=== PATIENT | male | born 1955 | race Hispanic/Latino ===

== ENCOUNTER 2017-01-14 15:13 | Inpatient (IN) | payer MEDICARE, MEDICAID ==
[2017-01-14] MEDS ORDERED: Furosemide 40 MG/4 ML VIAL IVPUSH ONE (15:43)
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
--- NOTE | 2017-01-14 16:17 | CR ---
EXAMINATION: Portable chest radiograph. HISTORY: Shortness of breath. FINDINGS: The trachea is midline. The cardiomediastinal silhouette is within normal limits. No pulmonary infil trates, effusions or pneumothorax. There is a left-sided ICD noted. Osseous structures appear unremarkable. IMPRESSION: No acute cardiopulmonary process.
[2017-01-14] MEDS ORDERED: Sodium Chloride 0.9% 250 ML IV ONE (17:02)
[2017-01-14] MEDS ORDERED: Ondansetron 4 MG Tab.DIS PO PRN (17:32)
[2017-01-14] MEDS ORDERED: Albuterol 0.083% 2.5 MG/3 ML Neb Soln NEB PRN (17:32)
[2017-01-14] MEDS ORDERED: Acetaminophen 325 MG Tab PO PRN (17:32)
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
[2017-01-14] MEDS ORDERED: Potassium Chloride 20 MEQ Tab.ER PO ONE (17:50)
[2017-01-14] MEDS: Furosemide 40 MG/4 ML VIAL IVPUSH SCH ×2 (18:06→20:36)
[2017-01-14] MEDS: Tamsulosin 0.4 MG Cap.ER PO SCH (20:35)
[2017-01-14] MEDS: Gabapentin 300 MG Cap PO SCH (20:35)
[2017-01-14] MEDS: atorvaSTATin 40 MG Tab PO SCH (20:35)
[2017-01-14] MEDS: Ticagrelor [Brilinta] 90 MG PO SCH (20:53)
[2017-01-14] MEDS: SYMBICORT INH SCH (20:54)
[2017-01-14] MEDS: Insulin Glargine,Human Rec. Analog 100 Units/ML 3 ML Pen SUBCUT SCH (20:54)
[2017-01-14] MEDS ORDERED: Carvedilol 3.125 MG Tab PO SCH (21:00)
[2017-01-15] MEDS: Insulin Aspart 100 Units/ML 3 ML Pen SUBCUT SCH ×3 (07:09→16:57)
[2017-01-15] MEDS: Potassium Chloride 20 MEQ Tab.ER PO SCH (09:00)
[2017-01-15] MEDS: Gabapentin 300 MG Cap PO SCH ×2 (09:00→20:07)
[2017-01-15] MEDS ORDERED: Isosorbide Mononitrate 30 MG Tab.ER PO SCH (09:00)
[2017-01-15] MEDS: Aspirin 81 MG Tab.EC PO SCH (09:00)
[2017-01-15] MEDS: Furosemide 40 MG/4 ML VIAL IVPUSH SCH ×2 (09:00→20:07)
[2017-01-15] MEDS ORDERED: Potassium Chloride 20 MEQ Tab.ER PO SCH (09:00)
[2017-01-15] MEDS ORDERED: Lisinopril 10 MG Tab PO SCH (09:00)
[2017-01-15] MEDS: Spironolactone 25 MG Tab PO SCH (09:00)
[2017-01-15] MEDS: Insulin Glargine,Human Rec. Analog 100 Units/ML 3 ML Pen SUBCUT SCH ×2 (09:01→20:16)
[2017-01-15] MEDS: Ticagrelor [Brilinta] 90 MG PO SCH ×2 (09:02→20:18)
--- NOTE | 2017-01-15 09:55 | PCM.PN ---
- General Info Date of Service: 01/15/17 Admission Dx/Problem (Free Text): Admission Diagnosis/Problem Admission Diagnosis/Problem CHF, Congestive heart failure Subjective Update: Patient reports no new acute concerns this morning and states that his breathing is better. He notes that the edema in his legs bilaterally is improved as well. He has no pain in his legs. Patient did have an episode of left-sided chest pain that lasted 2-3 seconds last night. He was given Tylenol for pain relief. Initial troponins done in the ER were negative. No EKG was ordered as his pain resolved on its on and has not returned. Patient denies any headaches, dizziness, chest pain, palpitations, shortness of breath, wheezing, cough, abdominal pain, nausea, vomiting, constipation, diarrhea, fever, dysuria , hematuria, calf tenderness with palpation. Functional Status: Reports: pain controlled, tolerating diet, ambulating - Review of Systems General: Reports: No Symptoms HEENT: Reports: no symptoms Pulmonary: Reports: shortness of breath (Improving) Cardiovascular: Reports: Edema (Bilateral lower extremity edema is improving.) Gastrointestinal: Reports: No symptoms Genitourinary: Reports: no symptoms Musculoskeletal: Reports: no symptoms Skin: Reports: no symptoms Neurological: Reports: No Symptoms Psychiatric: Reports: no symptoms - Patient Data Vitals - most recent: Last Vital Signs Temp 98.2 F 01/15/17 07:57 Pulse 60 01/15/17 07:57 Resp 20 01/15/17 07:57 BP 113/69 01/15/17 07:57 Pulse Ox 98 01/15/17 07:52 Weight - most recent: 289 lb 14.526 oz I&O - last 24 hours: Intake & Output 01/14/17 01/15/17 01/15/17 22:59 06:59 14:59 Intake Total 960 Output Total 1950 Balance -990 Lab Results last 24 hrs: Laboratory Results - last 24 hr 01/14/17 01/15/17 01/15/17 Range/Units 20:45 04:29 04:29 WBC 7.01 (4.0-11.0) K/uL RBC 4.13 L (4.50-5.90) M/uL Hgb 9.0 L (13.0-17.0) g/dL Hct 29.1 L (38.0-50.0) % MCV 70.5 L (80.0-98.0) fL MCH 21.8 L (27.0-32.0) pg MCHC 30.9 L (31.0-37.0) g/dL RDW Std Deviation 52.6 (28.0-62.0) fl RDW Coeff of [place] 21 H (11.0-15.0) % Plt Count 207 (150-400) K/uL MPV 9.00 (7.40-12.00) fL Neut % (Auto) 77.3 (48.0-80.0) % Lymph % (Auto) 11.6 L (16.0-40.0) % [place] % (Auto) 9.0 (0.0-15.0) % Eos % (Auto) 2.0 (0.0-7.0) % Baso % (Auto) 0.1 (0.0-1.5) % Neut # (Auto) 5.4 (1.4-5.7) K/uL Lymph # (Auto) 0.8 (0.6-2.4) K/uL [place] # (Auto) 0.6 (0.0-0.8) K/uL Eos # (Auto) 0.1 (0.0-0.7) K/uL Baso # (Auto) 0.0 (0.0-0.1) K/uL Nucleated RBC % 0.0 /100WBC Nucleated RBCs # 0 K/uL Sodium 139 (136-146) mmol/L Potassium 3.7 (3.5-5.1) mmol/L Chloride 106 (98-110) mmol/L Carbon Dioxide 23 (21-31) mmol/L BUN 22 (6.0-23.0) mg/dL Creatinine 1.4 (0.6-1.5) mg/dL Est Cr Clr Drug Dosing 61.53 mL/min Estimated GFR (MDRD) 51.4 ml/min Glucose 168 H (60-110) mg/dL POC Glucose 160 H (60-110) mg/dL Calcium 8.3 L (8.8-10.8) mg/dL Magnesium 2.0 (1.5-2.3) mEq/L 01/15/17 Range/Units 06:17 WBC (4.0-11.0) K/uL RBC (4.50-5.90) M/uL Hgb (13.0-17.0) g/dL Hct (38.0-50.0) % MCV (80.0-98.0) fL MCH (27.0-32.0) pg MCHC (31.0-37.0) g/dL RDW Std Deviation (28.0-62.0) fl RDW Coeff of [place] (11.0-15.0) % Plt Count (150-400) K/uL MPV (7.40-12.00) fL Neut % (Auto) (48.0-80.0) % Lymph % (Auto) (16.0-40.0) % [place] % (Auto) (0.0-15.0) % Eos % (Auto) (0.0-7.0) % Baso % (Auto) (0.0-1.5) % Neut # (Auto) (1.4-5.7) K/uL Lymph # (Auto) (0.6-2.4) K/uL [place] # (Auto) (0.0-0.8) K/uL Eos # (Auto) (0.0-0.7) K/uL Baso # (Auto) (0.0-0.1) K/uL Nucleated RBC % /100WBC Nucleated RBCs # K/uL Sodium (136-146) mmol/L Potassium (3.5-5.1) mmol/L Chloride (98-110) mmol/L Carbon Dioxide (21-31) mmol/L BUN (6.0-23.0) mg/dL Creatinine (0.6-1.5) mg/dL Est Cr Clr Drug Dosing mL/min Estimated GFR (MDRD) ml/min Glucose (60-110) mg/dL POC Glucose 153 H (60-110) mg/dL Calcium (8.8-10.8) mg/dL Magnesium (1.5-2.3) mEq/L Med Orders - Current: Current Medications Acetaminophen (Tylenol) 650 mg PO Q4H PRN PRN Reason: Pain (Mild 1-3)/fever Last Admin: 01/15/17 02:22 Dose: 650 mg Albuterol (Proventil Neb Soln) 2.5 mg NEB Q2H PRN PRN Reason: Shortness Of Breath/wheezing Aspirin (Halfprin) 81 mg PO DAILY [facility] Last Admin: 01/15/17 09:00 Dose: 81 mg Atorvastatin Calcium (Lipitor) 80 mg PO BEDTIME [facility] Last Admin: 01/14/17 20:35 Dose: 80 mg Furosemide (Lasix) 40 mg IVPUSH BID [facility] Last Admin: 01/15/17 09:00 Dose: 40 mg Gabapentin (Neurontin) 600 mg PO BID [facility] Last Admin: 01/15/17 09:00 Dose: 600 mg Insulin Aspart (Novolog) 0 unit SUBCUT TIDAC [facility] PRN Reason: Protocol Last Admin: 01/15/17 07:09 Dose: 2 units Insulin Glargine (Lantus Solostar) 40 units SUBCUT BID [facility] Last Admin: 01/15/17 09:01 Dose: 40 units Ondansetron HCl (Zofran Odt) 4 mg PO Q4H PRN PRN Reason: nausea, able to take PO Symbicort 160-4.5mcg (Budesonide/Formoterol) 1 each INH BID [facility] Last Admin: 01/14/17 20:54 Dose: 1 each Ticagrelor [Brilinta (] 90 Mg) 1 each PO BID [facility] Last Admin: 01/15/17 09:02 Dose: 1 each Potassium Chloride (Klor-Con M20) 20 meq PO DAILY [facility] Last Admin: 01/15/17 09:00 Dose: 20 meq Spironolactone (Aldactone) 25 mg PO DAILY [facility] Last Admin: 01/15/17 09:00 Dose: 25 mg Tamsulosin HCl (Flomax) 0.4 mg PO BEDTIME [facility] Last Admin: 01/14/17 20:35 Dose: 0.4 mg Discontinued Medications Carvedilol (Coreg) 6.25 mg PO BID [facility] Furosemide (Lasix) 40 mg IVPUSH NOW ONE Stop: 01/14/17 15:44 Last Admin: 01/14/17 16:12 Dose: 40 mg Isosorbide Mononitrate (Imdur) 30 mg PO DAILY [facility] Lisinopril (Prinivil) mg PO DAILY [facility] Potassium Chloride (Klor-Con M20) 40 meq PO ONETIME ONE Stop: 01/14/17 17:51 Last Admin: 01/14/17 18:05 Dose: 40 meq Potassium Chloride (Klor-Con M20) 20 meq PO DAILY [facility] - Exam Quality Assessment: supplemental oxygen (2 L nasal cannula at night while sleeping. Does not require oxygen during the day.), DVT prophylaxis (Sequential compression devices.) General: alert, oriented, cooperative, no acute distress Neck: supple Lungs: Clear to auscultation, Normal respiratory effort Cardiovascular: Regular Rate, Regular Rhythm Abdomen: bowel sounds present, soft, no tenderness, no distension Extremities: no calf tenderness, edema (+2 pitting edema in the lower extremities bilaterally.) Peripheral Pulses: 2+: radial (L), radial (R) Skin: warm, dry, intact Neurological: no new focal deficit Psy/Mental Status: alert, normal affect, normal mood - Problem List & Annotations (1) CHF exacerbation SNOMED Code(s): 24080769 Code(s): I50.9 - HEART FAILURE, UNSPECIFIED Status: Acute Current Visit: Yes (2) Elevated alkaline phosphatase level Status: Acute Current Visit: Yes - Problem List Review Problem List Initiated/Reviewed/Updated: Yes - My Orders Last 24 Hours: My Active Orders 01/14/17 17:32 Patient Status [ADT] Routine Blood Glucose Check, Bedside [RC] TIDMEALS Height and Weight [RC] DAILY Oxygen Therapy [RC] PRN Up With Assistance [RC] ASDIRECTED VTE/DVT Education [RC] PER UNIT ROUTINE Vital Signs [RC] Q4H PT Evaluation and Treatment [CONS] Routine Acetaminophen [Tylenol] 650 mg PO Q4H PRN Albuterol [Proventil Neb Soln] 2.5 mg NEB Q2H PRN Ondansetron [Zofran ODT] 4 mg PO Q4H PRN Resuscitation Status Routine 01/14/17 17:34 Intake and Output [RC] QSHIFT Notify Provider Vital Signs [RC] ASDIRECTED Pulse Oximetry [RC] PRN 01/14/17 17:35 Sequential Compression Device [OM.PC] Per Unit Routine 01/14/17 17:37 Antiembolic Devices [RC] PER UNIT ROUTINE RT Aerosol Therapy [RC] ASDIRECTED 01/14/17 17:45 Furosemide [Lasix] 40 mg IVPUSH BID 01/14/17 21:00 Gabapentin [Neurontin] 600 mg PO BID Insulin Glarg,Human.Rec.Analog [LantUS Solostar] 40 units SUBCUT BID Patient's Own Medication [Ptom] 1 each INH BID Patient's Own Medication [Ptom] 1 each PO BID Tamsulosin [Flomax] 0.4 mg PO BEDTIME atorvaSTATin [Lipitor] 80 mg PO BEDTIME 01/15/17 07:03 Echo Comp wo Cont [US] Routine 01/15/17 07:30 Insulin Aspart [NovoLOG] See Protocol SUBCUT TIDAC 01/15/17 08:10 Abdomen Ltd [US] Routine 01/15/17 09:00 Aspirin [Halfprin] 81 mg PO DAILY Potassium Chloride [Klor-Con M20] 20 meq PO DAILY Spironolactone [Aldactone] 25 mg PO DAILY 01/16/17 05:11 BASIC METABOLIC PANEL,BMP [CHEM] AM CBC WITH AUTO DIFF [HEME] AM MAGNESIUM [CHEM] AM 01/17/17 05:11 BASIC METABOLIC PANEL,BMP [CHEM] AM CBC WITH AUTO DIFF [HEME] AM MAGNESIUM [CHEM] AM - Plan Plan:: 61-year-old male admitted with a CHF exacerbation. #1. CHF exacerbation: -Continue with Lasix 40 mg IV twice a day. -Patient received echo this morning. Results pending. -Electrolytes and kidney function are within normal limits. Daily BMP to follow electrolytes and kidney function. -BNP on admission was 1214. #2. Elevated ALP: -ALP is 267. Total bilirubin is also elevated. AST and ALT are within normal limits. I reviewed blood work from previous admissions and ALP has always been within normal limits. Patient is not having any right upper quadrant pain. -Right upper quadrant ultrasound ordered. Results pending. Disposition: 1-2 days pending improvement.
[2017-01-15] MEDS: SYMBICORT INH SCH ×2 (10:37→21:08)
--- NOTE | 2017-01-15 16:34 | US ---
EXAMINATION: Right upper quadrant ultrasound HISTORY: Elevated ALP COMPARISON: None TECHNIQUE: Grayscale and color Doppler images obtained of the right upper quadrant FINDINGS: The liver has normal to slightly increased in generalized echotexture. No focal hepatic ma ss. The gallbladder wall appears mildly thickened at 3 to 4 mm. There is possibly a trace pericholec ystic fluid. No shadowing gallstones noted. The common bile duct measures 3 mm. The right kidney fior sures 10.7 cm [id number] without evidence of hydronephrosis. IMPRESSION: 1. Mild gallbladder wall thickening without cholelithiasis. Negative Garibay's sign. 2. Trace fatty infiltration of the liver.
[2017-01-15] MEDS: Tamsulosin 0.4 MG Cap.ER PO SCH (20:07)
[2017-01-15] MEDS: atorvaSTATin 40 MG Tab PO SCH (20:07)
[2017-01-16] MEDS: Insulin Aspart 100 Units/ML 3 ML Pen SUBCUT SCH ×2 (07:15→12:56)
[2017-01-16] MEDS: Aspirin 81 MG Tab.EC PO SCH (08:30)
[2017-01-16] MEDS: Potassium Chloride 20 MEQ Tab.ER PO SCH (08:30)
[2017-01-16] MEDS: Ticagrelor [Brilinta] 90 MG PO SCH (08:30)
[2017-01-16] MEDS: Gabapentin 300 MG Cap PO SCH (08:30)
[2017-01-16] MEDS: Furosemide 40 MG/4 ML VIAL IVPUSH SCH (08:30)
[2017-01-16] MEDS: Spironolactone 25 MG Tab PO SCH (08:30)
[2017-01-16] MEDS: Insulin Glargine,Human Rec. Analog 100 Units/ML 3 ML Pen SUBCUT SCH (08:31)
[2017-01-16] MEDS: SYMBICORT INH SCH (09:04)
[2017-01-16 11:50] VITALS: BP 121/76
--- NOTE | 2017-01-16 14:38 | PCM.DCSUM1 ---
Discharge Summary - Hospital Course Brief History: Was admitted from the emergency department for a clinical worsening of congestive heart failure. - Discharge Data Discharge Date: 01/16/17 Discharge Disposition: Home, Self-Care 01 Condition: Good - Patient Summary/Data Consults: Consultations 01/14/17 17:32 PT Evaluation and Treatment [CONS] Routine Hospital Course: He was treated with extra doses of loop diuretics (Lasix ). He improved clinically. Because he had an elevated alkaline phosphatase a right upper quadrant ultrasound was performed this showed a trace of gallbladder wall thickening without cholelithiasis. He had trace fatty liver noted on ultrasound also. Echocardiogram showed LVEF of 20-25%. Also noted was akinesis of the septal apical and apical septal left ventricular zavala. The remaining wall segments are severely hypokinetic. Severely dilated left atrium. Right ventricular systolic pressure moderately elevated at 44.2 mm mercury. His blood sugars were monitored. Sliding scale insulin was given. diagnosis: Exacerbation of congestive heart failure followup with Dr. Silva on January 21. Followup with his correctional nurse within the next week or 2. Copies of chart to go to his correctional nurse . He is being sent home on his prior medications. No new prescriptions written for him. Leon Gonzalez - Discharge Plan Home Medications: Home Meds Aspirin [Halfprin] 81 mg PO DAILY 09/29/15 [History] Insulin Aspart [NovoLOG] 0 units SUBCUT ASDIRECTED 09/29/15 [History] Insulin Glarg,Human.Rec.Analog [Lantus] 40 unit SUBCUT BID 09/29/15 [History] Tamsulosin [Flomax] 0.4 mg PO BEDTIME 09/29/15 [History] Ticagrelor [Brilinta] 90 mg PO BID 09/29/15 [History] Gabapentin [Neurontin] 600 mg PO BID 01/02/16 [History] atorvaSTATin Calcium [Atorvastatin Calcium] 80 mg PO BEDTIME 01/02/16 [History] Furosemide 40 mg PO QPM 01/14/17 [History] Furosemide 80 mg PO QAM 01/14/17 [History] Spironolactone [Aldactone] 25 mg PO DAILY 01/14/17 [History] cloNIDine [Catapres] 0.1 mg PO TID PRN 01/14/17 [History] Patient Handouts: Heart Failure, [id number] Forms: ED Department Discharge Referrals: PCP,None [Primary Care Provider] - - General Info Date of Service: 01/16/17 - Patient Data Vitals - Most Recent: Last Vital Signs Temp 97.9 F 01/16/17 11:49 Pulse 66 01/16/17 11:49 Resp 20 01/16/17 11:49 BP 121/76 01/16/17 11:49 Pulse Ox 98 01/16/17 11:49 Weight - Most Recent: 131.5 kg I&O - Last 24 hours: Intake & Output 01/15/17 01/16/17 01/16/17 22:59 06:59 14:59 Intake Total 1100 1420 Output Total 1350 1950 Balance -250 -530 Lab Results - Last 24 hrs: Laboratory Results - last 24 hr 01/15/17 01/15/17 01/16/17 Range/Units 16:39 20:13 05:35 WBC 6.76 (4.0-11.0) K/uL RBC 4.33 L (4.50-5.90) M/uL Hgb 9.0 L (13.0-17.0) g/dL Hct 30.7 L (38.0-50.0) % MCV 70.9 L (80.0-98.0) fL MCH 20.8 L (27.0-32.0) pg MCHC 29.3 L (31.0-37.0) g/dL RDW Std Deviation 52.9 (28.0-62.0) fl RDW Coeff of [place] 20 H (11.0-15.0) % Plt Count 188 (150-400) K/uL MPV 8.90 (7.40-12.00) fL Neut % (Auto) 78.5 (48.0-80.0) % Lymph % (Auto) 9.6 L (16.0-40.0) % [place] % (Auto) 9.2 (0.0-15.0) % Eos % (Auto) 2.4 (0.0-7.0) % Baso % (Auto) 0.3 (0.0-1.5) % Neut # (Auto) 5.3 (1.4-5.7) K/uL Lymph # (Auto) 0.7 (0.6-2.4) K/uL [place] # (Auto) 0.6 (0.0-0.8) K/uL Eos # (Auto) 0.2 (0.0-0.7) K/uL Baso # (Auto) 0.0 (0.0-0.1) K/uL Nucleated RBC % 0.0 /100WBC Nucleated RBCs # 0 K/uL Sodium (136-146) mmol/L Potassium (3.5-5.1) mmol/L Chloride (98-110) mmol/L Carbon Dioxide (21-31) mmol/L BUN (6.0-23.0) mg/dL Creatinine (0.6-1.5) mg/dL Est Cr Clr Drug Dosing mL/min Estimated GFR (MDRD) ml/min Glucose (60-110) mg/dL POC Glucose 153 H 229 H (60-110) mg/dL Calcium (8.8-10.8) mg/dL Magnesium (1.5-2.3) mEq/L 01/16/17 01/16/17 Range/Units 05:35 06:40 WBC (4.0-11.0) K/uL RBC (4.50-5.90) M/uL Hgb (13.0-17.0) g/dL Hct (38.0-50.0) % MCV (80.0-98.0) fL MCH (27.0-32.0) pg MCHC (31.0-37.0) g/dL RDW Std Deviation (28.0-62.0) fl RDW Coeff of [place] (11.0-15.0) % Plt Count (150-400) K/uL MPV (7.40-12.00) fL Neut % (Auto) (48.0-80.0) % Lymph % (Auto) (16.0-40.0) % [place] % (Auto) (0.0-15.0) % Eos % (Auto) (0.0-7.0) % Baso % (Auto) (0.0-1.5) % Neut # (Auto) (1.4-5.7) K/uL Lymph # (Auto) (0.6-2.4) K/uL [place] # (Auto) (0.0-0.8) K/uL Eos # (Auto) (0.0-0.7) K/uL Baso # (Auto) (0.0-0.1) K/uL Nucleated RBC % /100WBC Nucleated RBCs # K/uL Sodium 138 (136-146) mmol/L Potassium 3.9 (3.5-5.1) mmol/L Chloride 106 (98-110) mmol/L Carbon Dioxide 23 (21-31) mmol/L BUN 21 (6.0-23.0) mg/dL Creatinine 1.3 (0.6-1.5) mg/dL Est Cr Clr Drug Dosing 66.27 mL/min Estimated GFR (MDRD) 55.9 ml/min Glucose 239 H (60-110) mg/dL POC Glucose 216 H (60-110) mg/dL Calcium 8.4 L (8.8-10.8) mg/dL Magnesium 1.8 (1.5-2.3) mEq/L Med Orders - Current: Current Medications Acetaminophen (Tylenol) 650 mg PO Q4H PRN PRN Reason: Pain (Mild 1-3)/fever Last Admin: 01/15/17 02:22 Dose: 650 mg Albuterol (Proventil Neb Soln) 2.5 mg NEB Q2H PRN PRN Reason: Shortness Of Breath/wheezing Aspirin (Halfprin) 81 mg PO DAILY [facility] Last Admin: 01/16/17 08:30 Dose: 81 mg Atorvastatin Calcium (Lipitor) 80 mg PO BEDTIME [facility] Last Admin: 01/15/17 20:07 Dose: 80 mg Furosemide (Lasix) 40 mg IVPUSH BID [facility] Last Admin: 01/16/17 08:30 Dose: 40 mg Gabapentin (Neurontin) 600 mg PO BID [facility] Last Admin: 01/16/17 08:30 Dose: 600 mg Insulin Aspart (Novolog) 0 unit SUBCUT TIDAC [facility] PRN Reason: Protocol Last Admin: 01/16/17 12:56 Dose: 2 units Insulin Glargine (Lantus Solostar) 40 units SUBCUT BID [facility] Last Admin: 01/16/17 08:31 Dose: 40 units Ondansetron HCl (Zofran Odt) 4 mg PO Q4H PRN PRN Reason: nausea, able to take PO Symbicort 160-4.5mcg (Budesonide/Formoterol) 1 each INH BID [facility] Last Admin: 01/16/17 09:04 Dose: 1 each Ticagrelor [Brilinta (] 90 Mg) 1 each PO BID [facility] Last Admin: 01/16/17 08:30 Dose: 1 each Potassium Chloride (Klor-Con M20) 20 meq PO DAILY [facility] Last Admin: 01/16/17 08:30 Dose: 20 meq Spironolactone (Aldactone) 25 mg PO DAILY [facility] Last Admin: 01/16/17 08:30 Dose: 25 mg Tamsulosin HCl (Flomax) 0.4 mg PO BEDTIME [facility] Last Admin: 01/15/17 20:07 Dose: 0.4 mg Discontinued Medications Carvedilol (Coreg) 6.25 mg PO BID [facility] Furosemide (Lasix) 40 mg IVPUSH NOW ONE Stop: 01/14/17 15:44 Last Admin: 01/14/17 16:12 Dose: 40 mg Isosorbide Mononitrate (Imdur) 30 mg PO DAILY [facility] Lisinopril (Prinivil) mg PO DAILY [facility] Potassium Chloride (Klor-Con M20) 40 meq PO ONETIME ONE Stop: 01/14/17 17:51 Last Admin: 01/14/17 18:05 Dose: 40 meq Potassium Chloride (Klor-Con M20) 20 meq PO DAILY [facility] *Q Meaningful Use (DIS) - VTE *Q VTE Criteria *Q: - Stroke *Q Stroke Criteria *Q: - AMI *Q AMI Criteria *Q:
--- NOTE | 2017-01-18 11:46 | ECHO ---
EXAM DATE: 01/14/17 The echocardiogram report can be seen in this patient's EMR (Electronic Medical Record) in the Reports section. [email or web address]
== END 2017-01-16 15:30 | disposition home or self-care (01) | DRG 293 ==
LOC: MW.ED 15:13 → MW.MS 16:57
PROVIDERS: ADMIT Family Medicine; ATTEND Family Medicine
DX: I50.9 Heart failure, unspecified (principal); R74.8 Abnormal levels of other serum enzymes; I25.2 Old myocardial infarction; I25.10 Atherosclerotic heart disease of native coronary artery without angina pectoris; E78.5 Hyperlipidemia, unspecified; I10 Essential (primary) hypertension; E11.9 Type 2 diabetes mellitus without complications; J44.9 Chronic obstructive pulmonary disease, unspecified; Z79.82 Long term (current) use of aspirin; Z79.4 Long term (current) use of insulin; Z79.899 Other long term (current) drug therapy; Z95.5 Presence of coronary angioplasty implant and graft; Z95.0 Presence of cardiac pacemaker; Z87.891 Personal history of nicotine dependence
CPT/HCPCS: 36415; 71010; 80053; 83880; 84484; 85025; 85610; 93005; 96374; 99285; J1940; 76705; 76705-26; 80048; 82962; 83735; 93306; 94640; A9270-GY; J1815-GY

== ENCOUNTER → 2017-01-19 | Outpatient (CLI) | payer OTHER, MEDICAID, MEDICARE | END | disposition home or self-care (01) | LOC: MW.CHRC 16:24 | PROVIDERS: ATTEND Family Medicine | DX: E11.29 Type 2 diabetes mellitus with other diabetic kidney complication (principal); R80.9 Proteinuria, unspecified; R74.8 Abnormal levels of other serum enzymes | CPT/HCPCS: 36415; 80053; 80061; 82044; 83036; 85025 ==

== ENCOUNTER → 2017-01-20 | Outpatient (CLI) | payer MEDICAID, OTHER | LOC: MW.CHRC 15:39 | PROVIDERS: ATTEND Family Medicine | DX: D50.9 Iron deficiency anemia, unspecified (principal) | CPT/HCPCS: 36415; 82728; 83550 ==

== ENCOUNTER → 2017-02-12 | Outpatient (CLI) | payer MEDICAID, OTHER ==
--- NOTE | 2017-02-12 13:42 | NM ---
EXAMINATION: Nuclear medicine hepatobiliary study (HIDA) with cholecystokinin (calculation of gallbl adder ejection fraction for function). HISTORY: Elevated liver enzymes. PROCEDURE: Following intravenous administration of 3.6 mCi of technetium 99m Choletec, dynamic images were ob tained up to one-hour post injection. This is followed by slow intravenous administration of 2.5 mcg of CCK and additional dynamic images were obtained. Gallbladder ejection fraction is calculated. FINDINGS: The initial dynamic images demonstrates clearance of the tracer from the blood pool with the prompt tracer uptake by the liver. By 20 minutes tracer activity is noted in the gallbladder. The post CCK images demonstrates optimal contraction of the gallbladder with ejection fraction of 86 percent (nor mal is equal or more than 35%). Tracer activity is noted in the small intestine following CCK admini stration. IMPRESSION: 1. Patent cystic and common bile ducts. Normal liver function. 2. Normal gallbladder ejection fraction following CCK administration ( 86 %; normal equal or more t rayo 35%).
== END ==
LOC: MW.NM 09:31
PROVIDERS: ATTEND Family Medicine
DX: R74.8 Abnormal levels of other serum enzymes (principal)
CPT/HCPCS: 78227; A9537; J2805

== ENCOUNTER 2017-07-11 14:09 | Inpatient (IN) | payer MEDICARE, OTHER, MEDICAID ==
[2017-07-11] MEDS ORDERED: LORazepam 2 MG/ML MDV IVPUSH ONE (14:12)
[2017-07-11] MEDS ORDERED: Sodium Chloride 0.9% 1,000 ML IV ONE (14:13)
--- NOTE | 2017-07-11 14:14 | EDM.PDOC ---
ED HPI GENERAL MEDICAL PROBLEM - General Stated Complaint: SHAKING;SLURRED SPEECH;DISORENTATIED Time Seen by Provider: 07/11/17 14:14 Source of Information: Reports: Patient - History of Present Illness INITIAL COMMENTS - FREE TEXT/NARRATIVE: HISTORY AND PHYSICAL: History of present illness: []Patient presents by private vehicle Has a history of [place] and stroke multiple stents placed, who presents with somewhat altered mental status/confusion and upper extremity tremor/shaking.. His daughter states that he was normal at breakfast which was 6:30 AM this morning between 8 and 10 he developed some nausea and headache and went to his bedroom, around noon his granddaughter went to check on him and found him in this somewhat altered state, slow to repond, slurred speach. he is AOx3 and is able to assist in transferring himself from a wheelchair to the bed. His daughter relates he has had symptoms like this in the past prior to his stroke, and he does have some anxiety in which he can get these symptoms as well , lorazepam generally helps with these symptoms. No fever vomiting chills sweats chest pain short of breath dizziness or palpitations no bowel or urine symptoms Review of systems: As per history of present illness and below otherwise all systems reviewed and negative. Past medical history: As per history of present illness and as reviewed below otherwise noncontributory. Surgical history: As per history of present illness and as reviewed below otherwise noncontributory. Social history: No reported history of drug or alcohol abuse. Family history: As per history of present illness and as reviewed below otherwise noncontributory. Physical exam: HEENT: Atraumatic, normocephalic, pupils reactive, negative for conjunctival pallor or scleral icterus, mucous membranes moist, throat clear, neck supple, nontender, trachea midline. Lungs: Clear to auscultation, breath sounds equal bilaterally, chest nontender. Heart: S1S2, regular, negative for clicks, rubs, or JVD. Abdomen: Soft, nondistended, nontender. Negative for masses or hepatosplenomegaly. Negative for costovertebral tenderness. Pelvis: Stable nontender. Genitourinary: Deferred. Rectal: Deferred. Extremities: Atraumatic, negative for cords or calf pain. Neurovascular unremarkable. Neuro: Awake, alert, oriented. Cranial nerves II through XII unremarkable. Cerebellum unremarkable. Motor and sensory unremarkable throughout. Exam nonfocal. Diagnostics: Accu-Chek 371 []Lab as below EKG Chest [address] no contrast-verbal report via radiology no acute disease ABG Therapeutics: []1 L normal saline bolus Ativan 1 mg IV Regular insulin 10 units IV Impression: []Confusion/altered mental status Upper extremity tremor/shaking improved with Ativan He does have a history of transient adjustment disorder with anxiety. Chronic history of baseline Definitive disposition and diagnosis as appropriate pending reevaluation and review of above. - Related Data Allergies Allergy/AdvReac Type Severity Reaction Status Date / Time No Known Allergies Allergy Verified 04/23/16 14:37 Home Meds: Home Meds Aspirin [Halfprin] 81 mg PO DAILY 09/29/15 [History] Insulin Aspart [NovoLOG] 0 units SUBCUT ASDIRECTED 09/29/15 [History] Insulin Glarg,Human.Rec.Analog [Lantus] 40 unit SUBCUT BID 09/29/15 [History] Tamsulosin [Flomax] 0.4 mg PO BEDTIME 09/29/15 [History] Ticagrelor [Brilinta] 90 mg PO BID 09/29/15 [History] Gabapentin [Neurontin] 600 mg PO BID 01/02/16 [History] atorvaSTATin Calcium [Atorvastatin Calcium] 80 mg PO BEDTIME 01/02/16 [History] Furosemide 40 mg PO QPM 01/14/17 [History] Furosemide 80 mg PO QAM 01/14/17 [History] Spironolactone [Aldactone] 25 mg PO DAILY 01/14/17 [History] cloNIDine [Catapres] 0.1 mg PO TID PRN 01/14/17 [History] Past Medical History HEENT History: Reports: None Cardiovascular History: Reports: None, Heart Failure, Hypertension, Pacemaker Respiratory History: Reports: None, COPD Other Respiratory History: CPAP Gastrointestinal History: Reports: None Genitourinary History: Reports: None, BPH Musculoskeletal History: Reports: None Neurological History: Reports: None, Other (See Below) Other Neuro History: stroke Psychiatric History: Reports: None Endocrine/Metabolic History: Reports: None, Diabetes, Type II Hematologic History: Reports: None Immunologic History: Reports: None Oncologic (Cancer) History: Reports: None Dermatologic History: Reports: None - Infectious Disease History Infectious Disease History: Reports: None - Past Surgical History GI Surgical History: Reports: Other (See Below) Social & Family History - Family History Family Medical History: Noncontributory HEENT: Reports: None Cardiac: Reports: None Respiratory: Reports: None GI: Reports: None : Reports: None OBGYN: Reports: None Musculoskeletal: Reports: None Neurological: Reports: None Endocrine/Metabolic: Reports: Diabetes, type II Oncologic: Reports: Colon - Tobacco Use Smoking Status *Q: Former Smoker Years of Tobacco use: 18 Packs/Tins Daily: 1 Used Tobacco, but Quit: Yes Month Tobacco Last Used: 20 yrs ago Second Hand Smoke Exposure: Yes - Caffeine Use Caffeine Use: Reports: Coffee - Recreational Drug Use Recreational Drug Use: No ED ROS GENERAL - Review of Systems Review Of Systems: ROS reveals no pertinent complaints other than HPI. ED EXAM, GENERAL - Physical Exam Exam: See Below Course - Vital Signs Last Recorded V/S: Last Vital Signs Temp 36.1 C 07/11/17 14:17 Pulse 64 07/11/17 15:12 Resp 22 H 07/11/17 14:42 BP 119/82 07/11/17 15:12 Pulse Ox 99 07/11/17 14:57 - Orders/Labs/Meds Orders: Active Orders 24 hr Category Date Time Status EKG Documentation Completion [RC] STAT Care 07/11/17 14:13 Active Abdomen Pelvis w Cont [CT] Stat Exams 07/11/17 14:31 Stop Req Chest 1V Frontal [CR] Stat Exams 07/11/17 14:13 Taken Head wo Cont [CT] Stat Exams 07/11/17 14:13 Taken AMMONIA VENOUS [CHEM] Stat Lab 07/11/17 15:04 Received CKMB [CHEM] Stat Lab 07/11/17 15:01 Ordered CREATINE KINASE,CK [CHEM] Stat Lab 07/11/17 15:01 Ordered CULTURE BLOOD [BC] Stat Lab 07/11/17 15:04 Received CULTURE BLOOD [BC] Stat Lab 07/11/17 15:12 Received UA W/MICROSCOPIC [URIN] Stat Lab 07/11/17 14:13 Ordered Blood Culture x2 Reflex Set [OM.PC] Stat Oth 07/11/17 14:51 Ordered Labs: Laboratory Tests 07/11/17 07/11/17 07/11/17 Range/Units 14:13 14:30 14:30 WBC 6.66 (4.0-11.0) K/uL RBC 5.46 (4.50-5.90) M/uL Hgb 14.8 (13.0-17.0) g/dL Hct 43.9 (38.0-50.0) % MCV 80.4 (80.0-98.0) fL MCH 27.1 (27.0-32.0) pg MCHC 33.7 (31.0-37.0) g/dL RDW Std Deviation 48.4 (28.0-62.0) fl RDW Coeff of [place] 17 H (11.0-15.0) % Plt Count 141 L (150-400) K/uL MPV 9.50 (7.40-12.00) fL Neut % (Auto) 75.6 (48.0-80.0) % Lymph % (Auto) 14.1 L (16.0-40.0) % [place] % (Auto) 7.8 (0.0-15.0) % Eos % (Auto) 2.3 (0.0-7.0) % Baso % (Auto) 0.2 (0.0-1.5) % Neut # (Auto) 5.0 (1.4-5.7) K/uL Lymph # (Auto) 0.9 (0.6-2.4) K/uL [place] # (Auto) 0.5 (0.0-0.8) K/uL Eos # (Auto) 0.2 (0.0-0.7) K/uL Baso # (Auto) 0.0 (0.0-0.1) K/uL Nucleated RBC % 0.0 /100WBC Nucleated RBCs # 0 K/uL INR (0.86-1.11) ABG pH (7.35-7.45) ABG pCO2 (35-45) mmHG ABG pO2 (75-100) mmHG ABG HCO3 (22-26) mEq/L ABG Total CO2 ABG Base Excess (-2.0-2.0) Lactate (0.20-2.00) mmol/L Sodium 134 L (136-146) mmol/L Potassium 4.0 (3.5-5.1) mmol/L Chloride 100 (98-110) mmol/L Carbon Dioxide 22 (21-31) mmol/L BUN 35 H (6.0-23.0) mg/dL Creatinine 1.6 H (0.6-1.5) mg/dL Est Cr Clr Drug Dosing 54.10 mL/min Estimated GFR (MDRD) 44.0 ml/min Glucose 354 H (60-110) mg/dL Calcium 9.1 (8.8-10.8) mg/dL Total Bilirubin 1.4 (0.1-1.5) mg/dL AST 23 (5-40) IU/L ALT 37 (8-54) IU/L Alkaline Phosphatase 289 H (40-150) Troponin I (0.0-0.29) NG/ML B-Natriuretic Peptide (<100) PG/ML Total Protein 8.1 H (6.0-8.0) g/dL Albumin 3.7 (3.4-4.8) g/dL Globulin 4.4 H (2.0-3.5) g/dL Albumin/Globulin Ratio 0.8 L (1.3-2.8) Urine Opiates Screen NEGATIVE (NEGATIVE) Ur Oxycodone Screen NEGATIVE (NEGATIVE) Urine Methadone Screen NEGATIVE (NEGATIVE) Ur Barbiturates Screen NEGATIVE (NEGATIVE) Ur Phencyclidine Scrn NEGATIVE (NEGATIVE) Ur Amphetamine Screen NEGATIVE (NEGATIVE) U Methamphetamines Scrn NEGATIVE (NEGATIVE) U Benzodiazepines Scrn NEGATIVE (NEGATIVE) U Cocaine Metab Screen NEGATIVE (NEGATIVE) U Marijuana (THC) Screen NEGATIVE (NEGATIVE) Ethyl Alcohol < 10.0 mg/dL 07/11/17 07/11/17 07/11/17 Range/Units 14:30 14:30 14:30 WBC (4.0-11.0) K/uL RBC (4.50-5.90) M/uL Hgb (13.0-17.0) g/dL Hct (38.0-50.0) % MCV (80.0-98.0) fL MCH (27.0-32.0) pg MCHC (31.0-37.0) g/dL RDW Std Deviation (28.0-62.0) fl RDW Coeff of [place] (11.0-15.0) % Plt Count (150-400) K/uL MPV (7.40-12.00) fL Neut % (Auto) (48.0-80.0) % Lymph % (Auto) (16.0-40.0) % [place] % (Auto) (0.0-15.0) % Eos % (Auto) (0.0-7.0) % Baso % (Auto) (0.0-1.5) % Neut # (Auto) (1.4-5.7) K/uL Lymph # (Auto) (0.6-2.4) K/uL [place] # (Auto) (0.0-0.8) K/uL Eos # (Auto) (0.0-0.7) K/uL Baso # (Auto) (0.0-0.1) K/uL Nucleated RBC % /100WBC Nucleated RBCs # K/uL INR 1.04 (0.86-1.11) ABG pH (7.35-7.45) ABG pCO2 (35-45) mmHG ABG pO2 (75-100) mmHG ABG HCO3 (22-26) mEq/L ABG Total CO2 ABG Base Excess (-2.0-2.0) Lactate (0.20-2.00) mmol/L Sodium (136-146) mmol/L Potassium (3.5-5.1) mmol/L Chloride (98-110) mmol/L Carbon Dioxide (21-31) mmol/L BUN (6.0-23.0) mg/dL Creatinine (0.6-1.5) mg/dL Est Cr Clr Drug Dosing mL/min Estimated GFR (MDRD) ml/min Glucose (60-110) mg/dL Calcium (8.8-10.8) mg/dL Total Bilirubin (0.1-1.5) mg/dL AST (5-40) IU/L ALT (8-54) IU/L Alkaline Phosphatase (40-150) Troponin I < 0.10 (0.0-0.29) NG/ML B-Natriuretic Peptide 564 H (<100) PG/ML Total Protein (6.0-8.0) g/dL Albumin (3.4-4.8) g/dL Globulin (2.0-3.5) g/dL Albumin/Globulin Ratio (1.3-2.8) Urine Opiates Screen (NEGATIVE) Ur Oxycodone Screen (NEGATIVE) Urine Methadone Screen (NEGATIVE) Ur Barbiturates Screen (NEGATIVE) Ur Phencyclidine Scrn (NEGATIVE) Ur Amphetamine Screen (NEGATIVE) U Methamphetamines Scrn (NEGATIVE) U Benzodiazepines Scrn (NEGATIVE) U Cocaine Metab Screen (NEGATIVE) U Marijuana (THC) Screen (NEGATIVE) Ethyl Alcohol mg/dL 07/11/17 07/11/17 Range/Units 15:00 15:04 WBC (4.0-11.0) K/uL RBC (4.50-5.90) M/uL Hgb (13.0-17.0) g/dL Hct (38.0-50.0) % MCV (80.0-98.0) fL MCH (27.0-32.0) pg MCHC (31.0-37.0) g/dL RDW Std Deviation (28.0-62.0) fl RDW Coeff of [place] (11.0-15.0) % Plt Count (150-400) K/uL MPV (7.40-12.00) fL Neut % (Auto) (48.0-80.0) % Lymph % (Auto) (16.0-40.0) % [place] % (Auto) (0.0-15.0) % Eos % (Auto) (0.0-7.0) % Baso % (Auto) (0.0-1.5) % Neut # (Auto) (1.4-5.7) K/uL Lymph # (Auto) (0.6-2.4) K/uL [place] # (Auto) (0.0-0.8) K/uL Eos # (Auto) (0.0-0.7) K/uL Baso # (Auto) (0.0-0.1) K/uL Nucleated RBC % /100WBC Nucleated RBCs # K/uL INR (0.86-1.11) ABG pH 7.450 (7.35-7.45) ABG pCO2 37 (35-45) mmHG ABG pO2 114 H (75-100) mmHG ABG HCO3 26 (22-26) mEq/L ABG Total CO2 22.5 ABG Base Excess 2.0 (-2.0-2.0) Lactate 0.9 (0.20-2.00) mmol/L Sodium (136-146) mmol/L Potassium (3.5-5.1) mmol/L Chloride (98-110) mmol/L Carbon Dioxide (21-31) mmol/L BUN (6.0-23.0) mg/dL Creatinine (0.6-1.5) mg/dL Est Cr Clr Drug Dosing mL/min Estimated GFR (MDRD) ml/min Glucose (60-110) mg/dL Calcium (8.8-10.8) mg/dL Total Bilirubin (0.1-1.5) mg/dL AST (5-40) IU/L ALT (8-54) IU/L Alkaline Phosphatase (40-150) Troponin I (0.0-0.29) NG/ML B-Natriuretic Peptide (<100) PG/ML Total Protein (6.0-8.0) g/dL Albumin (3.4-4.8) g/dL Globulin (2.0-3.5) g/dL Albumin/Globulin Ratio (1.3-2.8) Urine Opiates Screen (NEGATIVE) Ur Oxycodone Screen (NEGATIVE) Urine Methadone Screen (NEGATIVE) Ur Barbiturates Screen (NEGATIVE) Ur Phencyclidine Scrn (NEGATIVE) Ur Amphetamine Screen (NEGATIVE) U Methamphetamines Scrn (NEGATIVE) U Benzodiazepines Scrn (NEGATIVE) U Cocaine Metab Screen (NEGATIVE) U Marijuana (THC) Screen (NEGATIVE) Ethyl Alcohol mg/dL Meds: Medications Discontinued Medications Generic Name Dose Route Start Last Admin Trade Name Freq PRN Reason Stop Dose Admin Sodium Chloride 1,000 mls @ 999 mls/hr 07/11/17 14:13 07/11/17 14:54 Normal Saline IV 07/11/17 15:13 999 mls/hr STAT ONE Administration Insulin Human Regular 10 unit 07/11/17 14:43 07/11/17 15:07 Novolin R IVPUSH 07/11/17 14:44 10 units ONETIME ONE Administration Protocol Lorazepam 1 mg 07/11/17 14:12 07/11/17 15:08 Ativan IVPUSH 07/11/17 14:13 1 mg ONETIME ONE Administration Departure - Departure Time of Disposition: 15:36 Disposition: Refer to Observation Condition: Fair Clinical Impression: Altered mental status - Discharge Information - My Orders Last 24 Hours: My Active Orders 07/11/17 14:13 EKG Documentation Completion [RC] STAT Chest 1V Frontal [CR] Stat Head wo Cont [CT] Stat UA W/MICROSCOPIC [URIN] Stat 07/11/17 14:51 Blood Culture x2 Reflex Set [OM.PC] Stat 07/11/17 15:01 CKMB [CHEM] Stat CREATINE KINASE,CK [CHEM] Stat 07/11/17 15:04 AMMONIA VENOUS [CHEM] Stat CULTURE BLOOD [BC] Stat 07/11/17 15:12 CULTURE BLOOD [BC] Stat - Assessment/Plan Last 24 Hours: My Active Orders 07/11/17 14:13 EKG Documentation Completion [RC] STAT Chest 1V Frontal [CR] Stat Head wo Cont [CT] Stat UA W/MICROSCOPIC [URIN] Stat 07/11/17 14:51 Blood Culture x2 Reflex Set [OM.PC] Stat 07/11/17 15:01 CKMB [CHEM] Stat CREATINE KINASE,CK [CHEM] Stat 07/11/17 15:04 AMMONIA VENOUS [CHEM] Stat CULTURE BLOOD [BC] Stat 07/11/17 15:12 CULTURE BLOOD [BC] Stat
[2017-07-11] MEDS ORDERED: Insulin Regular, Human 100 Units/ML 10 ML Vial IVPUSH ONE (14:43)
--- NOTE | 2017-07-11 14:49 | PCM.SN ---
- Free Text/Narrative Note: Called by ER doctor as nursing has been unable to obtain PIV access on the patient. Dr Garvey is requesting 2 PIV's at this time. 20g PIV started to the left wrist, secured with tape and tegaderm. 18g PIV started to Rt FA, secured with tape and tegaderm. Pt tolerated all placements well.
[2017-07-11 15:02] LABS: CHLORIDE,CL 100 mmol/L (98-110); SODIUM,NA 134 mmol/L (136-146)
--- NOTE | 2017-07-11 16:20 | PCM.HP ---
<Baluch,Salvador - Last Filed: 07/11/17 18:38> H&P History of Present Illness - General Date of Service: 07/11/17 Admit Problem/Dx: Admission Diagnosis/Problem Admission Diagnosis/Problem Altered mental status Source of Information: Patient, Family History Limitations: Reports: Physical Impairment - History of Present Illness Initial Comments - Free Text/Narative: 61 year old male is admitted for altered mental status, generalized tremors, weakness and gait disturbance. He is currently present with his who is helping with history. Patient has history of DM, CAD, VA, PCI with multiple stents, HFrEF with EF 20-25%, COPD & idiopathic elevated ALP with GB Wall thickening. According to patients he was doing totally fine unt this morning. He had breakfast at 8-10 am. Then he decided to go upstairs to his room. His daughter went up at noon to check on him and found him to have confusion, tremors, slurred speech and difficulty walking. She decided to then bring him to the ED. CT in ED was negative for stroke. According to he had a stroke 9 years ago and presented the same way where his initial Ct was negative for stroke but then the MRI revealed stroke. Patient himself complains of pain sensation in the back of his neck and head which he feels is the source of his tremors. It somewhat responds to Ativan. He denies any alcohol use for 25 years. BAL in ED was negative. He had a 18 pack year smoking history but quit 20 years ago. He has had idiopathic elevated ALP and GB wall thickening which was worked up in the past but no cause was established. He denies any abdominal pain, nausea or vomiting. According to , the patients family has a history of non-alcoholic liver cirrhosis of which several members have from. His home medications which are currently unconfirmed include ASA, Lantus 40 BID, Insulin sliding scale, Atorvastatin, Brilinta, Lasix 80 mg AM & 40 mg PM , Spironolactone 25 mg QD & Clonidine. - Related Data Allergies/Adverse Reactions: Allergies Allergy/AdvReac Type Severity Reaction Status Date / Time No Known Allergies Allergy Verified 04/23/16 14:37 Home Medications: Home Meds Aspirin [Halfprin] 81 mg PO DAILY 09/29/15 [History] Insulin Aspart [NovoLOG] 0 units SUBCUT ASDIRECTED 09/29/15 [History] Insulin Glarg,Human.Rec.Analog [Lantus] 40 unit SUBCUT BID 09/29/15 [History] Tamsulosin [Flomax] 0.4 mg PO BEDTIME 09/29/15 [History] Ticagrelor [Brilinta] 90 mg PO BID 09/29/15 [History] Gabapentin [Neurontin] 600 mg PO BID 01/02/16 [History] atorvaSTATin Calcium [Atorvastatin Calcium] 80 mg PO BEDTIME 01/02/16 [History] Furosemide 40 mg PO QPM 01/14/17 [History] Furosemide 80 mg PO QAM 01/14/17 [History] Spironolactone [Aldactone] 25 mg PO DAILY 01/14/17 [History] cloNIDine [Catapres] 0.1 mg PO TID PRN 01/14/17 [History] Past Medical History HEENT History: Reports: None Cardiovascular History: Reports: None, Heart Failure, Hypertension, Pacemaker Respiratory History: Reports: None, COPD Other Respiratory History: CPAP Gastrointestinal History: Reports: None Genitourinary History: Reports: None, BPH Musculoskeletal History: Reports: None Neurological History: Reports: None, Other (See Below) Other Neuro History: stroke Psychiatric History: Reports: None Endocrine/Metabolic History: Reports: None, Diabetes, Type II Hematologic History: Reports: None Immunologic History: Reports: None Oncologic (Cancer) History: Reports: None Dermatologic History: Reports: None - Infectious Disease History Infectious Disease History: Reports: None - Past Surgical History GI Surgical History: Reports: Other (See Below) Social & Family History - Family History Family Medical History: Noncontributory HEENT: Reports: None Cardiac: Reports: None Respiratory: Reports: None GI: Reports: None : Reports: None OBGYN: Reports: None Musculoskeletal: Reports: None Neurological: Reports: None Endocrine/Metabolic: Reports: Diabetes, type II Oncologic: Reports: Colon - Tobacco Use Smoking Status *Q: Former Smoker Years of Tobacco use: 18 Packs/Tins Daily: 1 Used Tobacco, but Quit: Yes Month Tobacco Last Used: 20 yrs ago Second Hand Smoke Exposure: Yes - Caffeine Use Caffeine Use: Reports: Coffee - Recreational Drug Use Recreational Drug Use: No H&P Review of Systems - Review of Systems: Review Of Systems: See Below General: Reports: Weakness HEENT: Reports: No Symptoms Pulmonary: Reports: No Symptoms Cardiovascular: Reports: Lightheadedness Gastrointestinal: Reports: No Symptoms Genitourinary: Reports: No Symptoms Musculoskeletal: Reports: Neck Pain Skin: Reports: No Symptoms Psychiatric: Reports: No Symptoms Neurological: Reports: Headache, Tremors, Trouble Speaking, Difficulty Walking, Weakness, Change in Speech, Gait Disturbance Exam - Exam Exam: See Below - Vital Signs Vital Signs: Last Vital Signs Temp 36.1 C 07/11/17 14:17 Pulse 64 07/11/17 16:00 Resp 24 H 07/11/17 16:00 BP 120/82 07/11/17 16:00 Pulse Ox 100 07/11/17 16:00 Weight: 113.398 kg - Exam Quality Assessment: Supplemental Oxygen General: Alert, Oriented, Cooperative, Other (diffuse tremors, slurred speech) HEENT: Hearing Intact, Mucosa Moist & [place], Posterior Pharynx Clear, Pupils Equal, Pupils Reactive, Scleral Icterus (mild scleral icterus ) Neck: Supple, Trachea Midline, +2 Carotid Pulse wo Bruit, Full Range of Motion. No: Lymphadenopathy Lungs: Crackles, Rales, Other (symmetric) Cardiovascular: Regular Rate, Regular Rhythm GI/Abdominal Exam: Normal Bowel Sounds, Soft, Non-Tender, No Distention. No: Hepatomegaly, Splenomegaly Back Exam: Normal Inspection (unable to assess remainder due to diffuse body tremors ), Other Extremities: Normal Range of Motion, Non-Tender, No Pedal Edema, Other (stasis dermatitis of BL LE) Peripheral Pulses: 2+: Dorsalis Pedis (L), Dorsalis Pedis (R) Skin: Warm, Dry, Intact Neurological: Cranial Nerves Intact, Strength Equal Bilateral, Normal Gait, Sensation Intact (fine touch and vibration intact ), Hyporeflexia, Abnormal Gait (ataxia), Other (babinski normal ). No: Normal Speech (slurred, delayed ) Neuro Extensive - Mental Status: Alert, Oriented x3, Normal Mood/Affect, Normal Cognition, Memory Intact Neuro Extensive - Motor, Sensory, Reflexes: Ataxia, Abnormal Finger to Nose, Abnormal Heel to [place]. No: Tongue Deviation (L), Tongue Deviation (R), Facial palsy (L), Facial Palsy (R) DTR: 0: Bicep (L), Bicep (R), Tricep (L), Tricep (R), Patella (L), Patella (R), Achilles (L), Achilles (R) Psychiatric: Alert, Normal Affect, Normal Mood - Patient Data Result Diagrams: 07/11/17 14:30 07/11/17 14:30 *Q Meaningful Use (ADM) - VTE *Q VTE Criteria *Q: - Stroke *Q Stroke Criteria *Q: - AMI *Q AMI Criteria *Q: Problem List Initiated/Reviewed/Updated: Yes Assessment/Plan Comment:: 61 year old male with history of HTN, CHF, Pacemaker, COPD, DM T2, Anxiety admitted for altered mental status & generalized tremors. EKG/Troponin/CT Head wo contrast all negative. 1. Generalized Tremors 2. Generalized Weakness 3. Slurred Speech 4. Neck Pain 4. Elevated Ammonia, 90 5. Elevated Alk Phos, 289 6. Hyperglycemia, 354 7. Pseudohyponatremia 8. Elevated CK-Mb 9. Elevated BNP 10. PMH HFrEF, EF 20-25% 11. PMH CAD/VA/PCI 12. PMH DM T2 13. PMH Anxiety 14. FH of Non-Alcoholic Liver Cirrhosis 15. Acute Kidney Injury Plan: 1. For PMH CAD/VA/PCI/HFrEF/Elevated BNP: Telemetry. Troponin x6yothb x3. Daily Weight. Strict I&O. Hold Anti-hypertensive medications until stroke is r/o. Resume home Atorvastatin. Resume home Brilinta. Echo when available. 2. For Tremors/Weakness/Slurred Speech/Neck Pain: CIWA Protocol. Ativan PRN. Allow permissive HTN until MRI is obtained. Aspirin 325 mg Daily. MRI Brain/C- spine & MRa Neck when available. Carotid Duplex US when available. Order Mg level. 3. For elevated Ammonia/elevated alk phos/family history of liver cirrhosis: Patient has normal AST/ALT/BR/PT today and had normal HIDA scan this year & RUQ US from this year showing fatty infiltration of Liver. Order CT Abdomen wo contrast now. Will consider Liver Bx in AM. Order CRP/ESR. 4. For GAYLE: Start IV NS. monitor BUN/Cr 5. For Hyperglycemia & DM T2: Resume home Lantus 40 units SC BID. Start Insulin sliding scale TIDAC. 6. For Anxiety: Ativan PRN. Hold home Clonidine until CVA ruled out. <Timmy Mosley - Last Filed: 07/11/17 21:13> H&P History of Present Illness - General Admit Problem/Dx: Admission Diagnosis/Problem Admission Diagnosis/Problem Altered mental status Exam - Vital Signs Vital Signs: Last Vital Signs Temp 36.8 C 07/11/17 20:00 Pulse 64 07/11/17 20:00 Resp 20 07/11/17 20:00 BP 107/73 07/11/17 20:00 Pulse Ox 99 07/11/17 20:00 - Patient Data Result Diagrams: 07/11/17 14:30 07/11/17 14:30 *Q Meaningful Use (ADM) - VTE *Q VTE Criteria *Q: - Stroke *Q Stroke Criteria *Q: - AMI *Q AMI Criteria *Q: Orders Last 24hrs: Active Orders 24 hr Category Date Time Status Patient Status [ADT] Routine ADT 07/11/17 17:03 Active Antiembolic Devices [RC] PER UNIT ROUTINE Care 07/11/17 17:11 Active Blood Glucose Check, Bedside [RC] TIDMEALS Care 07/11/17 17:03 Active CIWAA Assessment [RC] Q4H Care 07/11/17 17:03 Active Height and Weight [RC] DAILY Care 07/11/17 17:03 Active Insert Urinary Catheter [OM.PC] Q24H Care 07/11/17 17:15 Ordered Insert Urinary Catheter [OM.PC] Q24H Care 07/12/17 17:15 Ordered Insert Urinary Catheter [OM.PC] Q24H Care 07/13/17 17:15 Ordered Insert Urinary Catheter [OM.PC] Q24H Care 07/14/17 17:15 Ordered Insert Urinary Catheter [OM.PC] Q24H Care 07/15/17 17:15 Ordered Insert Urinary Catheter [OM.PC] Q24H Care 07/16/17 17:15 Ordered Insert Urinary Catheter [OM.PC] Q24H Care 07/17/17 17:15 Ordered Insert Urinary Catheter [OM.PC] Q24H Care 07/18/17 17:15 Ordered Insert Urinary Catheter [OM.PC] Q24H Care 07/19/17 17:15 Ordered Insert Urinary Catheter [OM.PC] Q24H Care 07/20/17 17:15 Ordered Intake and Output [RC] QSHIFT Care 07/11/17 17:08 Active Oxygen Therapy [RC] PRN Care 07/11/17 17:03 Active Telemetry Monitoring [Cardiac Monitoring] [RC] Q8H Care 07/11/17 16:25 Active Up With Assistance [RC] ASDIRECTED Care 07/11/17 17:03 Active Urinary Catheter Assessment [RC] ASDIRECTED Care 07/11/17 17:24 Active VTE/DVT Education [RC] PER UNIT ROUTINE Care 07/11/17 17:03 Active Vital Signs [RC] Q4H Care 07/11/17 17:03 Active ADA Diabetic [[place] [employer] Diet] [DIET Diet 07/11/17 Dinner Active ] [place] [employer] Diet [DIET] Diet 07/11/17 Dinner Active Abdomen Pelvis wo Cont [CT] Routine Exams 07/11/17 17:03 Taken Ang Neck wo Cont [MR] Routine Exams 07/11/17 18:36 Ordered Brain w wo Cont [MR] Routine Exams 07/11/17 18:35 Ordered C-Spine [Cervical Spine Comp w Cont] [MR] Routine Exams 07/11/17 18:36 Ordered CV Carotid Duplex Ltd [US] Routine Exams 07/11/17 17:38 Taken Echo Comp wo Cont [US] Routine Exams 07/11/17 17:03 Taken AMMONIA VENOUS [CHEM] Routine Lab 07/11/17 17:03 Ordered C-REACTIVE PROTEIN [CHEM] AM Lab 07/12/17 05:11 Ordered CBC WITH AUTO DIFF [HEME] AM Lab 07/12/17 05:11 Ordered CBC WITH AUTO DIFF [HEME] AM Lab 07/13/17 05:11 Ordered CBC WITH AUTO DIFF [HEME] AM Lab 07/14/17 05:11 Ordered CBC WITH AUTO DIFF [HEME] AM Lab 07/15/17 05:11 Ordered CBC WITH AUTO DIFF [HEME] AM Lab 07/16/17 05:11 Ordered CBC WITH AUTO DIFF [HEME] AM Lab 07/17/17 05:11 Ordered CBC WITH AUTO DIFF [HEME] AM Lab 07/18/17 05:11 Ordered CBC WITH AUTO DIFF [HEME] AM Lab 07/19/17 05:11 Ordered CBC WITH AUTO DIFF [HEME] AM Lab 07/20/17 05:11 Ordered CBC WITH AUTO DIFF [HEME] AM Lab 07/21/17 05:11 Ordered CKMB [CHEM] AM Lab 07/12/17 05:11 Ordered CKMB [CHEM] AM Lab 07/13/17 05:11 Ordered CKMB [CHEM] AM Lab 07/14/17 05:11 Ordered CKMB [CHEM] AM Lab 07/15/17 05:11 Ordered CKMB [CHEM] AM Lab 07/16/17 05:11 Ordered CKMB [CHEM] AM Lab 07/17/17 05:11 Ordered CKMB [CHEM] AM Lab 07/18/17 05:11 Ordered CKMB [CHEM] AM Lab 07/19/17 05:11 Ordered CKMB [CHEM] AM Lab 07/20/17 05:11 Ordered CKMB [CHEM] AM Lab 07/21/17 05:11 Ordered COMPREHENSIVE METABOLIC PN,CMP [CHEM] AM Lab 07/12/17 05:11 Ordered COMPREHENSIVE METABOLIC PN,CMP [CHEM] AM Lab 07/13/17 05:11 Ordered COMPREHENSIVE METABOLIC PN,CMP [CHEM] AM Lab 07/14/17 05:11 Ordered COMPREHENSIVE METABOLIC PN,CMP [CHEM] AM Lab 07/15/17 05:11 Ordered COMPREHENSIVE METABOLIC PN,CMP [CHEM] AM Lab 07/16/17 05:11 Ordered COMPREHENSIVE METABOLIC PN,CMP [CHEM] AM Lab 07/17/17 05:11 Ordered COMPREHENSIVE METABOLIC PN,CMP [CHEM] AM Lab 07/18/17 05:11 Ordered COMPREHENSIVE METABOLIC PN,CMP [CHEM] AM Lab 07/19/17 05:11 Ordered COMPREHENSIVE METABOLIC PN,CMP [CHEM] AM Lab 07/20/17 05:11 Ordered COMPREHENSIVE METABOLIC PN,CMP [CHEM] AM Lab 07/21/17 05:11 Ordered MAGNESIUM [CHEM] AM Lab 07/12/17 05:11 Ordered MAGNESIUM [CHEM] AM Lab 07/13/17 05:11 Ordered MAGNESIUM [CHEM] AM Lab 07/14/17 05:11 Ordered MAGNESIUM [CHEM] AM Lab 07/15/17 05:11 Ordered MAGNESIUM [CHEM] AM Lab 07/16/17 05:11 Ordered MAGNESIUM [CHEM] AM Lab 07/17/17 05:11 Ordered MAGNESIUM [CHEM] AM Lab 07/18/17 05:11 Ordered MAGNESIUM [CHEM] AM Lab 07/19/17 05:11 Ordered MAGNESIUM [CHEM] AM Lab 07/20/17 05:11 Ordered MAGNESIUM [CHEM] AM Lab 07/21/17 05:11 Ordered PROTEIN ELECTROPHORESIS, SERUM [REF] Routine Lab 07/11/17 17:03 Ordered SEDIMENTATION RATE AUTO [HEME] AM Lab 07/12/17 05:11 Ordered Enoxaparin [Lovenox] Med 07/13/17 09:00 Active 40 mg SUBCUT DAILY Insulin Aspart [NovoLOG] Med 07/11/17 20:00 Active See Protocol SUBCUT TIDAC LORazepam [Ativan] Med 07/11/17 20:25 Ordered 2 mg IVPUSH Q2H PRN Ondansetron [Zofran] Med 07/11/17 17:03 Active 4 mg IVPUSH Q4H PRN Sodium Chloride 0.9% [Normal Saline] 1,000 ml Med 07/11/17 17:15 Active IV ASDIRECTED Ticagrelor [Brilinta] Med 07/11/17 21:00 Pending 90 mg PO BID atorvaSTATin [Lipitor] Med 07/11/17 21:00 Active 80 mg PO BEDTIME Sequential Compression Device [OM.PC] Per Unit Routine Oth 07/11/17 17:08 Ordered Resuscitation Status Routine Resus Stat 07/11/17 17:03 Ordered Medication Orders Atorvastatin Calcium (Lipitor) 80 mg PO BEDTIME LUIZA Enoxaparin Sodium (Lovenox) 40 mg SUBCUT DAILY LUIZA Sodium Chloride (Normal Saline) 1,000 mls @ 125 mls/hr IV ASDIRECTED LUIZA Last Admin: 07/11/17 18:16 Dose: 125 mls/hr Insulin Aspart (Novolog) 0 unit SUBCUT TIDAC LUIZA PRN Reason: Protocol Lorazepam (Ativan) 2 mg IVPUSH Q2H PRN PRN Reason: anxiety/agitation/tremor Non-Formulary Medication (Ticagrelor [Brilinta]) 90 mg PO BID LUIZA Ondansetron HCl (Zofran) 4 mg IVPUSH Q4H PRN PRN Reason: Nausea - Free Text/Narrative Note: Dr. Mosley writes: I have talked at length with this patient and his and have examined him and witnessed part of Dr. Watts's neuro exam. I have discussed this patient's exam and data with Dr. Watts and I concur with his assessments and plans. I have discussed at length with the patient's what we see in the patient's condition and his lack of full confirming symptoms. She has expressed that she would like him transfered to [place]. I have explained to her that to accomplish a transfer, I have to have an accepting doctor for a problem that we are unable to care for here. At present, we will have an MRI tomorrow and will potentially have a neurology consult. His liver status needs to be clarified. It is possible that a liver biopsy may be needed and I believe his will ask for that to be done in [place] when we discuss it being done.
[2017-07-11] MEDS ORDERED: Ondansetron 4 MG/2 ML SDV IVPUSH PRN (17:03)
[2017-07-11] MEDS ORDERED: LORazepam 2 MG/ML MDV IVPUSH PRN ×2 (17:03)
[2017-07-11] MEDS: Sodium Chloride 0.9% 1,000 ML IV SCH (18:16)
[2017-07-11] MEDS: atorvaSTATin 40 MG Tab PO SCH (21:28)
[2017-07-11] MEDS: LORazepam 2 MG/ML MDV IVPUSH PRN (21:29)
[2017-07-11] MEDS: Insulin Aspart 100 Units/ML 3 ML Pen SUBCUT SCH (21:35)
[2017-07-12] MEDS: Sodium Chloride 0.9% 1,000 ML IV SCH ×2 (03:10→17:15)
[2017-07-12] MEDS: LORazepam 2 MG/ML MDV IVPUSH PRN ×2 (03:14→06:55)
--- NOTE | 2017-07-12 05:44 | PCM.PN ---
<Mac,Salvador - Last Filed: 07/12/17 09:12> - General Info Date of Service: 07/12/17 Admission Dx/Problem (Free Text): Admission Diagnosis/Problem Admission Diagnosis/Problem Altered mental status Subjective Update: Patient is less tremulous today. His speech is slightly less slurred but it is still delayed. He is still weak and is unable to get up off the bed on his own or walk without walker. He denies any vision loss, trouble swallowing, sensory loss, sob, chest pain, abdominal pain, nausea, vomiting, headache, fever, chills. He refused browne yesterday. He is still receiving Ativan 2 mg IV every 2 hours. - Review of Systems General: Reports: Weakness HEENT: Reports: No Symptoms Pulmonary: Reports: No Symptoms Cardiovascular: Reports: No Symptoms Gastrointestinal: Reports: No Symptoms Genitourinary: Reports: No Symptoms Musculoskeletal: Reports: Neck Pain Skin: Reports: No Symptoms Neurological: Reports: Confusion, Dizziness, Tremors, Trouble Speaking, Difficulty Walking, Weakness Psychiatric: Reports: No Symptoms - Patient Data Vitals - Most Recent: Last Vital Signs Temp 36.3 C 07/12/17 04:00 Pulse 64 07/12/17 04:00 Resp 20 07/12/17 04:00 BP 105/72 07/12/17 04:00 Pulse Ox 97 07/12/17 04:00 Weight - Most Recent: 131.451 kg I&O - Last 24 Hours: Intake & Output 07/11/17 07/11/17 07/12/17 14:59 22:59 06:59 Intake Total 2073 Output Total 550 Balance 1523 Lab Results Last 24 Hours: Laboratory Results - last 24 hr 07/11/17 07/12/17 Range/Units 21:17 04:56 WBC 6.56 (4.0-11.0) K/uL RBC 5.25 (4.50-5.90) M/uL Hgb 14.0 (13.0-17.0) g/dL Hct 42.9 (38.0-50.0) % MCV 81.7 (80.0-98.0) fL MCH 26.7 L (27.0-32.0) pg MCHC 32.6 (31.0-37.0) g/dL RDW Std Deviation 50.6 (28.0-62.0) fl RDW Coeff of [place] 17 H (11.0-15.0) % Plt Count 136 L (150-400) K/uL MPV 9.20 (7.40-12.00) fL Neut % (Auto) 75.8 (48.0-80.0) % Lymph % (Auto) 14.3 L (16.0-40.0) % Davie % (Auto) 7.8 (0.0-15.0) % Eos % (Auto) 1.8 (0.0-7.0) % Baso % (Auto) 0.3 (0.0-1.5) % Neut # (Auto) 5.0 (1.4-5.7) K/uL Lymph # (Auto) 0.9 (0.6-2.4) K/uL Davie # (Auto) 0.5 (0.0-0.8) K/uL Eos # (Auto) 0.1 (0.0-0.7) K/uL Baso # (Auto) 0.0 (0.0-0.1) K/uL Nucleated RBC % 0.0 /100WBC Nucleated RBCs # 0 K/uL ESR 29 H (0-19) mm/hr POC Glucose 144 H (60-110) mg/dL Med Orders - Current: Current Medications Atorvastatin Calcium (Lipitor) 80 mg PO BEDTIME [facility] Last Admin: 07/11/17 21:28 Dose: 80 mg Enoxaparin Sodium (Lovenox) 40 mg SUBCUT DAILY [facility] Sodium Chloride (Normal Saline) 1,000 mls @ 125 mls/hr IV ASDIRECTED [facility] Last Admin: 07/12/17 03:10 Dose: 125 mls/hr Insulin Aspart (Novolog) 0 unit SUBCUT TIDAC [facility] PRN Reason: Protocol Last Admin: 07/11/17 21:35 Dose: Not Given Lorazepam (Ativan) 2 mg IVPUSH Q2H PRN PRN Reason: anxiety/agitation/tremor Last Admin: 07/12/17 03:14 Dose: 2 mg Non-Formulary Medication (Ticagrelor [Brilinta]) 90 mg PO BID [facility] Ondansetron HCl (Zofran) 4 mg IVPUSH Q4H PRN PRN Reason: Nausea Discontinued Medications Sodium Chloride (Normal Saline) 1,000 mls @ 999 mls/hr IV STAT ONE Stop: 07/11/17 15:13 Last Admin: 07/11/17 14:54 Dose: 999 mls/hr Insulin Human Regular (Novolin R) 10 unit IVPUSH ONETIME ONE PRN Reason: Protocol Stop: 07/11/17 14:44 Last Admin: 07/11/17 15:07 Dose: 10 units Lorazepam (Ativan) 1 mg IVPUSH ONETIME ONE Stop: 07/11/17 14:13 Last Admin: 07/11/17 15:08 Dose: 1 mg Lorazepam (Ativan) 2 mg IVPUSH Q4H PRN PRN Reason: CIWA>10 Lorazepam (Ativan) 1 mg IVPUSH Q2H PRN PRN Reason: anxiety/agitation/tremor Last Admin: 07/11/17 18:10 Dose: 1 mg - Exam Quality Assessment: Supplemental Oxygen General: Cooperative, Mild Distress, Other (Patient is still slow to respond to questioning. Generalized tremors improved. ) HEENT: Pupils Equal, Pupils Reactive, Other (BL Conjunctival injection) Neck: Supple, No JVD, +2 Carotid Pulse wo Bruit Lungs: Decreased Breath Sounds (BL mid lung and bases ), Crackles GI/Abdominal Exam: Normal Bowel Sounds, Soft, Non-Tender, No Distention. No: Guarding, Rigid, Rebound Extremities: Non-Tender, No Pedal Edema Peripheral Pulses: 2+: Carotid (L), Carotid (R) Neurological: No New Focal Deficit, Other (CN Intact, positive rhomberg, ataxia , delayed speech, diminished reflexes throughout, muscle strength 5/5 throughout but movements are delayed, sensation to vibration and fine touch intact.) Psy/Mental Status: Normal Mood - Problem List Review Problem List Initiated/Reviewed/Updated: Yes - My Orders Last 24 Hours: My Active Orders 07/11/17 17:38 CV Carotid Duplex Ltd [US] Routine 07/11/17 18:35 Brain w wo Cont [MR] Routine 07/11/17 18:36 Ang Neck wo Cont [MR] Routine C-Spine [Cervical Spine Comp w Cont] [MR] Routine 07/11/17 20:00 Insulin Aspart [NovoLOG] See Protocol SUBCUT TIDAC 07/11/17 20:25 LORazepam [Ativan] 2 mg IVPUSH Q2H PRN 07/11/17 21:00 Ticagrelor [Brilinta] 90 mg PO BID atorvaSTATin [Lipitor] 80 mg PO BEDTIME 07/12/17 00:16 Intake and Output Strict [RC] Q4HR 07/12/17 04:56 GAMMA GLUTAMYL TRANSFERASE,GGT [CHEM] AM LACTATE DEHYDROGENASE,LDH [CHEM] AM - Plan Plan:: 61 year old male with history of HTN, CHF, Pacemaker, COPD, DM T2, Anxiety admitted for altered mental status & generalized tremors. EKG/Troponin/CT Head wo contrast all negative. 1. Generalized Weakness 1. Generalized Tremors, improving, on Ativan 2 mg IV [id number] PRN 3. Slurred Speech, improving 4. Neck Pain, improving 4. Elevated Ammonia, improving 5. Elevated Alk Phos, chronic 6. Elevated GGT, 573 7. Elevated ESR, 29 8. Hyperglycemia, on insulin 9. Pseudohyponatremia, corrected 10. Elevated CK-Mb 11. Elevated BNP 12. PMH HFrEF, EF 20-25% 13. PMH CAD/SC/PCI 14. PMH DM T2 15. PMH Anxiety 16. FH of Non-Alcoholic Liver Cirrhosis 17. Acute Kidney Injury, resolved Plan: 1. For PMH CAD/SC/PCI/HFrEF/Elevated BNP: Telemetry. Daily Weight. Strict I&O. on Atorvastatin. on Brilinta. Echocardiogram performed yesterday, awating results. hold home antihypertensive medications & home Lasix due to low bp. give Lasix 40 mg IV single dose due to pulmonary congestion on auscultation. 2. For Tremors/Weakness/Slurred Speech/Neck Pain: CIWA Protocol. Ativan PRN. on Brilinta BID. Carotid Duplex US negative. Unable to perform MRI due to Pacemaker. Order CT Head with Contrast. Neuro consult. 3. For elevated Ammonia/elevated alk phos/family history of liver cirrhosis: AST /ALT/BR/PT/LDH normal. GGT Elevated. HIDA scan this year & RUQ US from this year showing fatty infiltration of Liver. CT Abdomen wo contrast from yesterday shows no acute changes. Will consider Liver Bx. 4. For GAYLE: resolved. Cr back to normal range. continue to monitor. 5. For Hyperglycemia & DM T2: Resume home Lantus 40 units SC BID. Start Insulin sliding scale TIDAC. 6. For Anxiety: Ativan PRN. <Timmy Mosley - Last Filed: 07/12/17 13:55> - Patient Data Vitals - Most Recent: Last Vital Signs Temp 36.4 C 07/12/17 12:00 Pulse 73 07/12/17 12:00 Resp 97 H 07/12/17 12:00 BP 146/86 H 07/12/17 12:00 Pulse Ox 2 L 07/12/17 12:00 I&O - Last 24 Hours: Intake & Output 07/11/17 07/12/17 07/12/17 22:59 06:59 14:59 Intake Total 2073 813 Output Total 550 2050 Balance 1523 -1237 Lab Results Last 24 Hours: Laboratory Results - last 24 hr 07/11/17 07/12/17 07/12/17 Range/Units 21:17 04:56 04:56 WBC 6.56 (4.0-11.0) K/uL RBC 5.25 (4.50-5.90) M/uL Hgb 14.0 (13.0-17.0) g/dL Hct 42.9 (38.0-50.0) % MCV 81.7 (80.0-98.0) fL MCH 26.7 L (27.0-32.0) pg MCHC 32.6 (31.0-37.0) g/dL RDW Std Deviation 50.6 (28.0-62.0) fl RDW Coeff of [place] 17 H (11.0-15.0) % Plt Count 136 L (150-400) K/uL MPV 9.20 (7.40-12.00) fL Neut % (Auto) 75.8 (48.0-80.0) % Lymph % (Auto) 14.3 L (16.0-40.0) % Davie % (Auto) 7.8 (0.0-15.0) % Eos % (Auto) 1.8 (0.0-7.0) % Baso % (Auto) 0.3 (0.0-1.5) % Neut # (Auto) 5.0 (1.4-5.7) K/uL Lymph # (Auto) 0.9 (0.6-2.4) K/uL Davie # (Auto) 0.5 (0.0-0.8) K/uL Eos # (Auto) 0.1 (0.0-0.7) K/uL Baso # (Auto) 0.0 (0.0-0.1) K/uL Nucleated RBC % 0.0 /100WBC Nucleated RBCs # 0 K/uL ESR 29 H (0-19) mm/hr Sodium 139 (136-146) mmol/L Potassium 3.9 (3.5-5.1) mmol/L Chloride 107 (98-110) mmol/L Carbon Dioxide 23 (21-31) mmol/L BUN 36 H (6.0-23.0) mg/dL Creatinine 1.3 (0.6-1.5) mg/dL Est Cr Clr Drug Dosing 66.58 mL/min Estimated GFR (MDRD) 55.9 ml/min Glucose 93 (60-110) mg/dL POC Glucose 144 H (60-110) mg/dL Calcium 8.1 L (8.8-10.8) mg/dL Magnesium 1.7 (1.5-2.3) mEq/L Total Bilirubin 1.5 (0.1-1.5) mg/dL GGT 573 H (0-50) IU/L AST 22 (5-40) IU/L ALT 34 (8-54) IU/L Alkaline Phosphatase 270 H (40-150) Ammonia (14-68) UG/DL Lactate Dehydrogenase 205 (125-220) IU/L CK-MB (CK-2) 3.2 (0-6.6) ng/ml Troponin I (0.0-0.29) NG/ML C-Reactive Protein 0.42 (0.0-0.5) mg/dL Total Protein 7.0 (6.0-8.0) g/dL Albumin 3.3 L (3.4-4.8) g/dL Globulin 3.7 H (2.0-3.5) g/dL Albumin/Globulin Ratio 0.9 L (1.3-2.8) 07/12/17 07/12/17 07/12/17 Range/Units 04:56 06:47 08:35 WBC (4.0-11.0) K/uL RBC (4.50-5.90) M/uL Hgb (13.0-17.0) g/dL Hct (38.0-50.0) % MCV (80.0-98.0) fL MCH (27.0-32.0) pg MCHC (31.0-37.0) g/dL RDW Std Deviation (28.0-62.0) fl RDW Coeff of [place] (11.0-15.0) % Plt Count (150-400) K/uL MPV (7.40-12.00) fL Neut % (Auto) (48.0-80.0) % Lymph % (Auto) (16.0-40.0) % Davie % (Auto) (0.0-15.0) % Eos % (Auto) (0.0-7.0) % Baso % (Auto) (0.0-1.5) % Neut # (Auto) (1.4-5.7) K/uL Lymph # (Auto) (0.6-2.4) K/uL Davie # (Auto) (0.0-0.8) K/uL Eos # (Auto) (0.0-0.7) K/uL Baso # (Auto) (0.0-0.1) K/uL Nucleated RBC % /100WBC Nucleated RBCs # K/uL ESR (0-19) mm/hr Sodium (136-146) mmol/L Potassium (3.5-5.1) mmol/L Chloride (98-110) mmol/L Carbon Dioxide (21-31) mmol/L BUN (6.0-23.0) mg/dL Creatinine (0.6-1.5) mg/dL Est Cr Clr Drug Dosing mL/min Estimated GFR (MDRD) ml/min Glucose (60-110) mg/dL POC Glucose 82 (60-110) mg/dL Calcium (8.8-10.8) mg/dL Magnesium (1.5-2.3) mEq/L Total Bilirubin (0.1-1.5) mg/dL GGT (0-50) IU/L AST (5-40) IU/L ALT (8-54) IU/L Alkaline Phosphatase (40-150) Ammonia 80 H (14-68) UG/DL Lactate Dehydrogenase (125-220) IU/L CK-MB (CK-2) (0-6.6) ng/ml Troponin I < 0.10 (0.0-0.29) NG/ML C-Reactive Protein (0.0-0.5) mg/dL Total Protein (6.0-8.0) g/dL Albumin (3.4-4.8) g/dL Globulin (2.0-3.5) g/dL Albumin/Globulin Ratio (1.3-2.8) 07/12/17 Range/Units 11:43 WBC (4.0-11.0) K/uL RBC (4.50-5.90) M/uL Hgb (13.0-17.0) g/dL Hct (38.0-50.0) % MCV (80.0-98.0) fL MCH (27.0-32.0) pg MCHC (31.0-37.0) g/dL RDW Std Deviation (28.0-62.0) fl RDW Coeff of [place] (11.0-15.0) % Plt Count (150-400) K/uL MPV (7.40-12.00) fL Neut % (Auto) (48.0-80.0) % Lymph % (Auto) (16.0-40.0) % Davie % (Auto) (0.0-15.0) % Eos % (Auto) (0.0-7.0) % Baso % (Auto) (0.0-1.5) % Neut # (Auto) (1.4-5.7) K/uL Lymph # (Auto) (0.6-2.4) K/uL Davie # (Auto) (0.0-0.8) K/uL Eos # (Auto) (0.0-0.7) K/uL Baso # (Auto) (0.0-0.1) K/uL Nucleated RBC % /100WBC Nucleated RBCs # K/uL ESR (0-19) mm/hr Sodium (136-146) mmol/L Potassium (3.5-5.1) mmol/L Chloride (98-110) mmol/L Carbon Dioxide (21-31) mmol/L BUN (6.0-23.0) mg/dL Creatinine (0.6-1.5) mg/dL Est Cr Clr Drug Dosing mL/min Estimated GFR (MDRD) ml/min Glucose (60-110) mg/dL POC Glucose 94 (60-110) mg/dL Calcium (8.8-10.8) mg/dL Magnesium (1.5-2.3) mEq/L Total Bilirubin (0.1-1.5) mg/dL GGT (0-50) IU/L AST (5-40) IU/L ALT (8-54) IU/L Alkaline Phosphatase (40-150) Ammonia (14-68) UG/DL Lactate Dehydrogenase (125-220) IU/L CK-MB (CK-2) (0-6.6) ng/ml Troponin I (0.0-0.29) NG/ML C-Reactive Protein (0.0-0.5) mg/dL Total Protein (6.0-8.0) g/dL Albumin (3.4-4.8) g/dL Globulin (2.0-3.5) g/dL Albumin/Globulin Ratio (1.3-2.8) Med Orders - Current: Current Medications Atorvastatin Calcium (Lipitor) 80 mg PO BEDTIME [facility] Last Admin: 07/11/17 21:28 Dose: 80 mg Enoxaparin Sodium (Lovenox) 40 mg SUBCUT DAILY [facility] Insulin Aspart (Novolog) 0 unit SUBCUT TIDAC [facility] PRN Reason: Protocol Last Admin: 07/12/17 11:47 Dose: Not Given Lactulose (Chronulac) 10 gm PO BID [facility] Last Admin: 07/12/17 11:49 Dose: 10 gm Lorazepam (Ativan) 2 mg IVPUSH Q2H PRN PRN Reason: anxiety/agitation/tremor Last Admin: 07/12/17 06:55 Dose: 2 mg Ondansetron HCl (Zofran) 4 mg IVPUSH Q4H PRN PRN Reason: Nausea Ticagrelor [Brilinta (] 90 Mg) 1 each PO BID [facility] Last Admin: 07/12/17 09:19 Dose: 1 each Discontinued Medications Furosemide (Lasix) 40 mg IVPUSH NOW ONE Stop: 07/12/17 08:51 Last Admin: 07/12/17 09:20 Dose: 40 mg Sodium Chloride (Normal Saline) 1,000 mls @ 999 mls/hr IV STAT ONE Stop: 07/11/17 15:13 Last Admin: 07/11/17 14:54 Dose: 999 mls/hr Sodium Chloride (Normal Saline) 1,000 mls @ 125 mls/hr IV ASDIRECTED [facility] Last Admin: 07/12/17 03:10 Dose: 125 mls/hr Insulin Human Regular (Novolin R) 10 unit IVPUSH ONETIME ONE PRN Reason: Protocol Stop: 07/11/17 14:44 Last Admin: 07/11/17 15:07 Dose: 10 units Iopamidol (Isovue Multipack-370 (76%)) 50 ml IVPUSH ONETIME STA Stop: 07/12/17 11:32 Last Admin: 07/12/17 11:54 Dose: Not Given Lorazepam (Ativan) 1 mg IVPUSH ONETIME ONE Stop: 07/11/17 14:13 Last Admin: 07/11/17 15:08 Dose: 1 mg Lorazepam (Ativan) 2 mg IVPUSH Q4H PRN PRN Reason: CIWA>10 Lorazepam (Ativan) 1 mg IVPUSH Q2H PRN PRN Reason: anxiety/agitation/tremor Last Admin: 07/11/17 18:10 Dose: 1 mg - My Orders Last 24 Hours: My Active Orders 07/11/17 Dinner ADA Diabetic [[employer] Diet] [DIET] - Free Text/Narrative Note: I have examined this patient with Dr. Watts this morning. Patient is being sent for CT Head with contrast as he has a pacemaker and cannot have an MRI. Dr. Shabazz has been consulted and her evaluation is pending. I concur with Dr. Watts's note and orders.
[2017-07-12] MEDS: Insulin Aspart 100 Units/ML 3 ML Pen SUBCUT SCH ×3 (07:07→16:57)
[2017-07-12] MEDS: Ticagrelor [Brilinta] 90 MG PO SCH ×3 (07:42→21:36)
[2017-07-12] MEDS ORDERED: Furosemide 40 MG/4 ML VIAL IVPUSH ONE (08:50)
[2017-07-12] MEDS ORDERED: Iopamidol 755 MG/ML 500 ML Multipack Bottle IVPUSH STA (11:31)
[2017-07-12] MEDS: Lactulose Soln 10 GM/15 ML 15 ML UD Cup PO SCH ×2 (11:49→21:02)
--- NOTE | 2017-07-12 13:35 | CT ---
EXAM DATE: 07/11/17 PATIENT'S AGE: 61 Patient: LUCAS VALDOVINOS Facility: [place], [place] Site . Site : 1955 Study: CT Head STROKE PROTOCOL STROKE [id number] 2:31:43 PM Ordering Physician: Sushil Little Final Report: INDICATION: Possible cerebral vascular accident. Stroke protocol. Technique: CT head without IV contrast. Comparison: CT head 09/29/2015. Findings: Small amounts of fluid and mucosal thickening in the maxillary sinuses. Mild to moderate motion artifact. Moderate -sized area of encephalomalacia and low density in the left posterior parietal region has become lower in density since the prior exam and would be consistent with an old infarct. No acute intracranial hemorrhage. Mild cerebral atrophy. Increased soft tissue density along the calvarium posteriorly in the posterior scalp on the left is similar to the prior exam and may be related to prior trauma. Remainder negative. Report called to referring physician. Impression: 1. No acute intracranial disease. No acute intracranial hemorrhage. 2. 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 3. Mild inflammatory sinus disease. Other findings as above. Please note that all CT scans at this facility use dose modulation, iterative reconstruction, and/or weight-based dosing when appropriate to reduce radiation dose to as low as reasonably achievable. Dictated by Aurelio Casillas MD @ Jul 11 2017 2:40PM (Electronic Signature) Report Signed by Proxy. JUAREZ
--- NOTE | 2017-07-12 13:36 | CR ---
EXAM DATE: 07/11/17 PATIENT'S AGE: 61 Patient: LUCAS VALDOVINOS Facility: [place], [place] Site . Site : 1955 Study: XRay Chest [id number] 2:59:15 PM Ordering Physician: Sushil Little Final Report: INDICATION: Pain. Shortness of breath. COMPARISON: 01/14/2017. FINDINGS: A portable AP semi upright view of the chest was obtained. The cardiac silhouette is enlarged. There is a left-sided AICD device. The pulmonary vasculature is within normal limits. The lungs are clear bilaterally. IMPRESSION: 1. Stable chest x-ray. 2. Cardiomegaly. 3. No evidence of acute pulmonary disease. Dictated by Wero Dimas MD @ 07/11/2017 3:30:28 PM Dictated by: Wero Dimas MD @ 07/11/2017 15:30:55 (Electronic Signature) Report Signed by Proxy. [facility]ITAL[facility]eya
--- NOTE | 2017-07-12 13:45 | CT ---
EXAM DATE: 07/11/17 PATIENT'S AGE: 61 Patient: LUCAS VALDOVINOS Facility: [place], [place] Site . Site : 1955 Study: CT Abdomen/Pelvis [id number] 6:36:25 PM Ordering Physician: Melany Gannon Final Report: INDICATION: Abdominal pain. TECHNIQUE: Multiple axial images were obtained from the diaphragm to the symphysis pubis without contrast. Sagittal and coronal re-formatted images were obtained. COMPARISON: None. FINDINGS: There is atelectasis in the dependent portion of both lungs. There is a 1.7 cm cyst in the left lobe of the liver. The spleen, pancreas, gallbladder and adrenal glands are of unremarkable nonenhanced CT appearance. There is a 0.2 cm stone in the lower pole of the left kidney. There is scarring in the left kidney. There is no stone in the right kidney. There is no hydronephrosis or stones seen in the ureters. There is no evidence of a bowel obstruction. There are multiple, a surgical clips in the left upper and mid abdomen. There is no evidence of a bowel obstruction. The appendix is visualized in the right lower quadrant and is unremarkable. The abdominal aorta is normal in caliber. There is no adenopathy seen. There are degenerative changes in the spine. There is no free identified in the abdomen or pelvis. There is a right total hip arthroplasty. There are calcifications prostate gland. IMPRESSION: 1. No acute abnormality on CT scan of the abdomen and pelvis without contrast. 2. 0.2 cm stone lower pole left kidney. No ureteral stone or hydronephrosis. Dictated by Wero Dimas MD @ 07/11/2017 6:51:25 PM Dictated by: Wero Dimas MD @ 07/11/2017 18:51:36 (Electronic Signature) Report Signed by Proxy. JUAREZ
--- NOTE | 2017-07-12 14:06 | US ---
EXAM DATE: 07/11/17 PATIENT'S AGE: 61 Patient: LUCAS VALDOVINOS Facility: [place], [place] Site . Site : 1955 Study: US Neck Angio [id number]/[id number] 7:30:48 PM Ordering Physician: Melany Gannon Final Report: INDICATION: Cerebral vascular accident. TECHNIQUE: Ultrasound carotid bilateral arterial duplex with granger-scale imaging, color Doppler and spectral Doppler analysis. COMPARISON: None FINDINGS: RIGHT: Small calcified plaque is noted within the right mid internal carotid artery. Duplex Doppler waveforms of the common carotid (CCA), internal carotid ( ICA), and external carotid arteries (ECA) are normal in appearance. Normal anterograde flow is seen in the vertebral artery. The peak systolic velocity ( PSV) of the ICA is 86 cm/sec with ICA/CCA ratio of 0.9. The PSV of the ECA is near the upper limits of normal, measuring 120 cm/sec. LEFT: The common carotid is normal on grayscale and color Doppler images. Duplex Doppler waveforms of the common carotid (CCA), internal carotid (ICA), and external carotid arteries (ECA) are normal in appearance. Normal anterograde flow is seen in the vertebral artery. The peak systolic velocity ( PSV) of the ICA is 74 cm/sec with ICA/CCA ratio of 1.3. The PSV of the ECA is within normal limits. IMPRESSION: 1. No significant stenosis seen in the common or internal carotid arteries bilaterally. 2. Normal anterograde flow noted in the vertebral arteries. 3. The PSV of the right ECA is near the upper limits of normal, measuring 120 cm /sec. Dictated by Dominick Lewis MD @ 07/11/2017 7:49:08 PM Dictated by: Dominick Lewis MD @ 07/11/2017 19:49:18 (Electronic Signature) Report Signed by Proxy. JUAREZ
--- NOTE | 2017-07-12 15:55 | CT ---
EXAMINATION: CT head with contrast. TECHNIQUE: Axial CT images obtained through the head following the administration of Isovue-370. Carol nal and sagittal reconstructions obtained. Noncontrast CT comparison dated 07/11/2017. HISTORY: Tremors FINDINGS: No evidence of intra or extra axial hemorrhage, mass, midline shift, hydrocephalus or edema. There i s encephalomalacia within the left frontoparietal region. No abnormal enhancement. No hypoattenuation changes in the major vascular territories to suggest acute infarct. No abnormal intracranial calcifications are detected. No evidence of substantial vascular calcificat ions. The orbits and globes appear normal. Mucosal thickening is noted within the maxillary sinuses. The mastoid air cells and middle ears are c lear. Pituitary fossa appears unremarkable. Calvarium is intact. No evidence of skull fracture. IMPRESSION: 1. No acute intracranial findings. 2. 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
--- NOTE | 2017-07-12 17:07 | PCM.CONS ---
H&P History of Present Illness - General Admit Problem/Dx: Admission Diagnosis/Problem Admission Diagnosis/Problem Altered mental status - History of Present Illness Initial Comments - Free Text/Narative: The history is obtained primarily from his . She notes that 5 years ago, he developed an episode where he was shaking uncontrollably. No loss of consciousness with this episode. About 2 weeks later they did a CT scan and he was found to have a stroke. He had weakness and numbness with the stroke that resolved over about a week. Since that time he's had episodic shaking. They have lorazepam as needed at home for when his shaking occurs. He's been in the emergency department 3 or 4 times when shaking was so bad that he needed IV lorazepam. With shaking, he has no loss of consciousness or awareness. He is able to communicate. Yesterday around 12:30, he had one of these episodes with shaking. He also seemed to have slow thought, impaired balance. She notes blood sugars were in the 300s. She brought him into the emergency department. In the hospital, he had shaking and was given frequent doses of Ativan, but he has not required any since 7:00 this morning (currently 12:30 PM). At baseline, he is able to walk without assistive device. His speech and gait were impacted by the shaking yesterday. He has not been walking today. Labs 07/11/2017 - Utox negative, ETOH negative, ESR 9, ABG nl, Na 134, NH3 90, CK-MB 7.4, trop neg, BNP 564, alk phos 289, AST 23, ALT 37, UA negative for infection, BUN 35, Cr 1.6 07/12/2017 ESR 29, CK MB 3.2, Na 139, Cr 1.3, BUN 36 CT head 07/11/2017 hypodense area in left posterior parietal lobe c/w encephalomalacia likely old stroke CT head w/ contrast no change, no enhancement. - Related Data Allergies/Adverse Reactions: Allergies Allergy/AdvReac Type Severity Reaction Status Date / Time No Known Allergies Allergy Verified 04/23/16 14:37 Home Medications: Home Meds Aspirin [Halfprin] 81 mg PO DAILY 09/29/15 [History] Insulin Aspart [NovoLOG] 0 units SUBCUT ASDIRECTED 09/29/15 [History] Insulin Glarg,Human.Rec.Analog [Lantus] 40 unit SUBCUT BID 09/29/15 [History] Tamsulosin [Flomax] 0.4 mg PO BEDTIME 09/29/15 [History] Ticagrelor [Brilinta] 90 mg PO BID 09/29/15 [History] atorvaSTATin Calcium [Atorvastatin Calcium] 80 mg PO BEDTIME 01/02/16 [History] Furosemide 80 mg PO QAM 01/14/17 [History] Spironolactone [Aldactone] 25 mg PO DAILY 01/14/17 [History] Albuterol Sulfate 2.5 mg NEB Q6H PRN 07/12/17 [History] Albuterol [Proventil HFA] 2 puff INH Q6H PRN 07/12/17 [History] Budesonide/Formoterol Fumarate [Symbicort 160-4.5 Mcg Inhaler] 2 puff INH BID [History] Carvedilol 6.25 mg PO BID 07/12/17 [History] Docusate Sodium/Sennosides [Senna Plus] 1 tab PO BID 07/12/17 [History] Ferrous Sulfate [Feosol] 325 mg PO TID 07/12/17 [History] Gabapentin [Neurontin] 900 mg PO TID 07/12/17 [History] Lisinopril 2.5 mg PO DAILY 07/12/17 [History] Meloxicam 15 mg PO DAILY PRN 07/12/17 [History] Metolazone [Metolazone] 2.5 mg PO MOWEFR 07/12/17 [History] Nitroglycerin [Nitrostat] 0.4 mg SL Q5M PRN 07/12/17 [History] Tiotropium [Spiriva Handihaler] 18 mcg INH DAILY 07/12/17 [History] hydrOXYzine HCl [Atarax] 50 mg PO TID PRN 07/12/17 [History] Past Medical History HEENT History: Reports: None Cardiovascular History: Reports: None, Heart Failure, Hypertension, Pacemaker Respiratory History: Reports: None, COPD Other Respiratory History: CPAP Gastrointestinal History: Reports: None Genitourinary History: Reports: None, BPH Musculoskeletal History: Reports: None Neurological History: Reports: None, Other (See Below) Other Neuro History: stroke Psychiatric History: Reports: None Endocrine/Metabolic History: Reports: None, Diabetes, Type II Hematologic History: Reports: None Immunologic History: Reports: None Oncologic (Cancer) History: Reports: None Dermatologic History: Reports: None - Infectious Disease History Infectious Disease History: Reports: None - Past Surgical History GI Surgical History: Reports: Other (See Below) Social & Family History - Family History Family Medical History: Noncontributory HEENT: Reports: None Cardiac: Reports: None Respiratory: Reports: None GI: Reports: None : Reports: None OBGYN: Reports: None Musculoskeletal: Reports: None Neurological: Reports: None Endocrine/Metabolic: Reports: Diabetes, type II Oncologic: Reports: Colon - Tobacco Use Smoking Status *Q: Former Smoker Years of Tobacco use: 18 Packs/Tins Daily: 1 Used Tobacco, but Quit: Yes Month Tobacco Last Used: 20 yrs ago Second Hand Smoke Exposure: Yes - Caffeine Use Caffeine Use: Reports: Coffee - Recreational Drug Use Recreational Drug Use: No H&P Review of Systems - Review of Systems: Review Of Systems: See Below General: Reports: Weakness Pulmonary: Reports: Shortness of Breath Cardiovascular: Reports: No Symptoms Gastrointestinal: Reports: No Symptoms Genitourinary: Reports: No Symptoms Musculoskeletal: Reports: No Symptoms Psychiatric: Reports: Confusion Neurological: Reports: Confusion, Tremors Exam - Exam Exam: See Below - Vital Signs Vital Signs: Last Vital Signs Temp 37.1 C 07/12/17 15:52 Pulse 99 07/12/17 15:52 Resp 20 07/12/17 15:52 BP 124/83 07/12/17 15:52 Pulse Ox 98 07/12/17 15:52 Weight: 131.451 kg - Exam Physical Exam Comments:: Constitutional: No acute distress Psychiatric: Mood/Affect: blunted affect Neurological: Mental Status: Level of consciousness: Awake, alert. Orientation: Oriented to person, place. He is off by one on the year. He could not recall the name of the president Comprehension/Praxis: Impaired command following. He he gave me a thumbs up, but could not show me 2 fingers on his left hand. When describing picture, he only described left side. Language: He named 3-5 objects correctly. Reading sentences-he had 2 or 3 words consecutively accurate then nonsensical. Repetition was impaired Cranial Nerves: Pupils equally round and reactive to light. Visual mcghee notable for extinction on the right. Gaze conjugate, EOMI. Sensation intact and symmetric to light touch. Facial strength is full and symmetric. Palate elevates symmetrically. Normal shrug bilaterally. Tongue protrudes midline Motor: Normal tone in all groups. No drift. Power is 5/5 throughout proximal and distal muscles. Sensation: Sensation is intact to temperature and light touch bilaterally Deep tendon reflexes: Absent throughout. . Coordination: Finger to nose slow but without dysmetria Gait: Not tested HEENT: Eyes: non icteric, Mouth: moist mucus membranes Cardiovascular: RRR, 3/6 murmur Respiratory: mildly labored breathing GI: non tender - Patient Data Lab Results Last 24 hrs: Laboratory Results - last 24 hr 07/11/17 07/12/17 07/12/17 Range/Units 21:17 04:56 04:56 WBC 6.56 (4.0-11.0) K/uL RBC 5.25 (4.50-5.90) M/uL Hgb 14.0 (13.0-17.0) g/dL Hct 42.9 (38.0-50.0) % MCV 81.7 (80.0-98.0) fL MCH 26.7 L (27.0-32.0) pg MCHC 32.6 (31.0-37.0) g/dL RDW Std Deviation 50.6 (28.0-62.0) fl RDW Coeff of [place] 17 H (11.0-15.0) % Plt Count 136 L (150-400) K/uL MPV 9.20 (7.40-12.00) fL Neut % (Auto) 75.8 (48.0-80.0) % Lymph % (Auto) 14.3 L (16.0-40.0) % [place] % (Auto) 7.8 (0.0-15.0) % Eos % (Auto) 1.8 (0.0-7.0) % Baso % (Auto) 0.3 (0.0-1.5) % Neut # (Auto) 5.0 (1.4-5.7) K/uL Lymph # (Auto) 0.9 (0.6-2.4) K/uL [place] # (Auto) 0.5 (0.0-0.8) K/uL Eos # (Auto) 0.1 (0.0-0.7) K/uL Baso # (Auto) 0.0 (0.0-0.1) K/uL Nucleated RBC % 0.0 /100WBC Nucleated RBCs # 0 K/uL ESR 29 H (0-19) mm/hr Sodium 139 (136-146) mmol/L Potassium 3.9 (3.5-5.1) mmol/L Chloride 107 (98-110) mmol/L Carbon Dioxide 23 (21-31) mmol/L BUN 36 H (6.0-23.0) mg/dL Creatinine 1.3 (0.6-1.5) mg/dL Est Cr Clr Drug Dosing 66.58 mL/min Estimated GFR (MDRD) 55.9 ml/min Glucose 93 (60-110) mg/dL POC Glucose 144 H (60-110) mg/dL Calcium 8.1 L (8.8-10.8) mg/dL Magnesium 1.7 (1.5-2.3) mEq/L Total Bilirubin 1.5 (0.1-1.5) mg/dL GGT 573 H (0-50) IU/L AST 22 (5-40) IU/L ALT 34 (8-54) IU/L Alkaline Phosphatase 270 H (40-150) Ammonia (14-68) UG/DL Lactate Dehydrogenase 205 (125-220) IU/L CK-MB (CK-2) 3.2 (0-6.6) ng/ml Troponin I (0.0-0.29) NG/ML C-Reactive Protein 0.42 (0.0-0.5) mg/dL Total Protein 7.0 (6.0-8.0) g/dL Albumin 3.3 L (3.4-4.8) g/dL Globulin 3.7 H (2.0-3.5) g/dL Albumin/Globulin Ratio 0.9 L (1.3-2.8) 07/12/17 07/12/17 07/12/17 Range/Units 04:56 06:47 08:35 WBC (4.0-11.0) K/uL RBC (4.50-5.90) M/uL Hgb (13.0-17.0) g/dL Hct (38.0-50.0) % MCV (80.0-98.0) fL MCH (27.0-32.0) pg MCHC (31.0-37.0) g/dL RDW Std Deviation (28.0-62.0) fl RDW Coeff of [place] (11.0-15.0) % Plt Count (150-400) K/uL MPV (7.40-12.00) fL Neut % (Auto) (48.0-80.0) % Lymph % (Auto) (16.0-40.0) % [place] % (Auto) (0.0-15.0) % Eos % (Auto) (0.0-7.0) % Baso % (Auto) (0.0-1.5) % Neut # (Auto) (1.4-5.7) K/uL Lymph # (Auto) (0.6-2.4) K/uL [place] # (Auto) (0.0-0.8) K/uL Eos # (Auto) (0.0-0.7) K/uL Baso # (Auto) (0.0-0.1) K/uL Nucleated RBC % /100WBC Nucleated RBCs # K/uL ESR (0-19) mm/hr Sodium (136-146) mmol/L Potassium (3.5-5.1) mmol/L Chloride (98-110) mmol/L Carbon Dioxide (21-31) mmol/L BUN (6.0-23.0) mg/dL Creatinine (0.6-1.5) mg/dL Est Cr Clr Drug Dosing mL/min Estimated GFR (MDRD) ml/min Glucose (60-110) mg/dL POC Glucose 82 (60-110) mg/dL Calcium (8.8-10.8) mg/dL Magnesium (1.5-2.3) mEq/L Total Bilirubin (0.1-1.5) mg/dL GGT (0-50) IU/L AST (5-40) IU/L ALT (8-54) IU/L Alkaline Phosphatase (40-150) Ammonia 80 H (14-68) UG/DL Lactate Dehydrogenase (125-220) IU/L CK-MB (CK-2) (0-6.6) ng/ml Troponin I < 0.10 (0.0-0.29) NG/ML C-Reactive Protein (0.0-0.5) mg/dL Total Protein (6.0-8.0) g/dL Albumin (3.4-4.8) g/dL Globulin (2.0-3.5) g/dL Albumin/Globulin Ratio (1.3-2.8) 07/12/17 Range/Units 11:43 WBC (4.0-11.0) K/uL RBC (4.50-5.90) M/uL Hgb (13.0-17.0) g/dL Hct (38.0-50.0) % MCV (80.0-98.0) fL MCH (27.0-32.0) pg MCHC (31.0-37.0) g/dL RDW Std Deviation (28.0-62.0) fl RDW Coeff of [place] (11.0-15.0) % Plt Count (150-400) K/uL MPV (7.40-12.00) fL Neut % (Auto) (48.0-80.0) % Lymph % (Auto) (16.0-40.0) % [place] % (Auto) (0.0-15.0) % Eos % (Auto) (0.0-7.0) % Baso % (Auto) (0.0-1.5) % Neut # (Auto) (1.4-5.7) K/uL Lymph # (Auto) (0.6-2.4) K/uL [place] # (Auto) (0.0-0.8) K/uL Eos # (Auto) (0.0-0.7) K/uL Baso # (Auto) (0.0-0.1) K/uL Nucleated RBC % /100WBC Nucleated RBCs # K/uL ESR (0-19) mm/hr Sodium (136-146) mmol/L Potassium (3.5-5.1) mmol/L Chloride (98-110) mmol/L Carbon Dioxide (21-31) mmol/L BUN (6.0-23.0) mg/dL Creatinine (0.6-1.5) mg/dL Est Cr Clr Drug Dosing mL/min Estimated GFR (MDRD) ml/min Glucose (60-110) mg/dL POC Glucose 94 (60-110) mg/dL Calcium (8.8-10.8) mg/dL Magnesium (1.5-2.3) mEq/L Total Bilirubin (0.1-1.5) mg/dL GGT (0-50) IU/L AST (5-40) IU/L ALT (8-54) IU/L Alkaline Phosphatase (40-150) Ammonia (14-68) UG/DL Lactate Dehydrogenase (125-220) IU/L CK-MB (CK-2) (0-6.6) ng/ml Troponin I (0.0-0.29) NG/ML C-Reactive Protein (0.0-0.5) mg/dL Total Protein (6.0-8.0) g/dL Albumin (3.4-4.8) g/dL Globulin (2.0-3.5) g/dL Albumin/Globulin Ratio (1.3-2.8) Result Diagrams: 07/12/17 04:56 07/12/17 04:56 Consult PN Assessment/Plan Procedures: Procedures AIRWAY INHALATION TREATMENT (01/14/17) ASSAY OF AMMONIA (09/29/15) ASSAY OF CK (CPK) (11/26/15) ASSAY OF FERRITIN (01/20/17) ASSAY OF MAGNESIUM (01/14/17) ASSAY OF NATRIURETIC PEPTIDE (01/14/17) ASSAY OF TROPONIN QUANT (01/14/17) CHEST X-RAY 1 VIEW FRONTAL (01/14/17) COMPLETE CBC W/AUTO DIFF WBC (01/19/17) COMPREHEN METABOLIC PANEL (01/19/17) CREATINE MB FRACTION (11/26/15) CT HEAD/BRAIN W/O DYE (09/29/15) ECHO EXAM OF ABDOMEN (01/14/17) ELECTROCARDIOGRAM TRACING (01/14/17) EMERGENCY DEPT VISIT (01/14/17) EMERGENCY DEPT VISIT (04/23/16) EMERGENCY DEPT VISIT (01/02/16) EVALUATE PT USE OF INHALER (01/02/16) GLUCOSE BLOOD TEST (01/14/17) GLYCOSYLATED HEMOGLOBIN TEST (01/19/17) HEPATOBIL SYST IMAGE W/DRUG (02/12/17) HYDRATE IV INFUSION ADD-ON (11/26/15) IMMUNIZATION ADMIN (04/23/16) IRON BINDING TEST (01/20/17) LIPID PANEL (01/19/17) METABOLIC PANEL TOTAL CA (01/14/17) MICROALBUMIN SEMIQUANT (01/19/17) PROTHROMBIN TIME (01/14/17) ROUTINE VENIPUNCTURE (01/19/17) TDAP VACCINE 7 YRS/> IM (04/23/16) THER/PROPH/DIAG INJ IV PUSH (01/14/17) THER/PROPH/DIAG INJ SC/IM (12/10/15) TTE W/DOPPLER COMPLETE (01/14/17) TX/PRO/DX INJ NEW DRUG ADDON (11/26/15) TX/PRO/DX INJ SAME DRUG SENIOR SALES ASSISTANT (11/26/15) URINALYSIS AUTO W/SCOPE (11/26/15) X-RAY EXAM OF KNEE 3 (04/23/16) (1) Altered mental status SNOMED Code(s): 086133925 Code(s): R41.82 - ALTERED MENTAL STATUS, UNSPECIFIED Current Visit: Yes Assessment:: 61 year old man with history of stroke, CAD, AR CHF, DM, s/p pacemaker placement admitted with diffuse tremors and mental status changes. Examination is notable for encephalopathy, right sided neglect. Of note, ongoing neurologic issues are reportedly similar to prior stroke. Current symptoms may suggest new stroke, but head CT 24 hours after symptom onset showed no acute ischemia. Small areas of ischemia may be missed, but large area of ischemia should have been appreciated by now. Alternatively, recent neurologic symptoms may be recrudescence of prior stroke due to metabolic encephalopathy. He has mild uremia and hyperammonemia currently. No sign of infection. I agree with stroke work up for now. -TTE showed known cardiomyopathy, EF was not quantified -carotid US showed no hemodynamically significant stenosis in common carotids or ICA. -PT/OT/speech -ASA, statin -check fasting lipids -consider EEG if mental status doesnt improve. Observation of triphasic waves may support diagnosis of metabolic encephalopathy. Problem List Initiated/Reviewed/Updated: Yes
[2017-07-12] MEDS: atorvaSTATin 40 MG Tab PO SCH (21:02)
[2017-07-13 06:20] LABS: CHLORIDE,CL 109 mmol/L (98-110); SODIUM,NA 139 mmol/L (136-146)
[2017-07-13] MEDS ORDERED: Enoxaparin 40 MG/0.4 ML Syringe SUBCUT SCH (09:00)
[2017-07-13] MEDS: Insulin Aspart 100 Units/ML 3 ML Pen SUBCUT SCH ×3 (09:13→17:41)
[2017-07-13] MEDS: Lactulose Soln 10 GM/15 ML 15 ML UD Cup PO SCH ×2 (09:14→21:07)
[2017-07-13] MEDS: Furosemide 80 MG Tab PO SCH (09:14)
[2017-07-13] MEDS: Ticagrelor [Brilinta] 90 MG PO SCH ×2 (09:21→21:07)
[2017-07-13] MEDS: Sodium Chloride 0.9% 1,000 ML IV SCH (13:54)
--- NOTE | 2017-07-13 16:05 | PCM.CONSN ---
- General Info Date of Service: 07/13/17 Admission Dx/Problem (Free Text): Admission Diagnosis/Problem Admission Diagnosis/Problem Altered mental status Subjective Update: He is doing better this morning. No more shaking. Mental status improved. He did well with walking with PT today. Ammonia 74 this morning. BUN 27. GGT yesterday was elevated at 573. - Patient Data Vitals - Most Recent: Last Vital Signs Temp 36.6 C 07/13/17 12:00 Pulse 75 07/13/17 12:00 Resp 20 07/13/17 12:00 BP 127/83 07/13/17 12:00 Pulse Ox 95 07/13/17 12:00 Weight - Most Recent: 126.779 kg I&O - Last 24 Hours: Intake & Output 07/13/17 07/13/17 07/13/17 06:59 14:59 22:59 Intake Total 1145 1250 240 Output Total 675 950 550 Balance 470 300 -310 Lab Results Last 24 Hours: Laboratory Results - last 24 hr 07/12/17 07/12/17 07/12/17 Range/Units 16:32 16:37 18:19 WBC (4.0-11.0) K/uL RBC (4.50-5.90) M/uL Hgb (13.0-17.0) g/dL Hct (38.0-50.0) % MCV (80.0-98.0) fL MCH (27.0-32.0) pg MCHC (31.0-37.0) g/dL RDW Std Deviation (28.0-62.0) fl RDW Coeff of [place] (11.0-15.0) % Plt Count (150-400) K/uL MPV (7.40-12.00) fL Neut % (Auto) (48.0-80.0) % Lymph % (Auto) (16.0-40.0) % [place] % (Auto) (0.0-15.0) % Eos % (Auto) (0.0-7.0) % Baso % (Auto) (0.0-1.5) % Neut # (Auto) (1.4-5.7) K/uL Lymph # (Auto) (0.6-2.4) K/uL [place] # (Auto) (0.0-0.8) K/uL Eos # (Auto) (0.0-0.7) K/uL Baso # (Auto) (0.0-0.1) K/uL Nucleated RBC % /100WBC Nucleated RBCs # K/uL Sodium (136-146) mmol/L Potassium (3.5-5.1) mmol/L Chloride (98-110) mmol/L Carbon Dioxide (21-31) mmol/L BUN (6.0-23.0) mg/dL Creatinine (0.6-1.5) mg/dL Est Cr Clr Drug Dosing mL/min Estimated GFR (MDRD) ml/min Glucose (60-110) mg/dL POC Glucose 77 62 152 H (60-110) mg/dL Calcium (8.8-10.8) mg/dL Magnesium (1.5-2.3) mEq/L Total Bilirubin (0.1-1.5) mg/dL AST (5-40) IU/L ALT (8-54) IU/L Alkaline Phosphatase (40-150) Ammonia (14-68) UG/DL Total Protein (6.0-8.0) g/dL Albumin (3.4-4.8) g/dL Globulin (2.0-3.5) g/dL Albumin/Globulin Ratio (1.3-2.8) 07/13/17 07/13/17 07/13/17 Range/Units 05:33 05:33 05:33 WBC 8.01 (4.0-11.0) K/uL RBC 5.09 (4.50-5.90) M/uL Hgb 13.8 (13.0-17.0) g/dL Hct 41.8 (38.0-50.0) % MCV 82.1 (80.0-98.0) fL MCH 27.1 (27.0-32.0) pg MCHC 33.0 (31.0-37.0) g/dL RDW Std Deviation 50.8 (28.0-62.0) fl RDW Coeff of [place] 17 H (11.0-15.0) % Plt Count 128 L (150-400) K/uL MPV 9.20 (7.40-12.00) fL Neut % (Auto) 80.6 H (48.0-80.0) % Lymph % (Auto) 10.4 L (16.0-40.0) % [place] % (Auto) 7.2 (0.0-15.0) % Eos % (Auto) 1.7 (0.0-7.0) % Baso % (Auto) 0.1 (0.0-1.5) % Neut # (Auto) 6.5 H (1.4-5.7) K/uL Lymph # (Auto) 0.8 (0.6-2.4) K/uL [place] # (Auto) 0.6 (0.0-0.8) K/uL Eos # (Auto) 0.1 (0.0-0.7) K/uL Baso # (Auto) 0.0 (0.0-0.1) K/uL Nucleated RBC % 0.0 /100WBC Nucleated RBCs # 0 K/uL Sodium 139 (136-146) mmol/L Potassium 3.9 (3.5-5.1) mmol/L Chloride 109 (98-110) mmol/L Carbon Dioxide 23 (21-31) mmol/L BUN 27 H (6.0-23.0) mg/dL Creatinine 1.1 (0.6-1.5) mg/dL Est Cr Clr Drug Dosing 78.69 mL/min Estimated GFR (MDRD) > 60.0 ml/min Glucose 100 (60-110) mg/dL POC Glucose (60-110) mg/dL Calcium 8.4 L (8.8-10.8) mg/dL Magnesium 1.8 (1.5-2.3) mEq/L Total Bilirubin 2.4 H (0.1-1.5) mg/dL AST 20 (5-40) IU/L ALT 31 (8-54) IU/L Alkaline Phosphatase 275 H (40-150) Ammonia 74 H (14-68) UG/DL Total Protein 6.9 (6.0-8.0) g/dL Albumin 3.3 L (3.4-4.8) g/dL Globulin 3.6 H (2.0-3.5) g/dL Albumin/Globulin Ratio 0.9 L (1.3-2.8) 10/17/17 10/17/17 10/17/17 Range/Units 05:34 08:04 11:48 WBC (4.0-11.0) K/uL RBC (4.50-5.90) M/uL Hgb (13.0-17.0) g/dL Hct (38.0-50.0) % MCV (80.0-98.0) fL MCH (27.0-32.0) pg MCHC (31.0-37.0) g/dL RDW Std Deviation (28.0-62.0) fl RDW Coeff of [place] (11.0-15.0) % Plt Count (150-400) K/uL MPV (7.40-12.00) fL Neut % (Auto) (48.0-80.0) % Lymph % (Auto) (16.0-40.0) % [place] % (Auto) (0.0-15.0) % Eos % (Auto) (0.0-7.0) % Baso % (Auto) (0.0-1.5) % Neut # (Auto) (1.4-5.7) K/uL Lymph # (Auto) (0.6-2.4) K/uL [place] # (Auto) (0.0-0.8) K/uL Eos # (Auto) (0.0-0.7) K/uL Baso # (Auto) (0.0-0.1) K/uL Nucleated RBC % /100WBC Nucleated RBCs # K/uL Sodium (136-146) mmol/L Potassium (3.5-5.1) mmol/L Chloride (98-110) mmol/L Carbon Dioxide (21-31) mmol/L BUN (6.0-23.0) mg/dL Creatinine (0.6-1.5) mg/dL Est Cr Clr Drug Dosing mL/min Estimated GFR (MDRD) ml/min Glucose (60-110) mg/dL POC Glucose 92 92 137 H (60-110) mg/dL Calcium (8.8-10.8) mg/dL Magnesium (1.5-2.3) mEq/L Total Bilirubin (0.1-1.5) mg/dL AST (5-40) IU/L ALT (8-54) IU/L Alkaline Phosphatase (40-150) Ammonia (14-68) UG/DL Total Protein (6.0-8.0) g/dL Albumin (3.4-4.8) g/dL Globulin (2.0-3.5) g/dL Albumin/Globulin Ratio (1.3-2.8) 07/13/17 Range/Units 15:49 WBC (4.0-11.0) K/uL RBC (4.50-5.90) M/uL Hgb (13.0-17.0) g/dL Hct (38.0-50.0) % MCV (80.0-98.0) fL MCH (27.0-32.0) pg MCHC (31.0-37.0) g/dL RDW Std Deviation (28.0-62.0) fl RDW Coeff of [place] (11.0-15.0) % Plt Count (150-400) K/uL MPV (7.40-12.00) fL Neut % (Auto) (48.0-80.0) % Lymph % (Auto) (16.0-40.0) % [place] % (Auto) (0.0-15.0) % Eos % (Auto) (0.0-7.0) % Baso % (Auto) (0.0-1.5) % Neut # (Auto) (1.4-5.7) K/uL Lymph # (Auto) (0.6-2.4) K/uL [place] # (Auto) (0.0-0.8) K/uL Eos # (Auto) (0.0-0.7) K/uL Baso # (Auto) (0.0-0.1) K/uL Nucleated RBC % /100WBC Nucleated RBCs # K/uL Sodium (136-146) mmol/L Potassium (3.5-5.1) mmol/L Chloride (98-110) mmol/L Carbon Dioxide (21-31) mmol/L BUN (6.0-23.0) mg/dL Creatinine (0.6-1.5) mg/dL Est Cr Clr Drug Dosing mL/min Estimated GFR (MDRD) ml/min Glucose (60-110) mg/dL POC Glucose 135 H (60-110) mg/dL Calcium (8.8-10.8) mg/dL Magnesium (1.5-2.3) mEq/L Total Bilirubin (0.1-1.5) mg/dL AST (5-40) IU/L ALT (8-54) IU/L Alkaline Phosphatase (40-150) Ammonia (14-68) UG/DL Total Protein (6.0-8.0) g/dL Albumin (3.4-4.8) g/dL Globulin (2.0-3.5) g/dL Albumin/Globulin Ratio (1.3-2.8) Med Orders - Current: Current Medications Atorvastatin Calcium (Lipitor) 80 mg PO BEDTIME [facility] Last Admin: 07/12/17 21:02 Dose: 80 mg Furosemide (Lasix) 80 mg PO QAM [facility] Last Admin: 07/13/17 09:14 Dose: 80 mg Sodium Chloride (Normal Saline) 1,000 mls @ 50 mls/hr IV ASDIRECTED [facility] Last Admin: 07/13/17 13:54 Dose: 50 mls/hr Insulin Aspart (Novolog) 0 unit SUBCUT TIDAC [facility] PRN Reason: Protocol Last Admin: 07/13/17 12:12 Dose: Not Given Lactulose (Chronulac) 10 gm PO BID [facility] Last Admin: 07/13/17 09:14 Dose: 10 gm Lorazepam (Ativan) 2 mg IVPUSH Q2H PRN PRN Reason: anxiety/agitation/tremor Last Admin: 07/12/17 06:55 Dose: 2 mg Ondansetron HCl (Zofran) 4 mg IVPUSH Q4H PRN PRN Reason: Nausea Ticagrelor [Brilinta (] 90 Mg) 1 each PO BID [facility] Last Admin: 07/13/17 09:21 Dose: 1 each Discontinued Medications Enoxaparin Sodium (Lovenox) 40 mg SUBCUT DAILY [facility] Last Admin: 07/13/17 09:14 Dose: 40 mg Furosemide (Lasix) 40 mg IVPUSH NOW ONE Stop: 07/12/17 08:51 Last Admin: 07/12/17 09:20 Dose: 40 mg Sodium Chloride (Normal Saline) 1,000 mls @ 999 mls/hr IV STAT ONE Stop: 07/11/17 15:13 Last Admin: 07/11/17 14:54 Dose: 999 mls/hr Sodium Chloride (Normal Saline) 1,000 mls @ 125 mls/hr IV ASDIRECTED [facility] Last Admin: 07/12/17 03:10 Dose: 125 mls/hr Insulin Human Regular (Novolin R) 10 unit IVPUSH ONETIME ONE PRN Reason: Protocol Stop: 07/11/17 14:44 Last Admin: 07/11/17 15:07 Dose: 10 units Iopamidol (Isovue Multipack-370 (76%)) 50 ml IVPUSH ONETIME STA Stop: 07/12/17 11:32 Last Admin: 07/12/17 11:54 Dose: Not Given Lorazepam (Ativan) 1 mg IVPUSH ONETIME ONE Stop: 07/11/17 14:13 Last Admin: 07/11/17 15:08 Dose: 1 mg Lorazepam (Ativan) 2 mg IVPUSH Q4H PRN PRN Reason: CIWA>10 Lorazepam (Ativan) 1 mg IVPUSH Q2H PRN PRN Reason: anxiety/agitation/tremor Last Admin: 07/11/17 18:10 Dose: 1 mg - Exam Physical Findings Comments:: Constitutional: No acute distress Psychiatric: Mood/Affect: blunted Neurological: Mental Status: General: Normal activity, good hygiene, appropriate appearance. Level of consciousness: Awake, alert. Orientation: Oriented to person, place, year. Knows president but it took him a while to come up with name. Concentration/Attention Span: Normal. Comprehension/Praxis: Follows commands. . He described picture with no sign of neglect. Language: He named 3/3 correctly. Reading intact. Repetition was iintact Cranial Nerves: Pupils equally round and reactive to light. Visual mcghee notable for extinction on the right. Gaze conjugate, EOMI. Sensation intact and symmetric to light touch. Facial strength is full and symmetric. Palate elevates symmetrically. Normal shrug bilaterally. Tongue protrudes midline Motor: Normal tone in all groups. No drift. Power is 5/5 throughout proximal and distal muscles. Sensation: Sensation is intact to temperature and light touch bilaterally. No extinction. Coordination: Finger to nose slow but without dysmetria Consult PN Assessment/Plan Procedures: Procedures AIRWAY INHALATION TREATMENT (01/14/17) ASSAY OF AMMONIA (09/29/15) ASSAY OF CK (CPK) (11/26/15) ASSAY OF FERRITIN (01/20/17) ASSAY OF MAGNESIUM (01/14/17) ASSAY OF NATRIURETIC PEPTIDE (01/14/17) ASSAY OF TROPONIN QUANT (01/14/17) CHEST X-RAY 1 VIEW FRONTAL (01/14/17) COMPLETE CBC W/AUTO DIFF WBC (01/19/17) COMPREHEN METABOLIC PANEL (01/19/17) CREATINE MB FRACTION (11/26/15) CT HEAD/BRAIN W/O DYE (09/29/15) ECHO EXAM OF ABDOMEN (01/14/17) ELECTROCARDIOGRAM TRACING (01/14/17) EMERGENCY DEPT VISIT (01/14/17) EMERGENCY DEPT VISIT (04/23/16) EMERGENCY DEPT VISIT (01/02/16) EVALUATE PT USE OF INHALER (01/02/16) GLUCOSE BLOOD TEST (01/14/17) GLYCOSYLATED HEMOGLOBIN TEST (01/19/17) HEPATOBIL SYST IMAGE W/DRUG (02/12/17) HYDRATE IV INFUSION ADD-ON (11/26/15) IMMUNIZATION ADMIN (04/23/16) IRON BINDING TEST (01/20/17) LIPID PANEL (01/19/17) METABOLIC PANEL TOTAL CA (01/14/17) MICROALBUMIN SEMIQUANT (01/19/17) PROTHROMBIN TIME (01/14/17) ROUTINE VENIPUNCTURE (01/19/17) TDAP VACCINE 7 YRS/> IM (04/23/16) THER/PROPH/DIAG INJ IV PUSH (01/14/17) THER/PROPH/DIAG INJ SC/IM (12/10/15) TTE W/DOPPLER COMPLETE (01/14/17) TX/PRO/DX INJ NEW DRUG ADDON (11/26/15) TX/PRO/DX INJ SAME DRUG CATEGORY DEVELOPMENT MANAGER (11/26/15) URINALYSIS AUTO W/SCOPE (11/26/15) X-RAY EXAM OF KNEE 3 (04/23/16) (1) Altered mental status SNOMED Code(s): 225215848 Code(s): R41.82 - ALTERED MENTAL STATUS, UNSPECIFIED Current Visit: Yes Assessment:: 61 year old man with history of stroke, CAD, DC CHF, DM, s/p pacemaker placement admitted with diffuse tremors and mental status changes. Mental status improved. Uremia and hyperammonemia have improved. Episode of acute onset encephalopathy, imbalance and tremors may have been recrudescence of prior stroke due to metabolic encephalopathy vs. TIA. MRI not an option. Repeat CT yesterday showed no evidence of evolving stroke. TTE showed known cardiomyopathy, EF was not quantified Carotid US showed no hemodynamically significant stenosis in common carotids or ICA. No further work up recommended from neurologic standpoint at this time. I will defer to Dr. Johnson regarding further evaluation of metabolic derangements. Problem List Initiated/Reviewed/Updated: Yes
--- NOTE | 2017-07-13 16:36 | PCM.PN ---
<Balamish,Salvador - Last Filed: 07/13/17 18:56> - General Info Date of Service: 07/13/17 Admission Dx/Problem (Free Text): Admission Diagnosis/Problem Admission Diagnosis/Problem Altered mental status Subjective Update: Patient doing better today. His tremors have resolved. He was requesting to walk so consult to PT/OT was placed. He still feels a little weak but weakness is much improved from yesterday. Functional Status: Reports: Pain Controlled, Tolerating Diet, Ambulating, Urinating - Review of Systems General: Reports: No Symptoms HEENT: Reports: No Symptoms Pulmonary: Reports: No Symptoms Cardiovascular: Reports: No Symptoms Gastrointestinal: Reports: No Symptoms Genitourinary: Reports: No Symptoms Musculoskeletal: Reports: No Symptoms Skin: Reports: No Symptoms Neurological: Reports: Dizziness Psychiatric: Reports: No Symptoms - Patient Data Vitals - Most Recent: Last Vital Signs Temp 36.6 C 07/13/17 12:00 Pulse 75 07/13/17 12:00 Resp 20 07/13/17 12:00 BP 127/83 07/13/17 12:00 Pulse Ox 95 07/13/17 12:00 Weight - Most Recent: 126.779 kg I&O - Last 24 Hours: Intake & Output 07/13/17 07/13/17 07/13/17 06:59 14:59 22:59 Intake Total 1145 1250 240 Output Total 675 950 550 Balance 470 300 -310 Lab Results Last 24 Hours: Laboratory Results - last 24 hr 07/12/17 07/12/17 07/12/17 Range/Units 16:32 16:37 18:19 WBC (4.0-11.0) K/uL RBC (4.50-5.90) M/uL Hgb (13.0-17.0) g/dL Hct (38.0-50.0) % MCV (80.0-98.0) fL MCH (27.0-32.0) pg MCHC (31.0-37.0) g/dL RDW Std Deviation (28.0-62.0) fl RDW Coeff of [place] (11.0-15.0) % Plt Count (150-400) K/uL MPV (7.40-12.00) fL Neut % (Auto) (48.0-80.0) % Lymph % (Auto) (16.0-40.0) % Wolfe % (Auto) (0.0-15.0) % Eos % (Auto) (0.0-7.0) % Baso % (Auto) (0.0-1.5) % Neut # (Auto) (1.4-5.7) K/uL Lymph # (Auto) (0.6-2.4) K/uL Wolfe # (Auto) (0.0-0.8) K/uL Eos # (Auto) (0.0-0.7) K/uL Baso # (Auto) (0.0-0.1) K/uL Nucleated RBC % /100WBC Nucleated RBCs # K/uL Sodium (136-146) mmol/L Potassium (3.5-5.1) mmol/L Chloride (98-110) mmol/L Carbon Dioxide (21-31) mmol/L BUN (6.0-23.0) mg/dL Creatinine (0.6-1.5) mg/dL Est Cr Clr Drug Dosing mL/min Estimated GFR (MDRD) ml/min Glucose (60-110) mg/dL POC Glucose 77 62 152 H (60-110) mg/dL Calcium (8.8-10.8) mg/dL Magnesium (1.5-2.3) mEq/L Total Bilirubin (0.1-1.5) mg/dL AST (5-40) IU/L ALT (8-54) IU/L Alkaline Phosphatase (40-150) Ammonia (14-68) UG/DL Total Protein (6.0-8.0) g/dL Albumin (3.4-4.8) g/dL Globulin (2.0-3.5) g/dL Albumin/Globulin Ratio (1.3-2.8) 07/13/17 07/13/17 07/13/17 Range/Units 05:33 05:33 05:33 WBC 8.01 (4.0-11.0) K/uL RBC 5.09 (4.50-5.90) M/uL Hgb 13.8 (13.0-17.0) g/dL Hct 41.8 (38.0-50.0) % MCV 82.1 (80.0-98.0) fL MCH 27.1 (27.0-32.0) pg MCHC 33.0 (31.0-37.0) g/dL RDW Std Deviation 50.8 (28.0-62.0) fl RDW Coeff of [place] 17 H (11.0-15.0) % Plt Count 128 L (150-400) K/uL MPV 9.20 (7.40-12.00) fL Neut % (Auto) 80.6 H (48.0-80.0) % Lymph % (Auto) 10.4 L (16.0-40.0) % Wolfe % (Auto) 7.2 (0.0-15.0) % Eos % (Auto) 1.7 (0.0-7.0) % Baso % (Auto) 0.1 (0.0-1.5) % Neut # (Auto) 6.5 H (1.4-5.7) K/uL Lymph # (Auto) 0.8 (0.6-2.4) K/uL Wolfe # (Auto) 0.6 (0.0-0.8) K/uL Eos # (Auto) 0.1 (0.0-0.7) K/uL Baso # (Auto) 0.0 (0.0-0.1) K/uL Nucleated RBC % 0.0 /100WBC Nucleated RBCs # 0 K/uL Sodium 139 (136-146) mmol/L Potassium 3.9 (3.5-5.1) mmol/L Chloride 109 (98-110) mmol/L Carbon Dioxide 23 (21-31) mmol/L BUN 27 H (6.0-23.0) mg/dL Creatinine 1.1 (0.6-1.5) mg/dL Est Cr Clr Drug Dosing 78.69 mL/min Estimated GFR (MDRD) > 60.0 ml/min Glucose 100 (60-110) mg/dL POC Glucose (60-110) mg/dL Calcium 8.4 L (8.8-10.8) mg/dL Magnesium 1.8 (1.5-2.3) mEq/L Total Bilirubin 2.4 H (0.1-1.5) mg/dL AST 20 (5-40) IU/L ALT 31 (8-54) IU/L Alkaline Phosphatase 275 H (40-150) Ammonia 74 H (14-68) UG/DL Total Protein 6.9 (6.0-8.0) g/dL Albumin 3.3 L (3.4-4.8) g/dL Globulin 3.6 H (2.0-3.5) g/dL Albumin/Globulin Ratio 0.9 L (1.3-2.8) 07/13/17 07/13/17 07/13/17 Range/Units 05:34 08:04 11:48 WBC (4.0-11.0) K/uL RBC (4.50-5.90) M/uL Hgb (13.0-17.0) g/dL Hct (38.0-50.0) % MCV (80.0-98.0) fL MCH (27.0-32.0) pg MCHC (31.0-37.0) g/dL RDW Std Deviation (28.0-62.0) fl RDW Coeff of [place] (11.0-15.0) % Plt Count (150-400) K/uL MPV (7.40-12.00) fL Neut % (Auto) (48.0-80.0) % Lymph % (Auto) (16.0-40.0) % Wolfe % (Auto) (0.0-15.0) % Eos % (Auto) (0.0-7.0) % Baso % (Auto) (0.0-1.5) % Neut # (Auto) (1.4-5.7) K/uL Lymph # (Auto) (0.6-2.4) K/uL Wolfe # (Auto) (0.0-0.8) K/uL Eos # (Auto) (0.0-0.7) K/uL Baso # (Auto) (0.0-0.1) K/uL Nucleated RBC % /100WBC Nucleated RBCs # K/uL Sodium (136-146) mmol/L Potassium (3.5-5.1) mmol/L Chloride (98-110) mmol/L Carbon Dioxide (21-31) mmol/L BUN (6.0-23.0) mg/dL Creatinine (0.6-1.5) mg/dL Est Cr Clr Drug Dosing mL/min Estimated GFR (MDRD) ml/min Glucose (60-110) mg/dL POC Glucose 92 92 137 H (60-110) mg/dL Calcium (8.8-10.8) mg/dL Magnesium (1.5-2.3) mEq/L Total Bilirubin (0.1-1.5) mg/dL AST (5-40) IU/L ALT (8-54) IU/L Alkaline Phosphatase (40-150) Ammonia (14-68) UG/DL Total Protein (6.0-8.0) g/dL Albumin (3.4-4.8) g/dL Globulin (2.0-3.5) g/dL Albumin/Globulin Ratio (1.3-2.8) 07/13/17 Range/Units 15:49 WBC (4.0-11.0) K/uL RBC (4.50-5.90) M/uL Hgb (13.0-17.0) g/dL Hct (38.0-50.0) % MCV (80.0-98.0) fL MCH (27.0-32.0) pg MCHC (31.0-37.0) g/dL RDW Std Deviation (28.0-62.0) fl RDW Coeff of [place] (11.0-15.0) % Plt Count (150-400) K/uL MPV (7.40-12.00) fL Neut % (Auto) (48.0-80.0) % Lymph % (Auto) (16.0-40.0) % Wolfe % (Auto) (0.0-15.0) % Eos % (Auto) (0.0-7.0) % Baso % (Auto) (0.0-1.5) % Neut # (Auto) (1.4-5.7) K/uL Lymph # (Auto) (0.6-2.4) K/uL Wolfe # (Auto) (0.0-0.8) K/uL Eos # (Auto) (0.0-0.7) K/uL Baso # (Auto) (0.0-0.1) K/uL Nucleated RBC % /100WBC Nucleated RBCs # K/uL Sodium (136-146) mmol/L Potassium (3.5-5.1) mmol/L Chloride (98-110) mmol/L Carbon Dioxide (21-31) mmol/L BUN (6.0-23.0) mg/dL Creatinine (0.6-1.5) mg/dL Est Cr Clr Drug Dosing mL/min Estimated GFR (MDRD) ml/min Glucose (60-110) mg/dL POC Glucose 135 H (60-110) mg/dL Calcium (8.8-10.8) mg/dL Magnesium (1.5-2.3) mEq/L Total Bilirubin (0.1-1.5) mg/dL AST (5-40) IU/L ALT (8-54) IU/L Alkaline Phosphatase (40-150) Ammonia (14-68) UG/DL Total Protein (6.0-8.0) g/dL Albumin (3.4-4.8) g/dL Globulin (2.0-3.5) g/dL Albumin/Globulin Ratio (1.3-2.8) Med Orders - Current: Current Medications Atorvastatin Calcium (Lipitor) 80 mg PO BEDTIME REPLACED BY [facility] Last Admin: 07/12/17 21:02 Dose: 80 mg Furosemide (Lasix) 80 mg PO QAM REPLACED BY [facility] Last Admin: 07/13/17 09:14 Dose: 80 mg Sodium Chloride (Normal Saline) 1,000 mls @ 50 mls/hr IV ASDIRECTED REPLACED BY [facility] Last Admin: 07/13/17 13:54 Dose: 50 mls/hr Insulin Aspart (Novolog) 0 unit SUBCUT TIDAC REPLACED BY [facility] PRN Reason: Protocol Last Admin: 07/13/17 12:12 Dose: Not Given Lactulose (Chronulac) 10 gm PO BID REPLACED BY [facility] Last Admin: 07/13/17 09:14 Dose: 10 gm Lorazepam (Ativan) 2 mg IVPUSH Q2H PRN PRN Reason: anxiety/agitation/tremor Last Admin: 07/12/17 06:55 Dose: 2 mg Ondansetron HCl (Zofran) 4 mg IVPUSH Q4H PRN PRN Reason: Nausea Ticagrelor [Brilinta (] 90 Mg) 1 each PO BID REPLACED BY [facility] Last Admin: 07/13/17 09:21 Dose: 1 each Discontinued Medications Enoxaparin Sodium (Lovenox) 40 mg SUBCUT DAILY REPLACED BY [facility] Last Admin: 07/13/17 09:14 Dose: 40 mg Furosemide (Lasix) 40 mg IVPUSH NOW ONE Stop: 07/12/17 08:51 Last Admin: 07/12/17 09:20 Dose: 40 mg Sodium Chloride (Normal Saline) 1,000 mls @ 999 mls/hr IV STAT ONE Stop: 07/11/17 15:13 Last Admin: 07/11/17 14:54 Dose: 999 mls/hr Sodium Chloride (Normal Saline) 1,000 mls @ 125 mls/hr IV ASDIRECTED LUIZA Last Admin: 07/12/17 03:10 Dose: 125 mls/hr Insulin Human Regular (Novolin R) 10 unit IVPUSH ONETIME ONE PRN Reason: Protocol Stop: 07/11/17 14:44 Last Admin: 07/11/17 15:07 Dose: 10 units Iopamidol (Isovue Multipack-370 (76%)) 50 ml IVPUSH ONETIME STA Stop: 07/12/17 11:32 Last Admin: 07/12/17 11:54 Dose: Not Given Lorazepam (Ativan) 1 mg IVPUSH ONETIME ONE Stop: 07/11/17 14:13 Last Admin: 07/11/17 15:08 Dose: 1 mg Lorazepam (Ativan) 2 mg IVPUSH Q4H PRN PRN Reason: CIWA>10 Lorazepam (Ativan) 1 mg IVPUSH Q2H PRN PRN Reason: anxiety/agitation/tremor Last Admin: 07/11/17 18:10 Dose: 1 mg - Exam Quality Assessment: Supplemental Oxygen General: Alert, Oriented, Other (still slow to respong but asnwers questions to best of his ability. ) HEENT: Pupils Equal, Pupils Reactive Neck: Supple (e) Lungs: Normal Respiratory Effort (e), Decreased Breath Sounds Cardiovascular: Regular Rate, Regular Rhythm, Murmurs GI/Abdominal Exam: Soft, Non-Tender (d) Back Exam: Normal Inspection, Full Range of Motion Extremities: Normal Inspection, Normal Range of Motion, Non-Tender, No Pedal Edema Skin: Intact Neurological: No New Focal Deficit Psy/Mental Status: Alert, Normal Affect, Normal Mood - Problem List Review Problem List Initiated/Reviewed/Updated: Yes - My Orders Last 24 Hours: My Active Orders 07/12/17 17:15 Sodium Chloride 0.9% [Normal Saline] 1,000 ml IV ASDIRECTED 07/13/17 08:12 Consult to Physical Therapy [PT Evaluation and Treatment] [CONS] Routine 07/13/17 09:00 Furosemide [Lasix] 80 mg PO QAM 07/13/17 12:11 Remove Hughes Catheter [Urinary Catheter Removal] [RC] Per Unit Routine 07/14/17 05:11 AMMONIA VENOUS [CHEM] AM 07/15/17 05:11 AMMONIA VENOUS [CHEM] AM 07/16/17 05:11 AMMONIA VENOUS [CHEM] AM 07/17/17 05:11 AMMONIA VENOUS [CHEM] AM - Plan Plan:: 61 year old male with history of HTN, CHF, Pacemaker, COPD, DM T2, Anxiety admitted for weakness, generalized tremors, slurred speech and altered mental status. EKG/Troponin/CT Head CT head all negative. Dr. Shabazz was consulted and has cleared patient from neurologic point of view. 1. Weakness/tremors/Slurred Speech, improved 2. Neck Pain, improved 3. Elevated Ammonia, improving 4. Chronic Elevated Alk Phos 5. Elevated GGT, 573 6. Hyperglycemia, on insulin 7. Pseudohyponatremia, corrected 8. Elevated CK-Mb, corrected 9. Elevated BNP 10. PMH HFrEF, EF 20-25% 11. PMH CAD/SC/PCI 12. PMH DM T2 13. PMH Anxiety 14. FH of Non-Alcoholic Liver Cirrhosis 15. Acute Kidney Injury, resolved Plan: 1. For PMH CAD/SC/PCI/HFrEF/Elevated BNP: Telemetry. Daily Weight. Strict I&O. on Atorvastatin. on Brilinta. Echocardiogram performed yesterday, awaiting results. resume home bp meds and home lasix. 2. For Tremors/Weakness/Slurred Speech/Neck Pain: Ativan PRN. on Brilinta BID. Carotid Duplex US negative. CT Head w wo Contrast negative. PT consulted and ambulated with patient. 3. For elevated Ammonia/elevated alk phos/family history of liver cirrhosis: AST /ALT/BR/PT/LDH normal. GGT Elevated. HIDA scan this year & RUQ US from this year showing fatty infiltration of Liver. CT Abdomen wo contrast from yesterday shows no acute changes. Ammonia improving. on Lactulose. 4. For GAYLE: resolved. Cr back to normal range. continue to monitor. 5. For Hyperglycemia & DM T2: Resume home Lantus 40 units SC BID. Start Insulin sliding scale TIDAC. 6. For Anxiety: Ativan PRN. <Timmy Mosley - Last Filed: 07/13/17 19:22> - Patient Data Vitals - Most Recent: Last Vital Signs Temp 36.6 C 07/13/17 16:00 Pulse 75 07/13/17 16:00 Resp 20 07/13/17 16:00 BP 134/84 07/13/17 16:00 Pulse Ox 98 07/13/17 17:00 I&O - Last 24 Hours: Intake & Output 07/13/17 07/13/17 07/13/17 06:59 14:59 22:59 Intake Total 1145 1250 480 Output Total 675 950 820 Balance 470 300 -340 Lab Results Last 24 Hours: Laboratory Results - last 24 hr 07/13/17 07/13/17 07/13/17 Range/Units 05:33 05:33 05:33 WBC 8.01 (4.0-11.0) K/uL RBC 5.09 (4.50-5.90) M/uL Hgb 13.8 (13.0-17.0) g/dL Hct 41.8 (38.0-50.0) % MCV 82.1 (80.0-98.0) fL MCH 27.1 (27.0-32.0) pg MCHC 33.0 (31.0-37.0) g/dL RDW Std Deviation 50.8 (28.0-62.0) fl RDW Coeff of [place] 17 H (11.0-15.0) % Plt Count 128 L (150-400) K/uL MPV 9.20 (7.40-12.00) fL Neut % (Auto) 80.6 H (48.0-80.0) % Lymph % (Auto) 10.4 L (16.0-40.0) % Wolfe % (Auto) 7.2 (0.0-15.0) % Eos % (Auto) 1.7 (0.0-7.0) % Baso % (Auto) 0.1 (0.0-1.5) % Neut # (Auto) 6.5 H (1.4-5.7) K/uL Lymph # (Auto) 0.8 (0.6-2.4) K/uL Wolfe # (Auto) 0.6 (0.0-0.8) K/uL Eos # (Auto) 0.1 (0.0-0.7) K/uL Baso # (Auto) 0.0 (0.0-0.1) K/uL Nucleated RBC % 0.0 /100WBC Nucleated RBCs # 0 K/uL Sodium 139 (136-146) mmol/L Potassium 3.9 (3.5-5.1) mmol/L Chloride 109 (98-110) mmol/L Carbon Dioxide 23 (21-31) mmol/L BUN 27 H (6.0-23.0) mg/dL Creatinine 1.1 (0.6-1.5) mg/dL Est Cr Clr Drug Dosing 78.69 mL/min Estimated GFR (MDRD) > 60.0 ml/min Glucose 100 (60-110) mg/dL POC Glucose (60-110) mg/dL Calcium 8.4 L (8.8-10.8) mg/dL Magnesium 1.8 (1.5-2.3) mEq/L Total Bilirubin 2.4 H (0.1-1.5) mg/dL AST 20 (5-40) IU/L ALT 31 (8-54) IU/L Alkaline Phosphatase 275 H (40-150) Ammonia 74 H (14-68) UG/DL Total Protein 6.9 (6.0-8.0) g/dL Albumin 3.3 L (3.4-4.8) g/dL Globulin 3.6 H (2.0-3.5) g/dL Albumin/Globulin Ratio 0.9 L (1.3-2.8) 07/13/17 07/13/17 07/13/17 Range/Units 05:34 08:04 11:48 WBC (4.0-11.0) K/uL RBC (4.50-5.90) M/uL Hgb (13.0-17.0) g/dL Hct (38.0-50.0) % MCV (80.0-98.0) fL MCH (27.0-32.0) pg MCHC (31.0-37.0) g/dL RDW Std Deviation (28.0-62.0) fl RDW Coeff of [place] (11.0-15.0) % Plt Count (150-400) K/uL MPV (7.40-12.00) fL Neut % (Auto) (48.0-80.0) % Lymph % (Auto) (16.0-40.0) % Wolfe % (Auto) (0.0-15.0) % Eos % (Auto) (0.0-7.0) % Baso % (Auto) (0.0-1.5) % Neut # (Auto) (1.4-5.7) K/uL Lymph # (Auto) (0.6-2.4) K/uL Wolfe # (Auto) (0.0-0.8) K/uL Eos # (Auto) (0.0-0.7) K/uL Baso # (Auto) (0.0-0.1) K/uL Nucleated RBC % /100WBC Nucleated RBCs # K/uL Sodium (136-146) mmol/L Potassium (3.5-5.1) mmol/L Chloride (98-110) mmol/L Carbon Dioxide (21-31) mmol/L BUN (6.0-23.0) mg/dL Creatinine (0.6-1.5) mg/dL Est Cr Clr Drug Dosing mL/min Estimated GFR (MDRD) ml/min Glucose (60-110) mg/dL POC Glucose 92 92 137 H (60-110) mg/dL Calcium (8.8-10.8) mg/dL Magnesium (1.5-2.3) mEq/L Total Bilirubin (0.1-1.5) mg/dL AST (5-40) IU/L ALT (8-54) IU/L Alkaline Phosphatase (40-150) Ammonia (14-68) UG/DL Total Protein (6.0-8.0) g/dL Albumin (3.4-4.8) g/dL Globulin (2.0-3.5) g/dL Albumin/Globulin Ratio (1.3-2.8) 07/13/17 07/13/17 Range/Units 15:49 16:43 WBC (4.0-11.0) K/uL RBC (4.50-5.90) M/uL Hgb (13.0-17.0) g/dL Hct (38.0-50.0) % MCV (80.0-98.0) fL MCH (27.0-32.0) pg MCHC (31.0-37.0) g/dL RDW Std Deviation (28.0-62.0) fl RDW Coeff of [place] (11.0-15.0) % Plt Count (150-400) K/uL MPV (7.40-12.00) fL Neut % (Auto) (48.0-80.0) % Lymph % (Auto) (16.0-40.0) % Wolfe % (Auto) (0.0-15.0) % Eos % (Auto) (0.0-7.0) % Baso % (Auto) (0.0-1.5) % Neut # (Auto) (1.4-5.7) K/uL Lymph # (Auto) (0.6-2.4) K/uL Wolfe # (Auto) (0.0-0.8) K/uL Eos # (Auto) (0.0-0.7) K/uL Baso # (Auto) (0.0-0.1) K/uL Nucleated RBC % /100WBC Nucleated RBCs # K/uL Sodium (136-146) mmol/L Potassium (3.5-5.1) mmol/L Chloride (98-110) mmol/L Carbon Dioxide (21-31) mmol/L BUN (6.0-23.0) mg/dL Creatinine (0.6-1.5) mg/dL Est Cr Clr Drug Dosing mL/min Estimated GFR (MDRD) ml/min Glucose (60-110) mg/dL POC Glucose 135 H 127 H (60-110) mg/dL Calcium (8.8-10.8) mg/dL Magnesium (1.5-2.3) mEq/L Total Bilirubin (0.1-1.5) mg/dL AST (5-40) IU/L ALT (8-54) IU/L Alkaline Phosphatase (40-150) Ammonia (14-68) UG/DL Total Protein (6.0-8.0) g/dL Albumin (3.4-4.8) g/dL Globulin (2.0-3.5) g/dL Albumin/Globulin Ratio (1.3-2.8) Med Orders - Current: Current Medications Atorvastatin Calcium (Lipitor) 80 mg PO BEDTIME REPLACED BY [facility] Last Admin: 07/12/17 21:02 Dose: 80 mg Furosemide (Lasix) 80 mg PO QAM REPLACED BY [facility] Last Admin: 07/13/17 09:14 Dose: 80 mg Sodium Chloride (Normal Saline) 1,000 mls @ 50 mls/hr IV ASDIRECTED REPLACED BY [facility] Last Admin: 07/13/17 13:54 Dose: 50 mls/hr Insulin Aspart (Novolog) 0 unit SUBCUT TIDAC REPLACED BY [facility] PRN Reason: Protocol Last Admin: 07/13/17 17:41 Dose: Not Given Lactulose (Chronulac) 10 gm PO BID REPLACED BY [facility] Last Admin: 07/13/17 09:14 Dose: 10 gm Lorazepam (Ativan) 2 mg IVPUSH Q2H PRN PRN Reason: anxiety/agitation/tremor Last Admin: 07/12/17 06:55 Dose: 2 mg Ondansetron HCl (Zofran) 4 mg IVPUSH Q4H PRN PRN Reason: Nausea Ticagrelor [Brilinta (] 90 Mg) 1 each PO BID REPLACED BY [facility] Last Admin: 07/13/17 09:21 Dose: 1 each Discontinued Medications Enoxaparin Sodium (Lovenox) 40 mg SUBCUT DAILY REPLACED BY [facility] Last Admin: 07/13/17 09:14 Dose: 40 mg Furosemide (Lasix) 40 mg IVPUSH NOW ONE Stop: 07/12/17 08:51 Last Admin: 07/12/17 09:20 Dose: 40 mg Sodium Chloride (Normal Saline) 1,000 mls @ 999 mls/hr IV STAT ONE Stop: 07/11/17 15:13 Last Admin: 07/11/17 14:54 Dose: 999 mls/hr Sodium Chloride (Normal Saline) 1,000 mls @ 125 mls/hr IV ASDIRECTED REPLACED BY [facility] Last Admin: 07/12/17 03:10 Dose: 125 mls/hr Insulin Human Regular (Novolin R) 10 unit IVPUSH ONETIME ONE PRN Reason: Protocol Stop: 07/11/17 14:44 Last Admin: 07/11/17 15:07 Dose: 10 units Iopamidol (Isovue Multipack-370 (76%)) 50 ml IVPUSH ONETIME STA Stop: 07/12/17 11:32 Last Admin: 07/12/17 11:54 Dose: Not Given Lorazepam (Ativan) 1 mg IVPUSH ONETIME ONE Stop: 07/11/17 14:13 Last Admin: 07/11/17 15:08 Dose: 1 mg Lorazepam (Ativan) 2 mg IVPUSH Q4H PRN PRN Reason: CIWA>10 Lorazepam (Ativan) 1 mg IVPUSH Q2H PRN PRN Reason: anxiety/agitation/tremor Last Admin: 07/11/17 18:10 Dose: 1 mg - My Orders Last 24 Hours: My Active Orders 07/13/17 15:39 Communication Order [RC] DAILY 07/13/17 19:11 Antiembolic Devices [RC] .Routine VTE/DVT Education [RC] PER UNIT ROUTINE - Free Text/Narrative Note: Dr. Mosley writes: I have seen this patient today and have reviewed his data. I have discussed with this patient and his what the test results have found. His has requested a referral to [place]. Dr. Watts has asked if referrals there would be paid by his [employer] insurance and this would have to be researched. 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 I agree with Dr. Watts's note and plan.
[2017-07-13] MEDS: atorvaSTATin 40 MG Tab PO SCH (21:05)
[2017-07-13] MEDS: LORazepam 2 MG/ML MDV IVPUSH PRN (23:31)
[2017-07-13] MEDS ORDERED: Acetaminophen 325 MG Tab PO PRN (23:42)
[2017-07-14 05:57] LABS: CHLORIDE,CL 107 mmol/L (98-110); SODIUM,NA 137 mmol/L (136-146)
[2017-07-14] MEDS: Insulin Aspart 100 Units/ML 3 ML Pen SUBCUT SCH (07:39)
[2017-07-14 09:12] VITALS: BP 114/67
--- NOTE | 2017-07-14 09:48 | PCM.DCSUM1 ---
<Mac,Salvador - Last Filed: 07/14/17 10:21> Discharge Summary - Hospital Course Free Text/Narrative:: This 61 year old male presented to the ED with altered mental status, diffuse generalized tremors and ataxia. Initial ED CT was negative for acute stroke. His daughter brought him in and stated that he had a stoke 9 years prior and presented similar way. Previous stroke was visible on the CT. Patient continued to have diffuse tremors, confusion and was unable to walk. Due to presence of pacemaker MRI was unattainable. CT head with contrast also revealed no abnormalities. Labs revealed elevated ammonia, alk phos, elevated GGT but remainder of hepatic panel, LDH and PT/INR were all normal. Serum electrophoresis was ordered but results did not return. CT abdomen was done which showed no abnormalities of the Liver or GB. In review of previous records he has had elevated Alk phos for at least 1 year. He previously had a RUQ US which suggested GB thickening, thi was followed up with HIDa scan which was normal. Patient and his both state that he has not alcoholic beverage for over 20 years. His Blood alcohol in ED was negative. While on the floor his symptoms continued and would onl respond to Ativan. According to this has happened in the past and he only responds to ativan. We treated him mostly with Ativan and IVF which caused some improvement. Then LActulose was added. His symptoms seemed to respond as his Ammonia improved. He was seen by neurology who suggested Encephalopathy possibly due to elevated ammonia. Echo was done which revealed EF 20-025%. This is unchanged from his previous echo. 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 As per the plan was for him to referred to [place] for ICD due to risk of procedure. I will also recommend he is referred to [place] for his encephalopathy as this seems to be a chronic issue. He should also haso have a repeat CT in 1-2 weeks to r/o stroke. He is seen at the [facility] clinic and will be follow-up there. If referral to [place] is unable to set up at [facility] then he may return to [facility] for f/u and possible referral. At discharge he was AAAX3, ambulatory, tolerating PO, urinating and pain controlled. - Discharge Data Discharge Date: 07/14/17 Discharge Disposition: Home, Self-Care 01 Condition: Good - Patient Summary/Data Consults: Consultations 07/12/17 08:09 Consult to Physician [CONS] Routine 07/13/17 08:12 Consult to Physical Therapy [PT Evaluation and Treatment] [CONS] Routine - Patient Instructions Diet: Regular Diet as Tolerated Activity: As Tolerated Driving: Do Not Drive (do not drive for 24 hours and while taking ativan ) Showering/Bathing: May Shower Notify Provider of: Fever, Increased Pain, Swelling and Redness, Drainage, Nausea and/or Vomiting - Discharge Plan Prescriptions/Med Rec: LORazepam [Ativan] 2 mg PO Q6HR PRN 15 Days #60 tablet PRN Reason: tremor/confusion/agitation Lactulose [Chronulac] 10 gm PO DAILY PRN #500 ml PRN Reason: tremors Home Medications: Home Meds Aspirin [Halfprin] 81 mg PO DAILY 09/29/15 [History] Insulin Aspart [NovoLOG] 0 units SUBCUT ASDIRECTED 09/29/15 [History] Insulin Glarg,Human.Rec.Analog [Lantus] 40 unit SUBCUT BID 09/29/15 [History] Tamsulosin [Flomax] 0.4 mg PO BEDTIME 09/29/15 [History] Ticagrelor [Brilinta] 90 mg PO BID 09/29/15 [History] atorvaSTATin Calcium [Atorvastatin Calcium] 80 mg PO BEDTIME 01/02/16 [History] Furosemide 80 mg PO QAM 01/14/17 [History] Spironolactone [Aldactone] 25 mg PO DAILY 01/14/17 [History] Albuterol Sulfate 2.5 mg NEB Q6H PRN 07/12/17 [History] Albuterol [Proventil HFA] 2 puff INH Q6H PRN 07/12/17 [History] Budesonide/Formoterol Fumarate [Symbicort 160-4.5 Mcg Inhaler] 2 puff INH BID [History] Carvedilol 6.25 mg PO BID 07/12/17 [History] Docusate Sodium/Sennosides [Senna Plus] 1 tab PO BID 07/12/17 [History] Ferrous Sulfate [Feosol] 325 mg PO TID 07/12/17 [History] Gabapentin [Neurontin] 900 mg PO TID 07/12/17 [History] Lisinopril 2.5 mg PO DAILY 07/12/17 [History] Meloxicam 15 mg PO DAILY PRN 07/12/17 [History] Metolazone 2.5 mg PO MOWEFR 07/12/17 [History] Nitroglycerin [Nitrostat] 0.4 mg SL Q5M PRN 07/12/17 [History] Tiotropium [Spiriva Handihaler] 18 mcg INH DAILY 07/12/17 [History] hydrOXYzine HCl [Atarax] 50 mg PO TID PRN 07/12/17 [History] LORazepam [Ativan] 2 mg PO Q6HR PRN 15 Days #60 tablet 07/14/17 [Rx] Lactulose [Chronulac] 10 gm PO DAILY PRN #500 ml 07/14/17 [Rx] Patient Handouts: Hepatic Encephalopathy, Lorazepam tablets, Lactulose oral solution Referrals: Belinda Garcia MD [Primary Care Provider] - 07/26/17 11:30 am - Patient Data Vitals - Most Recent: Last Vital Signs Temp 36.8 C 07/14/17 08:00 Pulse 71 07/14/17 08:00 Resp 19 07/14/17 08:00 BP 114/67 07/14/17 08:00 Pulse Ox 93 L 07/14/17 08:00 Weight - Most Recent: 124.4 kg I&O - Last 24 hours: Intake & Output 07/13/17 07/14/17 07/14/17 22:59 06:59 14:59 Intake Total 480 1045 Output Total 820 750 Balance -340 295 Lab Results - Last 24 hrs: Laboratory Results - last 24 hr 07/13/17 07/13/17 07/13/17 Range/Units 08:04 11:48 15:49 WBC (4.0-11.0) K/uL RBC (4.50-5.90) M/uL Hgb (13.0-17.0) g/dL Hct (38.0-50.0) % MCV (80.0-98.0) fL MCH (27.0-32.0) pg MCHC (31.0-37.0) g/dL RDW Std Deviation (28.0-62.0) fl RDW Coeff of [place] (11.0-15.0) % Plt Count (150-400) K/uL MPV (7.40-12.00) fL Neut % (Auto) (48.0-80.0) % Lymph % (Auto) (16.0-40.0) % [place] % (Auto) (0.0-15.0) % Eos % (Auto) (0.0-7.0) % Baso % (Auto) (0.0-1.5) % Neut # (Auto) (1.4-5.7) K/uL Lymph # (Auto) (0.6-2.4) K/uL [place] # (Auto) (0.0-0.8) K/uL Eos # (Auto) (0.0-0.7) K/uL Baso # (Auto) (0.0-0.1) K/uL Nucleated RBC % /100WBC Nucleated RBCs # K/uL Sodium (136-146) mmol/L Potassium (3.5-5.1) mmol/L Chloride (98-110) mmol/L Carbon Dioxide (21-31) mmol/L BUN (6.0-23.0) mg/dL Creatinine (0.6-1.5) mg/dL Est Cr Clr Drug Dosing mL/min Estimated GFR (MDRD) ml/min Glucose (60-110) mg/dL POC Glucose 92 137 H 135 H (60-110) mg/dL Calcium (8.8-10.8) mg/dL Magnesium (1.5-2.3) mEq/L Total Bilirubin (0.1-1.5) mg/dL AST (5-40) IU/L ALT (8-54) IU/L Alkaline Phosphatase (40-150) Ammonia (14-68) UG/DL Total Protein (6.0-8.0) g/dL Albumin (3.4-4.8) g/dL Globulin (2.0-3.5) g/dL Albumin/Globulin Ratio (1.3-2.8) 07/13/17 07/13/17 07/13/17 Range/Units 15:49 16:43 20:40 WBC (4.0-11.0) K/uL RBC (4.50-5.90) M/uL Hgb (13.0-17.0) g/dL Hct (38.0-50.0) % MCV (80.0-98.0) fL MCH (27.0-32.0) pg MCHC (31.0-37.0) g/dL RDW Std Deviation (28.0-62.0) fl RDW Coeff of [place] (11.0-15.0) % Plt Count (150-400) K/uL MPV (7.40-12.00) fL Neut % (Auto) (48.0-80.0) % Lymph % (Auto) (16.0-40.0) % [place] % (Auto) (0.0-15.0) % Eos % (Auto) (0.0-7.0) % Baso % (Auto) (0.0-1.5) % Neut # (Auto) (1.4-5.7) K/uL Lymph # (Auto) (0.6-2.4) K/uL [place] # (Auto) (0.0-0.8) K/uL Eos # (Auto) (0.0-0.7) K/uL Baso # (Auto) (0.0-0.1) K/uL Nucleated RBC % /100WBC Nucleated RBCs # K/uL Sodium (136-146) mmol/L Potassium (3.5-5.1) mmol/L Chloride (98-110) mmol/L Carbon Dioxide (21-31) mmol/L BUN (6.0-23.0) mg/dL Creatinine (0.6-1.5) mg/dL Est Cr Clr Drug Dosing mL/min Estimated GFR (MDRD) ml/min Glucose (60-110) mg/dL POC Glucose 137 H 127 H 177 H (60-110) mg/dL Calcium (8.8-10.8) mg/dL Magnesium (1.5-2.3) mEq/L Total Bilirubin (0.1-1.5) mg/dL AST (5-40) IU/L ALT (8-54) IU/L Alkaline Phosphatase (40-150) Ammonia (14-68) UG/DL Total Protein (6.0-8.0) g/dL Albumin (3.4-4.8) g/dL Globulin (2.0-3.5) g/dL Albumin/Globulin Ratio (1.3-2.8) 07/13/17 07/14/17 07/14/17 Range/Units 22:04 05:19 05:19 WBC 5.70 (4.0-11.0) K/uL RBC 5.10 (4.50-5.90) M/uL Hgb 13.5 (13.0-17.0) g/dL Hct 41.3 (38.0-50.0) % MCV 81.0 (80.0-98.0) fL MCH 26.5 L (27.0-32.0) pg MCHC 32.7 (31.0-37.0) g/dL RDW Std Deviation 49.3 (28.0-62.0) fl RDW Coeff of [place] 17 H (11.0-15.0) % Plt Count 123 L (150-400) K/uL MPV 9.60 (7.40-12.00) fL Neut % (Auto) 76.3 (48.0-80.0) % Lymph % (Auto) 13.7 L (16.0-40.0) % [place] % (Auto) 8.2 (0.0-15.0) % Eos % (Auto) 1.6 (0.0-7.0) % Baso % (Auto) 0.2 (0.0-1.5) % Neut # (Auto) 4.4 (1.4-5.7) K/uL Lymph # (Auto) 0.8 (0.6-2.4) K/uL [place] # (Auto) 0.5 (0.0-0.8) K/uL Eos # (Auto) 0.1 (0.0-0.7) K/uL Baso # (Auto) 0.0 (0.0-0.1) K/uL Nucleated RBC % 0.0 /100WBC Nucleated RBCs # 0 K/uL Sodium 137 (136-146) mmol/L Potassium 3.8 (3.5-5.1) mmol/L Chloride 107 (98-110) mmol/L Carbon Dioxide 23 (21-31) mmol/L BUN 22 (6.0-23.0) mg/dL Creatinine 1.1 (0.6-1.5) mg/dL Est Cr Clr Drug Dosing 78.69 mL/min Estimated GFR (MDRD) > 60.0 ml/min Glucose 170 H (60-110) mg/dL POC Glucose 174 H (60-110) mg/dL Calcium 8.5 L (8.8-10.8) mg/dL Magnesium 1.5 (1.5-2.3) mEq/L Total Bilirubin 2.5 H (0.1-1.5) mg/dL AST 19 (5-40) IU/L ALT 24 (8-54) IU/L Alkaline Phosphatase 277 H (40-150) Ammonia (14-68) UG/DL Total Protein 6.8 (6.0-8.0) g/dL Albumin 3.3 L (3.4-4.8) g/dL Globulin 3.5 (2.0-3.5) g/dL Albumin/Globulin Ratio 0.9 L (1.3-2.8) 07/14/17 07/14/17 Range/Units 05:19 06:17 WBC (4.0-11.0) K/uL RBC (4.50-5.90) M/uL Hgb (13.0-17.0) g/dL Hct (38.0-50.0) % MCV (80.0-98.0) fL MCH (27.0-32.0) pg MCHC (31.0-37.0) g/dL RDW Std Deviation (28.0-62.0) fl RDW Coeff of [place] (11.0-15.0) % Plt Count (150-400) K/uL MPV (7.40-12.00) fL Neut % (Auto) (48.0-80.0) % Lymph % (Auto) (16.0-40.0) % [place] % (Auto) (0.0-15.0) % Eos % (Auto) (0.0-7.0) % Baso % (Auto) (0.0-1.5) % Neut # (Auto) (1.4-5.7) K/uL Lymph # (Auto) (0.6-2.4) K/uL [place] # (Auto) (0.0-0.8) K/uL Eos # (Auto) (0.0-0.7) K/uL Baso # (Auto) (0.0-0.1) K/uL Nucleated RBC % /100WBC Nucleated RBCs # K/uL Sodium (136-146) mmol/L Potassium (3.5-5.1) mmol/L Chloride (98-110) mmol/L Carbon Dioxide (21-31) mmol/L BUN (6.0-23.0) mg/dL Creatinine (0.6-1.5) mg/dL Est Cr Clr Drug Dosing mL/min Estimated GFR (MDRD) ml/min Glucose (60-110) mg/dL POC Glucose 142 H (60-110) mg/dL Calcium (8.8-10.8) mg/dL Magnesium (1.5-2.3) mEq/L Total Bilirubin (0.1-1.5) mg/dL AST (5-40) IU/L ALT (8-54) IU/L Alkaline Phosphatase (40-150) Ammonia 73 H (14-68) UG/DL Total Protein (6.0-8.0) g/dL Albumin (3.4-4.8) g/dL Globulin (2.0-3.5) g/dL Albumin/Globulin Ratio (1.3-2.8) Med Orders - Current: Current Medications Acetaminophen (Tylenol) 650 mg PO Q6H PRN PRN Reason: Pain Last Admin: 07/14/17 00:23 Dose: 650 mg Atorvastatin Calcium (Lipitor) 80 mg PO BEDTIME [facility] Last Admin: 07/13/17 21:05 Dose: 80 mg Furosemide (Lasix) 80 mg PO QAM [facility] Last Admin: 07/13/17 09:14 Dose: 80 mg Sodium Chloride (Normal Saline) 1,000 mls @ 50 mls/hr IV ASDIRECTED [facility] Last Admin: 07/13/17 13:54 Dose: 50 mls/hr Insulin Aspart (Novolog) 0 unit SUBCUT TIDAC [facility] PRN Reason: Protocol Last Admin: 07/14/17 07:39 Dose: Not Given Lactulose (Chronulac) 10 gm PO BID [facility] Last Admin: 07/13/17 21:07 Dose: 10 gm Lorazepam (Ativan) 2 mg IVPUSH Q2H PRN PRN Reason: anxiety/agitation/tremor Last Admin: 07/13/17 23:31 Dose: 2 mg Ondansetron HCl (Zofran) 4 mg IVPUSH Q4H PRN PRN Reason: Nausea Ticagrelor [Brilinta (] 90 Mg) 1 each PO BID [facility] Last Admin: 07/13/17 21:07 Dose: 1 each Discontinued Medications Enoxaparin Sodium (Lovenox) 40 mg SUBCUT DAILY [facility] Last Admin: 07/13/17 09:14 Dose: 40 mg Furosemide (Lasix) 40 mg IVPUSH NOW ONE Stop: 07/12/17 08:51 Last Admin: 07/12/17 09:20 Dose: 40 mg Sodium Chloride (Normal Saline) 1,000 mls @ 999 mls/hr IV STAT ONE Stop: 07/11/17 15:13 Last Admin: 07/11/17 14:54 Dose: 999 mls/hr Sodium Chloride (Normal Saline) 1,000 mls @ 125 mls/hr IV ASDIRECTED [facility] Last Admin: 07/12/17 03:10 Dose: 125 mls/hr Insulin Human Regular (Novolin R) 10 unit IVPUSH ONETIME ONE PRN Reason: Protocol Stop: 07/11/17 14:44 Last Admin: 07/11/17 15:07 Dose: 10 units Iopamidol (Isovue Multipack-370 (76%)) 50 ml IVPUSH ONETIME STA Stop: 07/12/17 11:32 Last Admin: 07/12/17 11:54 Dose: Not Given Lorazepam (Ativan) 1 mg IVPUSH ONETIME ONE Stop: 07/11/17 14:13 Last Admin: 07/11/17 15:08 Dose: 1 mg Lorazepam (Ativan) 2 mg IVPUSH Q4H PRN PRN Reason: CIWA>10 Lorazepam (Ativan) 1 mg IVPUSH Q2H PRN PRN Reason: anxiety/agitation/tremor Last Admin: 07/11/17 18:10 Dose: 1 mg *Q Meaningful Use (DIS) - VTE *Q VTE Criteria *Q: - Stroke *Q Stroke Criteria *Q: - AMI *Q AMI Criteria *Q: <Wai Johnson - Last Filed: 07/15/17 12:12> Discharge Summary - Hospital Course HPI Initial Comments: I was present with the resident during history and examination. I discussed the case with the resident and agree with the findings and plan as documented in the residents note. - Patient Summary/Data Consults: Consultations 07/12/17 08:09 Consult to Physician [CONS] Routine 07/13/17 08:12 Consult to Physical Therapy [PT Evaluation and Treatment] [CONS] Routine - Patient Data Vitals - Most Recent: Last Vital Signs Temp 36.8 C 07/14/17 08:00 Pulse 71 07/14/17 08:00 Resp 19 07/14/17 08:00 BP 114/67 07/14/17 08:00 Pulse Ox 93 L 07/14/17 08:00 Med Orders - Current: Current Medications Discontinued Medications Acetaminophen (Tylenol) 650 mg PO Q6H PRN PRN Reason: Pain Last Admin: 07/14/17 00:23 Dose: 650 mg Atorvastatin Calcium (Lipitor) 80 mg PO BEDTIME [facility] Last Admin: 07/13/17 21:05 Dose: 80 mg Enoxaparin Sodium (Lovenox) 40 mg SUBCUT DAILY [facility] Last Admin: 07/13/17 09:14 Dose: 40 mg Furosemide (Lasix) 40 mg IVPUSH NOW ONE Stop: 07/12/17 08:51 Last Admin: 07/12/17 09:20 Dose: 40 mg Furosemide (Lasix) 80 mg PO QAM [facility] Last Admin: 07/14/17 09:55 Dose: 80 mg Sodium Chloride (Normal Saline) 1,000 mls @ 999 mls/hr IV STAT ONE Stop: 07/11/17 15:13 Last Admin: 07/11/17 14:54 Dose: 999 mls/hr Sodium Chloride (Normal Saline) 1,000 mls @ 125 mls/hr IV ASDIRECTED [facility] Last Admin: 07/12/17 03:10 Dose: 125 mls/hr Sodium Chloride (Normal Saline) 1,000 mls @ 50 mls/hr IV ASDIRECTED [facility] Last Admin: 07/13/17 13:54 Dose: 50 mls/hr Insulin Aspart (Novolog) 0 unit SUBCUT TIDAC [facility] PRN Reason: Protocol Last Admin: 07/14/17 07:39 Dose: Not Given Insulin Human Regular (Novolin R) 10 unit IVPUSH ONETIME ONE PRN Reason: Protocol Stop: 07/11/17 14:44 Last Admin: 07/11/17 15:07 Dose: 10 units Iopamidol (Isovue Multipack-370 (76%)) 50 ml IVPUSH ONETIME STA Stop: 07/12/17 11:32 Last Admin: 07/12/17 11:54 Dose: Not Given Lactulose (Chronulac) 10 gm PO BID [facility] Last Admin: 07/14/17 09:55 Dose: 10 gm Lorazepam (Ativan) 1 mg IVPUSH ONETIME ONE Stop: 07/11/17 14:13 Last Admin: 07/11/17 15:08 Dose: 1 mg Lorazepam (Ativan) 2 mg IVPUSH Q4H PRN PRN Reason: CIWA>10 Lorazepam (Ativan) 1 mg IVPUSH Q2H PRN PRN Reason: anxiety/agitation/tremor Last Admin: 07/11/17 18:10 Dose: 1 mg Lorazepam (Ativan) 2 mg IVPUSH Q2H PRN PRN Reason: anxiety/agitation/tremor Last Admin: 07/13/17 23:31 Dose: 2 mg Ondansetron HCl (Zofran) 4 mg IVPUSH Q4H PRN PRN Reason: Nausea Ticagrelor [Brilinta (] 90 Mg) 1 each PO BID [facility] Last Admin: 07/14/17 09:55 Dose: 1 each *Q Meaningful Use (DIS) - VTE *Q VTE Criteria *Q: - Stroke *Q Stroke Criteria *Q: - AMI *Q AMI Criteria *Q:
[2017-07-14] MEDS: Furosemide 80 MG Tab PO SCH (09:55)
[2017-07-14] MEDS: Lactulose Soln 10 GM/15 ML 15 ML UD Cup PO SCH (09:55)
[2017-07-14] MEDS: Ticagrelor [Brilinta] 90 MG PO SCH (09:55)
--- NOTE | 2017-07-14 14:12 | ECHO ---
EXAM DATE: 07/11/17 PATIENT'S AGE: 61 The echocardiogram report can be seen in this patient's EMR (Electronic Medical Record) in the Reports section. The report has also been scanned in PACs. JUAREZ
== END 2017-07-14 11:25 | disposition home or self-care (01) | DRG 948 ==
LOC: MW.ED 14:09 → MW.MS 15:37 → OBSVTOIN 17:03
PROVIDERS: ADMIT Family Medicine; ATTEND Family Medicine
DX: R41.82 Altered mental status, unspecified (principal); N17.9 Acute kidney failure, unspecified; R25.1 Tremor, unspecified; F43.22 Adjustment disorder with anxiety; R53.1 Weakness; R26.0 Ataxic gait; I25.10 Atherosclerotic heart disease of native coronary artery without angina pectoris; I11.0 Hypertensive heart disease with heart failure; I50.9 Heart failure, unspecified; E11.9 Type 2 diabetes mellitus without complications; Z87.891 Personal history of nicotine dependence; E11.65 Type 2 diabetes mellitus with hyperglycemia; J44.9 Chronic obstructive pulmonary disease, unspecified; N40.0 Benign prostatic hyperplasia without lower urinary tract symptoms; I25.2 Old myocardial infarction; Z86.73 Personal history of transient ischemic attack (TIA), and cerebral infarction without residual deficits; Z95.0 Presence of cardiac pacemaker; Z79.82 Long term (current) use of aspirin; Z79.4 Long term (current) use of insulin; Z79.899 Other long term (current) drug therapy; F41.9 Anxiety disorder, unspecified
CPT/HCPCS: 71010; 70450; 96361; 99285; 96374; 96375; 93005; 36600 ×2; 85025; 85652; 85610; 81001; 82803; 36415; 82962; 80053; 83735; 82550; 82553; 84484; 83880; 82140; 83605; 86140; 87040 ×2; 80305; 84165; J2060; J7040; G0480; 36410; 70460; 70460-26; 74176; 74176-26; 82977; 83615; 93306; 93882; 93882-26; 97161-GP; 99283; A9270-GY; J1650; J1815-GY; J1940

== ENCOUNTER 2017-08-23 09:04 | Inpatient (IN) | payer MEDICARE, MEDICAID ==
[2017-08-23] MEDS ORDERED: Aspirin 81 MG Tab.Chew PO ONE (09:13)
[2017-08-23] MEDS ORDERED: Sodium Chloride 0.9% 1,000 ML IV ONE (09:13)
[2017-08-23] MEDS ORDERED: Morphine 10 MG/ML Syringe IV ONE (09:13)
--- NOTE | 2017-08-23 09:14 | EDM.PDOC ---
ED HPI GENERAL MEDICAL PROBLEM - General Chief Complaint: Chest Pain Stated Complaint: CHEST PAIN Time Seen by Provider: 08/23/17 09:14 Source of Information: Reports: Patient - History of Present Illness INITIAL COMMENTS - FREE TEXT/NARRATIVE: HISTORY AND PHYSICAL: History of present illness: [ Patient presents with chest pain since 2 AM he rates 8 out of 10 nonradiating describes as pressure no fever nausea vomiting chills sweats He has history of previous stents and MS as well as hypertension and diabetes ] Review of systems: As per history of present illness and below otherwise all systems reviewed and negative. Past medical history: As per history of present illness and as reviewed below otherwise noncontributory. Surgical history: As per history of present illness and as reviewed below otherwise noncontributory. Social history: No reported history of drug or alcohol abuse. Family history: As per history of present illness and as reviewed below otherwise noncontributory. Physical exam: HEENT: Atraumatic, normocephalic, pupils reactive, negative for conjunctival pallor or scleral icterus, mucous membranes moist, throat clear, neck supple, nontender, trachea midline. Lungs: Clear to auscultation, breath sounds equal bilaterally, chest nontender. Heart: S1S2, regular, negative for clicks, rubs, or JVD. Abdomen: Soft, nondistended, nontender. Negative for masses or hepatosplenomegaly. Negative for costovertebral tenderness. Pelvis: Stable nontender. Genitourinary: Deferred. Rectal: Deferred. Extremities: Atraumatic, negative for cords or calf pain. Neurovascular unremarkable. Neuro: Awake, alert, oriented. Cranial nerves II through XII unremarkable. Cerebellum unremarkable. Motor and sensory unremarkable throughout. Exam nonfocal. Diagnostics: []Lab as below EKG Chest 1 view Therapeutics: []1 L normal saline bolus Aspirin 324 mg chewable Morphine 2 mg IV Nitroglycerin 0.4 sublingual every 5 when necessary, pain resolved with third dose of nitroglycerin Impression: []Chest pain Acute coronary syndrome Chronic history of baseline Definitive disposition and diagnosis as appropriate pending reevaluation and review of above. chest pain Pain Score (Numeric/FACES): 5 - Related Data Allergies Allergy/AdvReac Type Severity Reaction Status Date / Time No Known Allergies Allergy Verified 04/23/16 14:37 Home Meds: Home Meds Aspirin [Halfprin] 81 mg PO DAILY 09/29/15 [History] Insulin Aspart [NovoLOG] 0 units SUBCUT ASDIRECTED 09/29/15 [History] Insulin Glarg,Human.Rec.Analog [Lantus] 40 unit SUBCUT BID 09/29/15 [History] Tamsulosin [Flomax] 0.4 mg PO BEDTIME 09/29/15 [History] Ticagrelor [Brilinta] 90 mg PO BID 09/29/15 [History] atorvaSTATin Calcium [Atorvastatin Calcium] 80 mg PO BEDTIME 01/02/16 [History] Furosemide 80 mg PO QAM 01/14/17 [History] Spironolactone [Aldactone] 25 mg PO DAILY 01/14/17 [History] Albuterol Sulfate 2.5 mg NEB Q6H PRN 07/12/17 [History] Albuterol [Proventil HFA] 2 puff INH Q6H PRN 07/12/17 [History] Budesonide/Formoterol Fumarate [Symbicort 160-4.5 Mcg Inhaler] 2 puff INH BID [History] Carvedilol 6.25 mg PO BID 07/12/17 [History] Docusate Sodium/Sennosides [Senna Plus] 1 tab PO BID 07/12/17 [History] Ferrous Sulfate [Feosol] 325 mg PO TID 07/12/17 [History] Gabapentin [Neurontin] 900 mg PO TID 07/12/17 [History] Lisinopril 2.5 mg PO DAILY 07/12/17 [History] Meloxicam 15 mg PO DAILY PRN 07/12/17 [History] Metolazone 2.5 mg PO MOWEFR 07/12/17 [History] Nitroglycerin [Nitrostat] 0.4 mg SL Q5M PRN 07/12/17 [History] Tiotropium [Spiriva Handihaler] 18 mcg INH DAILY 07/12/17 [History] hydrOXYzine HCl [Atarax] 50 mg PO TID PRN 07/12/17 [History] LORazepam [Ativan] 2 mg PO Q6HR PRN 15 Days #60 tablet 07/14/17 [Rx] Lactulose [Chronulac] 10 gm PO DAILY PRN #500 ml 07/14/17 [Rx] Past Medical History HEENT History: Reports: None Cardiovascular History: Reports: None, Heart Failure, Hypertension, Pacemaker Respiratory History: Reports: None, COPD Other Respiratory History: CPAP Gastrointestinal History: Reports: None Genitourinary History: Reports: None, BPH Musculoskeletal History: Reports: None Neurological History: Reports: None, Other (See Below) Other Neuro History: stroke Psychiatric History: Reports: None Endocrine/Metabolic History: Reports: None, Diabetes, Type II Hematologic History: Reports: None Immunologic History: Reports: None Oncologic (Cancer) History: Reports: None Dermatologic History: Reports: None - Infectious Disease History Infectious Disease History: Reports: None - Past Surgical History GI Surgical History: Reports: Other (See Below) Social & Family History - Family History Family Medical History: Noncontributory HEENT: Reports: None Cardiac: Reports: None Respiratory: Reports: None GI: Reports: None : Reports: None OBGYN: Reports: None Musculoskeletal: Reports: None Neurological: Reports: None Endocrine/Metabolic: Reports: Diabetes, type II Oncologic: Reports: Colon - Tobacco Use Smoking Status *Q: Former Smoker Years of Tobacco use: 18 Packs/Tins Daily: 1 Used Tobacco, but Quit: Yes Month Tobacco Last Used: 20 yrs ago Second Hand Smoke Exposure: Yes - Caffeine Use Caffeine Use: Reports: Coffee - Recreational Drug Use Recreational Drug Use: No ED ROS GENERAL - Review of Systems Review Of Systems: ROS reveals no pertinent complaints other than HPI. ED EXAM, GENERAL - Physical Exam Exam: See Below Course - Vital Signs Last Recorded V/S: Last Vital Signs Temp 97.8 F 08/23/17 09:10 Pulse 69 08/23/17 10:42 Resp 16 08/23/17 10:42 BP 107/69 08/23/17 10:42 Pulse Ox 97 08/23/17 10:42 - Orders/Labs/Meds Orders: Active Orders 24 hr Category Date Time Status EKG Documentation Completion [RC] STAT Care 08/23/17 09:28 Active UA W/MICROSCOPIC [URIN] Stat Lab 08/23/17 09:13 Uncollected Labs: Laboratory Tests 08/23/17 08/23/17 08/23/17 Range/Units 09:25 09:25 09:25 WBC 9.57 (4.0-11.0) K/uL RBC 5.20 (4.50-5.90) M/uL Hgb 14.2 (13.0-17.0) g/dL Hct 42.5 (38.0-50.0) % MCV 81.7 (80.0-98.0) fL MCH 27.3 (27.0-32.0) pg MCHC 33.4 (31.0-37.0) g/dL RDW Std Deviation 49.7 (28.0-62.0) fl RDW Coeff of [place] 17 H (11.0-15.0) % Plt Count 159 (150-400) K/uL MPV 9.70 (7.40-12.00) fL Neut % (Auto) 85.6 H (48.0-80.0) % Lymph % (Auto) 6.9 L (16.0-40.0) % [place] % (Auto) 6.5 (0.0-15.0) % Eos % (Auto) 0.9 (0.0-7.0) % Baso % (Auto) 0.1 (0.0-1.5) % Neut # (Auto) 8.2 H (1.4-5.7) K/uL Lymph # (Auto) 0.7 (0.6-2.4) K/uL Cotton # (Auto) 0.6 (0.0-0.8) K/uL Eos # (Auto) 0.1 (0.0-0.7) K/uL Baso # (Auto) 0.0 (0.0-0.1) K/uL Nucleated RBC % 0.0 /100WBC Nucleated RBCs # 0 K/uL INR 1.03 (0.86-1.11) Sodium 139 (136-146) mmol/L Potassium 3.4 L (3.5-5.1) mmol/L Chloride 100 (98-110) mmol/L Carbon Dioxide 28 (21-31) mmol/L BUN 34 H (6.0-23.0) mg/dL Creatinine 1.5 (0.6-1.5) mg/dL Est Cr Clr Drug Dosing 57.71 mL/min Estimated GFR (MDRD) 47.4 ml/min Glucose 182 H (60-110) mg/dL Calcium 9.0 (8.8-10.8) mg/dL Total Bilirubin 1.5 (0.1-1.5) mg/dL AST 25 (5-40) IU/L ALT 35 (8-54) IU/L Alkaline Phosphatase 231 H (40-150) Creatine Kinase 187 (9-236) IU/L CK-MB (CK-2) 7.6 H (0-6.6) ng/ml Troponin I < 0.10 (0.0-0.29) NG/ML Total Protein 8.0 (6.0-8.0) g/dL Albumin 3.8 (3.4-4.8) g/dL Globulin 4.2 H (2.0-3.5) g/dL Albumin/Globulin Ratio 0.9 L (1.3-2.8) Meds: Medications Discontinued Medications Generic Name Dose Route Start Last Admin Trade Name Freq PRN Reason Stop Dose Admin Aspirin 324 mg 08/23/17 09:13 08/23/17 09:29 Aspirin PO 08/23/17 09:14 324 mg ONETIME ONE Administration Sodium Chloride 1,000 mls @ 999 mls/hr 08/23/17 09:13 08/23/17 09:28 Normal Saline IV 08/23/17 10:13 999 mls/hr STAT ONE Administration Morphine Sulfate 2 mg 08/23/17 09:13 08/23/17 09:55 Morphine IV 08/23/17 09:14 2 mg ONETIME ONE Administration Nitroglycerin 0.4 mg 08/23/17 09:13 08/23/17 09:41 Nitrostat SL 0.4 mg Q5M PRN Administration Chest Pain Departure - Departure Time of Disposition: 10:44 Disposition: Refer to Observation Condition: Fair Clinical Impression: Acute coronary syndrome - Discharge Information Referrals: PCP,None [Primary Care Provider] - Forms: ED Department Discharge - My Orders Last 24 Hours: My Active Orders 08/23/17 09:13 UA W/MICROSCOPIC [URIN] Stat 08/23/17 09:28 EKG Documentation Completion [RC] STAT - Assessment/Plan Last 24 Hours: My Active Orders 08/23/17 09:13 UA W/MICROSCOPIC [URIN] Stat 08/23/17 09:28 EKG Documentation Completion [RC] STAT
[2017-08-23] MEDS: Nitroglycerin 0.4 MG Tab.SL SL PRN ×3 (09:31→09:41)
[2017-08-23 09:58] LABS: CHLORIDE,CL 100 mmol/L (98-110); SODIUM,NA 139 mmol/L (136-146)
--- NOTE | 2017-08-23 10:24 | CR ---
EXAMINATION: Portable chest radiograph. HISTORY: Shortness of breath. FINDINGS: The trachea is midline. The cardiomediastinal silhouette is within normal limits. Chronic interstitia l prominence without focal consolidation or pleural effusion. There is a left-sided AICD is noted. Osseous structures appear unremarkable. IMPRESSION: Interstitial perihilar prominence acute cardiopulmonary finding. Early pulmonary congestion is not ru led out.
[2017-08-23] MEDS ORDERED: Potassium Chloride 10% 20 MEQ/15 ML Soln 30 ML UD Cup PO ONE (12:25)
[2017-08-23] MEDS ORDERED: Albuterol 0.083% 2.5 MG/3 ML Neb Soln NEB PRN (12:39)
[2017-08-23] MEDS ORDERED: Albuterol 8 GM Inhaler INH PRN (12:39)
[2017-08-23] MEDS ORDERED: Nitroglycerin 0.4 MG Tab.SL SL PRN ×2 (12:45→16:18)
--- NOTE | 2017-08-23 12:45 | PCM.HP ---
<GrisMarlin - Last Filed: 08/23/17 15:27> H&P History of Present Illness - General Date of Service: 08/23/17 - History of Present Illness Initial Comments - Free Text/Narative: 61 yo male with significant CAD, DM, copd, with stents c/o substernal chest pain that started in his sleep at one am last night. He took 3 nitro s/l without relief. He reported to ED. He has been feeling sob and chest tightness. He did notice change in sputum color which is purlent and greenish yellow. He does not have fever, chills, n/v/d but feels sob, chest tightness. He states he quit smoking 20 years ago and quit drinking 15 yrs ago. He last saw his smoke chaser in [place] Dr. vasquez where his stents were re adjusted per patient. chest pain Pain Score (Numeric/FACES): 5 - Related Data Allergies/Adverse Reactions: Allergies Allergy/AdvReac Type Severity Reaction Status Date / Time No Known Allergies Allergy Verified 04/23/16 14:37 Home Medications: Home Meds Aspirin [Halfprin] 81 mg PO DAILY 09/29/15 [History] Insulin Aspart [NovoLOG] 10 units SUBCUT TIDAC 09/29/15 [History] Insulin Glarg,Human.Rec.Analog [Lantus] 40 unit SUBCUT BID 09/29/15 [History] Tamsulosin [Flomax] 0.4 mg PO BEDTIME 09/29/15 [History] Ticagrelor [Brilinta] 90 mg PO BID 09/29/15 [History] atorvaSTATin Calcium [Atorvastatin Calcium] 40 mg PO BEDTIME 01/02/16 [History] Furosemide 80 mg PO DAILY 01/14/17 [History] Spironolactone [Aldactone] 25 mg PO DAILY 01/14/17 [History] Albuterol Sulfate 2.5 mg NEB Q6H PRN 07/12/17 [History] Albuterol [Proventil HFA] 2 puff INH Q6H PRN 07/12/17 [History] Budesonide/Formoterol Fumarate [Symbicort 160-4.5 Mcg Inhaler] 2 puff INH BID [History] Carvedilol 6.25 mg PO BID 07/12/17 [History] Docusate Sodium/Sennosides [Senna Plus] 1 tab PO BID 07/12/17 [History] Ferrous Sulfate [Feosol] 325 mg PO TIDMEALS 07/12/17 [History] Gabapentin [Neurontin] 900 mg PO TID 07/12/17 [History] Lisinopril 2.5 mg PO DAILY 07/12/17 [History] Meloxicam 15 mg PO DAILY PRN 07/12/17 [History] Metolazone 2.5 mg PO MOWEFR 07/12/17 [History] Nitroglycerin [Nitrostat] 0.4 mg SL .EVERY 5 MINUTES PRN MDD 3 tablets 07/12/17 [History] Tiotropium [Spiriva Handihaler] 18 mcg INH DAILY 07/12/17 [History] hydrOXYzine HCl [Atarax] 50 mg PO TID PRN 07/12/17 [History] LORazepam [Ativan] 2 mg PO Q4H PRN 08/23/17 [History] Lactulose [Chronulac] 10 gm PO DAILY PRN 08/23/17 [History] Past Medical History HEENT History: Reports: None Cardiovascular History: Reports: None, Heart Failure, Hypertension, Pacemaker Respiratory History: Reports: None, COPD Other Respiratory History: CPAP Gastrointestinal History: Reports: None Genitourinary History: Reports: None, BPH Musculoskeletal History: Reports: None Neurological History: Reports: None, Other (See Below) Other Neuro History: stroke Psychiatric History: Reports: None Endocrine/Metabolic History: Reports: None, Diabetes, Type II Hematologic History: Reports: None Immunologic History: Reports: None Oncologic (Cancer) History: Reports: None Dermatologic History: Reports: None - Infectious Disease History Infectious Disease History: Reports: None - Past Surgical History Cardiovascular Surgical History: Reports: Other (See Below) Other Cardiovascular Surgeries/Procedures: multiple stent GI Surgical History: Reports: Other (See Below) Social & Family History - Family History Family Medical History: Noncontributory HEENT: Reports: None Cardiac: Reports: None Respiratory: Reports: None GI: Reports: None : Reports: None OBGYN: Reports: None Musculoskeletal: Reports: None Neurological: Reports: None Endocrine/Metabolic: Reports: Diabetes, type II Oncologic: Reports: Colon - Tobacco Use Smoking Status *Q: Never Smoker Years of Tobacco use: 18 Packs/Tins Daily: 1 Used Tobacco, but Quit: Yes Month Tobacco Last Used: 20 yrs ago Second Hand Smoke Exposure: Yes - Caffeine Use Caffeine Use: Reports: Coffee - Recreational Drug Use Recreational Drug Use: No H&P Review of Systems - Review of Systems: Review Of Systems: See Below General: Reports: No Symptoms HEENT: Reports: No Symptoms Pulmonary: Reports: Shortness of Breath Cardiovascular: Reports: Chest Pain (03/06) Gastrointestinal: Reports: No Symptoms Genitourinary: Reports: No Symptoms Musculoskeletal: Reports: Muscle Pain Skin: Reports: No Symptoms Psychiatric: Reports: No Symptoms Neurological: Reports: No Symptoms Exam - Exam Exam: See Below - Vital Signs Vital Signs: Last Vital Signs Temp 97.4 F 08/23/17 11:33 Pulse 59 L 08/23/17 11:33 Resp 20 08/23/17 11:33 BP 115/76 08/23/17 11:33 Pulse Ox 99 08/23/17 11:33 Weight: 283 lb 4.704 oz - Exam General: Alert, Oriented HEENT: Conjunctiva Clear, EOMI Neck: Supple, Trachea Midline Lungs: Decreased Breath Sounds Cardiovascular: Regular Rate, Other (not chest wall tenderness) GI/Abdominal Exam: Normal Bowel Sounds, Soft Back Exam: Normal Inspection Extremities: Normal Inspection Skin: Warm, Dry, Intact Neuro Extensive - Mental Status: Alert Psychiatric: Alert, Normal Affect, Normal Mood - Patient Data Result Diagrams: 08/23/17 09:25 08/23/17 09:25 *Q Meaningful Use (ADM) - VTE *Q VTE Criteria *Q: - Stroke *Q Stroke Criteria *Q: - AMI *Q AMI Criteria *Q: Problem List Initiated/Reviewed/Updated: Yes Orders Last 24hrs: Active Orders 24 hr Category Date Time Status Blood Glucose Check, Bedside [RC] QIDACANDBED Care 08/23/17 12:22 Active Cardiac Education [RC] Click to Edit Care 08/23/17 12:17 Active Cardiac Monitoring [RC] . DIRECTED Care 08/23/17 12:17 Active ADA Diabetic [[employer] Diet] [DIET Diet 08/23/17 Dinner Active ] GLYCOSYLATED HEMOGLOBIN,HGBA1C [CHEM] Routine Lab 08/23/17 12:41 Ordered Albuterol Med 08/23/17 12:39 Ordered 2 puff INH Q6H PRN Albuterol [Proventil Neb Soln] Med 08/23/17 12:39 Ordered 2.5 mg NEB Q6H PRN Aspirin Med 08/24/17 09:00 Active 81 mg PO DAILY Aspirin [Halfprin] Med 08/24/17 09:00 Ordered 81 mg PO DAILY Budesonide/Formoterol Med 08/23/17 21:00 Ordered 2 puff INH BID Carvedilol [Coreg] Med 08/23/17 21:00 Ordered 6.25 mg PO BID Docusate Sodium/Sennosides [Senna Plus] Med 08/23/17 21:00 Ordered 1 tab PO BID Enoxaparin [Lovenox] Med 08/23/17 12:45 Ordered 40 mg SUBCUT Q24H Ferrous Sulfate Med 08/23/17 14:00 Ordered 325 mg PO TID atorvaSTATin [Lipitor] Med 08/23/17 21:00 Ordered 80 mg PO BEDTIME Medication Orders Albuterol (Proventil Neb Soln) 2.5 mg NEB Q6H PRN PRN Reason: Dyspnea Aspirin (Aspirin) 81 mg PO DAILY [facility] Aspirin (Halfprin) 81 mg PO DAILY [facility] Atorvastatin Calcium (Lipitor) 80 mg PO BEDTIME [facility] Carvedilol (Coreg) 6.25 mg PO BID [facility] Enoxaparin Sodium (Lovenox) 40 mg SUBCUT Q24H [facility] Ferrous Sulfate (Ferrous Sulfate) 325 mg PO TID [facility] Non-Formulary Medication (Albuterol) 2 puff INH Q6H PRN PRN Reason: Dyspnea Non-Formulary Medication (Budesonide/Formoterol) 2 puff INH BID [facility] Senna/Docusate Sodium (Senna Plus) 1 tab PO BID [facility] Assessment/Plan Comment:: 61 yo male admitted for r/o ACS and COPD excerabation CP : no acute EKG changes. monitor serial troponins. Blood pressure on low side : nitrate not given for cp. Morphine relieved his pain to 2/10 COPD excerabation: start rocephin, duonebs, IV solumedrol DM 2: continue lantus 20 units bid and novolog hi dose sliding scale. DVT prohylaxis: sc lovenox. <Ranjit Jeffrey - Last Filed: 08/23/17 17:11> Exam - Vital Signs Vital Signs: Last Vital Signs Temp 97.5 F 08/23/17 16:00 Pulse 65 08/23/17 16:00 Resp 20 08/23/17 16:00 BP 117/75 08/23/17 16:00 Pulse Ox 99 08/23/17 16:00 - Patient Data Lab Results Last 24 hrs: Laboratory Results - last 24 hr 08/23/17 08/23/17 08/23/17 Range/Units 11:53 13:25 13:30 POC Glucose 49 L 142 H (60-110) mg/dL Magnesium (1.5-2.3) mEq/L Troponin I < 0.10 (0.0-0.29) NG/ML 08/23/17 08/23/17 Range/Units 13:30 16:29 POC Glucose 140 H (60-110) mg/dL Magnesium 1.9 (1.5-2.3) mEq/L Troponin I (0.0-0.29) NG/ML Result Diagrams: 08/23/17 09:25 08/23/17 09:25 *Q Meaningful Use (ADM) - VTE *Q VTE Criteria *Q: - Stroke *Q Stroke Criteria *Q: - AMI *Q AMI Criteria *Q: - Problem List (1) COPD exacerbation SNOMED Code(s): 224018502747145 ICD Code: J44.1 - CHRONIC OBSTRUCTIVE PULMONARY DISEASE W (ACUTE) EXACERBATION Status: Acute Current Visit: Yes (2) CHF exacerbation SNOMED Code(s): 11837219 ICD Code: I50.9 - HEART FAILURE, UNSPECIFIED Status: Acute Current Visit : No (3) Contusion SNOMED Code(s): 370482351 ICD Code: T14.8 - OTHER INJURY OF UNSPECIFIED BODY REGION * DO NOT USE * Status: Acute Current Visit: No Qualifiers: Encounter type: initial encounter Contusion area: knee Laterality: right Qualified Code(s): S80.01XA - Contusion of right knee, initial encounter (4) DM type 2 (diabetes mellitus, type 2) SNOMED Code(s): 46592795 ICD Code: E11.9 - TYPE 2 DIABETES MELLITUS WITHOUT COMPLICATIONS Status: Acute Current Visit: No Qualifiers: Diabetes mellitus complication status: with unspecified complications Qualified Code(s): E11.8 - Type 2 diabetes mellitus with unspecified complications (5) HTN (hypertension) SNOMED Code(s): 98870935 ICD Code: I10 - ESSENTIAL (PRIMARY) HYPERTENSION Status: Chronic Current Visit: No Qualifiers: Hypertension type: essential hypertension Qualified Code(s): I10 - Essential (primary) hypertension (6) Hypercholesteremia SNOMED Code(s): 85357750 ICD Code: E78.0 - PURE HYPERCHOLESTEROLEMIA * DO NOT USE * Status: Chronic Current Visit: No Problem List Initiated/Reviewed/Updated: Yes Orders Last 24hrs: Active Orders 24 hr Category Date Time Status Blood Glucose Check, Bedside [RC] QIDACANDBED Care 08/23/17 12:22 Active Cardiac Education [RC] Click to Edit Care 08/23/17 12:17 Active Cardiac Monitoring [RC] . DIRECTED Care 08/23/17 12:17 Active EKG 12 Lead [EKG Documentation Completion] [RC] STAT Care 08/23/17 14:30 Active RT Aerosol Therapy [RC] ASDIRECTED Care 08/23/17 13:40 Active RT Post Treatment Assessment [RC] Click to Edit Care 08/23/17 16:17 Active RT Pre-Treatment Assessment [RC] Click to Edit Care 08/23/17 16:17 Active Telemetry Monitoring [Cardiac Monitoring] [RC] . Care 08/23/17 12:17 Active DIRECTED ADA Diabetic [[employer] Diet] [DIET Diet 08/23/17 Dinner Active ] TROPONIN I [CHEM] Q6H Lab 08/23/17 21:25 Ordered Albuterol [Proventil Neb Soln] Med 08/23/17 12:39 Active 2.5 mg NEB Q6H PRN Albuterol [Ventolin HFA] Med 08/23/17 12:39 Active 2 gm INH Q6H PRN Albuterol/Ipratropium [DuoNeb 3.0-0.5 MG/3 ML] Med 08/23/17 13:40 Active 3 ml NEB Q4HRRT PRN Aspirin [Halfprin] Med 08/24/17 09:00 Active 81 mg PO DAILY Carvedilol [Coreg] Med 08/23/17 21:00 Active 6.25 mg PO BID Docusate Sodium/Sennosides [Senna Plus] Med 08/23/17 21:00 Active 1 tab PO BID Enoxaparin [Lovenox] Med 08/23/17 14:00 Active 40 mg SUBCUT Q24H Ferrous Sulfate Med 08/23/17 14:00 Active 325 mg PO TID Furosemide [Lasix] Med 08/24/17 09:00 Active 80 mg PO DAILY Gabapentin [Neurontin] Med 08/23/17 22:00 Active 900 mg PO TID Insulin Aspart [NovoLOG] Med 08/23/17 17:00 Active See Protocol SUBCUT BIDAC Insulin Glarg,Human.Rec.Analog [LantUS Solostar] Med 08/23/17 21:00 Active 40 units SUBCUT BID LORazepam [Ativan] Med 08/23/17 16:18 Active 2 mg PO Q4H PRN Labetalol [Normodyne] Med 08/23/17 17:00 Active 20 mg IVPUSH Q4H Lactulose [Chronulac] Med 08/23/17 16:18 Active 10 gm PO DAILY PRN Lisinopril [Prinivil] Med 08/24/17 09:00 Active 2.5 mg PO DAILY Metolazone [Zaroxolyn] Med 08/23/17 16:30 Active 2.5 mg PO MoWeFr@0800 Morphine Med 08/23/17 14:21 Active 2 mg IVPUSH Q4H PRN Nitroglycerin [Nitrostat] Med 08/23/17 16:18 Active 0.4 mg SL .EVERY 5 MINUTES PRN Nitroglycerin [Nitrostat] Med 08/23/17 12:45 Active 0.4 mg SL Q5M PRN Patient's Own Medication [Ptom] Med 08/23/17 21:00 Active 1 each INH BIDRT Patient's Own Medication [Ptom] Med 08/23/17 21:00 Active 1 each PO BID Patient's Own Medication [Ptom] Med 08/23/17 21:00 Active 2 each INH BIDRT Spironolactone [Aldactone] Med 08/24/17 09:00 Active 25 mg PO DAILY Tamsulosin [Flomax] Med 08/23/17 21:00 Active 0.4 mg PO BEDTIME atorvaSTATin [Lipitor] Med 08/23/17 21:00 Active 40 mg PO BEDTIME cefTRIAXone [Rocephin in Dextrose,Iso-Osm 1 GM/50 ML] 1 Med 08/23/17 16:00 Active gm Premix Bag 1 bag IV Q24H methylPREDNISolone Sod Succ [Solu-MEDROL] Med 08/24/17 09:00 Active 60 mg IVPUSH DAILY Code Status [Resuscitation Status] Routine Resus Stat 08/23/17 14:08 Ordered Medication Orders Albuterol (Ventolin Hfa) 2 gm INH Q6H PRN PRN Reason: Dyspnea Albuterol (Proventil Neb Soln) 2.5 mg NEB Q6H PRN PRN Reason: Dyspnea Albuterol/Ipratropium (Duoneb 3.0-0.5 Mg/3 Ml) 3 ml NEB Q4HRRT PRN PRN Reason: Shortness of Breath Last Admin: 08/23/17 14:48 Dose: 3 ml Aspirin (Halfprin) 81 mg PO DAILY [facility] Atorvastatin Calcium (Lipitor) 40 mg PO BEDTIME [facility] Carvedilol (Coreg) 6.25 mg PO BID [facility] Enoxaparin Sodium (Lovenox) 40 mg SUBCUT Q24H [facility] Last Admin: 08/23/17 13:13 Dose: 40 mg Ferrous Sulfate (Ferrous Sulfate) 325 mg PO TID [facility] Last Admin: 08/23/17 13:12 Dose: 325 mg Furosemide (Lasix) 80 mg PO DAILY [facility] Gabapentin (Neurontin) 900 mg PO TID [facility] Ceftriaxone Sodium/Dextrose 1 (gm/ Premix) 50 mls @ 200 mls/hr IV Q24H [facility] Last Admin: 08/23/17 16:30 Dose: 200 mls/hr Insulin Aspart (Novolog) 0 unit SUBCUT BIDAC [facility] PRN Reason: Protocol Insulin Glargine (Lantus Solostar) 40 units SUBCUT BID [facility] Labetalol HCl (Normodyne) 20 mg IVPUSH Q4H [facility] PRN Reason: Protocol Lactulose (Chronulac) 10 gm PO DAILY PRN PRN Reason: bowel movement Lisinopril (Prinivil) 2.5 mg PO DAILY [facility] Lorazepam (Ativan) 2 mg PO Q4H PRN PRN Reason: tremor/confusion/agitation Methylprednisolone Sodium Succinate (Solu-Medrol) 60 mg IVPUSH DAILY [facility] Metolazone (Zaroxolyn) 2.5 mg PO MoWeFr@0800 [facility] Last Admin: 08/23/17 16:37 Dose: Not Given Morphine Sulfate (Morphine) 2 mg IVPUSH Q4H PRN PRN Reason: Chest Pain Last Admin: 08/23/17 14:28 Dose: 2 mg Nitroglycerin (Nitrostat) 0.4 mg SL Q5M PRN PRN Reason: Chest Pain Nitroglycerin (Nitrostat) 0.4 mg SL .EVERY 5 MINUTES PRN PRN Reason: Chest Pain Symbicort 160/4.5 2 each INH BIDRT [facility] Advair 250/50 1 each INH BIDRT [facility] Brilinta 90 Mg 1 each PO BID [facility] Senna/Docusate Sodium (Senna Plus) 1 tab PO BID [facility] Spironolactone (Aldactone) 25 mg PO DAILY [facility] Tamsulosin HCl (Flomax) 0.4 mg PO BEDTIME [facility] CXR - early pulm congestion/CHF Assessment/Plan Comment:: Cp atypical : tender to palpation , worse with breathing , will order Lipid profile in am. SOB due to CHF exac - lasix 40 mg iv q 12h , monitor electrolytes , I and O , daily weight , cardiac echo, BP control Copd exac : add advair , treatment as above DM u/c - Hb A1C is 11, insulin Novolog 5units with meals , f/up BS HLP - cont. atorvastatin , f/up LP Patient seen and examined , discussed with resident , plan as above. Agree with resident.
[2017-08-23] MEDS: Ferrous Sulfate 325 MG Tab PO SCH ×2 (13:12→22:41)
[2017-08-23] MEDS: Enoxaparin 40 MG/0.4 ML Syringe SUBCUT SCH (13:13)
[2017-08-23] MEDS ORDERED: Albuterol/Ipratropium 3.0-0.5 MG/3 ML Neb Soln NEB PRN (13:40)
[2017-08-23] MEDS ORDERED: Morphine 2 MG/ML Syringe IVPUSH PRN ×2 (14:06→14:21)
--- NOTE | 2017-08-23 14:35 | PCM.HP ---
H&P History of Present Illness - General Date of Service: 08/23/17 chest pain Pain Score (Numeric/FACES): 5 - Related Data Allergies/Adverse Reactions: Allergies Allergy/AdvReac Type Severity Reaction Status Date / Time No Known Allergies Allergy Verified 04/23/16 14:37 Home Medications: Home Meds Aspirin [Halfprin] 81 mg PO DAILY 09/29/15 [History] Insulin Aspart [NovoLOG] 10 units SUBCUT TIDAC 09/29/15 [History] Insulin Glarg,Human.Rec.Analog [Lantus] 40 unit SUBCUT BID 09/29/15 [History] Tamsulosin [Flomax] 0.4 mg PO BEDTIME 09/29/15 [History] Ticagrelor [Brilinta] 90 mg PO BID 09/29/15 [History] atorvaSTATin Calcium [Atorvastatin Calcium] 40 mg PO BEDTIME 01/02/16 [History] Furosemide 80 mg PO DAILY 01/14/17 [History] Spironolactone [Aldactone] 25 mg PO DAILY 01/14/17 [History] Albuterol Sulfate 2.5 mg NEB Q6H PRN 07/12/17 [History] Albuterol [Proventil HFA] 2 puff INH Q6H PRN 07/12/17 [History] Budesonide/Formoterol Fumarate [Symbicort 160-4.5 Mcg Inhaler] 2 puff INH BID [History] Carvedilol 6.25 mg PO BID 07/12/17 [History] Docusate Sodium/Sennosides [Senna Plus] 1 tab PO BID 07/12/17 [History] Ferrous Sulfate [Feosol] 325 mg PO TIDMEALS 07/12/17 [History] Gabapentin [Neurontin] 900 mg PO TID 07/12/17 [History] Lisinopril 2.5 mg PO DAILY 07/12/17 [History] Meloxicam 15 mg PO DAILY PRN 07/12/17 [History] Metolazone 2.5 mg PO MOWEFR 07/12/17 [History] Nitroglycerin [Nitrostat] 0.4 mg SL .EVERY 5 MINUTES PRN MDD 3 tablets 07/12/17 [History] Tiotropium [Spiriva Handihaler] 18 mcg INH DAILY 07/12/17 [History] hydrOXYzine HCl [Atarax] 50 mg PO TID PRN 07/12/17 [History] LORazepam [Ativan] 2 mg PO Q4H PRN 08/23/17 [History] Lactulose [Chronulac] 10 gm PO DAILY PRN 08/23/17 [History] Past Medical History HEENT History: Reports: None Cardiovascular History: Reports: None, Heart Failure, Hypertension, Pacemaker Respiratory History: Reports: None, COPD Other Respiratory History: CPAP Gastrointestinal History: Reports: None Genitourinary History: Reports: None, BPH Musculoskeletal History: Reports: None Neurological History: Reports: None, Other (See Below) Other Neuro History: stroke Psychiatric History: Reports: None Endocrine/Metabolic History: Reports: None, Diabetes, Type II Hematologic History: Reports: None Immunologic History: Reports: None Oncologic (Cancer) History: Reports: None Dermatologic History: Reports: None - Infectious Disease History Infectious Disease History: Reports: None - Past Surgical History Cardiovascular Surgical History: Reports: Other (See Below) Other Cardiovascular Surgeries/Procedures: multiple stent GI Surgical History: Reports: Other (See Below) Social & Family History - Family History Family Medical History: Noncontributory HEENT: Reports: None Cardiac: Reports: None Respiratory: Reports: None GI: Reports: None : Reports: None OBGYN: Reports: None Musculoskeletal: Reports: None Neurological: Reports: None Endocrine/Metabolic: Reports: Diabetes, type II Oncologic: Reports: Colon - Tobacco Use Smoking Status *Q: Never Smoker Years of Tobacco use: 18 Packs/Tins Daily: 1 Used Tobacco, but Quit: Yes Month Tobacco Last Used: 20 yrs ago Second Hand Smoke Exposure: Yes - Caffeine Use Caffeine Use: Reports: Coffee - Recreational Drug Use Recreational Drug Use: No Exam - Vital Signs Vital Signs: Last Vital Signs Temp 97.4 F 08/23/17 11:33 Pulse 61 08/23/17 14:28 Resp 20 08/23/17 11:33 BP 103/70 08/23/17 14:28 Pulse Ox 99 08/23/17 11:33 Weight: 128.5 kg - Patient Data Result Diagrams: 08/23/17 09:25 08/23/17 09:25 *Q Meaningful Use (ADM) - VTE *Q VTE Criteria *Q: - Stroke *Q Stroke Criteria *Q: - AMI *Q AMI Criteria *Q: Orders Last 24hrs: Active Orders 24 hr Category Date Time Status Blood Glucose Check, Bedside [RC] QIDACANDBED Care 08/23/17 12:22 Active Cardiac Education [RC] Click to Edit Care 08/23/17 12:17 Active Cardiac Monitoring [RC] . DIRECTED Care 08/23/17 12:17 Active EKG 12 Lead [EKG Documentation Completion] [RC] STAT Care 08/23/17 14:30 Ordered RT Aerosol Therapy [RC] ASDIRECTED Care 08/23/17 13:40 Active Telemetry Monitoring [Cardiac Monitoring] [RC] . Care 08/23/17 12:17 Active DIRECTED ADA Diabetic [[employer] Diet] [DIET Diet 08/23/17 Dinner Active ] TROPONIN I [CHEM] Q6H Lab 08/23/17 15:25 Ordered TROPONIN I [CHEM] Q6H Lab 08/23/17 21:25 Ordered Albuterol [Proventil Neb Soln] Med 08/23/17 12:39 Active 2.5 mg NEB Q6H PRN Albuterol [Ventolin HFA] Med 08/23/17 12:39 Active 2 gm INH Q6H PRN Albuterol/Ipratropium [DuoNeb 3.0-0.5 MG/3 ML] Med 08/23/17 13:40 Active 3 ml NEB Q4HRRT PRN Aspirin [Halfprin] Med 08/24/17 09:00 Active 81 mg PO DAILY Carvedilol [Coreg] Med 08/23/17 21:00 Active 6.25 mg PO BID Docusate Sodium/Sennosides [Senna Plus] Med 08/23/17 21:00 Active 1 tab PO BID Enoxaparin [Lovenox] Med 08/23/17 14:00 Active 40 mg SUBCUT Q24H Ferrous Sulfate Med 08/23/17 14:00 Active 325 mg PO TID Insulin Aspart [NovoLOG] Med 08/23/17 17:00 Ordered See Protocol SUBCUT BIDAC Insulin Glarg,Human.Rec.Analog [LantUS Solostar] Med 08/23/17 17:00 Ordered 40 units SUBCUT BIDAC Morphine Med 08/23/17 14:21 Ordered 2 mg IVPUSH Q4H PRN Nitroglycerin [Nitrostat] Med 08/23/17 12:45 Active 0.4 mg SL Q5M PRN Patient's Own Medication [Ptom] Med 08/23/17 21:00 Active 2 each INH BIDRT atorvaSTATin [Lipitor] Med 08/23/17 21:00 Active 40 mg PO BEDTIME Code Status [Resuscitation Status] Routine Resus Stat 08/23/17 14:08 Ordered Medication Orders Albuterol (Ventolin Hfa) 2 gm INH Q6H PRN PRN Reason: Dyspnea Albuterol (Proventil Neb Soln) 2.5 mg NEB Q6H PRN PRN Reason: Dyspnea Albuterol/Ipratropium (Duoneb 3.0-0.5 Mg/3 Ml) 3 ml NEB Q4HRRT PRN PRN Reason: Shortness of Breath Aspirin (Halfprin) 81 mg PO DAILY [facility] Atorvastatin Calcium (Lipitor) 40 mg PO BEDTIME [facility] Carvedilol (Coreg) 6.25 mg PO BID [facility] Enoxaparin Sodium (Lovenox) 40 mg SUBCUT Q24H [facility] Last Admin: 08/23/17 13:13 Dose: 40 mg Ferrous Sulfate (Ferrous Sulfate) 325 mg PO TID [facility] Last Admin: 08/23/17 13:12 Dose: 325 mg Insulin Aspart (Novolog) 0 unit SUBCUT BIDAC [facility] PRN Reason: Protocol Insulin Glargine (Lantus Solostar) 40 units SUBCUT BIDAC [facility] Morphine Sulfate (Morphine) 2 mg IVPUSH Q4H PRN PRN Reason: Chest Pain Nitroglycerin (Nitrostat) 0.4 mg SL Q5M PRN PRN Reason: Chest Pain Symbicort 160/4.5 2 each INH BIDRT [facility] Senna/Docusate Sodium (Senna Plus) 1 tab PO BID [facility]
[2017-08-23] MEDS ORDERED: Lactulose Soln 10 GM/15 ML 15 ML UD Cup PO PRN (16:18)
[2017-08-23] MEDS ORDERED: LORazepam 1 MG Tab PO PRN (16:18)
[2017-08-23] MEDS: cefTRIAXone 1 GM in Premix Bag 1 BAG IV SCH (16:30)
[2017-08-23] MEDS: Metolazone 5 MG Tab PO SCH ×2 (16:35→16:37)
[2017-08-23] MEDS ORDERED: Labetalol 100 MG/20 ML MDV IVPUSH SCH (17:00)
[2017-08-23] MEDS ORDERED: Insulin Glargine,Human Rec. Analog 100 Units/ML 3 ML Pen SUBCUT SCH (17:00)
[2017-08-23] MEDS ORDERED: Insulin Aspart 100 Units/ML 3 ML Pen SUBCUT SCH ×2 (17:00)
[2017-08-23] MEDS ORDERED: Tamsulosin 0.4 MG Cap.ER PO SCH (21:00)
[2017-08-23] MEDS ORDERED: SYMBICORT 160/4.5 INH SCH (21:00)
[2017-08-23] MEDS ORDERED: atorvaSTATin 40 MG Tab PO SCH (21:00)
[2017-08-23] MEDS: BRILINTA 90 MG PO SCH (22:40)
[2017-08-23] MEDS: Gabapentin 300 MG Cap PO SCH (22:41)
[2017-08-23] MEDS: Carvedilol 6.25 MG Tab PO SCH (22:44)
[2017-08-23] MEDS: Insulin Glargine,Human Rec. Analog 100 Units/ML 3 ML Pen SUBCUT SCH (22:45)
[2017-08-23] MEDS: ADVAIR 250/50 INH SCH (23:18)
[2017-08-23] MEDS ORDERED: SYMBICORT INH SCH (23:25)
[2017-08-24 05:50] LABS: CHLORIDE,CL 104 mmol/L (98-110); SODIUM,NA 137 mmol/L (136-146)
[2017-08-24] MEDS: Gabapentin 300 MG Cap PO SCH ×2 (06:22→13:23)
[2017-08-24] MEDS: Ferrous Sulfate 325 MG Tab PO SCH ×2 (06:22→13:20)
[2017-08-24] MEDS: ADVAIR 250/50 INH SCH (06:44)
[2017-08-24] MEDS: Insulin Aspart 100 Units/ML 3 ML Pen SUBCUT SCH ×3 (06:51→16:31)
[2017-08-24] MEDS: Carvedilol 6.25 MG Tab PO SCH (08:48)
[2017-08-24] MEDS: Insulin Glargine,Human Rec. Analog 100 Units/ML 3 ML Pen SUBCUT SCH (08:50)
[2017-08-24] MEDS: BRILINTA 90 MG PO SCH (08:56)
[2017-08-24] MEDS ORDERED: Furosemide 80 MG Tab PO SCH (09:00)
[2017-08-24] MEDS ORDERED: Aspirin 81 MG Tab.EC PO SCH (09:00)
[2017-08-24] MEDS ORDERED: Lisinopril 5 MG Tab PO SCH (09:00)
[2017-08-24] MEDS ORDERED: Spironolactone 25 MG Tab PO SCH (09:00)
[2017-08-24] MEDS ORDERED: methylPREDNISolone Sodium Succinate 125 MG/2 ML SDV IVPUSH SCH (09:00)
[2017-08-24] MEDS ORDERED: Aspirin 81 MG Tab.Chew PO SCH (09:00)
[2017-08-24] MEDS ORDERED: Fluticasone/Salmeterol 250-50 MCG Inhalation Powder 14/Diskus INH SCH (09:00)
--- NOTE | 2017-08-24 09:52 | PCM.PN ---
<Marlin Landry - Last Filed: 08/24/17 11:33> - General Info Date of Service: 08/24/17 - Review of Systems General: Reports: No Symptoms HEENT: Reports: No Symptoms Pulmonary: Reports: Shortness of Breath, Other (feels congested) Cardiovascular: Reports: No Symptoms Gastrointestinal: Reports: No Symptoms Genitourinary: Reports: No Symptoms Musculoskeletal: Reports: No Symptoms Skin: Reports: No Symptoms Neurological: Reports: No Symptoms Psychiatric: Reports: No Symptoms - Patient Data Vitals - Most Recent: Last Vital Signs Temp 97.9 F 08/24/17 07:25 Pulse 60 08/24/17 08:48 Resp 18 08/24/17 07:25 BP 106/61 08/24/17 08:48 Pulse Ox 99 08/24/17 07:25 Weight - Most Recent: 279 lb 12.8 oz I&O - Last 24 Hours: Intake & Output 08/23/17 08/24/17 08/24/17 22:59 06:59 14:59 Intake Total 300 Balance 300 Lab Results Last 24 Hours: Laboratory Results - last 24 hr 08/23/17 08/23/17 08/24/17 Range/Units 21:21 21:28 05:04 WBC 9.14 (4.0-11.0) K/uL RBC 4.86 (4.50-5.90) M/uL Hgb 13.2 (13.0-17.0) g/dL Hct 40.3 (38.0-50.0) % MCV 82.9 (80.0-98.0) fL MCH 27.2 (27.0-32.0) pg MCHC 32.8 (31.0-37.0) g/dL RDW Std Deviation 51.0 (28.0-62.0) fl RDW Coeff of [place] 17 H (11.0-15.0) % Plt Count 142 L (150-400) K/uL MPV 9.30 (7.40-12.00) fL Neut % (Auto) 81.5 H (48.0-80.0) % Lymph % (Auto) 9.7 L (16.0-40.0) % [place] % (Auto) 7.5 (0.0-15.0) % Eos % (Auto) 1.1 (0.0-7.0) % Baso % (Auto) 0.2 (0.0-1.5) % Neut # (Auto) 7.4 H (1.4-5.7) K/uL Lymph # (Auto) 0.9 (0.6-2.4) K/uL [place] # (Auto) 0.7 (0.0-0.8) K/uL Eos # (Auto) 0.1 (0.0-0.7) K/uL Baso # (Auto) 0.0 (0.0-0.1) K/uL Nucleated RBC % 0.0 /100WBC Nucleated RBCs # 0 K/uL Sodium (136-146) mmol/L Potassium (3.5-5.1) mmol/L Chloride (98-110) mmol/L Carbon Dioxide (21-31) mmol/L BUN (6.0-23.0) mg/dL Creatinine (0.6-1.5) mg/dL Est Cr Clr Drug Dosing mL/min Estimated GFR (MDRD) ml/min Glucose (60-110) mg/dL POC Glucose 242 H (60-110) mg/dL Calcium (8.8-10.8) mg/dL Troponin I < 0.10 (0.0-0.29) NG/ML 08/24/17 08/24/17 Range/Units 05:04 05:50 WBC (4.0-11.0) K/uL RBC (4.50-5.90) M/uL Hgb (13.0-17.0) g/dL Hct (38.0-50.0) % MCV (80.0-98.0) fL MCH (27.0-32.0) pg MCHC (31.0-37.0) g/dL RDW Std Deviation (28.0-62.0) fl RDW Coeff of [place] (11.0-15.0) % Plt Count (150-400) K/uL MPV (7.40-12.00) fL Neut % (Auto) (48.0-80.0) % Lymph % (Auto) (16.0-40.0) % [place] % (Auto) (0.0-15.0) % Eos % (Auto) (0.0-7.0) % Baso % (Auto) (0.0-1.5) % Neut # (Auto) (1.4-5.7) K/uL Lymph # (Auto) (0.6-2.4) K/uL [place] # (Auto) (0.0-0.8) K/uL Eos # (Auto) (0.0-0.7) K/uL Baso # (Auto) (0.0-0.1) K/uL Nucleated RBC % /100WBC Nucleated RBCs # K/uL Sodium 137 (136-146) mmol/L Potassium 4.4 (3.5-5.1) mmol/L Chloride 104 (98-110) mmol/L Carbon Dioxide 26 (21-31) mmol/L BUN 32 H (6.0-23.0) mg/dL Creatinine 1.2 (0.6-1.5) mg/dL Est Cr Clr Drug Dosing 72.13 mL/min Estimated GFR (MDRD) > 60.0 ml/min Glucose 152 H (60-110) mg/dL POC Glucose 115 H (60-110) mg/dL Calcium 8.3 L (8.8-10.8) mg/dL Troponin I (0.0-0.29) NG/ML Med Orders - Current: Current Medications Albuterol (Ventolin Hfa) 2 gm INH Q6H PRN PRN Reason: Dyspnea Albuterol (Proventil Neb Soln) 2.5 mg NEB Q6H PRN PRN Reason: Dyspnea Albuterol/Ipratropium (Duoneb 3.0-0.5 Mg/3 Ml) 3 ml NEB Q4HRRT PRN PRN Reason: Shortness of Breath Last Admin: 08/23/17 14:48 Dose: 3 ml Aspirin (Halfprin) 81 mg PO DAILY [facility] Last Admin: 08/24/17 08:48 Dose: 81 mg Atorvastatin Calcium (Lipitor) 40 mg PO BEDTIME [facility] Last Admin: 08/23/17 22:44 Dose: 40 mg Carvedilol (Coreg) 6.25 mg PO BID [facility] Last Admin: 08/24/17 08:48 Dose: 6.25 mg Enoxaparin Sodium (Lovenox) 40 mg SUBCUT Q24H [facility] Last Admin: 08/23/17 13:13 Dose: 40 mg Ferrous Sulfate (Ferrous Sulfate) 325 mg PO TID [facility] Last Admin: 08/24/17 06:22 Dose: 325 mg Furosemide (Lasix) 80 mg PO DAILY [facility] Last Admin: 08/24/17 08:48 Dose: 80 mg Gabapentin (Neurontin) 900 mg PO TID [facility] Last Admin: 08/24/17 06:22 Dose: 900 mg Ceftriaxone Sodium/Dextrose 1 (gm/ Premix) 50 mls @ 200 mls/hr IV Q24H [facility] Last Admin: 08/23/17 16:30 Dose: 200 mls/hr Insulin Aspart (Novolog) 0 unit SUBCUT TIDAC [facility] PRN Reason: Protocol Last Admin: 08/24/17 06:51 Dose: Not Given Insulin Glargine (Lantus Solostar) 40 units SUBCUT BID [facility] Last Admin: 08/24/17 08:50 Dose: 40 units Lactulose (Chronulac) 10 gm PO DAILY PRN PRN Reason: bowel movement Lisinopril (Prinivil) 2.5 mg PO DAILY [facility] Last Admin: 08/24/17 08:46 Dose: 2.5 mg Lorazepam (Ativan) 2 mg PO Q4H PRN PRN Reason: tremor/confusion/agitation Methylprednisolone Sodium Succinate (Solu-Medrol) 60 mg IVPUSH DAILY [facility] Last Admin: 08/24/17 08:52 Dose: 60 mg Metolazone (Zaroxolyn) 2.5 mg PO MoWeFr@0800 [facility] Last Admin: 08/23/17 16:37 Dose: Not Given Morphine Sulfate (Morphine) 2 mg IVPUSH Q4H PRN PRN Reason: Chest Pain Last Admin: 08/23/17 14:28 Dose: 2 mg Nitroglycerin (Nitrostat) 0.4 mg SL Q5M PRN PRN Reason: Chest Pain Nitroglycerin (Nitrostat) 0.4 mg SL .EVERY 5 MINUTES PRN PRN Reason: Chest Pain Advair 250/50 1 each INH BIDRT [facility] Last Admin: 08/24/17 06:44 Dose: Not Given Brilinta 90 Mg 1 each PO BID [facility] Last Admin: 08/24/17 08:56 Dose: 1 each Symbicort 160/4.5 (Pt Own) 0 each INH BIDRT [facility] Last Admin: 08/24/17 06:44 Dose: 1 each Fluticasone/Salmeterol (Advair Diskus 250-50) 1 puff INH BID [facility] Last Admin: 08/24/17 08:53 Dose: 1 inhalation Senna/Docusate Sodium (Senna Plus) 1 tab PO BID [facility] Last Admin: 08/24/17 08:47 Dose: 1 tab Spironolactone (Aldactone) 25 mg PO DAILY [facility] Last Admin: 08/24/17 08:49 Dose: 25 mg Tamsulosin HCl (Flomax) 0.4 mg PO BEDTIME [facility] Last Admin: 08/23/17 22:42 Dose: 0.4 mg Discontinued Medications Aspirin (Aspirin) 324 mg PO ONETIME ONE Stop: 08/23/17 09:14 Last Admin: 08/23/17 09:29 Dose: 324 mg Aspirin (Aspirin) 81 mg PO DAILY [facility] Sodium Chloride (Normal Saline) 1,000 mls @ 999 mls/hr IV STAT ONE Stop: 08/23/17 10:13 Last Admin: 08/23/17 09:28 Dose: 999 mls/hr Insulin Aspart (Novolog) 0 unit SUBCUT BIDAC [facility] PRN Reason: Protocol Last Admin: 08/23/17 17:00 Dose: Not Given Insulin Aspart (Novolog) 10 unit SUBCUT TIDAC [facility] Insulin Glargine (Lantus Solostar) 40 units SUBCUT BIDAC [facility] Labetalol HCl (Normodyne) 20 mg IVPUSH Q4H [facility] PRN Reason: Protocol Last Admin: 08/23/17 18:51 Dose: Not Given Morphine Sulfate (Morphine) 2 mg IV ONETIME ONE Stop: 08/23/17 09:14 Last Admin: 08/23/17 09:55 Dose: 2 mg Morphine Sulfate (Morphine) 1 mg IVPUSH Q4H PRN PRN Reason: Pain Nitroglycerin (Nitrostat) 0.4 mg SL Q5M PRN PRN Reason: Chest Pain Last Admin: 08/23/17 09:41 Dose: 0.4 mg Symbicort 160/4.5 2 each INH BIDRT [facility] Last Admin: 08/23/17 23:17 Dose: 2 each Potassium Chloride (Potassium Chloride) 40 meq PO ONETIME ONE Stop: 08/23/17 12:26 Last Admin: 08/23/17 13:13 Dose: 40 meq - Exam General: Alert, Oriented HEENT: Pupils Equal, EOMI Lungs: Normal Respiratory Effort, Decreased Breath Sounds Cardiovascular: Regular Rate, Regular Rhythm GI/Abdominal Exam: Normal Bowel Sounds, Soft Extremities: Normal Inspection Skin: Warm, Dry, Intact Neurological: No New Focal Deficit Psy/Mental Status: Alert, Normal Affect, Normal Mood - Problem List Review Problem List Initiated/Reviewed/Updated: Yes - My Orders Last 24 Hours: My Active Orders 08/23/17 23:25 Patient's Own Medication [Ptom] 0 each INH BIDRT 08/24/17 07:41 RT Pre-Treatment Assessment [RC] Click to Edit 08/24/17 09:00 Fluticasone/Salmeterol [Advair Diskus 250-50] 1 puff INH BID - Plan Plan:: Atypical CP resolved. No arrythmias noted on telemetry PNA: continue rocephin CHF excerabation: BNP 568: One extra dose lasix IVP 40 mg given today. continue PO lasix. Echo pending Copd exac : advair , IV solumedrol DM u/c - Hb A1C is 11, lantus bid 40 units and ISS hi dose. HLP - cont. atorvastatin , lipid profile within normal limits. <Ranjit Jeffrey - Last Filed: 08/24/17 17:37> - Patient Data Vitals - Most Recent: Last Vital Signs Temp 98.5 F 08/24/17 11:56 Pulse 63 08/24/17 11:56 Resp 18 08/24/17 11:56 BP 108/58 L 08/24/17 11:56 Pulse Ox 93 L 08/24/17 11:56 I&O - Last 24 Hours: Intake & Output 08/24/17 08/24/17 08/24/17 06:59 14:59 22:59 Intake Total 300 120 700 Balance 300 120 700 Lab Results Last 24 Hours: Laboratory Results - last 24 hr 08/23/17 08/23/17 08/24/17 Range/Units 21:21 21:28 05:04 WBC 9.14 (4.0-11.0) K/uL RBC 4.86 (4.50-5.90) M/uL Hgb 13.2 (13.0-17.0) g/dL Hct 40.3 (38.0-50.0) % MCV 82.9 (80.0-98.0) fL MCH 27.2 (27.0-32.0) pg MCHC 32.8 (31.0-37.0) g/dL RDW Std Deviation 51.0 (28.0-62.0) fl RDW Coeff of [place] 17 H (11.0-15.0) % Plt Count 142 L (150-400) K/uL MPV 9.30 (7.40-12.00) fL Neut % (Auto) 81.5 H (48.0-80.0) % Lymph % (Auto) 9.7 L (16.0-40.0) % [place] % (Auto) 7.5 (0.0-15.0) % Eos % (Auto) 1.1 (0.0-7.0) % Baso % (Auto) 0.2 (0.0-1.5) % Neut # (Auto) 7.4 H (1.4-5.7) K/uL Lymph # (Auto) 0.9 (0.6-2.4) K/uL [place] # (Auto) 0.7 (0.0-0.8) K/uL Eos # (Auto) 0.1 (0.0-0.7) K/uL Baso # (Auto) 0.0 (0.0-0.1) K/uL Nucleated RBC % 0.0 /100WBC Nucleated RBCs # 0 K/uL Sodium (136-146) mmol/L Potassium (3.5-5.1) mmol/L Chloride (98-110) mmol/L Carbon Dioxide (21-31) mmol/L BUN (6.0-23.0) mg/dL Creatinine (0.6-1.5) mg/dL Est Cr Clr Drug Dosing mL/min Estimated GFR (MDRD) ml/min Glucose (60-110) mg/dL POC Glucose 242 H (60-110) mg/dL Calcium (8.8-10.8) mg/dL Troponin I < 0.10 (0.0-0.29) NG/ML Triglycerides (10-190) mg/dL Cholesterol (131-240) mg/dL LDL Cholesterol, Calc (60-180) mg/dL VLDL Cholesterol (5-55) mg/dL HDL Cholesterol (40-80) mg/dL Cholesterol/HDL Ratio (3.3-6.0) 08/24/17 08/24/17 08/24/17 Range/Units 05:04 05:04 05:50 WBC (4.0-11.0) K/uL RBC (4.50-5.90) M/uL Hgb (13.0-17.0) g/dL Hct (38.0-50.0) % MCV (80.0-98.0) fL MCH (27.0-32.0) pg MCHC (31.0-37.0) g/dL RDW Std Deviation (28.0-62.0) fl RDW Coeff of [place] (11.0-15.0) % Plt Count (150-400) K/uL MPV (7.40-12.00) fL Neut % (Auto) (48.0-80.0) % Lymph % (Auto) (16.0-40.0) % [place] % (Auto) (0.0-15.0) % Eos % (Auto) (0.0-7.0) % Baso % (Auto) (0.0-1.5) % Neut # (Auto) (1.4-5.7) K/uL Lymph # (Auto) (0.6-2.4) K/uL [place] # (Auto) (0.0-0.8) K/uL Eos # (Auto) (0.0-0.7) K/uL Baso # (Auto) (0.0-0.1) K/uL Nucleated RBC % /100WBC Nucleated RBCs # K/uL Sodium 137 (136-146) mmol/L Potassium 4.4 (3.5-5.1) mmol/L Chloride 104 (98-110) mmol/L Carbon Dioxide 26 (21-31) mmol/L BUN 32 H (6.0-23.0) mg/dL Creatinine 1.2 (0.6-1.5) mg/dL Est Cr Clr Drug Dosing 72.13 mL/min Estimated GFR (MDRD) > 60.0 ml/min Glucose 152 H (60-110) mg/dL POC Glucose 115 H (60-110) mg/dL Calcium 8.3 L (8.8-10.8) mg/dL Troponin I (0.0-0.29) NG/ML Triglycerides 50 (10-190) mg/dL Cholesterol 107 L (131-240) mg/dL LDL Cholesterol, Calc 51 L (60-180) mg/dL VLDL Cholesterol 10 (5-55) mg/dL HDL Cholesterol 46 (40-80) mg/dL Cholesterol/HDL Ratio 2.3 L (3.3-6.0) // Range/Units 11:45 WBC (4.0-11.0) K/uL RBC (4.50-5.90) M/uL Hgb (13.0-17.0) g/dL Hct (38.0-50.0) % MCV (80.0-98.0) fL MCH (27.0-32.0) pg MCHC (31.0-37.0) g/dL RDW Std Deviation (28.0-62.0) fl RDW Coeff of [place] (11.0-15.0) % Plt Count (150-400) K/uL MPV (7.40-12.00) fL Neut % (Auto) (48.0-80.0) % Lymph % (Auto) (16.0-40.0) % [place] % (Auto) (0.0-15.0) % Eos % (Auto) (0.0-7.0) % Baso % (Auto) (0.0-1.5) % Neut # (Auto) (1.4-5.7) K/uL Lymph # (Auto) (0.6-2.4) K/uL [place] # (Auto) (0.0-0.8) K/uL Eos # (Auto) (0.0-0.7) K/uL Baso # (Auto) (0.0-0.1) K/uL Nucleated RBC % /100WBC Nucleated RBCs # K/uL Sodium (136-146) mmol/L Potassium (3.5-5.1) mmol/L Chloride (98-110) mmol/L Carbon Dioxide (21-31) mmol/L BUN (6.0-23.0) mg/dL Creatinine (0.6-1.5) mg/dL Est Cr Clr Drug Dosing mL/min Estimated GFR (MDRD) ml/min Glucose (60-110) mg/dL POC Glucose 171 H (60-110) mg/dL Calcium (8.8-10.8) mg/dL Troponin I (0.0-0.29) NG/ML Triglycerides (10-190) mg/dL Cholesterol (131-240) mg/dL LDL Cholesterol, Calc (60-180) mg/dL VLDL Cholesterol (5-55) mg/dL HDL Cholesterol (40-80) mg/dL Cholesterol/HDL Ratio (3.3-6.0) Med Orders - Current: Current Medications Discontinued Medications Albuterol (Ventolin Hfa) 2 gm INH Q6H PRN PRN Reason: Dyspnea Albuterol (Proventil Neb Soln) 2.5 mg NEB Q6H PRN PRN Reason: Dyspnea Albuterol/Ipratropium (Duoneb 3.0-0.5 Mg/3 Ml) 3 ml NEB Q4HRRT PRN PRN Reason: Shortness of Breath Last Admin: 08/23/17 14:48 Dose: 3 ml Aspirin (Aspirin) 324 mg PO ONETIME ONE Stop: 08/23/17 09:14 Last Admin: 08/23/17 09:29 Dose: 324 mg Aspirin (Aspirin) 81 mg PO DAILY [facility] Aspirin (Halfprin) 81 mg PO DAILY [facility] Last Admin: 08/24/17 08:48 Dose: 81 mg Atorvastatin Calcium (Lipitor) 40 mg PO BEDTIME [facility] Last Admin: 08/23/17 22:44 Dose: 40 mg Carvedilol (Coreg) 6.25 mg PO BID [facility] Last Admin: 08/24/17 08:48 Dose: 6.25 mg Enoxaparin Sodium (Lovenox) 40 mg SUBCUT Q24H [facility] Last Admin: 08/24/17 13:24 Dose: 40 mg Ferrous Sulfate (Ferrous Sulfate) 325 mg PO TID [facility] Last Admin: 08/24/17 13:20 Dose: 325 mg Furosemide (Lasix) 80 mg PO DAILY [facility] Last Admin: 08/24/17 08:48 Dose: 80 mg Furosemide (Lasix) 40 mg IVPUSH NOW ONE Stop: 08/24/17 11:33 Last Admin: 08/24/17 12:22 Dose: 40 mg Gabapentin (Neurontin) 900 mg PO TID [facility] Last Admin: 08/24/17 13:23 Dose: 900 mg Sodium Chloride (Normal Saline) 1,000 mls @ 999 mls/hr IV STAT ONE Stop: 08/23/17 10:13 Last Admin: 08/23/17 09:28 Dose: 999 mls/hr Ceftriaxone Sodium/Dextrose 1 (gm/ Premix) 50 mls @ 200 mls/hr IV Q24H [facility] Last Admin: 08/24/17 15:01 Dose: 200 mls/hr Insulin Aspart (Novolog) 0 unit SUBCUT BIDAC [facility] PRN Reason: Protocol Last Admin: 08/23/17 17:00 Dose: Not Given Insulin Aspart (Novolog) 10 unit SUBCUT TIDAC [facility] Insulin Aspart (Novolog) 0 unit SUBCUT TIDAC [facility] PRN Reason: Protocol Last Admin: 08/24/17 16:31 Dose: Not Given Insulin Glargine (Lantus Solostar) 40 units SUBCUT BIDAC [facility] Insulin Glargine (Lantus Solostar) 40 units SUBCUT BID [facility] Last Admin: 08/24/17 08:50 Dose: 40 units Labetalol HCl (Normodyne) 20 mg IVPUSH Q4H [facility] PRN Reason: Protocol Last Admin: 08/23/17 18:51 Dose: Not Given Lactulose (Chronulac) 10 gm PO DAILY PRN PRN Reason: bowel movement Lisinopril (Prinivil) 2.5 mg PO DAILY [facility] Last Admin: 08/24/17 08:46 Dose: 2.5 mg Lorazepam (Ativan) 2 mg PO Q4H PRN PRN Reason: tremor/confusion/agitation Methylprednisolone Sodium Succinate (Solu-Medrol) 60 mg IVPUSH DAILY [facility] Last Admin: 08/24/17 08:52 Dose: 60 mg Metolazone (Zaroxolyn) 2.5 mg PO MoWeFr@0800 [facility] Last Admin: 08/23/17 16:37 Dose: Not Given Morphine Sulfate (Morphine) 2 mg IV ONETIME ONE Stop: 08/23/17 09:14 Last Admin: 08/23/17 09:55 Dose: 2 mg Morphine Sulfate (Morphine) 1 mg IVPUSH Q4H PRN PRN Reason: Pain Morphine Sulfate (Morphine) 2 mg IVPUSH Q4H PRN PRN Reason: Chest Pain Last Admin: 08/23/17 14:28 Dose: 2 mg Nitroglycerin (Nitrostat) 0.4 mg SL Q5M PRN PRN Reason: Chest Pain Last Admin: 08/23/17 09:41 Dose: 0.4 mg Nitroglycerin (Nitrostat) 0.4 mg SL Q5M PRN PRN Reason: Chest Pain Nitroglycerin (Nitrostat) 0.4 mg SL .EVERY 5 MINUTES PRN PRN Reason: Chest Pain Symbicort 160/4.5 2 each INH BIDRT [facility] Last Admin: 08/23/17 23:17 Dose: 2 each Advair 250/50 1 each INH BIDRT [facility] Last Admin: 08/24/17 06:44 Dose: Not Given Brilinta 90 Mg 1 each PO BID [facility] Last Admin: 08/24/17 08:56 Dose: 1 each Symbicort 160/4.5 (Pt Own) 0 each INH BIDRT [facility] Last Admin: 08/24/17 06:44 Dose: 1 each Potassium Chloride (Potassium Chloride) 40 meq PO ONETIME ONE Stop: 08/23/17 12:26 Last Admin: 08/23/17 13:13 Dose: 40 meq Fluticasone/Salmeterol (Advair Diskus 250-50) 1 puff INH BID [facility] Last Admin: 08/24/17 08:53 Dose: 1 inhalation Senna/Docusate Sodium (Senna Plus) 1 tab PO BID [facility] Last Admin: 08/24/17 08:47 Dose: 1 tab Spironolactone (Aldactone) 25 mg PO DAILY [facility] Last Admin: 08/24/17 08:49 Dose: 25 mg Tamsulosin HCl (Flomax) 0.4 mg PO BEDTIME [facility] Last Admin: 08/23/17 22:42 Dose: 0.4 mg - Problem List & Annotations (1) COPD exacerbation SNOMED Code(s): 205964086354445 Code(s): J44.1 - CHRONIC OBSTRUCTIVE PULMONARY DISEASE W (ACUTE) EXACERBATION Status: Acute (2) CHF exacerbation SNOMED Code(s): 24531416 Code(s): I50.9 - HEART FAILURE, UNSPECIFIED Status: Acute (3) Contusion SNOMED Code(s): 585773488 Code(s): T14.8 - OTHER INJURY OF UNSPECIFIED BODY REGION * DO NOT USE * Status: Acute Qualifiers: Encounter type: initial encounter Contusion area: knee Laterality: right Qualified Code(s): S80.01XA - Contusion of right knee, initial encounter (4) DM type 2 (diabetes mellitus, type 2) SNOMED Code(s): 31089577 Code(s): E11.9 - TYPE 2 DIABETES MELLITUS WITHOUT COMPLICATIONS Status: Acute Qualifiers: Diabetes mellitus complication status: with unspecified complications Qualified Code(s): E11.8 - Type 2 diabetes mellitus with unspecified complications (5) HTN (hypertension) SNOMED Code(s): 08316196 Code(s): I10 - ESSENTIAL (PRIMARY) HYPERTENSION Status: Chronic Qualifiers: Hypertension type: essential hypertension Qualified Code(s): I10 - Essential (primary) hypertension (6) Hypercholesteremia SNOMED Code(s): 50207999 Code(s): E78.0 - PURE HYPERCHOLESTEROLEMIA * DO NOT USE * Status: Chronic - My Orders Last 24 Hours: My Active Orders 08/24/17 14:54 Ready for Discharge [RC] PER UNIT ROUTINE - Plan Plan:: Patient seen and examined . No pneumonia on CXr Rocephine for COPD exacerbation, Felling better in the afternoon , no chest thightness , will d/c patient with po azithromycin and prednisone taper
[2017-08-24] MEDS ORDERED: Furosemide 40 MG/4 ML VIAL IVPUSH ONE (11:32)
[2017-08-24 11:58] VITALS: BP 108/58
[2017-08-24] MEDS: Enoxaparin 40 MG/0.4 ML Syringe SUBCUT SCH (13:24)
[2017-08-24] MEDS: cefTRIAXone 1 GM in Premix Bag 1 BAG IV SCH (15:01)
--- NOTE | 2017-08-24 15:55 | PCM.DCSUM1 ---
<Marlin Landry - Last Filed: 08/26/17 14:54> Discharge Summary - Hospital Course Free Text/Narrative:: 61 yo male with significant CAD, DM, copd, with stents c/o substernal chest pain that started in his sleep at one am last night admitted for CHF excerabation. He took 3 nitro s/l without relief. He has been feeling sob and chest tightness. He did notice change in sputum color which is purulent and greenish yellow. He does not have fever, chills, n/v/d but feels sob, chest tightness. He states he quit smoking 20 years ago and quit drinking 15 yrs ago. 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 vasquez where his stents were re adjusted per patient. His cxr did not show pneumonia. He was treated with lasix , monitored electrolytes. His atypical chest pain resolved. His HbA1c is 11. He was started on novolog 5 units with meals. His lipid profile was normal. He is to continue his home medication Lipitor at current dosage. He was discharged in stable condition with prednisone. - Discharge Data Discharge Date: 08/24/17 Discharge Disposition: Home, Self-Care 01 Condition: Fair - Discharge Plan Prescriptions/Med Rec: Fluticasone/Salmeterol [Advair 250-50 Diskus] 1 each IH Q12H #1 disk.w.dev predniSONE 10 mg PO .TAPER #20 tablet Home Medications: Home Meds Aspirin [Halfprin] 81 mg PO DAILY 09/29/15 [History] Insulin Aspart [NovoLOG] 10 units SUBCUT TIDAC 09/29/15 [History] Insulin Glarg,Human.Rec.Analog [Lantus] 40 unit SUBCUT BID 09/29/15 [History] Tamsulosin [Flomax] 0.4 mg PO BEDTIME 09/29/15 [History] Ticagrelor [Brilinta] 90 mg PO BID 09/29/15 [History] atorvaSTATin Calcium [Atorvastatin Calcium] 40 mg PO BEDTIME 01/02/16 [History] Furosemide 80 mg PO DAILY 01/14/17 [History] Spironolactone [Aldactone] 25 mg PO DAILY 01/14/17 [History] Albuterol [Proventil HFA] 2 puff INH Q6H PRN 07/12/17 [History] Budesonide/Formoterol Fumarate [Symbicort 160-4.5 Mcg Inhaler] 2 puff INH BID [History] Carvedilol 6.25 mg PO BID 07/12/17 [History] Docusate Sodium/Sennosides [Senna Plus] 1 tab PO BID 07/12/17 [History] Ferrous Sulfate [Feosol] 325 mg PO TIDMEALS 07/12/17 [History] Gabapentin [Neurontin] 900 mg PO TID 07/12/17 [History] Lisinopril 2.5 mg PO DAILY 07/12/17 [History] Meloxicam 15 mg PO DAILY PRN 07/12/17 [History] Metolazone 2.5 mg PO MOWEFR 07/12/17 [History] Nitroglycerin [Nitrostat] 0.4 mg SL .EVERY 5 MINUTES PRN MDD 3 tablets 07/12/17 [History] Tiotropium [Spiriva Handihaler] 18 mcg INH DAILY 07/12/17 [History] hydrOXYzine HCl [Atarax] 50 mg PO TID PRN 07/12/17 [History] LORazepam [Ativan] 2 mg PO Q4H PRN 08/23/17 [History] Lactulose [Chronulac] 10 gm PO DAILY PRN 08/23/17 [History] Albuterol/Ipratropium [DuoNeb 3.0-0.5 MG/3 ML] 3 ml NEB Q4HRRT PRN neb [Rx] Fluticasone/Salmeterol [Advair 250-50 Diskus] 1 each IH Q12H #1 disk.w.dev 08/24 [Rx] Furosemide [Lasix] 80 mg PO DAILY tablet 08/24/17 [Rx] Insulin Aspart [NovoLOG] 0 unit SUBCUT TIDAC pen 08/24/17 [Rx] predniSONE 10 mg PO .TAPER #20 tablet 08/24/17 [Rx] Patient Handouts: Budesonide inhalation solution, Azithromycin tablets, Heart Failure, [id number], Prednisone tablets Referrals: Arias Marte MD [Physician] - 08/31/17 9:00 am - General Info Date of Service: 08/24/17 Functional Status: Reports: Pain Controlled, Tolerating Diet, Ambulating - Review of Systems General: Reports: No Symptoms HEENT: Reports: No Symptoms Pulmonary: Reports: No Symptoms Cardiovascular: Reports: No Symptoms Gastrointestinal: Reports: No Symptoms Musculoskeletal: Reports: No Symptoms Skin: Reports: No Symptoms Neurological: Reports: No Symptoms Psychiatric: Reports: No Symptoms - Patient Data Vitals - Most Recent: Last Vital Signs Temp 98.5 F 08/24/17 11:56 Pulse 63 08/24/17 11:56 Resp 18 08/24/17 11:56 BP 108/58 L 08/24/17 11:56 Pulse Ox 93 L 08/24/17 11:56 Med Orders - Current: Current Medications Discontinued Medications Albuterol (Ventolin Hfa) 2 gm INH Q6H PRN PRN Reason: Dyspnea Albuterol (Proventil Neb Soln) 2.5 mg NEB Q6H PRN PRN Reason: Dyspnea Albuterol/Ipratropium (Duoneb 3.0-0.5 Mg/3 Ml) 3 ml NEB Q4HRRT PRN PRN Reason: Shortness of Breath Last Admin: 08/23/17 14:48 Dose: 3 ml Aspirin (Aspirin) 324 mg PO ONETIME ONE Stop: 08/23/17 09:14 Last Admin: 08/23/17 09:29 Dose: 324 mg Aspirin (Aspirin) 81 mg PO DAILY [facility] Aspirin (Halfprin) 81 mg PO DAILY [facility] Last Admin: 08/24/17 08:48 Dose: 81 mg Atorvastatin Calcium (Lipitor) 40 mg PO BEDTIME [facility] Last Admin: 08/23/17 22:44 Dose: 40 mg Carvedilol (Coreg) 6.25 mg PO BID [facility] Last Admin: 08/24/17 08:48 Dose: 6.25 mg Enoxaparin Sodium (Lovenox) 40 mg SUBCUT Q24H [facility] Last Admin: 08/24/17 13:24 Dose: 40 mg Ferrous Sulfate (Ferrous Sulfate) 325 mg PO TID [facility] Last Admin: 08/24/17 13:20 Dose: 325 mg Furosemide (Lasix) 80 mg PO DAILY [facility] Last Admin: 08/24/17 08:48 Dose: 80 mg Furosemide (Lasix) 40 mg IVPUSH NOW ONE Stop: 08/24/17 11:33 Last Admin: 08/24/17 12:22 Dose: 40 mg Gabapentin (Neurontin) 900 mg PO TID [facility] Last Admin: 08/24/17 13:23 Dose: 900 mg Sodium Chloride (Normal Saline) 1,000 mls @ 999 mls/hr IV STAT ONE Stop: 08/23/17 10:13 Last Admin: 08/23/17 09:28 Dose: 999 mls/hr Ceftriaxone Sodium/Dextrose 1 (gm/ Premix) 50 mls @ 200 mls/hr IV Q24H [facility] Last Admin: 08/24/17 15:01 Dose: 200 mls/hr Insulin Aspart (Novolog) 0 unit SUBCUT BIDAC [facility] PRN Reason: Protocol Last Admin: 08/23/17 17:00 Dose: Not Given Insulin Aspart (Novolog) 10 unit SUBCUT TIDAC [facility] Insulin Aspart (Novolog) 0 unit SUBCUT TIDAC [facility] PRN Reason: Protocol Last Admin: 08/24/17 16:31 Dose: Not Given Insulin Glargine (Lantus Solostar) 40 units SUBCUT BIDAC [facility] Insulin Glargine (Lantus Solostar) 40 units SUBCUT BID [facility] Last Admin: 08/24/17 08:50 Dose: 40 units Labetalol HCl (Normodyne) 20 mg IVPUSH Q4H [facility] PRN Reason: Protocol Last Admin: 08/23/17 18:51 Dose: Not Given Lactulose (Chronulac) 10 gm PO DAILY PRN PRN Reason: bowel movement Lisinopril (Prinivil) 2.5 mg PO DAILY [facility] Last Admin: 08/24/17 08:46 Dose: 2.5 mg Lorazepam (Ativan) 2 mg PO Q4H PRN PRN Reason: tremor/confusion/agitation Methylprednisolone Sodium Succinate (Solu-Medrol) 60 mg IVPUSH DAILY [facility] Last Admin: 08/24/17 08:52 Dose: 60 mg Metolazone (Zaroxolyn) 2.5 mg PO MoWeFr@0800 [facility] Last Admin: 08/23/17 16:37 Dose: Not Given Morphine Sulfate (Morphine) 2 mg IV ONETIME ONE Stop: 08/23/17 09:14 Last Admin: 08/23/17 09:55 Dose: 2 mg Morphine Sulfate (Morphine) 1 mg IVPUSH Q4H PRN PRN Reason: Pain Morphine Sulfate (Morphine) 2 mg IVPUSH Q4H PRN PRN Reason: Chest Pain Last Admin: 08/23/17 14:28 Dose: 2 mg Nitroglycerin (Nitrostat) 0.4 mg SL Q5M PRN PRN Reason: Chest Pain Last Admin: 08/23/17 09:41 Dose: 0.4 mg Nitroglycerin (Nitrostat) 0.4 mg SL Q5M PRN PRN Reason: Chest Pain Nitroglycerin (Nitrostat) 0.4 mg SL .EVERY 5 MINUTES PRN PRN Reason: Chest Pain Symbicort 160/4.5 2 each INH BIDRT [facility] Last Admin: 08/23/17 23:17 Dose: 2 each Advair 250/50 1 each INH BIDRT [facility] Last Admin: 08/24/17 06:44 Dose: Not Given Brilinta 90 Mg 1 each PO BID [facility] Last Admin: 08/24/17 08:56 Dose: 1 each Symbicort 160/4.5 (Pt Own) 0 each INH BIDRT [facility] Last Admin: 08/24/17 06:44 Dose: 1 each Potassium Chloride (Potassium Chloride) 40 meq PO ONETIME ONE Stop: 08/23/17 12:26 Last Admin: 08/23/17 13:13 Dose: 40 meq Fluticasone/Salmeterol (Advair Diskus 250-50) 1 puff INH BID [facility] Last Admin: 08/24/17 08:53 Dose: 1 inhalation Senna/Docusate Sodium (Senna Plus) 1 tab PO BID [facility] Last Admin: 08/24/17 08:47 Dose: 1 tab Spironolactone (Aldactone) 25 mg PO DAILY [facility] Last Admin: 08/24/17 08:49 Dose: 25 mg Tamsulosin HCl (Flomax) 0.4 mg PO BEDTIME [facility] Last Admin: 08/23/17 22:42 Dose: 0.4 mg - Exam General: Reports: Alert, Oriented HEENT: Reports: Pupils Equal, EOMI Neck: Reports: Supple Lungs: Reports: Clear to Auscultation, Normal Respiratory Effort Cardiovascular: Reports: Regular Rate, Regular Rhythm GI/Abdominal Exam: Normal Bowel Sounds, Soft Skin: Reports: Warm, Dry, Intact Neurological: Reports: No New Focal Deficit Psy/Mental Status: Reports: Alert, Normal Affect, Normal Mood *Q Meaningful Use (DIS) - VTE *Q VTE Criteria *Q: - Stroke *Q Stroke Criteria *Q: - AMI *Q AMI Criteria *Q: <Ranjit Jeffrey - Last Filed: 08/26/17 17:16> Discharge Summary - Hospital Course Free Text/Narrative:: patient seen and examined , agree with discharge summary. - Discharge Diagnosis/Problem(s) (1) COPD exacerbation SNOMED Code(s): 925997549230317 ICD Code: J44.1 - CHRONIC OBSTRUCTIVE PULMONARY DISEASE W (ACUTE) EXACERBATION Status: Acute (2) CHF exacerbation SNOMED Code(s): 78188275 ICD Code: I50.9 - HEART FAILURE, UNSPECIFIED Status: Acute (3) Contusion SNOMED Code(s): 698542632 ICD Code: T14.8 - OTHER INJURY OF UNSPECIFIED BODY REGION * DO NOT USE * Status: Acute Qualifiers: Encounter type: initial encounter Contusion area: knee Laterality: right Qualified Code(s): S80.01XA - Contusion of right knee, initial encounter (4) DM type 2 (diabetes mellitus, type 2) SNOMED Code(s): 49566790 ICD Code: E11.9 - TYPE 2 DIABETES MELLITUS WITHOUT COMPLICATIONS Status: Acute Qualifiers: Diabetes mellitus complication status: with unspecified complications (5) HTN (hypertension) SNOMED Code(s): 48782077 ICD Code: I10 - ESSENTIAL (PRIMARY) HYPERTENSION Status: Chronic Qualifiers: Hypertension type: essential hypertension Qualified Code(s): I10 - Essential (primary) hypertension (6) Hypercholesteremia SNOMED Code(s): 72663671 ICD Code: E78.0 - PURE HYPERCHOLESTEROLEMIA * DO NOT USE * Status: Chronic - Discharge Summary/Plan Comment DC Time >30 min.: No - Patient Data Vitals - Most Recent: Last Vital Signs Temp 98.5 F 08/24/17 11:56 Pulse 63 08/24/17 11:56 Resp 18 08/24/17 11:56 BP 108/58 L 08/24/17 11:56 Pulse Ox 93 L 08/24/17 11:56 Weight - Most Recent: 279 lb 12.8 oz I&O - Last 24 hours: Intake & Output 08/24/17 08/24/17 08/24/17 06:59 14:59 22:59 Intake Total 300 120 50 Balance 300 120 50 Lab Results - Last 24 hrs: Laboratory Results - last 24 hr 08/23/17 08/23/17 08/24/17 Range/Units 21:21 21:28 05:04 WBC 9.14 (4.0-11.0) K/uL RBC 4.86 (4.50-5.90) M/uL Hgb 13.2 (13.0-17.0) g/dL Hct 40.3 (38.0-50.0) % MCV 82.9 (80.0-98.0) fL MCH 27.2 (27.0-32.0) pg MCHC 32.8 (31.0-37.0) g/dL RDW Std Deviation 51.0 (28.0-62.0) fl RDW Coeff of [place] 17 H (11.0-15.0) % Plt Count 142 L (150-400) K/uL MPV 9.30 (7.40-12.00) fL Neut % (Auto) 81.5 H (48.0-80.0) % Lymph % (Auto) 9.7 L (16.0-40.0) % [place] % (Auto) 7.5 (0.0-15.0) % Eos % (Auto) 1.1 (0.0-7.0) % Baso % (Auto) 0.2 (0.0-1.5) % Neut # (Auto) 7.4 H (1.4-5.7) K/uL Lymph # (Auto) 0.9 (0.6-2.4) K/uL [place] # (Auto) 0.7 (0.0-0.8) K/uL Eos # (Auto) 0.1 (0.0-0.7) K/uL Baso # (Auto) 0.0 (0.0-0.1) K/uL Nucleated RBC % 0.0 /100WBC Nucleated RBCs # 0 K/uL Sodium (136-146) mmol/L Potassium (3.5-5.1) mmol/L Chloride (98-110) mmol/L Carbon Dioxide (21-31) mmol/L BUN (6.0-23.0) mg/dL Creatinine (0.6-1.5) mg/dL Est Cr Clr Drug Dosing mL/min Estimated GFR (MDRD) ml/min Glucose (60-110) mg/dL POC Glucose 242 H (60-110) mg/dL Calcium (8.8-10.8) mg/dL Troponin I < 0.10 (0.0-0.29) NG/ML Triglycerides (10-190) mg/dL Cholesterol (131-240) mg/dL LDL Cholesterol, Calc (60-180) mg/dL VLDL Cholesterol (5-55) mg/dL HDL Cholesterol (40-80) mg/dL Cholesterol/HDL Ratio (3.3-6.0) 08/24/17 08/24/17 08/24/17 Range/Units 05:04 05:04 05:50 WBC (4.0-11.0) K/uL RBC (4.50-5.90) M/uL Hgb (13.0-17.0) g/dL Hct (38.0-50.0) % MCV (80.0-98.0) fL MCH (27.0-32.0) pg MCHC (31.0-37.0) g/dL RDW Std Deviation (28.0-62.0) fl RDW Coeff of [place] (11.0-15.0) % Plt Count (150-400) K/uL MPV (7.40-12.00) fL Neut % (Auto) (48.0-80.0) % Lymph % (Auto) (16.0-40.0) % [place] % (Auto) (0.0-15.0) % Eos % (Auto) (0.0-7.0) % Baso % (Auto) (0.0-1.5) % Neut # (Auto) (1.4-5.7) K/uL Lymph # (Auto) (0.6-2.4) K/uL [place] # (Auto) (0.0-0.8) K/uL Eos # (Auto) (0.0-0.7) K/uL Baso # (Auto) (0.0-0.1) K/uL Nucleated RBC % /100WBC Nucleated RBCs # K/uL Sodium 137 (136-146) mmol/L Potassium 4.4 (3.5-5.1) mmol/L Chloride 104 (98-110) mmol/L Carbon Dioxide 26 (21-31) mmol/L BUN 32 H (6.0-23.0) mg/dL Creatinine 1.2 (0.6-1.5) mg/dL Est Cr Clr Drug Dosing 72.13 mL/min Estimated GFR (MDRD) > 60.0 ml/min Glucose 152 H (60-110) mg/dL POC Glucose 115 H (60-110) mg/dL Calcium 8.3 L (8.8-10.8) mg/dL Troponin I (0.0-0.29) NG/ML Triglycerides 50 (10-190) mg/dL Cholesterol 107 L (131-240) mg/dL LDL Cholesterol, Calc 51 L (60-180) mg/dL VLDL Cholesterol 10 (5-55) mg/dL HDL Cholesterol 46 (40-80) mg/dL Cholesterol/HDL Ratio 2.3 L (3.3-6.0) 08/24/ Range/Units 11:45 WBC (4.0-11.0) K/uL RBC (4.50-5.90) M/uL Hgb (13.0-17.0) g/dL Hct (38.0-50.0) % MCV (80.0-98.0) fL MCH (27.0-32.0) pg MCHC (31.0-37.0) g/dL RDW Std Deviation (28.0-62.0) fl RDW Coeff of [place] (11.0-15.0) % Plt Count (150-400) K/uL MPV (7.40-12.00) fL Neut % (Auto) (48.0-80.0) % Lymph % (Auto) (16.0-40.0) % [place] % (Auto) (0.0-15.0) % Eos % (Auto) (0.0-7.0) % Baso % (Auto) (0.0-1.5) % Neut # (Auto) (1.4-5.7) K/uL Lymph # (Auto) (0.6-2.4) K/uL [place] # (Auto) (0.0-0.8) K/uL Eos # (Auto) (0.0-0.7) K/uL Baso # (Auto) (0.0-0.1) K/uL Nucleated RBC % /100WBC Nucleated RBCs # K/uL Sodium (136-146) mmol/L Potassium (3.5-5.1) mmol/L Chloride (98-110) mmol/L Carbon Dioxide (21-31) mmol/L BUN (6.0-23.0) mg/dL Creatinine (0.6-1.5) mg/dL Est Cr Clr Drug Dosing mL/min Estimated GFR (MDRD) ml/min Glucose (60-110) mg/dL POC Glucose 171 H (60-110) mg/dL Calcium (8.8-10.8) mg/dL Troponin I (0.0-0.29) NG/ML Triglycerides (10-190) mg/dL Cholesterol (131-240) mg/dL LDL Cholesterol, Calc (60-180) mg/dL VLDL Cholesterol (5-55) mg/dL HDL Cholesterol (40-80) mg/dL Cholesterol/HDL Ratio (3.3-6.0) Med Orders - Current: Current Medications Albuterol (Ventolin Hfa) 2 gm INH Q6H PRN PRN Reason: Dyspnea Albuterol (Proventil Neb Soln) 2.5 mg NEB Q6H PRN PRN Reason: Dyspnea Albuterol/Ipratropium (Duoneb 3.0-0.5 Mg/3 Ml) 3 ml NEB Q4HRRT PRN PRN Reason: Shortness of Breath Last Admin: 08/23/17 14:48 Dose: 3 ml Aspirin (Halfprin) 81 mg PO DAILY [facility] Last Admin: 08/24/17 08:48 Dose: 81 mg Atorvastatin Calcium (Lipitor) 40 mg PO BEDTIME [facility] Last Admin: 08/23/17 22:44 Dose: 40 mg Carvedilol (Coreg) 6.25 mg PO BID [facility] Last Admin: 08/24/17 08:48 Dose: 6.25 mg Enoxaparin Sodium (Lovenox) 40 mg SUBCUT Q24H [facility] Last Admin: 08/24/17 13:24 Dose: 40 mg Ferrous Sulfate (Ferrous Sulfate) 325 mg PO TID [facility] Last Admin: 08/24/17 13:20 Dose: 325 mg Furosemide (Lasix) 80 mg PO DAILY [facility] Last Admin: 08/24/17 08:48 Dose: 80 mg Gabapentin (Neurontin) 900 mg PO TID [facility] Last Admin: 08/24/17 13:23 Dose: 900 mg Ceftriaxone Sodium/Dextrose 1 (gm/ Premix) 50 mls @ 200 mls/hr IV Q24H [facility] Last Admin: 08/24/17 15:01 Dose: 200 mls/hr Insulin Aspart (Novolog) 0 unit SUBCUT TIDAC [facility] PRN Reason: Protocol Last Admin: 08/24/17 12:02 Dose: 3 units Insulin Glargine (Lantus Solostar) 40 units SUBCUT BID [facility] Last Admin: 08/24/17 08:50 Dose: 40 units Lactulose (Chronulac) 10 gm PO DAILY PRN PRN Reason: bowel movement Lisinopril (Prinivil) 2.5 mg PO DAILY [facility] Last Admin: 08/24/17 08:46 Dose: 2.5 mg Lorazepam (Ativan) 2 mg PO Q4H PRN PRN Reason: tremor/confusion/agitation Methylprednisolone Sodium Succinate (Solu-Medrol) 60 mg IVPUSH DAILY [facility] Last Admin: 08/24/17 08:52 Dose: 60 mg Metolazone (Zaroxolyn) 2.5 mg PO MoWeFr@0800 [facility] Last Admin: 08/23/17 16:37 Dose: Not Given Morphine Sulfate (Morphine) 2 mg IVPUSH Q4H PRN PRN Reason: Chest Pain Last Admin: 08/23/17 14:28 Dose: 2 mg Nitroglycerin (Nitrostat) 0.4 mg SL Q5M PRN PRN Reason: Chest Pain Nitroglycerin (Nitrostat) 0.4 mg SL .EVERY 5 MINUTES PRN PRN Reason: Chest Pain Advair 250/50 1 each INH BIDRT [facility] Last Admin: 08/24/17 06:44 Dose: Not Given Brilinta 90 Mg 1 each PO BID [facility] Last Admin: 08/24/17 08:56 Dose: 1 each Symbicort 160/4.5 (Pt Own) 0 each INH BIDRT [facility] Last Admin: 08/24/17 06:44 Dose: 1 each Fluticasone/Salmeterol (Advair Diskus 250-50) 1 puff INH BID [facility] Last Admin: 08/24/17 08:53 Dose: 1 inhalation Senna/Docusate Sodium (Senna Plus) 1 tab PO BID [facility] Last Admin: 08/24/17 08:47 Dose: 1 tab Spironolactone (Aldactone) 25 mg PO DAILY [facility] Last Admin: 08/24/17 08:49 Dose: 25 mg Tamsulosin HCl (Flomax) 0.4 mg PO BEDTIME [facility] Last Admin: 08/23/17 22:42 Dose: 0.4 mg Discontinued Medications Aspirin (Aspirin) 324 mg PO ONETIME ONE Stop: 08/23/17 09:14 Last Admin: 08/23/17 09:29 Dose: 324 mg Aspirin (Aspirin) 81 mg PO DAILY [facility] Furosemide (Lasix) 40 mg IVPUSH NOW ONE Stop: 08/24/17 11:33 Last Admin: 08/24/17 12:22 Dose: 40 mg Sodium Chloride (Normal Saline) 1,000 mls @ 999 mls/hr IV STAT ONE Stop: 08/23/17 10:13 Last Admin: 08/23/17 09:28 Dose: 999 mls/hr Insulin Aspart (Novolog) 0 unit SUBCUT BIDAC [facility] PRN Reason: Protocol Last Admin: 08/23/17 17:00 Dose: Not Given Insulin Aspart (Novolog) 10 unit SUBCUT TIDAC [facility] Insulin Glargine (Lantus Solostar) 40 units SUBCUT BIDAC [facility] Labetalol HCl (Normodyne) 20 mg IVPUSH Q4H [facility] PRN Reason: Protocol Last Admin: 08/23/17 18:51 Dose: Not Given Morphine Sulfate (Morphine) 2 mg IV ONETIME ONE Stop: 08/23/17 09:14 Last Admin: 08/23/17 09:55 Dose: 2 mg Morphine Sulfate (Morphine) 1 mg IVPUSH Q4H PRN PRN Reason: Pain Nitroglycerin (Nitrostat) 0.4 mg SL Q5M PRN PRN Reason: Chest Pain Last Admin: 08/23/17 09:41 Dose: 0.4 mg Symbicort 160/4.5 2 each INH BIDRT [facility] Last Admin: 08/23/17 23:17 Dose: 2 each Potassium Chloride (Potassium Chloride) 40 meq PO ONETIME ONE Stop: 08/23/17 12:26 Last Admin: 08/23/17 13:13 Dose: 40 meq *Q Meaningful Use (DIS) - VTE *Q VTE Criteria *Q: - Stroke *Q Stroke Criteria *Q: - AMI *Q AMI Criteria *Q:
== END 2017-08-24 16:31 | disposition home or self-care (01) | DRG 192 ==
LOC: MW.ED 09:04 → MW.MS 10:51 → OBSVTOIN 18:53
PROVIDERS: ADMIT Internal Medicine; ATTEND Internal Medicine
DX: I24.9 Acute ischemic heart disease, unspecified (principal); J44.1 Chronic obstructive pulmonary disease with (acute) exacerbation; I50.9 Heart failure, unspecified; S80.01XA Contusion of right knee, initial encounter; J44.9 Chronic obstructive pulmonary disease, unspecified; I25.2 Old myocardial infarction; E11.9 Type 2 diabetes mellitus without complications; I10 Essential (primary) hypertension; Z87.891 Personal history of nicotine dependence; E78.00 Pure hypercholesterolemia, unspecified; Z79.899 Other long term (current) drug therapy; Z79.4 Long term (current) use of insulin
CPT/HCPCS: 36415; 71010; 80053; 81001; 82550; 82553; 82962 ×3; 83036; 83735; 83880; 84484 ×2; 85025; 85610; 87804 ×2; 93005 ×2; 94640; A9270 ×6; J0696; J1650; J1815 ×2; J2270 ×2; J7040; 80048; 80061; 96361; 96374; 96375; 99282; 99285-25; J1940; J2930

== ENCOUNTER 2017-09-13 09:45 | Emergency (ER) | payer MEDICARE, MEDICAID ==
[2017-09-13] MEDS ORDERED: Sodium Chloride 0.9% 1,000 ML IV ONE (09:52)
[2017-09-13] MEDS ORDERED: Aspirin 81 MG Tab.Chew PO ONE (09:52)
[2017-09-13] MEDS ORDERED: Nitroglycerin 0.4 MG Tab.SL SL PRN (09:52)
--- NOTE | 2017-09-13 09:55 | EDM.PDOC ---
ED HPI GENERAL MEDICAL PROBLEM - General Chief Complaint: Chest Pain Stated Complaint: CHEST PAIN Time Seen by Provider: 09/13/17 09:55 Source of Information: Reports: Patient - History of Present Illness INITIAL COMMENTS - FREE TEXT/NARRATIVE: HISTORY AND PHYSICAL: History of present illness: [61-year-old male presents with chest discomfort 4 out of 10 nonradiating, neck or jaw not associated with shortness breath or diaphoresis presents in no distress States he has had pain off and on for a couple of days associated with belching improved by belching no fever nausea vomiting chills sweats no headache dizziness palpitation no bowel or urine symptoms symptoms resolved shortly after arrival Patient is offered observation admission for cardiac rule out he refused As he is asymptomatic at current Patient had recent admission with cardiac rule out within the last couple of weeks as well ] Review of systems: As per history of present illness and below otherwise all systems reviewed and negative. Past medical history: As per history of present illness and as reviewed below otherwise noncontributory. Surgical history: As per history of present illness and as reviewed below otherwise noncontributory. Social history: No reported history of drug or alcohol abuse. Family history: As per history of present illness and as reviewed below otherwise noncontributory. Physical exam: HEENT: Atraumatic, normocephalic, pupils reactive, negative for conjunctival pallor or scleral icterus, mucous membranes moist, throat clear, neck supple, nontender, trachea midline. Lungs: Clear to auscultation, breath sounds equal bilaterally, chest nontender. Heart: S1S2, regular, negative for clicks, rubs, or JVD. Abdomen: Soft, nondistended, nontender. Negative for masses or hepatosplenomegaly. Negative for costovertebral tenderness. Pelvis: Stable nontender. Genitourinary: Deferred. Rectal: Deferred. Extremities: Atraumatic, negative for cords or calf pain. Neurovascular unremarkable. Neuro: Awake, alert, oriented. Cranial nerves II through XII unremarkable. Cerebellum unremarkable. Motor and sensory unremarkable throughout. Exam nonfocal. Diagnostics: []Lab as below EKG Chest 1 view Ultrasound right upper quadrant Therapeutics: []1 L normal saline bolus Aspirin 324 mg chewable Patient offered admission for following cardiac enzymes and complete cardiac rule out he refuses at this time Impression: []Chest pain resolved Likely GERD symptoms Patient refuses admission for cardiac rule out Definitive disposition and diagnosis as appropriate pending reevaluation and review of above. left Pain Score (Numeric/FACES): 4 - Related Data Allergies Allergy/AdvReac Type Severity Reaction Status Date / Time No Known Allergies Allergy Verified 09/13/17 09:51 Home Meds: Home Meds Aspirin [Halfprin] 81 mg PO DAILY 09/29/15 [History] Insulin Aspart [NovoLOG] 10 units SUBCUT TIDAC 09/29/15 [History] Insulin Glarg,Human.Rec.Analog [Lantus] 40 unit SUBCUT BID 09/29/15 [History] Tamsulosin [Flomax] 0.4 mg PO BEDTIME 09/29/15 [History] Ticagrelor [Brilinta] 90 mg PO BID 09/29/15 [History] atorvaSTATin Calcium [Atorvastatin Calcium] 40 mg PO BEDTIME 01/02/16 [History] Furosemide 80 mg PO DAILY 01/14/17 [History] Spironolactone [Aldactone] 25 mg PO DAILY 01/14/17 [History] Albuterol [Proventil HFA] 2 puff INH Q6H PRN 07/12/17 [History] Budesonide/Formoterol Fumarate [Symbicort 160-4.5 Mcg Inhaler] 2 puff INH BID [History] Carvedilol 6.25 mg PO BID 07/12/17 [History] Docusate Sodium/Sennosides [Senna Plus] 1 tab PO BID 07/12/17 [History] Ferrous Sulfate [Feosol] 325 mg PO TIDMEALS 07/12/17 [History] Gabapentin [Neurontin] 900 mg PO TID 07/12/17 [History] Lisinopril 2.5 mg PO DAILY 07/12/17 [History] Meloxicam 15 mg PO DAILY PRN 07/12/17 [History] Metolazone 2.5 mg PO MOWEFR 07/12/17 [History] Nitroglycerin [Nitrostat] 0.4 mg SL .EVERY 5 MINUTES PRN MDD 3 tablets 07/12/17 [History] Tiotropium [Spiriva Handihaler] 18 mcg INH DAILY 07/12/17 [History] hydrOXYzine HCl [Atarax] 50 mg PO TID PRN 07/12/17 [History] LORazepam [Ativan] 2 mg PO Q4H PRN 08/23/17 [History] Lactulose [Chronulac] 10 gm PO DAILY PRN 08/23/17 [History] Albuterol/Ipratropium [DuoNeb 3.0-0.5 MG/3 ML] 3 ml NEB Q4HRRT PRN neb [Rx] Fluticasone/Salmeterol [Advair 250-50 Diskus] 1 each IH Q12H #1 disk.w.dev 08/24 [Rx] Furosemide [Lasix] 80 mg PO DAILY tablet 08/24/17 [Rx] Insulin Aspart [NovoLOG] 0 unit SUBCUT TIDAC pen 08/24/17 [Rx] predniSONE 10 mg PO .TAPER #20 tablet 08/24/17 [Rx] Past Medical History HEENT History: Reports: None Cardiovascular History: Reports: None, Heart Failure, Hypertension, Pacemaker Respiratory History: Reports: None, COPD Other Respiratory History: CPAP Gastrointestinal History: Reports: None Genitourinary History: Reports: None, BPH Musculoskeletal History: Reports: None Neurological History: Reports: None, Other (See Below) Other Neuro History: stroke Psychiatric History: Reports: None Endocrine/Metabolic History: Reports: None, Diabetes, Type II Hematologic History: Reports: None Immunologic History: Reports: None Oncologic (Cancer) History: Reports: None Dermatologic History: Reports: None - Infectious Disease History Infectious Disease History: Reports: None - Past Surgical History Cardiovascular Surgical History: Reports: Other (See Below) Other Cardiovascular Surgeries/Procedures: multiple stent GI Surgical History: Reports: Other (See Below) Social & Family History - Family History Family Medical History: Noncontributory HEENT: Reports: None Cardiac: Reports: None Respiratory: Reports: None GI: Reports: None : Reports: None OBGYN: Reports: None Musculoskeletal: Reports: None Neurological: Reports: None Endocrine/Metabolic: Reports: Diabetes, type II Oncologic: Reports: Colon - Tobacco Use Smoking Status *Q: Never Smoker Years of Tobacco use: 18 Packs/Tins Daily: 1 Used Tobacco, but Quit: Yes Month Tobacco Last Used: 20 yrs ago Second Hand Smoke Exposure: Yes - Caffeine Use Caffeine Use: Reports: Coffee - Recreational Drug Use Recreational Drug Use: No ED ROS GENERAL - Review of Systems Review Of Systems: ROS reveals no pertinent complaints other than HPI. ED EXAM, GENERAL - Physical Exam Exam: See Below Course - Vital Signs Last Recorded V/S: Last Vital Signs Temp 97.0 F 09/13/17 09:51 Pulse 64 09/13/17 11:24 Resp 16 09/13/17 11:24 BP 111/76 09/13/17 11:24 Pulse Ox 96 09/13/17 11:24 - Orders/Labs/Meds Orders: Active Orders 24 hr Category Date Time Status EKG Documentation Completion [RC] STAT Care 09/13/17 09:52 Active Nitroglycerin [Nitrostat] Med 09/13/17 09:52 Active 0.4 mg SL Q5M PRN Medication Orders Nitroglycerin (Nitrostat) 0.4 mg SL Q5M PRN PRN Reason: Chest Pain Last Admin: 09/13/17 10:26 Dose: 0.4 mg Labs: Laboratory Tests 09/13/17 09/13/17 09/13/17 Range/Units 10:09 10:15 10:15 WBC 7.01 (4.0-11.0) K/uL RBC 5.42 (4.50-5.90) M/uL Hgb 14.7 (13.0-17.0) g/dL Hct 43.7 (38.0-50.0) % MCV 80.6 (80.0-98.0) fL MCH 27.1 (27.0-32.0) pg MCHC 33.6 (31.0-37.0) g/dL RDW Std Deviation 48.1 (28.0-62.0) fl RDW Coeff of [place] 17 H (11.0-15.0) % Plt Count 143 L (150-400) K/uL MPV 9.20 (7.40-12.00) fL Neut % (Auto) 81.5 H (48.0-80.0) % Lymph % (Auto) 11.8 L (16.0-40.0) % Anderson % (Auto) 5.1 (0.0-15.0) % Eos % (Auto) 1.3 (0.0-7.0) % Baso % (Auto) 0.3 (0.0-1.5) % Neut # (Auto) 5.7 (1.4-5.7) K/uL Lymph # (Auto) 0.8 (0.6-2.4) K/uL Anderson # (Auto) 0.4 (0.0-0.8) K/uL Eos # (Auto) 0.1 (0.0-0.7) K/uL Baso # (Auto) 0.0 (0.0-0.1) K/uL Nucleated RBC % 0.0 /100WBC Nucleated RBCs # 0 K/uL Sodium 138 (136-146) mmol/L Potassium 3.5 (3.5-5.1) mmol/L Chloride 103 (98-110) mmol/L Carbon Dioxide 25 (21-31) mmol/L BUN 19 (6.0-23.0) mg/dL Creatinine 1.2 (0.6-1.5) mg/dL Est Cr Clr Drug Dosing 72.13 mL/min Estimated GFR (MDRD) > 60.0 ml/min Glucose 169 H (60-110) mg/dL Calcium 9.8 (8.8-10.8) mg/dL Total Bilirubin 2.2 H (0.1-1.5) mg/dL AST 20 (5-40) IU/L ALT 21 (8-54) IU/L Alkaline Phosphatase 207 H (40-150) Creatine Kinase 160 (9-236) IU/L CK-MB (CK-2) 7.0 H (0-6.6) ng/ml Troponin I < 0.10 (0.0-0.29) NG/ML Total Protein 8.0 (6.0-8.0) g/dL Albumin 3.9 (3.4-4.8) g/dL Globulin 4.1 H (2.0-3.5) g/dL Albumin/Globulin Ratio 1.0 L (1.3-2.8) Urine Color YELLOW Urine Appearance CLEAR Urine pH 6.0 (5.0-8.0) Ur Specific Levan 1.025 (1.001-1.035) Urine Protein 30 (NEGATIVE) mg/dL Urine Glucose (UA) NEGATIVE (NEGATIVE) mg/dL Urine Ketones TRACE H (NEGATIVE) mg/dL Urine Occult Blood TRACE-INTACT (NEGATIVE) Urine Nitrite NEGATIVE (NEGATIVE) Urine Bilirubin SMALL H (NEGATIVE) Urine Ictotest NEGATIVE Urine Urobilinogen 4.0 H (<2.0) EU/dL Ur Leukocyte Esterase NEGATIVE (NEGATIVE) Urine RBC 0-1 (0-2/HPF) Urine WBC 0-1 (0-5/HPF) Ur Epithelial Cells RARE (NONE-FEW) Urine Bacteria RARE (NEGATIVE) Meds: Medications Generic Name Dose Route Start Last Admin Trade Name Freq PRN Reason Stop Dose Admin Nitroglycerin 0.4 mg 09/13/17 09:52 09/13/17 10:26 Nitrostat SL 0.4 mg Q5M PRN Administration Chest Pain Discontinued Medications Generic Name Dose Route Start Last Admin Trade Name Freq PRN Reason Stop Dose Admin Aspirin 324 mg 09/13/17 09:52 09/13/17 10:25 Aspirin PO 09/13/17 09:53 324 mg ONETIME ONE Administration Sodium Chloride 1,000 mls @ 999 mls/hr 09/13/17 09:52 09/13/17 10:27 Normal Saline IV 09/13/17 10:52 999 mls/hr STAT ONE Administration Departure - Departure Time of Disposition: 12:32 Disposition: Home, Self-Care 01 Condition: Fair Clinical Impression: Atypical chest pain - Discharge Information Referrals: PCP,Unknown [Primary Care Provider] - Forms: ED Department Discharge Additional Instructions: Continue home medications as directed Return if symptoms persist or worsen Follow-up with PA provider in 2 weeks sooner as needed The following information is given to patients seen in the emergency department who are being discharged to home. This information is to outline your options for follow-up care. We provide all patients seen in our emergency department with a follow-up referral. The need for follow-up, as well as the timing and circumstances, are variable depending upon the specifics of your emergency department visit. If you don't have a primary care physician on staff, we will provide you with a referral. We always advise you to contact your personal physician following an emergency department visit to inform them of the circumstance of the visit and for follow-up with them and/or the need for any referrals to a consulting specialist. The emergency department will also refer you to a specialist when appropriate. This referral assures that you have the opportunity for follow-up care with a specialist. All of these measure are taken in an effort to provide you with optimal care, which includes your follow-up. Under all circumstances we always encourage you to contact your private physician who remains a resource for coordinating your care. When calling for follow-up care, please make the office aware that this follow-up is from your recent emergency room visit. If for any reason you are refused follow-up, please contact the [facility] emergency department at and asked to speak to the emergency department charge nurse. - My Orders Last 24 Hours: My Active Orders 09/13/17 09:52 EKG Documentation Completion [RC] STAT Nitroglycerin [Nitrostat] 0.4 mg SL Q5M PRN - Assessment/Plan Last 24 Hours: My Active Orders 09/13/17 09:52 EKG Documentation Completion [RC] STAT Nitroglycerin [Nitrostat] 0.4 mg SL Q5M PRN
[2017-09-13 10:46] LABS: CHLORIDE,CL 103 mmol/L (98-110); SODIUM,NA 138 mmol/L (136-146)
--- NOTE | 2017-09-13 11:19 | CR ---
EXAMINATION: Portable chest radiograph. HISTORY: Pain. FINDINGS: The trachea is midline. The cardiomediastinal silhouette is stable. Chronic interstitial prominence a gain noted, unchanged. No focal consolidation, pleural effusion, or pneumothorax. Left-sided ICD agai n noted. Osseous structures appear unremarkable. IMPRESSION: 1. Stable interstitial prominence, otherwise no acute cardiopulmonary findings.
--- NOTE | 2017-09-13 12:04 | US ---
EXAMINATION: Right upper quadrant ultrasound HISTORY: Pain COMPARISON: CT dated 07/11/2017 TECHNIQUE: Grayscale and color Doppler images obtained of the right upper quadrant. FINDINGS: There is a small cyst within the left hepatic lobe, otherwise the liver appears normal in contour and echotexture. The gallbladder wall thickness is normal. No pericholecystic fluid or shadow ing gallstones. The common bile duct measures 3 mm. Right kidney measures at least 11 cm [id number] without evidence of hydronephrosis. Pancreas is not well characterized. No abdominal ascites. IMPRESSION: 1. Grossly unremarkable right upper quadrant ultrasound.
[2017-09-13 12:43] VITALS: BP 111/72
== END 2017-09-13 12:48 | disposition home or self-care (01) ==
LOC: MW.ED 09:45
DX: R07.89 Other chest pain (principal); Z79.82 Long term (current) use of aspirin; Z79.4 Long term (current) use of insulin; Z79.899 Other long term (current) drug therapy; Z87.891 Personal history of nicotine dependence
CPT/HCPCS: 36415; 71010; 76705; 80053; 81001; 82550; 82553; 84484; 85025; 93005; 96360; 99285; A9270; J7040; 99283

== ENCOUNTER 2017-11-02 23:42 | Observation (INO) | payer MEDICARE, MEDICAID ==
[2017-11-02] MEDS ORDERED: Aspirin 81 MG Tab.Chew PO ONE (23:51)
[2017-11-02] MEDS ORDERED: Sodium Chloride 0.9% 2.5 ML Syringe FLUSH PRN (23:51)
[2017-11-02] MEDS ORDERED: 50% Dextrose in Water 50 ML Syringe IVPUSH ONE (23:51)
[2017-11-02] MEDS ORDERED: Sodium Chloride 0.9% 10 ML Syringe FLUSH PRN (23:51)
[2017-11-02] MEDS ORDERED: 50% Dextrose in Water 50 ML Syringe ONE (23:51)
--- NOTE | 2017-11-02 23:56 | EDM.PDOC ---
ED HPI GENERAL MEDICAL PROBLEM - General Stated Complaint: PT HAS CHEST PAINS Time Seen by Provider: 11/02/17 23:44 - History of Present Illness INITIAL COMMENTS - FREE TEXT/NARRATIVE: HISTORY AND PHYSICAL: History of present illness: The patient is a 61-year-old male who is well known to our ER as he has been here before for chest pain and in fact was here in September 13 for chest pain and represented today with same. The patient had an admission here August 23 through the . The patient has a long history of medical problems including diabetes COPD hypertension hypercholesterolemia and coronary artery disease with stents and he has a pacemaker in place. The patient follows with Dr. Garcia at [facility] but tells me he has not seen him for a year and he did not follow-up with him after his last visit here in August. The patient tells me did not follow-up with his family doctor either. He states compliance with his medications which include insulin as well as Brillinta. Patient says he had a normal day today and had no systemic complaints and he was checking his blood sugar when he noted to be low at 40 and he started having midsternal chest pain that did not radiate. The patient tried to eat some food and take some sugar tablets and he came here right away. The patient has nitroglycerin at home that he is supposed to use when he has chest pain but he did not take that because he was concerned about his blood sugar as well. He felt tingling in his extremities bilaterally but he did not pass out or blackout. Currently in the ED he describes the pain as a dull ache in his mid chest that does not radiate and he rates it as a 10/10. He has no history recently of upper respiratory symptomatology and no recent trauma. I did ask the patient if he was having any abdominal complaints as when he was here in August his symptomatology was more GERD related and he says he does not feel the same. The patient has a history of smoking which he quit about 20 years ago and drinking when she quit 15 years ago according to the admission note in July. Review of systems: As per history of present illness and below otherwise all systems reviewed and negative. Past medical history: As per history of present illness and as reviewed below otherwise noncontributory. Surgical history: As per history of present illness and as reviewed below otherwise noncontributory. Social history: No reported history of drug or alcohol abuse. Family history: As per history of present illness and as reviewed below otherwise noncontributory. Physical exam: Gen.: Well-developed well-nourished overweight male who is nontoxic and vital signs are noted by me. HEENT: Atraumatic, normocephalic, pupils reactive, negative for conjunctival pallor or scleral icterus, mucous membranes moist, throat clear, neck supple, nontender, trachea midline. Lungs: Clear to auscultation, breath sounds equal bilaterally, chest nontender. Heart: S1S2, regular, negative for clicks, rubs, or JVD. A pacemaker is appreciated in the left upper chest wall area and is nontender Abdomen: Soft, nondistended, nontender. The patient has a large well-healed midabdominal scar and there is no tenderness or defects appreciated. Bowel sounds are hypoactive. Negative for masses or hepatosplenomegaly. Pelvis: Stable nontender. Genitourinary: Deferred. Rectal: Deferred. Extremities: Atraumatic, negative for cords or calf pain. Neurovascular unremarkable. Full range of motion without defects or deficits. There is trace pedal edema or tibial he Neuro: Awake, alert, oriented. Cranial nerves II through XII unremarkable. Cerebellum unremarkable. Motor and sensory unremarkable throughout. Exam nonfocal. Skin: No evidence of any rashes or lesions and turgor is normal but it is slightly cool and is not diaphoretic Diagnostics: EKG CBC CMP INR troponin chest x-ray EKG today is in a paced rhythm with a rate at 60 and it was compared to the one done on September 13. Therapeutics: IV O2 monitor D50 IV push aspirin sublingual nitroglycerin NTP Patient tells nursing that he did not eat much through the morning and last ate at 12 noon and then this evening he did take his 30 units of NovoLog 40 units of Lantus at 8:30 and only a small salad. He believes that his low blood sugar is due to taking his normal insulin doses and not eating enough through the day. He does not take any oral diabetic medications to complicate the picture here. After 3 sublingual nitroglycerin the patient has no chest pain. We'll place Nitropaste and continue to monitor the patient's workup. The patient's repeat Accu-Chek was 243 after 1 amp of D50 for an Accu-Chek of 60 [id number]: Patient remains comfortable and stable and pain-free. I discussed with him and his at bedside all testing results initially the patient wanted to defer admission and go home but after some conversation with his he is now agreeable to stay for a rule out. He is aware that he does need to also have his sugars checked through the night. I will discuss this case with our hospitalist Dr. Kyle and plan for observation admission Impression: Chest pain rule out ACS with history of cardiac disease and multiple medical problems Definitive disposition and diagnosis as appropriate pending reevaluation and review of above. middle chest Pain Score (Numeric/FACES): 0 - Related Data Allergies Allergy/AdvReac Type Severity Reaction Status Date / Time No Known Allergies Allergy Verified 09/13/17 09:51 Home Meds: Home Meds Aspirin [Halfprin] 81 mg PO DAILY 09/29/15 [History] Insulin Aspart [NovoLOG] 25 units SUBCUT TIDAC 09/29/15 [History] Insulin Glarg,Human.Rec.Analog [Lantus] 40 unit SUBCUT BID 09/29/15 [History] Tamsulosin [Flomax] 0.4 mg PO BEDTIME 09/29/15 [History] Ticagrelor [Brilinta] 90 mg PO BID 09/29/15 [History] atorvaSTATin Calcium [Atorvastatin Calcium] 40 mg PO BEDTIME 01/02/16 [History] Furosemide 80 mg PO DAILY 01/14/17 [History] Spironolactone [Aldactone] 25 mg PO DAILY 01/14/17 [History] Albuterol [Proventil HFA] 2 puff INH Q6H PRN 07/12/17 [History] Carvedilol 6.25 mg PO BID 07/12/17 [History] Docusate Sodium/Sennosides [Senna Plus] 1 tab PO BID 07/12/17 [History] Ferrous Sulfate [Feosol] 325 mg PO TIDMEALS 07/12/17 [History] Gabapentin [Neurontin] 900 mg PO TID 07/12/17 [History] Lisinopril 2.5 mg PO DAILY 07/12/17 [History] Metolazone 2.5 mg PO DAILY 07/12/17 [History] Nitroglycerin [Nitrostat] 0.4 mg SL ASDIRECTED PRN MDD 3 tablets 07/12/17 [ History] Tiotropium [Spiriva Handihaler] 18 mcg INH DAILY 07/12/17 [History] LORazepam [Ativan] 2 mg PO Q4H PRN 08/23/17 [History] Albuterol/Ipratropium [DuoNeb 3.0-0.5 MG/3 ML] 3 ml NEB Q4HRRT PRN neb [Rx] Past Medical History HEENT History: Reports: None Cardiovascular History: Reports: None, Heart Failure, Hypertension, Pacemaker Respiratory History: Reports: None, COPD Other Respiratory History: CPAP Gastrointestinal History: Reports: None Genitourinary History: Reports: None, BPH Musculoskeletal History: Reports: None Neurological History: Reports: None, Other (See Below) Other Neuro History: stroke Psychiatric History: Reports: None Endocrine/Metabolic History: Reports: None, Diabetes, Type II Hematologic History: Reports: None Immunologic History: Reports: None Oncologic (Cancer) History: Reports: None Dermatologic History: Reports: None - Infectious Disease History Infectious Disease History: Reports: None - Past Surgical History Cardiovascular Surgical History: Reports: Other (See Below) Other Cardiovascular Surgeries/Procedures: multiple stent GI Surgical History: Reports: Other (See Below) Social & Family History - Family History Family Medical History: Noncontributory HEENT: Reports: None Cardiac: Reports: None Respiratory: Reports: None GI: Reports: None : Reports: None OBGYN: Reports: None Musculoskeletal: Reports: None Neurological: Reports: None Endocrine/Metabolic: Reports: Diabetes, type II Oncologic: Reports: Colon - Tobacco Use Smoking Status *Q: Never Smoker Years of Tobacco use: 18 Packs/Tins Daily: 1 Used Tobacco, but Quit: Yes Month Tobacco Last Used: 20 yrs ago Second Hand Smoke Exposure: Yes - Caffeine Use Caffeine Use: Reports: Coffee - Recreational Drug Use Recreational Drug Use: No ED ROS GENERAL - Review of Systems Review Of Systems: ROS reveals no pertinent complaints other than HPI. ED EXAM, GENERAL - Physical Exam Exam: See Below (See dictation) Course - Vital Signs Last Recorded V/S: Last Vital Signs Temp 36.4 C 11/03/17 01:14 Pulse 60 11/03/17 01:14 Resp 17 11/03/17 01:14 BP 111/77 11/03/17 01:14 Pulse Ox 97 11/03/17 01:14 - Orders/Labs/Meds Orders: Active Orders 24 hr Category Date Time Status Patient Status [ADT] Stat ADT 11/03/17 01:14 Ordered Blood Glucose Check, Bedside [RC] ONETIME Care 11/02/17 23:50 Active Cardiac Monitoring [RC] . DIRECTED Care 11/02/17 23:50 Active EKG Documentation Completion [RC] STAT Care 11/02/17 23:50 Active Oxygen Therapy, ED [RC] ASDIRECTED Care 11/02/17 23:50 Active Pulse Oximetry [RC] ASDIRECTED Care 11/02/17 23:50 Active Chest 1V Frontal [CR] Stat Exams 11/02/17 23:51 Taken Sodium Chloride 0.9% @ 50 MLS/HR(1,000ml) Med 11/03/17 01:15 Ordered Sodium Chloride 0.9% [Normal Saline] 1,000 ml IV ASDIRECTED Sodium Chloride 0.9% [Saline Flush] Med 11/02/17 23:51 Active 10 ml FLUSH ASDIRECTED PRN Sodium Chloride 0.9% [Saline Flush] Med 11/02/17 23:51 Active 2.5 ml FLUSH ASDIRECTED PRN Saline Lock Insert [OM.PC] Stat Oth 11/02/17 23:50 Ordered Medication Orders Sodium Chloride (Normal Saline) 1,000 mls @ 50 mls/hr IV ASDIRECTED LUIZA Sodium Chloride (Saline Flush) 10 ml FLUSH ASDIRECTED PRN PRN Reason: Keep Vein Open Last Admin: 11/02/17 23:58 Dose: 10 ml Sodium Chloride (Saline Flush) 2.5 ml FLUSH ASDIRECTED PRN PRN Reason: Keep Vein Open Last Admin: 11/02/17 23:57 Dose: 2.5 ml Labs: Laboratory Tests 11/02/17 11/02/17 11/02/17 Range/Units 23:50 23:50 23:50 WBC 7.48 (4.0-11.0) K/uL RBC 4.98 (4.50-5.90) M/uL Hgb 13.7 (13.0-17.0) g/dL Hct 41.1 (38.0-50.0) % MCV 82.5 (80.0-98.0) fL MCH 27.5 (27.0-32.0) pg MCHC 33.3 (31.0-37.0) g/dL RDW Std Deviation 47.7 (28.0-62.0) fl RDW Coeff of [place] 16 H (11.0-15.0) % Plt Count 144 L (150-400) K/uL MPV 9.60 (7.40-12.00) fL Neut % (Auto) 68.4 (48.0-80.0) % Lymph % (Auto) 19.4 (16.0-40.0) % [place] % (Auto) 9.8 (0.0-15.0) % Eos % (Auto) 2.1 (0.0-7.0) % Baso % (Auto) 0.3 (0.0-1.5) % Neut # (Auto) 5.1 (1.4-5.7) K/uL Lymph # (Auto) 1.5 (0.6-2.4) K/uL [place] # (Auto) 0.7 (0.0-0.8) K/uL Eos # (Auto) 0.2 (0.0-0.7) K/uL Baso # (Auto) 0.0 (0.0-0.1) K/uL Nucleated RBC % 0.0 /100WBC Nucleated RBCs # 0 K/uL INR 1.05 Sodium 142 (136-146) mmol/L Potassium 3.2 L (3.5-5.1) mmol/L Chloride 108 (98-110) mmol/L Carbon Dioxide 24 (21-31) mmol/L BUN 18 (6.0-23.0) mg/dL Creatinine 1.1 (0.6-1.5) mg/dL Est Cr Clr Drug Dosing 78.69 mL/min Estimated GFR (MDRD) > 60.0 ml/min Glucose 84 (60-110) mg/dL POC Glucose (60-110) mg/dL Calcium 9.4 (8.8-10.8) mg/dL Total Bilirubin 1.5 (0.1-1.5) mg/dL AST 26 (5-40) IU/L ALT 30 (8-54) IU/L Alkaline Phosphatase 238 H (40-150) Troponin I < 0.10 (0.0-0.29) NG/ML Total Protein 8.0 (6.0-8.0) g/dL Albumin 3.9 (3.4-4.8) g/dL Globulin 4.1 H (2.0-3.5) g/dL Albumin/Globulin Ratio 1.0 L (1.3-2.8) 11/03/17 Range/Units 00:17 WBC (4.0-11.0) K/uL RBC (4.50-5.90) M/uL Hgb (13.0-17.0) g/dL Hct (38.0-50.0) % MCV (80.0-98.0) fL MCH (27.0-32.0) pg MCHC (31.0-37.0) g/dL RDW Std Deviation (28.0-62.0) fl RDW Coeff of [place] (11.0-15.0) % Plt Count (150-400) K/uL MPV (7.40-12.00) fL Neut % (Auto) (48.0-80.0) % Lymph % (Auto) (16.0-40.0) % [place] % (Auto) (0.0-15.0) % Eos % (Auto) (0.0-7.0) % Baso % (Auto) (0.0-1.5) % Neut # (Auto) (1.4-5.7) K/uL Lymph # (Auto) (0.6-2.4) K/uL [place] # (Auto) (0.0-0.8) K/uL Eos # (Auto) (0.0-0.7) K/uL Baso # (Auto) (0.0-0.1) K/uL Nucleated RBC % /100WBC Nucleated RBCs # K/uL INR Sodium (136-146) mmol/L Potassium (3.5-5.1) mmol/L Chloride (98-110) mmol/L Carbon Dioxide (21-31) mmol/L BUN (6.0-23.0) mg/dL Creatinine (0.6-1.5) mg/dL Est Cr Clr Drug Dosing mL/min Estimated GFR (MDRD) ml/min Glucose (60-110) mg/dL POC Glucose 243 H (60-110) mg/dL Calcium (8.8-10.8) mg/dL Total Bilirubin (0.1-1.5) mg/dL AST (5-40) IU/L ALT (8-54) IU/L Alkaline Phosphatase (40-150) Troponin I (0.0-0.29) NG/ML Total Protein (6.0-8.0) g/dL Albumin (3.4-4.8) g/dL Globulin (2.0-3.5) g/dL Albumin/Globulin Ratio (1.3-2.8) Meds: Medications Generic Name Dose Route Start Last Admin Trade Name Freq PRN Reason Stop Dose Admin Sodium Chloride 1,000 mls @ 50 mls/hr 11/03/17 01:15 Normal Saline IV ASDIRECTED LUIZA Sodium Chloride 10 ml 11/02/17 23:51 11/02/17 23:58 Saline Flush FLUSH 10 ml ASDIRECTED PRN Administration Keep Vein Open Sodium Chloride 2.5 ml 11/02/17 23:51 11/02/17 23:57 Saline Flush FLUSH 2.5 ml ASDIRECTED PRN Administration Keep Vein Open Discontinued Medications Generic Name Dose Route Start Last Admin Trade Name Freq PRN Reason Stop Dose Admin Aspirin 324 mg 11/02/17 23:51 11/02/17 23:58 Aspirin PO 11/02/17 23:52 324 mg ONETIME ONE Administration Dextrose/Water 50 ml 11/02/17 23:51 11/02/17 23:58 Dextrose 50% In Water IVPUSH 11/02/17 23:52 50 ml ONETIME ONE Administration Nitroglycerin 0.4 mg 11/02/17 23:51 11/03/17 00:09 Nitrostat SL 0.4 mg Q5M PRN Administration Chest Pain Nitroglycerin 0.5 gm 11/03/17 00:21 11/03/17 00:25 Nitro-Bid 2% TOP 11/03/17 00:22 0.5 gm ONETIME ONE Administration Departure - Departure Time of Disposition: 01:17 Disposition: Refer to Observation Condition: Good Clinical Impression: Hypoglycemia due to insulin Chest pain Qualifiers: Chest pain type: other chest pain Qualified Code(s): R07.89 - Other chest pain ; R07.8 - Other chest pain - Discharge Information Referrals: PCP,None [Primary Care Provider] - - My Orders Last 24 Hours: My Active Orders 11/02/17 23:50 Blood Glucose Check, Bedside [RC] ONETIME Cardiac Monitoring [RC] . DIRECTED EKG Documentation Completion [RC] STAT Oxygen Therapy, ED [RC] ASDIRECTED Pulse Oximetry [RC] ASDIRECTED Saline Lock Insert [OM.PC] Stat 11/02/17 23:51 Chest 1V Frontal [CR] Stat Sodium Chloride 0.9% [Saline Flush] 10 ml FLUSH ASDIRECTED PRN Sodium Chloride 0.9% [Saline Flush] 2.5 ml FLUSH ASDIRECTED PRN 11/03/17 01:14 Patient Status [ADT] Stat 11/03/17 01:15 Sodium Chloride 0.9% @ 50 MLS/HR(1,000ml) Sodium Chloride 0.9% [Normal Saline] 1,000 ml IV ASDIRECTED - Assessment/Plan Last 24 Hours: My Active Orders 11/02/17 23:50 Blood Glucose Check, Bedside [RC] ONETIME Cardiac Monitoring [RC] . DIRECTED EKG Documentation Completion [RC] STAT Oxygen Therapy, ED [RC] ASDIRECTED Pulse Oximetry [RC] ASDIRECTED Saline Lock Insert [OM.PC] Stat 11/02/17 23:51 Chest 1V Frontal [CR] Stat Sodium Chloride 0.9% [Saline Flush] 10 ml FLUSH ASDIRECTED PRN Sodium Chloride 0.9% [Saline Flush] 2.5 ml FLUSH ASDIRECTED PRN 11/03/17 01:14 Patient Status [ADT] Stat 11/03/17 01:15 Sodium Chloride 0.9% @ 50 MLS/HR(1,000ml) Sodium Chloride 0.9% [Normal Saline] 1,000 ml IV ASDIRECTED
[2017-11-02] MEDS: Nitroglycerin 0.4 MG Tab.SL SL PRN (23:59)
[2017-11-03] MEDS: Nitroglycerin 0.4 MG Tab.SL SL PRN ×2 (00:04→00:09)
[2017-11-03] MEDS ORDERED: Nitroglycerin 2% Oint 1 GM UD Packet TOP ONE (00:21)
[2017-11-03 00:53] LABS: CHLORIDE,CL 108 mmol/L (98-110); SODIUM,NA 142 mmol/L (136-146)
[2017-11-03] MEDS ORDERED: Sodium Chloride 0.9% 1,000 ML IV SCH (01:15)
[2017-11-03] MEDS ORDERED: Sodium Chloride 0.9% 10 ML Syringe FLUSH PRN (03:43)
[2017-11-03] MEDS ORDERED: Sodium Chloride 0.9% 2.5 ML Syringe FLUSH PRN (03:43)
[2017-11-03 05:58] LABS: CHLORIDE,CL 106 mmol/L (98-110); SODIUM,NA 138 mmol/L (136-146)
--- NOTE | 2017-11-03 08:20 | PCM.HP ---
H&P History of Present Illness - General Date of Service: 11/03/17 Admit Problem/Dx: Admission Diagnosis/Problem Admission Diagnosis/Problem Chest pain Source of Information: Patient History Limitations: Reports: No Limitations - History of Present Illness Initial Comments - Free Text/Narative: This 61 year old male with pmh of CAD with coronary stenting, DM, pacemaker and COPD presented to the ED last night with complaints of low blood sugar and midsternal chest pain. Patient says he had a normal day yesterday and had no systemic complaints. He reports he ate breakfast and lunch and gave him self Novolog per sliding scale. For supper he wasn't feeling so hungry but ate a small salad and BS then was 140 and proceeded to take Novolog 30 units and his Lantus dosing. He started feeling funny a while later with numbness lightheadedness, clammy, and chest pressure that did not radiate. He was checking his blood sugar when he noted to be low at 40. The patient tried to eat some food and take some sugar tablets and he came here right away. The patient has nitroglycerin at home that he is supposed to use when he has chest pain but he did not take that because he was concerned about his blood sugar as well. He felt tingling in his extremities bilaterally but he did not pass out or blackout. He described the pain as a dull ache in his mid chest that did not radiate and no other associated symptoms, this morning he reports " i think it was from my BS". He reports he has not followed with PCP or Dr Garcia, Cardiology after the last few admissions. He has no history recently of URI, fevers, dyspnea or abdominal pain and no recent trauma. In the ED labwork WNL. EKG atrial paced with no signs of acute ischemia, troponin negative. Chest pain improved with BS as well as nitro. He was admitted observation due to hypoglycemia and chest pain. middle chest Pain Score (Numeric/FACES): 0 - Related Data Allergies/Adverse Reactions: Allergies Allergy/AdvReac Type Severity Reaction Status Date / Time No Known Allergies Allergy Verified 09/13/17 09:51 Home Medications: Home Meds Aspirin [Halfprin] 81 mg PO DAILY 09/29/15 [History] Insulin Glarg,Human.Rec.Analog [Lantus] 40 unit SUBCUT BID 09/29/15 [History] Tamsulosin [Flomax] 0.4 mg PO BEDTIME 09/29/15 [History] Ticagrelor [Brilinta] 90 mg PO BID 09/29/15 [History] atorvaSTATin Calcium [Atorvastatin Calcium] 40 mg PO BEDTIME 01/02/16 [History] Furosemide 80 mg PO DAILY 01/14/17 [History] Spironolactone [Aldactone] 25 mg PO DAILY 01/14/17 [History] Albuterol [Proventil HFA] 2 puff INH Q6H PRN 07/12/17 [History] Carvedilol 6.25 mg PO BID 07/12/17 [History] Docusate Sodium/Sennosides [Senna Plus] 1 tab PO BID 07/12/17 [History] Ferrous Sulfate [Feosol] 325 mg PO TIDMEALS 07/12/17 [History] Gabapentin [Neurontin] 900 mg PO TID 07/12/17 [History] Lisinopril 2.5 mg PO DAILY 07/12/17 [History] Metolazone 2.5 mg PO DAILY 07/12/17 [History] Nitroglycerin [Nitrostat] 0.4 mg SL ASDIRECTED PRN MDD 3 tablets 07/12/17 [ History] Tiotropium [Spiriva Handihaler] 18 mcg INH DAILY 07/12/17 [History] LORazepam [Ativan] 2 mg PO Q4H PRN 08/23/17 [History] Albuterol/Ipratropium [DuoNeb 3.0-0.5 MG/3 ML] 3 ml NEB Q4HRRT PRN neb [Rx] Insulin Aspart [NovoLOG] See Protocol SQ TIDAC #1 pen 11/03/17 [Rx] Past Medical History - Past Health History Medical/Surgical History: Denies Medical/Surgical History HEENT History: Reports: None Cardiovascular History: Reports: None, Heart Failure, Hypertension, Pacemaker Respiratory History: Reports: None, COPD Other Respiratory History: CPAP Gastrointestinal History: Reports: None Genitourinary History: Reports: None, BPH Musculoskeletal History: Reports: None Neurological History: Reports: None Other Neuro History: stroke Psychiatric History: Reports: None Endocrine/Metabolic History: Reports: None, Diabetes, Type II Hematologic History: Reports: None Immunologic History: Reports: None Oncologic (Cancer) History: Reports: None Dermatologic History: Reports: None - Infectious Disease History Infectious Disease History: Reports: None - Past Surgical History Cardiovascular Surgical History: Reports: Other (See Below) Other Cardiovascular Surgeries/Procedures: multiple stent GI Surgical History: Reports: Other (See Below) Social & Family History - Family History Family Medical History: Noncontributory HEENT: Reports: None Cardiac: Reports: None Respiratory: Reports: None GI: Reports: None : Reports: None OBGYN: Reports: None Musculoskeletal: Reports: None Neurological: Reports: None Endocrine/Metabolic: Reports: Diabetes, type II Oncologic: Reports: Colon - Tobacco Use Smoking Status *Q: Never Smoker Years of Tobacco use: 18 Packs/Tins Daily: 1 Used Tobacco, but Quit: Yes Month Tobacco Last Used: 20 yrs ago Second Hand Smoke Exposure: Yes - Caffeine Use Caffeine Use: Reports: None - Recreational Drug Use Recreational Drug Use: No H&P Review of Systems - Review of Systems: Review Of Systems: See Below General: Reports: No Symptoms. Denies: Fever, Chills, Malaise, Weakness HEENT: Reports: No Symptoms. Denies: Headaches, Sinus Congestion, Sore Throat Pulmonary: Reports: No Symptoms. Denies: Shortness of Breath, Cough, Sputum Cardiovascular: Reports: Chest Pain (with hypoglycemia episode). Denies: Dyspnea on Exertion, Edema, Lightheadedness Gastrointestinal: Reports: No Symptoms. Denies: Abdominal Pain, Black Stool, Bloody Stool, Nausea, Vomiting Genitourinary: Reports: No Symptoms. Denies: Dysuria, Frequency, Burning Skin: Reports: No Symptoms Neurological: Reports: No Symptoms. Denies: Confusion Exam - Exam Exam: See Below - Vital Signs Vital Signs: Last Vital Signs Temp 97.3 F 11/03/17 07:58 Pulse 66 11/03/17 07:58 Resp 16 11/03/17 07:58 BP 123/77 11/03/17 07:58 Pulse Ox 97 11/03/17 07:58 Weight: 127.278 kg - Exam General: Alert, Oriented, Cooperative HEENT: Conjunctiva Clear, Posterior Pharynx Clear Neck: Supple, Trachea Midline, 2 Lungs: Clear to Auscultation, Normal Respiratory Effort Cardiovascular: Regular Rate, Regular Rhythm, Other (no chest pain on palpation. and no chest pain since ED. ) GI/Abdominal Exam: Normal Bowel Sounds, Soft, Non-Tender, No Organomegaly, No Distention, No Abnormal Bruit, No Mass, Pelvis Stable Back Exam: Normal Inspection, Full Range of Motion, NT Extremities: Normal Inspection, Normal Range of Motion, Non-Tender, No Pedal Edema, Normal Capillary Refill Neuro Extensive - Mental Status: Alert, Oriented x3, Normal Mood/Affect, Normal Cognition Psychiatric: Alert, Normal Affect, Normal Mood - Patient Data Lab Results Last 24 hrs: Laboratory Results - last 24 hr 11/03/17 11/03/17 11/03/17 Range/Units 03:00 05:21 05:21 WBC 6.84 (4.0-11.0) K/uL RBC 4.55 (4.50-5.90) M/uL Hgb 12.2 L (13.0-17.0) g/dL Hct 37.6 L (38.0-50.0) % MCV 82.6 (80.0-98.0) fL MCH 26.8 L (27.0-32.0) pg MCHC 32.4 (31.0-37.0) g/dL RDW Std Deviation 48.0 (28.0-62.0) fl RDW Coeff of [place] 16 H (11.0-15.0) % Plt Count 129 L (150-400) K/uL MPV 9.50 (7.40-12.00) fL Neut % (Auto) 78.3 (48.0-80.0) % Lymph % (Auto) 13.2 L (16.0-40.0) % [place] % (Auto) 6.6 (0.0-15.0) % Eos % (Auto) 1.8 (0.0-7.0) % Baso % (Auto) 0.1 (0.0-1.5) % Neut # (Auto) 5.4 (1.4-5.7) K/uL Lymph # (Auto) 0.9 (0.6-2.4) K/uL [place] # (Auto) 0.5 (0.0-0.8) K/uL Eos # (Auto) 0.1 (0.0-0.7) K/uL Baso # (Auto) 0.0 (0.0-0.1) K/uL Nucleated RBC % 0.0 /100WBC Nucleated RBCs # 0 K/uL Sodium (136-146) mmol/L Potassium (3.5-5.1) mmol/L Chloride (98-110) mmol/L Carbon Dioxide (21-31) mmol/L BUN (6.0-23.0) mg/dL Creatinine (0.6-1.5) mg/dL Est Cr Clr Drug Dosing mL/min Estimated GFR (MDRD) ml/min Glucose (60-110) mg/dL POC Glucose 335 H (60-110) mg/dL Calcium (8.8-10.8) mg/dL Total Bilirubin (0.1-1.5) mg/dL AST (5-40) IU/L ALT (8-54) IU/L Alkaline Phosphatase (40-150) Troponin I < 0.10 (0.0-0.29) NG/ML Total Protein (6.0-8.0) g/dL Albumin (3.4-4.8) g/dL Globulin (2.0-3.5) g/dL Albumin/Globulin Ratio (1.3-2.8) 11/03/17 Range/Units 05:21 WBC (4.0-11.0) K/uL RBC (4.50-5.90) M/uL Hgb (13.0-17.0) g/dL Hct (38.0-50.0) % MCV (80.0-98.0) fL MCH (27.0-32.0) pg MCHC (31.0-37.0) g/dL RDW Std Deviation (28.0-62.0) fl RDW Coeff of [place] (11.0-15.0) % Plt Count (150-400) K/uL MPV (7.40-12.00) fL Neut % (Auto) (48.0-80.0) % Lymph % (Auto) (16.0-40.0) % [place] % (Auto) (0.0-15.0) % Eos % (Auto) (0.0-7.0) % Baso % (Auto) (0.0-1.5) % Neut # (Auto) (1.4-5.7) K/uL Lymph # (Auto) (0.6-2.4) K/uL [place] # (Auto) (0.0-0.8) K/uL Eos # (Auto) (0.0-0.7) K/uL Baso # (Auto) (0.0-0.1) K/uL Nucleated RBC % /100WBC Nucleated RBCs # K/uL Sodium 138 (136-146) mmol/L Potassium 3.3 L (3.5-5.1) mmol/L Chloride 106 (98-110) mmol/L Carbon Dioxide 24 (21-31) mmol/L BUN 16 (6.0-23.0) mg/dL Creatinine 1.1 (0.6-1.5) mg/dL Est Cr Clr Drug Dosing 78.69 mL/min Estimated GFR (MDRD) > 60.0 ml/min Glucose 296 H (60-110) mg/dL POC Glucose (60-110) mg/dL Calcium 8.7 L (8.8-10.8) mg/dL Total Bilirubin 1.3 (0.1-1.5) mg/dL AST 21 (5-40) IU/L ALT 26 (8-54) IU/L Alkaline Phosphatase 212 H (40-150) Troponin I (0.0-0.29) NG/ML Total Protein 6.5 (6.0-8.0) g/dL Albumin 3.4 (3.4-4.8) g/dL Globulin 3.1 (2.0-3.5) g/dL Albumin/Globulin Ratio 1.1 L (1.3-2.8) Result Diagrams: 11/03/17 05:21 11/03/17 05:21 *Q Meaningful Use (ADM) - VTE *Q VTE Criteria *Q: - Stroke *Q Stroke Criteria *Q: - AMI *Q AMI Criteria *Q: - Problem List (1) Chest pain SNOMED Code(s): 84382048 ICD Code: R07.9 - CHEST PAIN, UNSPECIFIED Status: Acute Current Visit: Yes Qualifiers: Chest pain type: other chest pain Qualified Code(s): R07.89 - Other chest pain; R07.8 - Other chest pain (2) Hypoglycemia due to insulin SNOMED Code(s): 883309123 ICD Code: E16.0 - DRUG-INDUCED HYPOGLYCEMIA WITHOUT COMA; T38.3X5A - ADVERSE EFFECT OF INSULIN AND ORAL HYPOGLYCEMIC DRUGS, INIT Status: Acute Current Visit: Yes (3) DM type 2 (diabetes mellitus, type 2) SNOMED Code(s): 66658715 ICD Code: E11.9 - TYPE 2 DIABETES MELLITUS WITHOUT COMPLICATIONS Status: Chronic Current Visit: No Qualifiers: Diabetes mellitus complication status: with unspecified complications Diabetes mellitus roasterman insulin use: with longterm use Qualified Code(s) : E11.8 - Type 2 diabetes mellitus with unspecified complications; Z79.4 - [facility] (current) use of insulin; Z79.4 - [facility] (current) use of insulin; Z79.4 - [facility] (current) use of insulin; Z79.4 - intermission coordinator (current) use of insulin (4) CAD (coronary artery disease) SNOMED Code(s): 86675708 ICD Code: I25.10 - ATHSCL HEART DISEASE OF [place] CORONARY ARTERY W/O ANG PCTRS Status: Chronic Current Visit: No (5) HTN (hypertension) SNOMED Code(s): 93001242 ICD Code: I10 - ESSENTIAL (PRIMARY) HYPERTENSION Status: Chronic Current Visit: No Qualifiers: Hypertension type: essential hypertension Qualified Code(s): I10 - Essential (primary) hypertension (6) Hx of myocardial infarction SNOMED Code(s): 066706613 ICD Code: I25.2 - OLD MYOCARDIAL INFARCTION Status: Chronic Current Visit : No (7) Hypercholesteremia SNOMED Code(s): 65785501 ICD Code: E78.0 - PURE HYPERCHOLESTEROLEMIA * DO NOT USE * Status: Chronic Current Visit: No Problem List Initiated/Reviewed/Updated: Yes Orders Last 24hrs: Active Orders 24 hr Category Date Time Status Telemetry Monitoring [Cardiac Monitoring] [RC] Q8H Care 11/03/17 01:23 Active Heart Healthy Diet [DIET] Diet 11/03/17 Breakfast Active TROPONIN I [CHEM] Q6H Lab 11/03/17 11:50 Ordered Insulin Aspart [NovoLOG] Med 11/03/17 08:30 Ordered See Protocol SUBCUT TIDAC Sodium Chloride 0.9% [Saline Flush] Med 11/03/17 03:43 Active 10 ml FLUSH ASDIRECTED PRN Sodium Chloride 0.9% [Saline Flush] Med 11/03/17 03:43 Active 2.5 ml FLUSH ASDIRECTED PRN Convert IV to Saline Lock [OM.PC] Routine Oth 11/03/17 03:43 Ordered Medication Orders Sodium Chloride (Normal Saline) 1,000 mls @ 50 mls/hr IV ASDIRECTED LUIZA Last Admin: 11/02/17 23:55 Dose: 50 mls/hr Insulin Aspart (Novolog) 0 unit SUBCUT TIDAC LUIZA PRN Reason: Protocol Sodium Chloride (Saline Flush) 10 ml FLUSH ASDIRECTED PRN PRN Reason: Keep Vein Open Last Admin: 11/02/17 23:58 Dose: 10 ml Sodium Chloride (Saline Flush) 2.5 ml FLUSH ASDIRECTED PRN PRN Reason: Keep Vein Open Last Admin: 11/02/17 23:57 Dose: 2.5 ml Sodium Chloride (Saline Flush) 10 ml FLUSH ASDIRECTED PRN PRN Reason: Keep Vein Open Sodium Chloride (Saline Flush) 2.5 ml FLUSH ASDIRECTED PRN PRN Reason: Keep Vein Open Assessment/Plan Comment:: This 61 year old male admitted with hypoglycemia and associated chest pain Discharge plan Juwan was monitored overnight on telemetry and troponins trended, which were negative. He has been chest pain free since the ED and feeling better this morning. ACS ruled out. Hypoglycemia corrected. I did have him speak with DM educator to adjust NOvolog SSI, he will follow up with them next week after using new correction scale and monitoring BS for further changes. He was encouraged to follow up with Dr Garcia due to increasing chest pain event, appointment arranged. He will also follow up with P[facility] as well. This is likely not cardiac in nature, but he does need close follow up with cardiology due to hx and cardiac risk. He is to return to ED or clinic if concerns should arise.
[2017-11-03] MEDS: Insulin Aspart 100 Units/ML 3 ML Pen SUBCUT SCH ×2 (09:23→12:53)
--- NOTE | 2017-11-03 09:48 | CR ---
EXAM DATE: 11/03/17 PATIENT'S AGE: 61 Patient: LUCAS VALDOVINOS Facility: [place], [place] Site . Site : [id number] Study: XRay Chest [id number]/7/2018 12:04:47 AM Ordering Physician: Doctor Celestin Final Report: INDICATIONS: Chest pain. Shortness of breath. TECHNIQUE: Chest 1 portable view. COMPARISON: Chest radiograph September 13, 2017. FINDINGS: Intracardiac device appears appropriately positioned. No pneumothorax, pleural effusion or airspace consolidation. No pulmonary edema. Cardiomegaly, unchanged. Upper abdomen and osseous structures show no acute abnormality. IMPRESSION: No evidence of acute cardiopulmonary disease. Dictated by Aiden Monzon MD @ 11/03/2017 12:15:41 AM Dictated by: Aiden Monzon MD @ 11/03/2017 00:15:47 (Electronic Signature) Report Signed by Proxy. [email or web address]
[2017-11-03] MEDS ORDERED: Potassium Chloride 20 MEQ Tab.ER PO ONE (09:59)
[2017-11-03 11:52] VITALS: BP 123/82
== END 2017-11-03 15:10 | disposition home or self-care (01) ==
LOC: MW.ED 23:42 → MW.MS 11-03 01:14
PROVIDERS: ADMIT Family Medicine; ATTEND Family Medicine
DX: R07.2 Precordial pain (principal); I25.10 Atherosclerotic heart disease of native coronary artery without angina pectoris; J44.9 Chronic obstructive pulmonary disease, unspecified; I50.9 Heart failure, unspecified; I11.0 Hypertensive heart disease with heart failure; E11.65 Type 2 diabetes mellitus with hyperglycemia; T38.3X5A Adverse effect of insulin and oral hypoglycemic [antidiabetic] drugs, initial encounter; I25.2 Old myocardial infarction; E78.00 Pure hypercholesterolemia, unspecified; Z95.5 Presence of coronary angioplasty implant and graft; Z95.0 Presence of cardiac pacemaker; Z79.82 Long term (current) use of aspirin; Z79.4 Long term (current) use of insulin; Z79.899 Other long term (current) drug therapy; Z99.89 Dependence on other enabling machines and devices
CPT/HCPCS: 36415; 71045; 80053; 82962; 84484; 85025; 85610; 93005; 96361; 99285; A9270; G0378; J1815; J7040; J7060; 96374; 99284

== ENCOUNTER 2018-02-05 21:10 | Observation (INO) | payer MEDICARE, MEDICAID ==
[2018-02-05] MEDS ORDERED: Aspirin 81 MG Tab.Chew PO ONE (21:24)
[2018-02-05] MEDS ORDERED: Sodium Chloride 0.9% 10 ML Syringe FLUSH PRN (21:24)
[2018-02-05] MEDS ORDERED: Sodium Chloride 0.9% 2.5 ML Syringe FLUSH PRN (21:24)
--- NOTE | 2018-02-05 21:29 | EDM.PDOC ---
ED HPI GENERAL MEDICAL PROBLEM - General Chief Complaint: Chest Pain Stated Complaint: COUGH/TROUBLE BREATHING/CHEST PAIN Time Seen by Provider: 02/05/18 21:18 - History of Present Illness INITIAL COMMENTS - FREE TEXT/NARRATIVE: HISTORY AND PHYSICAL: History of present illness: The patient is a 62 year male with a significant past medical history consisting of coronary artery disease hypertension COPD hypercholesterolemia diabetes hypertension and follows with a dormitory keeper at [facility] in [place] and is on Brilinta and presents today with chest pain midsternal that does not radiate associated with shortness of breath that started 3 hours ago. The patient says he has nitroglycerin sublingual that he tried 2 hours ago he took 3 and it did not help the pain but he still waited at home until coming here currently. He says that he was supposed to make an appointment with the dormitory keeper and he did not do that for follow-up. The patient is well known to the ER and has had multiple ED visits and admissions for similar symptomatology. The patient denies any leg pain or swelling no abdominal pain vomiting or diarrhea. He says he has had a cough over the last few days but nonproductive but no fevers or chills. Patient rates his pain as a 10/10 without radiation in the midsternal area Review of systems: As per history of present illness and below otherwise all systems reviewed and negative. Past medical history: As per history of present illness and as reviewed below otherwise noncontributory. Surgical history: As per history of present illness and as reviewed below otherwise noncontributory. Social history: No reported history of drug or alcohol abuse. Family history: As per history of present illness and as reviewed below otherwise noncontributory. Physical exam: General: Well-developed well-nourished man who is nontoxic and seems a little anxious in the ED. I'll signs are noted by me HEENT: Atraumatic, normocephalic, pupils reactive, negative for conjunctival pallor or scleral icterus, mucous membranes moist, throat clear, neck supple, nontender, trachea midline. Lungs: Clear to auscultation, breath sounds equal bilaterally, chest nontender. Heart: S1S2, regular rate and rhythm no overt murmurs Abdomen: Soft, nondistended, nontender. Negative for masses or hepatosplenomegaly. Negative for costovertebral tenderness. Pelvis: Stable nontender. Genitourinary: Deferred. Rectal: Deferred. Extremities: Atraumatic, negative for cords or calf pain. Neurovascular unremarkable. Pedal edema Neuro: Awake, alert, oriented. Cranial nerves II through XII unremarkable. Cerebellum unremarkable. Motor and sensory unremarkable throughout. Exam nonfocal. Skin: There is no diaphoresis turgor is normal and no overt rashes or lesions Diagnostics: EKG chest x-ray CBC CMP INR troponin Therapeutics: IV O2 monitor aspirin sublingual nitroglycerin and Nitropaste Patient is chest pain-free after 3 sublingual nitroglycerin. Nitro paste will be placed 2300--this was discussed with Dr. Archer and he except the patient for observation admission. Impression: Chest pain rule out ACS Definitive disposition and diagnosis as appropriate pending reevaluation and review of above. chest pain Pain Score (Numeric/FACES): 10 - Related Data Allergies Allergy/AdvReac Type Severity Reaction Status Date / Time No Known Allergies Allergy Verified 02/05/18 21:35 Home Meds: Home Meds Aspirin [Halfprin] 81 mg PO DAILY 09/29/15 [History] Insulin Glarg,Human.Rec.Analog [Lantus] 40 unit SUBCUT BID 09/29/15 [History] Tamsulosin [Flomax] 0.4 mg PO BEDTIME 09/29/15 [History] Ticagrelor [Brilinta] 90 mg PO BID 09/29/15 [History] atorvaSTATin Calcium [Atorvastatin Calcium] 40 mg PO BEDTIME 01/02/16 [History] Furosemide 80 mg PO DAILY 01/14/17 [History] Spironolactone [Aldactone] 25 mg PO DAILY 01/14/17 [History] Albuterol [Proventil HFA] 2 puff INH Q6H PRN 07/12/17 [History] Carvedilol 6.25 mg PO BID 07/12/17 [History] Docusate Sodium/Sennosides [Senna Plus] 1 tab PO BID 07/12/17 [History] Ferrous Sulfate [Feosol] 325 mg PO TIDMEALS 07/12/17 [History] Gabapentin [Neurontin] 900 mg PO TID 07/12/17 [History] Lisinopril 2.5 mg PO DAILY 07/12/17 [History] Metolazone 2.5 mg PO DAILY 07/12/17 [History] Nitroglycerin [Nitrostat] 0.4 mg SL ASDIRECTED PRN MDD 3 tablets 07/12/17 [ History] Tiotropium [Spiriva Handihaler] 18 mcg INH DAILY 07/12/17 [History] LORazepam [Ativan] 2 mg PO Q4H PRN 08/23/17 [History] Albuterol/Ipratropium [DuoNeb 3.0-0.5 MG/3 ML] 3 ml NEB Q4HRRT PRN neb [Rx] Insulin Aspart [NovoLOG] See Protocol SQ TIDAC #1 pen 11/03/17 [Rx] Past Medical History - Past Health History Medical/Surgical History: Denies Medical/Surgical History HEENT History: Reports: None Cardiovascular History: Reports: None, Heart Failure, Hypertension, Pacemaker Respiratory History: Reports: None, COPD Other Respiratory History: CPAP Gastrointestinal History: Reports: None Genitourinary History: Reports: None, BPH Musculoskeletal History: Reports: None Neurological History: Reports: None Other Neuro History: stroke Psychiatric History: Reports: None Endocrine/Metabolic History: Reports: None, Diabetes, Type II Hematologic History: Reports: None Immunologic History: Reports: None Oncologic (Cancer) History: Reports: None Dermatologic History: Reports: None - Infectious Disease History Infectious Disease History: Reports: None - Past Surgical History Cardiovascular Surgical History: Reports: Other (See Below) Other Cardiovascular Surgeries/Procedures: multiple stent GI Surgical History: Reports: Other (See Below) Social & Family History - Family History Family Medical History: Noncontributory HEENT: Reports: None Cardiac: Reports: None Respiratory: Reports: None GI: Reports: None : Reports: None OBGYN: Reports: None Musculoskeletal: Reports: None Neurological: Reports: None Endocrine/Metabolic: Reports: Diabetes, type II Oncologic: Reports: Colon - Caffeine Use Caffeine Use: Reports: None ED ROS GENERAL - Review of Systems Review Of Systems: ROS reveals no pertinent complaints other than HPI. ED EXAM, GENERAL - Physical Exam Exam: See Below (see dictation) Course - Vital Signs Last Recorded V/S: Last Vital Signs Temp 98.2 C H 02/05/18 21:10 Pulse 64 02/05/18 22:39 Resp 22 H 02/05/18 22:39 BP 123/79 02/05/18 22:39 Pulse Ox 97 02/05/18 22:39 - Orders/Labs/Meds Orders: Active Orders 24 hr Category Date Time Status Cardiac Monitoring [RC] . DIRECTED Care 02/05/18 21:23 Active EKG Documentation Completion [RC] STAT Care 02/05/18 21:23 Active Oxygen Therapy, ED [RC] ASDIRECTED Care 02/05/18 21:23 Active Pulse Oximetry [RC] ASDIRECTED Care 02/05/18 21:23 Active Chest 1V Frontal [CR] Stat Exams 02/05/18 21:24 Taken Sodium Chloride 0.9% [Normal Saline] 1,000 ml Med 02/05/18 22:00 Active IV ASDIRECTED Sodium Chloride 0.9% [Saline Flush] Med 02/05/18 21:24 Active 10 ml FLUSH ASDIRECTED PRN Sodium Chloride 0.9% [Saline Flush] Med 02/05/18 21:24 Active 2.5 ml FLUSH ASDIRECTED PRN Saline Lock Insert [OM.PC] Stat Oth 02/05/18 21:23 Ordered Medication Orders Sodium Chloride (Normal Saline) 1,000 mls @ 125 mls/hr IV ASDIRECTED LUIZA Last Admin: 02/05/18 21:50 Dose: 125 mls/hr Sodium Chloride (Saline Flush) 10 ml FLUSH ASDIRECTED PRN PRN Reason: Keep Vein Open Sodium Chloride (Saline Flush) 2.5 ml FLUSH ASDIRECTED PRN PRN Reason: Keep Vein Open Labs: Laboratory Tests 02/05/18 02/05/18 02/05/18 Range/Units 21:41 21:41 21:41 WBC 8.73 (4.0-11.0) K/uL RBC 5.33 (4.50-5.90) M/uL Hgb 14.2 (13.0-17.0) g/dL Hct 42.6 (38.0-50.0) % MCV 79.9 L (80.0-98.0) fL MCH 26.6 L (27.0-32.0) pg MCHC 33.3 (31.0-37.0) g/dL RDW Std Deviation 49.7 (28.0-62.0) fl RDW Coeff of [place] 17 H (11.0-15.0) % Plt Count 118 L (150-400) K/uL MPV 9.60 (7.40-12.00) fL Neut % (Auto) 87.7 H (48.0-80.0) % Lymph % (Auto) 6.0 L (16.0-40.0) % [place] % (Auto) 6.0 (0.0-15.0) % Eos % (Auto) 0.2 (0.0-7.0) % Baso % (Auto) 0.1 (0.0-1.5) % Neut # (Auto) 7.7 H (1.4-5.7) K/uL Lymph # (Auto) 0.5 L (0.6-2.4) K/uL [place] # (Auto) 0.5 (0.0-0.8) K/uL Eos # (Auto) 0.0 (0.0-0.7) K/uL Baso # (Auto) 0.0 (0.0-0.1) K/uL Nucleated RBC % 0.0 /100WBC Nucleated RBCs # 0 K/uL INR 1.16 Sodium 136 (136-148) mmol/L Potassium 3.8 (3.5-5.1) mmol/L Chloride 103 (98-107) mmol/L Carbon Dioxide 23.6 (21.0-32.0) mmol/L BUN 20 H (7.0-18.0) mg/dL Creatinine 1.4 H (0.8-1.3) mg/dL Est Cr Clr Drug Dosing 61.03 mL/min Estimated GFR (MDRD) 51.2 ml/min Glucose 247 H (74-106) mg/dL Calcium 8.9 (8.5-10.1) mg/dL Total Bilirubin 1.9 H (0.2-1.0) mg/dL AST 20 (15-37) IU/L ALT 23 (14-63) IU/L Alkaline Phosphatase 402 H (46-116) U/L Troponin I < 0.050 (0.000-0.056) ng/mL Total Protein 8.1 (6.4-8.2) g/dL Albumin 3.5 (3.4-5.0) g/dL Globulin 4.6 H (2.0-3.5) g/dL Albumin/Globulin Ratio 0.8 L (1.3-2.8) Meds: Medications Generic Name Dose Route Start Last Admin Trade Name Freq PRN Reason Stop Dose Admin Sodium Chloride 1,000 mls @ 125 mls/hr 02/05/18 22:00 02/05/18 21:50 Normal Saline IV 125 mls/hr ASDIRECTED LUIZA Administration Sodium Chloride 10 ml 02/05/18 21:24 Saline Flush FLUSH ASDIRECTED PRN Keep Vein Open Sodium Chloride 2.5 ml 02/05/18 21:24 Saline Flush FLUSH ASDIRECTED PRN Keep Vein Open Discontinued Medications Generic Name Dose Route Start Last Admin Trade Name Mikeq PRN Reason Stop Dose Admin Aspirin 324 mg 02/05/18 21:24 02/05/18 21:40 Aspirin PO 02/05/18 21:25 324 mg ONETIME ONE Administration Nitroglycerin 0.4 mg 02/05/18 21:24 02/05/18 21:58 Nitrostat SL 0.4 mg Q5M PRN Administration Chest Pain Nitroglycerin 1 gm 02/05/18 22:03 02/05/18 22:16 Nitro-Bid 2% TOP 02/05/18 22:04 1 gm ONETIME ONE Administration Departure - Departure Time of Disposition: 23:01 Disposition: Refer to Observation Condition: Good Clinical Impression: Acute coronary syndrome Chest pain Qualifiers: Chest pain type: unspecified Qualified Code(s): R07.9 - Chest pain, unspecified - Discharge Information Referrals: PCP,None [Primary Care Provider] - Forms: ED Department Discharge - My Orders Last 24 Hours: My Active Orders 02/05/18 21:23 Cardiac Monitoring [RC] . DIRECTED EKG Documentation Completion [RC] STAT Oxygen Therapy, ED [RC] ASDIRECTED Pulse Oximetry [RC] ASDIRECTED Saline Lock Insert [OM.PC] Stat 02/05/18 21:24 Chest 1V Frontal [CR] Stat Sodium Chloride 0.9% [Saline Flush] 10 ml FLUSH ASDIRECTED PRN Sodium Chloride 0.9% [Saline Flush] 2.5 ml FLUSH ASDIRECTED PRN 02/05/18 22:00 Sodium Chloride 0.9% [Normal Saline] 1,000 ml IV ASDIRECTED - Assessment/Plan Last 24 Hours: My Active Orders 02/05/18 21:23 Cardiac Monitoring [RC] . DIRECTED EKG Documentation Completion [RC] STAT Oxygen Therapy, ED [RC] ASDIRECTED Pulse Oximetry [RC] ASDIRECTED Saline Lock Insert [OM.PC] Stat 02/05/18 21:24 Chest 1V Frontal [CR] Stat Sodium Chloride 0.9% [Saline Flush] 10 ml FLUSH ASDIRECTED PRN Sodium Chloride 0.9% [Saline Flush] 2.5 ml FLUSH ASDIRECTED PRN 02/05/18 22:00 Sodium Chloride 0.9% [Normal Saline] 1,000 ml IV ASDIRECTED
[2018-02-05] MEDS: Nitroglycerin 0.4 MG Tab.SL SL PRN ×3 (21:43→21:58)
[2018-02-05] MEDS ORDERED: Sodium Chloride 0.9% 1,000 ML IV SCH (22:00)
[2018-02-05] MEDS ORDERED: Nitroglycerin 2% Oint 1 GM UD Packet TOP ONE (22:03)
[2018-02-05 22:13] LABS: CHLORIDE,CL 103 mmol/L (98-107); SODIUM,NA 136 mmol/L (136-148)
[2018-02-05] MEDS ORDERED: Enoxaparin 40 MG/0.4 ML Syringe SUBCUT SCH (23:30)
[2018-02-05] MEDS ORDERED: Non-Formulary Medication 1 Each (Albuterol 2 PUFF) INH PRN (23:32)
[2018-02-05] MEDS ORDERED: Albuterol/Ipratropium 3.0-0.5 MG/3 ML Neb Soln NEB PRN (23:32)
--- NOTE | 2018-02-05 23:44 | PCM.HP ---
H&P History of Present Illness - General Admit Problem/Dx: Admission Diagnosis/Problem Admission Diagnosis/Problem Chest pain - History of Present Illness Initial Comments - Free Text/Narative: 62 yo male with pmh of HTN, COPD, CAD who present with 30 minute episode of chest tightness that resolved with nitro. Initial EKG And troponin are negative. chest pain Pain Score (Numeric/FACES): 10 - Related Data Allergies/Adverse Reactions: Allergies Allergy/AdvReac Type Severity Reaction Status Date / Time No Known Allergies Allergy Verified 02/05/18 21:35 Home Medications: Home Meds Aspirin [Halfprin] 81 mg PO DAILY 09/29/15 [History] Insulin Glarg,Human.Rec.Analog [Lantus] 40 unit SUBCUT BID 09/29/15 [History] Tamsulosin [Flomax] 0.4 mg PO BEDTIME 09/29/15 [History] Ticagrelor [Brilinta] 90 mg PO BID 09/29/15 [History] atorvaSTATin Calcium [Atorvastatin Calcium] 40 mg PO BEDTIME 01/02/16 [History] Furosemide 80 mg PO DAILY 01/14/17 [History] Spironolactone [Aldactone] 25 mg PO DAILY 01/14/17 [History] Albuterol [Proventil HFA] 2 puff INH Q6H PRN 07/12/17 [History] Carvedilol 6.25 mg PO BID 07/12/17 [History] Docusate Sodium/Sennosides [Senna Plus] 1 tab PO BID 07/12/17 [History] Ferrous Sulfate [Feosol] 325 mg PO TIDMEALS 07/12/17 [History] Gabapentin [Neurontin] 900 mg PO TID 07/12/17 [History] Lisinopril 2.5 mg PO DAILY 07/12/17 [History] Metolazone 2.5 mg PO DAILY 07/12/17 [History] Nitroglycerin [Nitrostat] 0.4 mg SL ASDIRECTED PRN MDD 3 tablets 07/12/17 [ History] Tiotropium [Spiriva Handihaler] 18 mcg INH DAILY 07/12/17 [History] LORazepam [Ativan] 2 mg PO Q4H PRN 08/23/17 [History] Albuterol/Ipratropium [DuoNeb 3.0-0.5 MG/3 ML] 3 ml NEB Q4HRRT PRN neb [Rx] Insulin Aspart [NovoLOG] See Protocol SQ TIDAC #1 pen 11/03/17 [Rx] Past Medical History - Past Health History Medical/Surgical History: Denies Medical/Surgical History HEENT History: Reports: None Cardiovascular History: Reports: None, Heart Failure, Hypertension, Pacemaker Respiratory History: Reports: None, COPD Other Respiratory History: CPAP Gastrointestinal History: Reports: None Genitourinary History: Reports: None, BPH Musculoskeletal History: Reports: None Neurological History: Reports: None Other Neuro History: stroke Psychiatric History: Reports: None Endocrine/Metabolic History: Reports: None, Diabetes, Type II Hematologic History: Reports: None Immunologic History: Reports: None Oncologic (Cancer) History: Reports: None Dermatologic History: Reports: None - Infectious Disease History Infectious Disease History: Reports: None - Past Surgical History Cardiovascular Surgical History: Reports: Other (See Below) Other Cardiovascular Surgeries/Procedures: multiple stent GI Surgical History: Reports: Other (See Below) Social & Family History - Family History Family Medical History: Noncontributory HEENT: Reports: None Cardiac: Reports: None Respiratory: Reports: None GI: Reports: None : Reports: None OBGYN: Reports: None Musculoskeletal: Reports: None Neurological: Reports: None Endocrine/Metabolic: Reports: Diabetes, type II Oncologic: Reports: Colon - Caffeine Use Caffeine Use: Reports: None - Recreational Drug Use Recreational Drug Use: No H&P Review of Systems - Review of Systems: Review Of Systems: ROS reveals no pertinent complaints other than HPI. Exam - Exam Exam: See Below - Vital Signs Vital Signs: Last Vital Signs Temp 98.2 C H 02/05/18 21:10 Pulse 64 02/05/18 22:39 Resp 22 H 02/05/18 22:39 BP 123/79 02/05/18 22:39 Pulse Ox 97 02/05/18 22:39 Weight: 127.006 kg - Exam General: Alert, Oriented HEENT: Mucosa Moist & [place] Neck: Supple Lungs: Clear to Auscultation, Normal Respiratory Effort Cardiovascular: Regular Rate, Regular Rhythm GI/Abdominal Exam: Soft, Non-Tender Extremities: Non-Tender, No Pedal Edema Skin: Warm, Dry, Intact - Patient Data Lab Results Last 24 hrs: Laboratory Results - last 24 hr 02/05/18 02/05/18 02/05/18 Range/Units 21:41 21:41 21:41 WBC 8.73 (4.0-11.0) K/uL RBC 5.33 (4.50-5.90) M/uL Hgb 14.2 (13.0-17.0) g/dL Hct 42.6 (38.0-50.0) % MCV 79.9 L (80.0-98.0) fL MCH 26.6 L (27.0-32.0) pg MCHC 33.3 (31.0-37.0) g/dL RDW Std Deviation 49.7 (28.0-62.0) fl RDW Coeff of [place] 17 H (11.0-15.0) % Plt Count 118 L (150-400) K/uL MPV 9.60 (7.40-12.00) fL Neut % (Auto) 87.7 H (48.0-80.0) % Lymph % (Auto) 6.0 L (16.0-40.0) % [place] % (Auto) 6.0 (0.0-15.0) % Eos % (Auto) 0.2 (0.0-7.0) % Baso % (Auto) 0.1 (0.0-1.5) % Neut # (Auto) 7.7 H (1.4-5.7) K/uL Lymph # (Auto) 0.5 L (0.6-2.4) K/uL [place] # (Auto) 0.5 (0.0-0.8) K/uL Eos # (Auto) 0.0 (0.0-0.7) K/uL Baso # (Auto) 0.0 (0.0-0.1) K/uL Nucleated RBC % 0.0 /100WBC Nucleated RBCs # 0 K/uL INR 1.16 Sodium 136 (136-148) mmol/L Potassium 3.8 (3.5-5.1) mmol/L Chloride 103 (98-107) mmol/L Carbon Dioxide 23.6 (21.0-32.0) mmol/L BUN 20 H (7.0-18.0) mg/dL Creatinine 1.4 H (0.8-1.3) mg/dL Est Cr Clr Drug Dosing 61.03 mL/min Estimated GFR (MDRD) 51.2 ml/min Glucose 247 H (74-106) mg/dL Calcium 8.9 (8.5-10.1) mg/dL Total Bilirubin 1.9 H (0.2-1.0) mg/dL AST 20 (15-37) IU/L ALT 23 (14-63) IU/L Alkaline Phosphatase 402 H (46-116) U/L Troponin I < 0.050 (0.000-0.056) ng/mL Total Protein 8.1 (6.4-8.2) g/dL Albumin 3.5 (3.4-5.0) g/dL Globulin 4.6 H (2.0-3.5) g/dL Albumin/Globulin Ratio 0.8 L (1.3-2.8) Result Diagrams: 02/05/18 21:41 02/05/18 21:41 Problem List Initiated/Reviewed/Updated: Yes Orders Last 24hrs: Active Orders 24 hr Category Date Time Status Patient Status [ADT] Stat ADT 02/05/18 23:02 Active Cardiac Monitoring [RC] . DIRECTED Care 02/05/18 21:23 Active EKG Documentation Completion [RC] STAT Care 02/05/18 21:23 Active Oxygen Therapy [RC] PRN Care 02/05/18 23:26 Ordered Pulse Oximetry [RC] ASDIRECTED Care 02/05/18 21:23 Active Up ad Najma [RC] ASDIRECTED Care 02/05/18 23:26 Ordered VTE/DVT Education [RC] PER UNIT ROUTINE Care 02/05/18 23:26 Ordered Vital Signs [RC] Q4H Care 02/05/18 23:26 Ordered [employer] Diet [DIET] Diet 02/05/18 Breakfast Ordered Chest 1V Frontal [CR] Stat Exams 02/05/18 21:24 Taken Albuterol Med 02/05/18 23:32 Ordered 2 puff INH Q6H PRN Albuterol/Ipratropium [DuoNeb 3.0-0.5 MG/3 ML] Med 02/05/18 23:32 Ordered 3 ml NEB Q4HRRT PRN Aspirin [Halfprin] Med 02/06/18 09:00 Ordered 81 mg PO DAILY Carvedilol [Coreg] Med 02/06/18 09:00 Ordered 6.25 mg PO BID Enoxaparin [Lovenox] Med 02/05/18 23:30 Ordered 40 mg SUBCUT Q24H Gabapentin Med 02/06/18 06:00 Ordered 900 mg PO TID Insulin Aspart [NovoLOG] Med 02/06/18 07:30 Ordered See Protocol SUBCUT TIDAC Insulin Glarg,Human.Rec.Analog Med 02/06/18 09:00 Ordered 40 unit SUBCUT BID Lisinopril [Prinivil] Med 02/06/18 09:00 Ordered 2.5 mg PO DAILY Metolazone Med 02/06/18 09:00 Ordered 2.5 mg PO DAILY Ondansetron [Zofran] Med 02/05/18 23:30 Ordered 4 mg IVPUSH Q4H Sodium Chloride 0.9% [Normal Saline] 1,000 ml Med 02/05/18 22:00 Active IV ASDIRECTED Sodium Chloride 0.9% [Saline Flush] Med 02/05/18 21:24 Active 10 ml FLUSH ASDIRECTED PRN Sodium Chloride 0.9% [Saline Flush] Med 02/05/18 21:24 Active 2.5 ml FLUSH ASDIRECTED PRN Spironolactone [Aldactone] Med 02/06/18 09:00 Ordered 25 mg PO DAILY Tamsulosin [Flomax] Med 02/06/18 21:00 Ordered 0.4 mg PO BEDTIME Ticagrelor [Brilinta] Med 02/06/18 09:00 Ordered 90 mg PO BID Tiotropium Med 02/06/18 09:00 Ordered 18 mcg INH DAILY atorvaSTATin [Lipitor] Med 02/06/18 21:00 Ordered 40 mg PO BEDTIME Saline Lock Insert [OM.PC] Stat Oth 02/05/18 21:23 Ordered Sequential Compression Device [OM.PC] Per Unit Routine Oth 02/05/18 23:29 Ordered Resuscitation Status Routine Resus Stat 02/05/18 23:26 Ordered Medication Orders Albuterol/Ipratropium (Duoneb 3.0-0.5 Mg/3 Ml) 3 ml NEB Q4HRRT PRN PRN Reason: Shortness of Breath Aspirin (Halfprin) 81 mg PO DAILY LUIZA Atorvastatin Calcium (Lipitor) 40 mg PO BEDTIME LUIZA Carvedilol (Coreg) 6.25 mg PO BID [facility] Enoxaparin Sodium (Lovenox) 40 mg SUBCUT Q24H [facility] Sodium Chloride (Normal Saline) 1,000 mls @ 125 mls/hr IV ASDIRECTED [facility] Last Admin: 02/05/18 21:50 Dose: 125 mls/hr Insulin Aspart (Novolog) 0 unit SUBCUT TIDAC LUIZA; Protocol Lisinopril (Prinivil) 2.5 mg PO DAILY [facility] Non-Formulary Medication (Albuterol) 2 puff INH Q6H PRN PRN Reason: BREATHING Non-Formulary Medication (Gabapentin) 900 mg PO TID [facility] Non-Formulary Medication (Insulin Glarg,Human.Rec.Analog) 40 unit SUBCUT BID [facility] Non-Formulary Medication (Metolazone) 2.5 mg PO DAILY [facility] Non-Formulary Medication (Ticagrelor [Brilinta]) 90 mg PO BID [facility] Non-Formulary Medication (Tiotropium) 18 mcg INH DAILY [facility] Ondansetron HCl (Zofran) 4 mg IVPUSH Q4H [facility] Sodium Chloride (Saline Flush) 10 ml FLUSH ASDIRECTED PRN PRN Reason: Keep Vein Open Sodium Chloride (Saline Flush) 2.5 ml FLUSH ASDIRECTED PRN PRN Reason: Keep Vein Open Spironolactone (Aldactone) 25 mg PO DAILY [facility] Tamsulosin HCl (Flomax) 0.4 mg PO BEDTIME [facility] Assessment/Plan Comment:: 62 yo male who presented with chest pain. He rule out for acute coronary syndrome with serial negative cardiac enzymes. Patient is chest pain free and requesting discharge. Patient is to follow up with his Asset Management Analyst Dr. Peralta.
[2018-02-06] MEDS: Ondansetron 4 MG/2 ML SDV IVPUSH SCH ×5 (00:38→17:07)
[2018-02-06] MEDS: Benzonatate 100 MG Cap PO PRN ×3 (00:38→11:59)
[2018-02-06] MEDS ORDERED: GABAPENTIN 900 MG PO SCH (06:00)
[2018-02-06] MEDS: Acetaminophen 325 MG Tab PO PRN ×2 (06:09→12:10)
[2018-02-06] MEDS: Insulin Aspart 100 Units/ML 3 ML Pen SUBCUT SCH ×2 (06:35→12:06)
[2018-02-06] MEDS ORDERED: Aspirin 81 MG Tab.EC PO SCH (09:00)
[2018-02-06] MEDS ORDERED: TIOTROPIUM 18 MCG INH SCH (09:00)
[2018-02-06] MEDS ORDERED: Spironolactone 25 MG Tab PO SCH (09:00)
[2018-02-06] MEDS ORDERED: METOLAZONE 2.5 MG PO SCH (09:00)
[2018-02-06] MEDS ORDERED: Carvedilol 12.5 MG Tab PO SCH (09:00)
[2018-02-06] MEDS ORDERED: INSULIN GLARG HUMAN REC ANALOG SUBCUT SCH (09:00)
[2018-02-06] MEDS ORDERED: Lisinopril 5 MG Tab PO SCH (09:00)
[2018-02-06] MEDS ORDERED: Non-Formulary Medication 1 Each (Ticagrelor [Brilinta] 90 MG) PO SCH (09:00)
[2018-02-06] MEDS ORDERED: Albuterol 8 GM Inhaler INH PRN (09:16)
[2018-02-06] MEDS ORDERED: Metolazone 5 MG Tab PO SCH (09:17)
[2018-02-06] MEDS ORDERED: Gabapentin 300 MG Cap PO SCH (09:17)
[2018-02-06] MEDS ORDERED: Tiotropium Inhaler 18 MCG Inhalation Powder Cap Kit of 5 INH SCH (09:18)
[2018-02-06] MEDS ORDERED: Insulin Glargine,Human Rec. Analog 100 Units/ML 3 ML Pen SUBCUT SCH (09:19)
[2018-02-06] MEDS ORDERED: BRILINTA 90 MG PO SCH (09:20)
[2018-02-06 14:47] VITALS: BP 122/80
[2018-02-06] MEDS ORDERED: Tamsulosin 0.4 MG Cap.ER PO SCH (21:00)
[2018-02-06] MEDS ORDERED: atorvaSTATin 40 MG Tab PO SCH (21:00)
--- NOTE | 2018-02-07 19:48 | CR ---
EXAM DATE: 02/05/18 PATIENT'S AGE: 62 Patient: LUCAS VALDOVINOS Facility: [place], [place] Site . Site : [id number] Study: XRay Chest [id number] 10:01:30 PM Ordering Physician: Sukh Hills Final Report: INDICATION: Pain, shortness of breath TECHNIQUE: Chest radiograph 1 view COMPARISON: 11/02/2017 FINDINGS: Moderate degradation of image quality noted due to body habitus. Mediastinum: The heart silhouette is normal in size and morphology. The mediastinum is normal in appearance. Left cardiac pacer is present with leads in right atrium and right ventricle. Lungs: Severe pulmonary vascular congestion is present. Small lung volumes noted with minimal bibasilar atelectasis. No sign of pleural effusion seen. No pneumothorax is identified. Bones and soft tissue: Unremarkable for age. IMPRESSION: 1. Severe pulmonary vascular congestion is present. Dictated by Dominick Lewis MD @ 02/05/2018 10:13:46 PM Dictated by: Dominick Lewis MD @ 02/05/2018 22:13:49 (Electronic Signature) Report Signed by Proxy. JUAREZ
== END 2018-02-06 16:40 | disposition home or self-care (01) ==
LOC: MW.ED 21:10 → MW.MS 23:02
PROVIDERS: ADMIT Internal Medicine; ATTEND Internal Medicine
DX: R07.89 Other chest pain (principal); I25.10 Atherosclerotic heart disease of native coronary artery without angina pectoris; J44.9 Chronic obstructive pulmonary disease, unspecified; E11.9 Type 2 diabetes mellitus without complications; I11.0 Hypertensive heart disease with heart failure; I50.9 Heart failure, unspecified; E78.00 Pure hypercholesterolemia, unspecified; N40.0 Benign prostatic hyperplasia without lower urinary tract symptoms; Z79.82 Long term (current) use of aspirin; Z79.4 Long term (current) use of insulin; Z79.02 Long term (current) use of antithrombotics/antiplatelets; Z79.899 Other long term (current) drug therapy; Z95.5 Presence of coronary angioplasty implant and graft; Z95.0 Presence of cardiac pacemaker; Z99.89 Dependence on other enabling machines and devices
CPT/HCPCS: 36415; 71045; 80053; 82962; 84484; 85025; 85610; 93005; 96372; 96374; 96376; 99285; A9270; G0378; J1650; J1815; J2405; J7040; 96360; 96361

== ENCOUNTER 2018-05-17 07:45 | Inpatient (IN) | payer MEDICARE, MEDICAID, OTHER ==
[2018-05-17] MEDS ORDERED: Sodium Chloride 0.9% 2.5 ML Syringe FLUSH PRN (08:01)
[2018-05-17] MEDS ORDERED: Albuterol/Ipratropium 3.0-0.5 MG/3 ML Neb Soln NEB ONE (08:01)
[2018-05-17] MEDS ORDERED: Nitroglycerin 2% Oint 1 GM UD Packet TOP ONE (08:01)
[2018-05-17] MEDS ORDERED: Sodium Chloride 0.9% 10 ML Syringe FLUSH PRN (08:01)
[2018-05-17] MEDS ORDERED: Aspirin 81 MG Tab.Chew PO ONE (08:01)
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
[2018-05-17 08:35] LABS: CHLORIDE,CL 97 mmol/L (98-107); SODIUM,NA 135 mmol/L (136-148)
--- NOTE | 2018-05-17 10:30 | CR ---
EXAM DATE: 05/17/18 PATIENT'S AGE: 62 Patient: LUCAS VALDOVINOS Facility: [place], [place] Site . Site : 1955 Study: XRay Chest [id number]/21/2018 8:44:52 AM Ordering Physician: Sukh Hills Final Report: INDICATION: Short of breath. TECHNIQUE: Portable chest. COMPARISON: 02/05/2018. IMPRESSION: AICD device. Left-sided generator and intact intracardiac leads. The right ventricular lead is not well seen. Mildly prominent pulmonary vascularity with little overall change allowing for technique. No pulmonary consolidation. No effusion or pneumothorax. Heart is stable in size. Dictated by Ivrin Mckeon MD @ May 17 2018 8:49AM (Electronic Signature) Report Signed by Proxy. [facility] HOSPITALDeya
[2018-05-17] MEDS ORDERED: Nitroglycerin 0.4 MG Tab.SL SL PRN (13:30)
[2018-05-17] MEDS ORDERED: SYMBICORT 160/4.5 MCG INH PRN (13:30)
[2018-05-17] MEDS: Potassium Chloride 20 MEQ Tab.ER PO SCH ×2 (14:30→21:02)
[2018-05-17] MEDS ORDERED: Acetaminophen 325 MG Tab PO PRN (16:40)
[2018-05-17] MEDS ORDERED: Insulin Aspart 100 Units/ML 3 ML Pen SUBCUT SCH (17:00)
[2018-05-17] MEDS: Insulin Aspart 100 Units/ML 3 ML Pen SUBCUT SCH ×2 (17:10→20:50)
[2018-05-17] MEDS: Ferrous Sulfate 325 MG Tab PO SCH (17:11)
[2018-05-17] MEDS: Levofloxacin/Dextrose 5%-Water 750 MG in Premix Bag 1 BAG IV SCH (18:14)
--- NOTE | 2018-05-17 18:50 | PCM.SN ---
- Free Text/Narrative Note: [id number]
[2018-05-17] MEDS ORDERED: Magnesium Sulfate/Water 2 GM in Premix Bag 1 BAG IV ONE (19:59)
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
[2018-05-17] MEDS: Furosemide 40 MG/4 ML VIAL IVPUSH SCH (20:35)
[2018-05-17] MEDS: Tamsulosin 0.4 MG Cap.ER PO SCH (20:40)
[2018-05-17] MEDS: atorvaSTATin 40 MG Tab PO SCH (20:41)
[2018-05-17] MEDS: Carvedilol 12.5 MG Tab PO SCH (20:41)
[2018-05-17] MEDS: Insulin Glargine,Human Rec. Analog 100 Units/ML 3 ML Pen SUBCUT SCH (20:47)
[2018-05-17] MEDS: BRILINTA 90 MG PO SCH (21:00)
[2018-05-18] MEDS: Phosphorus #1 250 MG Tab PO SCH ×3 (00:51→11:26)
[2018-05-18] MEDS: Potassium Chloride 20 MEQ Tab.ER PO SCH ×2 (06:14→15:24)
[2018-05-18] MEDS: Insulin Aspart 100 Units/ML 3 ML Pen SUBCUT SCH ×4 (07:28→20:59)
[2018-05-18] MEDS: Ferrous Sulfate 325 MG Tab PO SCH ×3 (07:59→17:04)
[2018-05-18] MEDS: Aspirin 81 MG Tab.EC PO SCH (08:00)
[2018-05-18] MEDS: Carvedilol 12.5 MG Tab PO SCH ×2 (08:00→20:58)
[2018-05-18] MEDS: Amitriptyline 25 MG Tab PO SCH (08:00)
[2018-05-18] MEDS: Metolazone 5 MG Tab PO SCH (08:01)
[2018-05-18] MEDS: Meloxicam 7.5 MG Tab PO SCH (08:01)
[2018-05-18] MEDS: Lisinopril 5 MG Tab PO SCH (08:02)
[2018-05-18] MEDS: Cholecalciferol (Vitamin D3) 1,000 Unit Tab PO SCH (08:02)
[2018-05-18] MEDS: BRILINTA 90 MG PO SCH ×2 (08:03→21:10)
[2018-05-18] MEDS: Insulin Glargine,Human Rec. Analog 100 Units/ML 3 ML Pen SUBCUT SCH ×2 (08:03→21:00)
[2018-05-18] MEDS: Furosemide 40 MG/4 ML VIAL IVPUSH SCH ×3 (08:03→21:43)
[2018-05-18] MEDS ORDERED: Furosemide 40 MG/4 ML VIAL IVPUSH SCH (09:00)
--- NOTE | 2018-05-18 10:14 | PCM.PRNOTE ---
- Free Text/Narrative Note: Device interrogation Company [facility] Model incepta ICD E 162/313793 Implant date 02/2014 last interrogation 11/2016 Mode DDDR, AAIR with VVI back up LRL 60 % paced Paced 34% V paced < 1% intrinsic rhythm Battery life 8 years Atrial lead sensin mv capture threshold: 0.4mv@0.4 ms impedance: 413 Ventricular lead sensin mv capture threshold: 1 mv@0.4 ms impedance:522 shock impedance 52 VF > 210 bpm 31J,41J 41J x6 VT 170-210 ATPx2, 31J, 41J episode: NSVT no therapies MS: none Imp normally functioning dual chamber ICD plan f/u with device clinic
[2018-05-18] MEDS: Enoxaparin 40 MG/0.4 ML Syringe SUBCUT SCH (11:26)
[2018-05-18] MEDS ORDERED: LORazepam 1 MG Tab PO PRN (13:18)
[2018-05-18] MEDS ORDERED: Metolazone 5 MG Tab PO SCH (13:30)
--- NOTE | 2018-05-18 14:55 | CONS ---
DATE OF CONSULTATION: DATE OF : 1955 PRIMARY CARE PHYSICIAN: None PCP REASON FOR CONSULTATION: Congestive heart failure. HISTORY OF PRESENT ILLNESS: This is a 62-year-old male with history of multivessel CAD, status post LAD stenting, diagonal stenting, circumflex stenting, RCA stenting; ischemic cardiomyopathy, ejection fraction of 20% to 25%, status post dual-chamber ICD; history of diabetes; hypertension; hyperlipidemia; former smoker. He presented to the hospital at this time due to increasing shortness of breath over the past 3 days. His baseline [employer] around class II to III. However, over the past 3 days, he started being short of breath even at rest, and he also had orthopnea. He could not lay flat. He could not sleep. He has to lay down on the recliner, did not notice any leg swelling. He denied missing the medication, his compliance is 100%, and he also watches diet very good. He feels some dizziness but no passing out. No chest pain. He does some housework, but he gets slight shortness of breath. He has not been seen by a nurse aide for over a year, and he saw primary care doctor from the [facility] 3 months ago. The record from [facility] is still pending. MEDICATIONS: Apparently, the medications include: 1. Lasix p.o. 2. Coreg 6.25 b.i.d. 3. Lipitor 40. 4. Aspirin 81. 5. Lisinopril 2.5. 6. Metolazone 2.5 p.o. Wednesday, Wednesday, and Wednesday. 7. Brilinta 90 mg b.i.d. PAST MEDICAL HISTORY: Include multivessel CAD, status post PCI; diabetes; hypertension; hyperlipidemia; and ischemic cardiomyopathy, status post dual-chamber ICD. REVIEW OF SYSTEMS: Except as indicated in the HPI, otherwise, has been negative. SOCIAL HISTORY: Former smoker. No drug use. No alcohol use. FAMILY HISTORY: Noncontributory. PHYSICAL EXAMINATION: VITAL SIGNS: Initial blood pressure of 158/87 and current blood pressure is 142/76; heart rate is initially 75; temperature is 36.8, he spiked a fever one time, 38.8; respirations 24; and O2 saturation 98% on 2 L. HEENT: JVD positive. HEART: Normal S1 and S2. No murmur. Regular rate and rhythm. LUNGS: Crackles bilaterally. No wheezing. ABDOMEN: Soft and nontender. Bowel sounds are present. No hepatosplenomegaly. LEGS: No edema. No swelling. LABORATORY INVESTIGATION: CBC: Initial WBC is 6.6, hematocrit of 46, hemoglobin is 16, and platelet 116. INR 1.07. D-dimer is 0.73. Sodium 135, potassium 3.1, chloride 97, bicarb 26, BUN 12, creatinine 1.4, glucose 164. Troponin was negative. BNP 854. Urinalysis; his creatinine baseline is around 1.1. Chest x-ray, bilateral, pleural vascular congestion. Echocardiogram has poor visualization. EKG on May 17 shows sinus rhythm, heart rate of 68, CO interval 220, QRS duration 144, typical left bundle-branch block pattern. Dual-chamber ICD interrogation normally functioning, has an episode of nonsustained VT but no ICD therapy. In February 03, 2017, he had a heart catheterization angiogram due to the recurrent chest pain at that time. LVEDP 23. Left main has no significant disease. Mid LAD 25% to 50%. The left circumflex stent was showing some in-stent stenosis, and RCA showed mid RCA 50% and PLV 70% and LV-gram of 30%. He received LCX BARRY PCI to treat in-stent restenoses of LCX stents, and he also received BARRY PCI of mid RCA as well as PLV. The MUGA scan in March 2016 showed ejection fraction is 29%, and Lexiscan in December 2015 showed anterior wall scar. Stress LVEF is 24%; post stress, it is 17%. Angiogram in December 2015: LVEDP is 19. Left main has no disease. LAD showed mid LAD 35% to 50%. LAD stent is open. D2 stent is open as well. Left circumflex 79% to 90%, 75% to 90% RCA. There is no significant CAD at the time he received LCX stent. ASSESSMENT AND PLAN: This is a 62-year-old male who has a history of ischemic cardiomyopathy, ejection fraction 20% to 25%, status post dual-chamber ICD; diabetes; hypertension; and hyperlipidemia; presented to hospital with acute decompensated systolic heart failure. He is being treated with Lasix 60 mg IV twice a day along with metolazone 3 times a week. I will continue on that. I will continue the beta-minna as well as SPARKLE inhibitor for his heart; and apparently, he just had the stent done last year. He should also continue with Brilinta 90 mg twice a day. He should be monitoring his I's and O's very closely. He spiked one time fever, and blood culture has been drawn, and the urinalysis was negative for white blood cells, and he was getting IV antibiotics as well. It was not clear why he spiked a fever, but make sure that he does not have bacteremia because he has a pacemaker as well as the artificial hip joint. - continue lasix 60 IV BID - continue coreg 2.5 BID, lisinopril 2.5, metolazone 2.5 MWF, brilinta/ASA - considering upgrading to [employer] EFFIE / MARYCRUZ /[id number] MTDDeya
[2018-05-18] MEDS ORDERED: Iopamidol 755 MG/ML 500 ML Multipack Bottle IVPUSH STA (15:00)
--- NOTE | 2018-05-18 15:02 | PCM.SN ---
- Free Text/Narrative Note: call for IV start in CT. Aseptic technique 3 attempts in R) AC 18 ga placed with ultrasound. Saline lock and secured with dressing and tape.
[2018-05-18] MEDS: Gabapentin 300 MG Cap PO SCH ×2 (15:25→21:43)
[2018-05-18] MEDS: Levofloxacin/Dextrose 5%-Water 750 MG in Premix Bag 1 BAG IV SCH (17:04)
--- NOTE | 2018-05-18 18:24 | CT ---
EXAM DATE: 05/17/18 PATIENT'S AGE: 62 Patient: LUCAS VALDOVINOS Facility: [place], [place] Site . Site : 1955 Study: CT Chest Angio [id number]/22/2018 3:22:31 PM Ordering Physician: Rachele Church Final Report: INDICATION: Elevated D-dimer, respiratory distress. TECHNIQUE: Contiguous axial images are obtained from the thoracic inlet through the upper abdomen following intravenous administration of 50 mL of Isovue-370. 3D rendering, including image post processing was performed on an independent work station. COMPARISON: PA/lateral chest 05/18/2018. FINDINGS: There are no filling defects in the pulmonary arteries to suggest pulmonary artery embolism. The heart is enlarged and transvenous leads are noted in the heart from pacemaker or AICD device. There are no pleural or pericardial effusions. There are no enlarged axillary, hilar, mediastinal lymph nodes. Variable lung attenuation is noted with a heterogeneous of the appearance of the parenchyma in a perivascular distribution which may reflect regional differences in lung perfusion secondary to airway disease. There are no focal infiltrates and the trachea and major bronchi are patent. In the right middle lobe, adjacent to the minor fissure on image 40 of series 403 there is a 0.6 cm pulmonary nodule. In the right upper lung adjacent to the minor fissure are 2 adjacent pulmonary nodules the larger spanning 0.9 cm best visualized on image 39 of series 403. Interval followup should be based on Fleischner society guidelines. Please see below. Evaluation of the visualized upper abdomen demonstrates incompletely visualized low-attenuation lesion in the left lobe of the liver spanning 1.2 cm most likely reflecting a hepatic cyst. IMPRESSION: 1. No CT of the pulmonary artery embolism. 2. Pulmonary nodules as described above. 3. Mosaic perfusion pattern in lungs. FLEISCHNER SOCIETY GUIDELINES - SOLID NODULES: SINGLE LOW RISK - nodule less than 6 mm: No routine follow-up. 1. - nodule 6-8 mm: CT at 6-12 months, then consider CT at 18-24 months. - nodule greater than 8 mm: Consider CT at 3 months, PET/CT or tissue sampling. SINGLE HIGH RISK - nodule less than 6 mm: Optional CT at 12 months. - nodule 6-8 mm: CT at 6-12 months, then CT at 18-24 months. - nodule greater than 8 mm: Consider CT at 3 months, PET/CT or tissue sampling. MULTIPLE LOW RISK - nodule less than 6 mm: No routine follow-up. - nodule 6-8 mm: CT at 3-6 months, then consider CT at 18-24 months. - nodule greater than 8 mm: CT at 3-6 months, then consider CT at 18-24 months. MULTIPLE HIGH RISK - nodule less than 6 mm: Optional CT at 12 months. - nodule 6-8 mm: CT at 3-6 months, then at 18-24 months. - nodule greater than 8 mm: CT at 3-6 months, then at 18-24 months. Please note that all CT scans at this facility use dose modulation, iterative reconstruction, and/or weight-based dosing when appropriate to reduce radiation dose to as low as reasonably achievable. Dictated by Isaura Ignacio MD @ May 18 2018 3:33PM (Electronic Signature) Report Signed by Proxy. MTDD
--- NOTE | 2018-05-18 18:24 | CR ---
EXAM DATE: 05/17/18 PATIENT'S AGE: 62 Patient: LUCAS VALDOVINOS Facility: [place], [place] Site . Site : 1955 Study: XRay Chest [id number]/22/2018 3:15:16 PM Ordering Physician: Rachele Church Final Report: INDICATION: Fever, shortness of breath TECHNIQUE: Chest radiograph 2 views COMPARISON: 05/17/2018 FINDINGS: Mediastinum: The mediastinum is normal in appearance. The heart silhouette is normal in size and morphology. There is a left cardiac pacer present with leads in the right atrium and right ventricle. Lung: Moderate pulmonary vascular congestion is noted without interval change. No sign of pleural effusion seen. No pneumothorax is identified. Musculoskeletal: Unremarkable for age. IMPRESSION: 1. Moderate pulmonary vascular congestion is noted without interval change. Dictated by Dominick Lewis MD @ 05/18/2018 5:15:16 PM Dictated by: Dominick Lewis MD @ 05/18/2018 17:15:21 (Electronic Signature) Report Signed by Proxy. [facility]PITALDeya
--- NOTE | 2018-05-18 19:34 | PCM.PN ---
- General Info Date of Service: 05/18/18 Subjective Update: Patient breathing improved , had Ct chest which shjowed multiple pulmonary nodule up to 0.9 mm. Afebrile today, laying flat today , no sob noted - Review of Systems General: Reports: No Symptoms HEENT: Reports: No Symptoms Pulmonary: Reports: No Symptoms Cardiovascular: Reports: No Symptoms Gastrointestinal: Reports: No Symptoms Genitourinary: Reports: No Symptoms Musculoskeletal: Reports: No Symptoms Skin: Reports: No Symptoms Neurological: Reports: No Symptoms Psychiatric: Reports: No Symptoms - Patient Data Vitals - Most Recent: Last Vital Signs Temp 99.8 F 05/18/18 15:45 Pulse 72 05/18/18 15:45 Resp 20 05/18/18 15:45 BP 124/84 05/18/18 15:45 Pulse Ox 99 05/18/18 15:45 Weight - Most Recent: 258 lb 13.163 oz I&O - Last 24 Hours: Intake & Output 05/18/18 05/18/18 05/18/18 06:59 14:59 22:59 Intake Total 750 600 890 Output Total 200 800 700 Balance 550 -200 190 Lab Results Last 24 Hours: Laboratory Results - last 24 hr 05/17/18 05/17/18 05/17/18 Range/Units 16:51 19:14 19:14 WBC (4.0-11.0) K/uL RBC (4.50-5.90) M/uL Hgb (13.0-17.0) g/dL Hct (38.0-50.0) % MCV (80.0-98.0) fL MCH (27.0-32.0) pg MCHC (31.0-37.0) g/dL RDW Std Deviation (28.0-62.0) fl RDW Coeff of [place] (11.0-15.0) % Plt Count (150-400) K/uL MPV (7.40-12.00) fL Neut % (Auto) (48.0-80.0) % Lymph % (Auto) (16.0-40.0) % [place] % (Auto) (0.0-15.0) % Eos % (Auto) (0.0-7.0) % Baso % (Auto) (0.0-1.5) % Neut # (Auto) (1.4-5.7) K/uL Lymph # (Auto) (0.6-2.4) K/uL [place] # (Auto) (0.0-0.8) K/uL Eos # (Auto) (0.0-0.7) K/uL Baso # (Auto) (0.0-0.1) K/uL Nucleated RBC % /100WBC Nucleated RBCs # K/uL D-Dimer, Quantitative 0.73 H (0.0-0.52) mg/LFEU Sodium (136-148) mmol/L Potassium (3.5-5.1) mmol/L Chloride (98-107) mmol/L Carbon Dioxide (21.0-32.0) mmol/L BUN (7.0-18.0) mg/dL Creatinine (0.8-1.3) mg/dL Est Cr Clr Drug Dosing mL/min Estimated GFR (MDRD) ml/min Glucose (74-106) mg/dL POC Glucose 171 H (60-110) mg/dL Calcium (8.5-10.1) mg/dL Phosphorus 2.5 L (2.6-4.7) mg/dL Magnesium 1.6 L (1.8-2.4) mg/dL Total Bilirubin (0.2-1.0) mg/dL AST (15-37) IU/L ALT (14-63) IU/L Alkaline Phosphatase (46-116) U/L Troponin I (0.000-0.056) ng/mL Total Protein (6.4-8.2) g/dL Albumin (3.4-5.0) g/dL Globulin (2.0-3.5) g/dL Albumin/Globulin Ratio (1.3-2.8) Triglycerides (0-200) mg/dL Cholesterol (50-200) mg/dL LDL Cholesterol, Calc (60-180) mg/dL VLDL Cholesterol (5-55) mg/dL HDL Cholesterol (40-60) mg/dL Cholesterol/HDL Ratio (3.3-6.0) 05/17/18 05/17/18 05/18/18 Range/Units 19:14 20:46 01:08 WBC (4.0-11.0) K/uL RBC (4.50-5.90) M/uL Hgb (13.0-17.0) g/dL Hct (38.0-50.0) % MCV (80.0-98.0) fL MCH (27.0-32.0) pg MCHC (31.0-37.0) g/dL RDW Std Deviation (28.0-62.0) fl RDW Coeff of [place] (11.0-15.0) % Plt Count (150-400) K/uL MPV (7.40-12.00) fL Neut % (Auto) (48.0-80.0) % Lymph % (Auto) (16.0-40.0) % [place] % (Auto) (0.0-15.0) % Eos % (Auto) (0.0-7.0) % Baso % (Auto) (0.0-1.5) % Neut # (Auto) (1.4-5.7) K/uL Lymph # (Auto) (0.6-2.4) K/uL [place] # (Auto) (0.0-0.8) K/uL Eos # (Auto) (0.0-0.7) K/uL Baso # (Auto) (0.0-0.1) K/uL Nucleated RBC % /100WBC Nucleated RBCs # K/uL D-Dimer, Quantitative (0.0-0.52) mg/LFEU Sodium (136-148) mmol/L Potassium (3.5-5.1) mmol/L Chloride (98-107) mmol/L Carbon Dioxide (21.0-32.0) mmol/L BUN (7.0-18.0) mg/dL Creatinine (0.8-1.3) mg/dL Est Cr Clr Drug Dosing mL/min Estimated GFR (MDRD) ml/min Glucose (74-106) mg/dL POC Glucose 163 H (60-110) mg/dL Calcium (8.5-10.1) mg/dL Phosphorus (2.6-4.7) mg/dL Magnesium (1.8-2.4) mg/dL Total Bilirubin (0.2-1.0) mg/dL AST (15-37) IU/L ALT (14-63) IU/L Alkaline Phosphatase (46-116) U/L Troponin I < 0.050 0.056 (0.000-0.056) ng/mL Total Protein (6.4-8.2) g/dL Albumin (3.4-5.0) g/dL Globulin (2.0-3.5) g/dL Albumin/Globulin Ratio (1.3-2.8) Triglycerides (0-200) mg/dL Cholesterol (50-200) mg/dL LDL Cholesterol, Calc (60-180) mg/dL VLDL Cholesterol (5-55) mg/dL HDL Cholesterol (40-60) mg/dL Cholesterol/HDL Ratio (3.3-6.0) 05/18/18 05/18/18 05/18/18 Range/Units 05:08 05:15 05:15 WBC 7.10 (4.0-11.0) K/uL RBC 5.15 (4.50-5.90) M/uL Hgb 13.7 (13.0-17.0) g/dL Hct 40.3 (38.0-50.0) % MCV 78.3 L (80.0-98.0) fL MCH 26.6 L (27.0-32.0) pg MCHC 34.0 (31.0-37.0) g/dL RDW Std Deviation 45.6 (28.0-62.0) fl RDW Coeff of [place] 16 H (11.0-15.0) % Plt Count 135 L (150-400) K/uL MPV 9.40 (7.40-12.00) fL Neut % (Auto) 75.5 (48.0-80.0) % Lymph % (Auto) 14.4 L (16.0-40.0) % [place] % (Auto) 9.9 (0.0-15.0) % Eos % (Auto) 0.1 (0.0-7.0) % Baso % (Auto) 0.1 (0.0-1.5) % Neut # (Auto) 5.4 (1.4-5.7) K/uL Lymph # (Auto) 1.0 (0.6-2.4) K/uL [place] # (Auto) 0.7 (0.0-0.8) K/uL Eos # (Auto) 0.0 (0.0-0.7) K/uL Baso # (Auto) 0.0 (0.0-0.1) K/uL Nucleated RBC % 0.0 /100WBC Nucleated RBCs # 0 K/uL D-Dimer, Quantitative (0.0-0.52) mg/LFEU Sodium (136-148) mmol/L Potassium (3.5-5.1) mmol/L Chloride (98-107) mmol/L Carbon Dioxide (21.0-32.0) mmol/L BUN (7.0-18.0) mg/dL Creatinine (0.8-1.3) mg/dL Est Cr Clr Drug Dosing mL/min Estimated GFR (MDRD) ml/min Glucose (74-106) mg/dL POC Glucose 172 H (60-110) mg/dL Calcium (8.5-10.1) mg/dL Phosphorus (2.6-4.7) mg/dL Magnesium (1.8-2.4) mg/dL Total Bilirubin (0.2-1.0) mg/dL AST (15-37) IU/L ALT (14-63) IU/L Alkaline Phosphatase (46-116) U/L Troponin I (0.000-0.056) ng/mL Total Protein (6.4-8.2) g/dL Albumin (3.4-5.0) g/dL Globulin (2.0-3.5) g/dL Albumin/Globulin Ratio (1.3-2.8) Triglycerides 95 (0-200) mg/dL Cholesterol 94 (50-200) mg/dL LDL Cholesterol, Calc 42 L (60-180) mg/dL VLDL Cholesterol 19 (5-55) mg/dL HDL Cholesterol 33 L (40-60) mg/dL Cholesterol/HDL Ratio 2.8 L (3.3-6.0) 05/18/18 05/18/18 05/18/18 Range/Units 05:15 07:22 07:57 WBC (4.0-11.0) K/uL RBC (4.50-5.90) M/uL Hgb (13.0-17.0) g/dL Hct (38.0-50.0) % MCV (80.0-98.0) fL MCH (27.0-32.0) pg MCHC (31.0-37.0) g/dL RDW Std Deviation (28.0-62.0) fl RDW Coeff of [place] (11.0-15.0) % Plt Count (150-400) K/uL MPV (7.40-12.00) fL Neut % (Auto) (48.0-80.0) % Lymph % (Auto) (16.0-40.0) % [place] % (Auto) (0.0-15.0) % Eos % (Auto) (0.0-7.0) % Baso % (Auto) (0.0-1.5) % Neut # (Auto) (1.4-5.7) K/uL Lymph # (Auto) (0.6-2.4) K/uL [place] # (Auto) (0.0-0.8) K/uL Eos # (Auto) (0.0-0.7) K/uL Baso # (Auto) (0.0-0.1) K/uL Nucleated RBC % /100WBC Nucleated RBCs # K/uL D-Dimer, Quantitative (0.0-0.52) mg/LFEU Sodium 131 L (136-148) mmol/L Potassium 3.4 L (3.5-5.1) mmol/L Chloride 97 L (98-107) mmol/L Carbon Dioxide 26.8 (21.0-32.0) mmol/L BUN 15 (7.0-18.0) mg/dL Creatinine 1.4 H (0.8-1.3) mg/dL Est Cr Clr Drug Dosing 61.03 mL/min Estimated GFR (MDRD) 51.2 ml/min Glucose 189 H (74-106) mg/dL POC Glucose 129 H 168 H (60-110) mg/dL Calcium 8.4 L (8.5-10.1) mg/dL Phosphorus (2.6-4.7) mg/dL Magnesium 2.1 (1.8-2.4) mg/dL Total Bilirubin 1.9 H (0.2-1.0) mg/dL AST 25 (15-37) IU/L ALT 24 (14-63) IU/L Alkaline Phosphatase 161 H (46-116) U/L Troponin I (0.000-0.056) ng/mL Total Protein 7.5 (6.4-8.2) g/dL Albumin 3.2 L (3.4-5.0) g/dL Globulin 4.3 H (2.0-3.5) g/dL Albumin/Globulin Ratio 0.7 L (1.3-2.8) Triglycerides (0-200) mg/dL Cholesterol (50-200) mg/dL LDL Cholesterol, Calc (60-180) mg/dL VLDL Cholesterol (5-55) mg/dL HDL Cholesterol (40-60) mg/dL Cholesterol/HDL Ratio (3.3-6.0) 05/18/18 05/18/18 Range/Units 11:24 16:28 WBC (4.0-11.0) K/uL RBC (4.50-5.90) M/uL Hgb (13.0-17.0) g/dL Hct (38.0-50.0) % MCV (80.0-98.0) fL MCH (27.0-32.0) pg MCHC (31.0-37.0) g/dL RDW Std Deviation (28.0-62.0) fl RDW Coeff of [place] (11.0-15.0) % Plt Count (150-400) K/uL MPV (7.40-12.00) fL Neut % (Auto) (48.0-80.0) % Lymph % (Auto) (16.0-40.0) % [place] % (Auto) (0.0-15.0) % Eos % (Auto) (0.0-7.0) % Baso % (Auto) (0.0-1.5) % Neut # (Auto) (1.4-5.7) K/uL Lymph # (Auto) (0.6-2.4) K/uL [place] # (Auto) (0.0-0.8) K/uL Eos # (Auto) (0.0-0.7) K/uL Baso # (Auto) (0.0-0.1) K/uL Nucleated RBC % /100WBC Nucleated RBCs # K/uL D-Dimer, Quantitative (0.0-0.52) mg/LFEU Sodium (136-148) mmol/L Potassium (3.5-5.1) mmol/L Chloride (98-107) mmol/L Carbon Dioxide (21.0-32.0) mmol/L BUN (7.0-18.0) mg/dL Creatinine (0.8-1.3) mg/dL Est Cr Clr Drug Dosing mL/min Estimated GFR (MDRD) ml/min Glucose (74-106) mg/dL POC Glucose 154 H 126 H (60-110) mg/dL Calcium (8.5-10.1) mg/dL Phosphorus (2.6-4.7) mg/dL Magnesium (1.8-2.4) mg/dL Total Bilirubin (0.2-1.0) mg/dL AST (15-37) IU/L ALT (14-63) IU/L Alkaline Phosphatase (46-116) U/L Troponin I (0.000-0.056) ng/mL Total Protein (6.4-8.2) g/dL Albumin (3.4-5.0) g/dL Globulin (2.0-3.5) g/dL Albumin/Globulin Ratio (1.3-2.8) Triglycerides (0-200) mg/dL Cholesterol (50-200) mg/dL LDL Cholesterol, Calc (60-180) mg/dL VLDL Cholesterol (5-55) mg/dL HDL Cholesterol (40-60) mg/dL Cholesterol/HDL Ratio (3.3-6.0) Ivan Results Last 24 Hours: Microbiology 05/17/18 17:18 Aerobic Blood Culture - Preliminary Blood - Venous NO GROWTH AFTER 1 DAY Anaerobic Blood Culture - Final 05/17/18 17:31 Aerobic Blood Culture - Preliminary Blood NO GROWTH AFTER 1 DAY Anaerobic Blood Culture - Final Med Orders - Current: Current Medications Acetaminophen (Tylenol) 650 mg PO Q6H PRN PRN Reason: Fever Last Admin: 05/17/18 17:11 Dose: 650 mg Amitriptyline HCl (Elavil) 50 mg PO DAILY [facility], [facility] Last Admin: 05/18/18 08:00 Dose: 50 mg Aspirin (Halfprin) 81 mg PO DAILY [facility] Last Admin: 05/18/18 08:00 Dose: 81 mg Atorvastatin Calcium (Lipitor) 40 mg PO BEDTIME [facility], [facility]1983 Last Admin: 05/17/18 20:41 Dose: 40 mg Carvedilol (Coreg) 6.25 mg PO BID [facility], [facility]1983 Last Admin: 05/18/18 08:00 Dose: 6.25 mg Cholecalciferol (Vitamin D3) 1,000 units PO DAILY [facility] Last Admin: 05/18/18 08:02 Dose: 1,000 units Enoxaparin Sodium (Lovenox) 40 mg SUBCUT Q24H [facility], [facility] Last Admin: 05/18/18 11:26 Dose: 40 mg Ferrous Sulfate (Ferrous Sulfate) 325 mg PO TIDMEALS [facility], [facility]1983 Last Admin: 05/18/18 17:04 Dose: 325 mg Furosemide (Lasix) 80 mg IVPUSH BID [facility] Gabapentin (Neurontin) 600 mg PO TID [facility] Last Admin: 05/18/18 15:25 Dose: 600 mg Levofloxacin/Dextrose 750 mg/ (Premix) 150 mls @ 100 mls/hr IV Q24H [facility] Last Admin: 05/18/18 17:04 Dose: 100 mls/hr Insulin Aspart (Novolog) 0 unit SUBCUT ACBED [facility], [facility]; Protocol Last Admin: 05/18/18 16:41 Dose: Not Given Insulin Glargine (Lantus Solostar) 40 units SUBCUT BID [facility] Last Admin: 05/18/18 08:03 Dose: 40 units Lisinopril (Prinivil) 2.5 mg PO DAILY [facility] Last Admin: 05/18/18 08:02 Dose: 2.5 mg Lorazepam (Ativan) 1 mg PO BID PRN PRN Reason: tremors Meloxicam (Mobic) 15 mg PO DAILY [facility] Last Admin: 05/18/18 08:01 Dose: 15 mg Metolazone (Zaroxolyn) 2.5 mg PO MoWeFr@0800 [facility] Last Admin: 05/18/18 08:01 Dose: 2.5 mg Nitroglycerin (Nitrostat) 0.4 mg SL ASDIRECTED PRN PRN Reason: Chest Pain Symbicort 160/4.5 (Mcg) 1 each INH DAILY PRN PRN Reason: Shortness of Breath Brilinta 90 Mg*Pt (Own Med*) 1 each PO BID [facility] Last Admin: 05/18/18 08:03 Dose: 1 each Senna/Docusate Sodium (Senna Plus) 1 tab PO BID [facility] Last Admin: 05/18/18 08:02 Dose: 1 tab Sodium Chloride (Saline Flush) 10 ml FLUSH ASDIRECTED PRN PRN Reason: Keep Vein Open Last Admin: 05/17/18 08:15 Dose: 10 ml Sodium Chloride (Saline Flush) 2.5 ml FLUSH ASDIRECTED PRN PRN Reason: Keep Vein Open Last Admin: 05/17/18 08:15 Dose: 2.5 ml Spironolactone (Aldactone) 25 mg PO DAILY [facility] Tamsulosin HCl (Flomax) 0.4 mg PO BEDTIME [facility] Last Admin: 05/17/18 20:40 Dose: 0.4 mg Discontinued Medications Albuterol/Ipratropium (Duoneb 3.0-0.5 Mg/3 Ml) 3 ml NEB ONETIME ONE Stop: 05/17/18 08:02 Last Admin: 05/17/18 08:10 Dose: 3 ml Aspirin (Aspirin) 324 mg PO ONETIME ONE Stop: 05/17/18 08:02 Last Admin: 05/17/18 08:10 Dose: 324 mg Furosemide (Lasix) 40 mg IVPUSH DAILY [facility] Furosemide (Lasix) 60 mg IVPUSH BID [facility] Last Admin: 05/18/18 08:03 Dose: 60 mg Magnesium Sulfate 2 gm/ Premix 50 mls @ 50 mls/hr IV ONETIME ONE Stop: 05/17/18 20:58 Last Admin: 05/17/18 20:18 Dose: 50 mls/hr Insulin Aspart (Novolog) 0 unit SUBCUT TIDAC [facility], [facility]; Protocol Iopamidol (Isovue Multipack-370 (76%)) 50 ml IVPUSH ONETIME STA Stop: 05/18/18 15:01 Last Admin: 05/18/18 15:13 Dose: 50 ml Metolazone (Zaroxolyn) 2.5 mg PO MoWeFr@0800 [facility] Nitroglycerin (Nitro-Bid 2%) 0.5 gm TOP ONETIME ONE Stop: 05/17/18 08:02 Last Admin: 05/17/18 08:11 Dose: 0.5 gm Potassium Chloride (Klor-Con M20) 40 meq PO TID [facility]1983 Stop: 05/18/18 14:01 Last Admin: 05/18/18 15:24 Dose: 40 meq Sodium Phosphate (Neutra-Phos) 250 mg PO QID [facility] Stop: 05/18/18 12:01 Last Admin: 08/22/18 11:26 Dose: 250 mg - Exam General: Alert, Oriented HEENT: Pupils Equal, Pupils Reactive Neck: Supple, Trachea Midline Lungs: Clear to Auscultation, Normal Respiratory Effort Cardiovascular: Regular Rate, Regular Rhythm GI/Abdominal Exam: Normal Bowel Sounds, Soft, No Organomegaly Back Exam: Normal Inspection Extremities: Normal Inspection Skin: Warm, Dry Neurological: No New Focal Deficit Psy/Mental Status: Alert, Normal Affect - Problem List & Annotations (1) Pulmonary nodules SNOMED Code(s): 885873235 Code(s): R91.8 - OTHER NONSPECIFIC ABNORMAL FINDING OF LUNG FIELD Status: Acute Current Visit: Yes (2) CHF exacerbation SNOMED Code(s): 64040704 Code(s): I50.9 - HEART FAILURE, UNSPECIFIED Status: Acute Current Visit: Yes Qualifiers: Heart failure type: unspecified Qualified Code(s): I50.9 - Heart failure, unspecified (3) COPD exacerbation SNOMED Code(s): 348904014423797 Code(s): J44.1 - CHRONIC OBSTRUCTIVE PULMONARY DISEASE W (ACUTE) EXACERBATION Status: Acute Current Visit: No (4) CAD (coronary artery disease) SNOMED Code(s): 09716557 Code(s): I25.10 - ATHSCL HEART DISEASE OF [place] CORONARY ARTERY W/O ANG PCTRS Status: Acute Current Visit: Yes (5) Dyspnea SNOMED Code(s): 799641092 Code(s): R06.00 - DYSPNEA, UNSPECIFIED Status: Acute Current Visit: Yes Qualifiers: Dyspnea type: unspecified Qualified Code(s): R06.00 - Dyspnea, unspecified (6) Systolic CHF SNOMED Code(s): 008029206 Code(s): I50.20 - UNSPECIFIED SYSTOLIC (CONGESTIVE) HEART FAILURE Status: Acute Current Visit: Yes - Problem List Review Problem List Initiated/Reviewed/Updated: Yes - My Orders Last 24 Hours: My Active Orders 05/17/18 21:00 Carvedilol [Coreg] 6.25 mg PO BID Docusate Sodium/Sennosides [Senna Plus] 1 tab PO BID Insulin Glarg,Human.Rec.Analog [LantUS Solostar] 40 units SUBCUT BID Patient's Own Medication [Ptom] 1 each PO BID Tamsulosin [Flomax] 0.4 mg PO BEDTIME atorvaSTATin [Lipitor] 40 mg PO BEDTIME 05/18/18 08:00 metOLazone [Zaroxolyn] 2.5 mg PO MoWeFr@0800 05/18/18 09:00 Amitriptyline [Elavil] 50 mg PO DAILY Aspirin [Halfprin] 81 mg PO DAILY Cholecalciferol (Vitamin D3) [Vitamin D3] 1,000 units PO DAILY Lisinopril [Prinivil] 2.5 mg PO DAILY Meloxicam [Mobic] 15 mg PO DAILY 05/18/18 10:45 Enoxaparin [Lovenox] 40 mg SUBCUT Q24H 05/18/18 13:18 LORazepam [Ativan] 1 mg PO BID PRN 05/18/18 14:00 Gabapentin [Neurontin] 600 mg PO TID 05/18/18 18:00 Furosemide [Lasix] 80 mg IVPUSH BID 05/18/18 Breakfast Fluid Restriction [DIET] 05/19/18 09:00 Spironolactone [Aldactone] 25 mg PO DAILY - Assessment Assessment:: Fluid restriction to 1000 cc daily Increase Lasix 80 mg iv q 12h Continue all the other medicatons : lisinopril , metoprolol , brilinta. f/up cardiac echo For Pulmonary nodules patient will need referral to pulmonologyst. DVT prof _ lovenox 40 mg sq daily For fever- will continue patient with Levaquin 750 mg po daily , f/up BC
[2018-05-18] MEDS: Tamsulosin 0.4 MG Cap.ER PO SCH (20:57)
[2018-05-18] MEDS: atorvaSTATin 40 MG Tab PO SCH (20:58)
[2018-05-19] MEDS: Gabapentin 300 MG Cap PO SCH ×3 (06:03→21:11)
[2018-05-19] MEDS: Insulin Aspart 100 Units/ML 3 ML Pen SUBCUT SCH ×4 (06:40→21:13)
[2018-05-19] MEDS: Ferrous Sulfate 325 MG Tab PO SCH ×3 (08:59→17:10)
[2018-05-19] MEDS: Spironolactone 25 MG Tab PO SCH ×2 (09:00→09:28)
[2018-05-19] MEDS: Meloxicam 7.5 MG Tab PO SCH (09:01)
[2018-05-19] MEDS: Cholecalciferol (Vitamin D3) 1,000 Unit Tab PO SCH (09:02)
[2018-05-19] MEDS: Aspirin 81 MG Tab.EC PO SCH (09:03)
[2018-05-19] MEDS: Amitriptyline 25 MG Tab PO SCH (09:03)
[2018-05-19] MEDS ORDERED: Potassium Chloride 20 MEQ Tab.ER PO ONE ×2 (09:05→21:00)
[2018-05-19] MEDS: BRILINTA 90 MG PO SCH ×2 (09:23→21:13)
[2018-05-19] MEDS: Carvedilol 12.5 MG Tab PO SCH ×2 (09:29→21:12)
[2018-05-19] MEDS: Lisinopril 5 MG Tab PO SCH (09:30)
[2018-05-19] MEDS: Furosemide 40 MG/4 ML VIAL IVPUSH SCH (09:30)
[2018-05-19] MEDS: Enoxaparin 40 MG/0.4 ML Syringe SUBCUT SCH (10:11)
[2018-05-19] MEDS: Insulin Glargine,Human Rec. Analog 100 Units/ML 3 ML Pen SUBCUT SCH ×2 (10:26→21:46)
[2018-05-19] MEDS: Levofloxacin/Dextrose 5%-Water 750 MG in Premix Bag 1 BAG IV SCH (17:08)
--- NOTE | 2018-05-19 17:35 | PCM.PN ---
- General Info Date of Service: 05/19/18 Subjective Update: Patient I know not titrated up if not well documented because patient did not use the urinal, she was hypotensive in the morning and orthostatic,f/luid restriction was changed from 1000 to 1800 and lasix was decreased to 60 mg iv q 12 patient doesnt have orthopneea anymore Patient has no Sob since yesterday , afebrile. - Review of Systems General: Reports: No Symptoms HEENT: Reports: No Symptoms Pulmonary: Reports: No Symptoms Cardiovascular: Reports: Lightheadedness Gastrointestinal: Reports: No Symptoms Genitourinary: Reports: No Symptoms Musculoskeletal: Reports: No Symptoms Skin: Reports: No Symptoms Neurological: Reports: No Symptoms Psychiatric: Reports: No Symptoms - Patient Data Vitals - Most Recent: Last Vital Signs Temp 98.0 F 05/19/18 15:48 Pulse 79 05/19/18 15:48 Resp 20 05/19/18 15:48 BP 125/79 05/19/18 15:48 Pulse Ox 98 05/19/18 15:48 Orthostatic Blood Pressure [ 92/54 Standing] Orthostatic Blood Pressure [ 108/64 Sitting] Orthostatic Blood Pressure [ 115/67 Supine] Weight - Most Recent: 263 lb 3.711 oz I&O - Last 24 Hours: Intake & Output 05/19/18 05/19/18 05/19/18 06:59 14:59 22:59 Intake Total 618 720 Output Total 1750 625 Balance -1132 95 Lab Results Last 24 Hours: Laboratory Results - last 24 hr 05/18/18 05/19/18 05/19/18 Range/Units 20:55 06:01 10:22 POC Glucose 142 H 166 H 211 H (60-110) mg/dL 05/19/18 Range/Units 11:09 POC Glucose 193 H (60-110) mg/dL Ivan Results Last 24 Hours: Microbiology 05/17/18 08:24 Urine Culture - Final Urine, Clean Catch MIXED CORRINE 1,000-10,000 CFU/ML 05/17/18 17:18 Aerobic Blood Culture - Preliminary Blood - Venous NO GROWTH AFTER 1 DAY Anaerobic Blood Culture - Final 05/17/18 17:31 Aerobic Blood Culture - Preliminary Blood NO GROWTH AFTER 1 DAY Anaerobic Blood Culture - Final Med Orders - Current: Current Medications Acetaminophen (Tylenol) 650 mg PO Q6H PRN PRN Reason: Fever Last Admin: 05/17/18 17:11 Dose: 650 mg Amitriptyline HCl (Elavil) 50 mg PO DAILY [facility] Last Admin: 05/19/18 09:03 Dose: 50 mg Aspirin (Halfprin) 81 mg PO DAILY [facility] Last Admin: 05/19/18 09:03 Dose: 81 mg Atorvastatin Calcium (Lipitor) 40 mg PO BEDTIME [facility] Last Admin: 05/18/18 20:58 Dose: 40 mg Carvedilol (Coreg) 6.25 mg PO BID [facility] Last Admin: 05/19/18 09:29 Dose: Not Given Cholecalciferol (Vitamin D3) 1,000 units PO DAILY [facility] Last Admin: 05/19/18 09:02 Dose: 1,000 units Enoxaparin Sodium (Lovenox) 40 mg SUBCUT Q24H [facility] Last Admin: 05/19/18 10:11 Dose: 40 mg Ferrous Sulfate (Ferrous Sulfate) 325 mg PO TIDMEALS [facility] Last Admin: 05/19/18 17:10 Dose: 325 mg Furosemide (Lasix) 60 mg IVPUSH BID [facility] Gabapentin (Neurontin) 600 mg PO TID [facility] Last Admin: 05/19/18 13:34 Dose: 600 mg Levofloxacin/Dextrose 750 mg/ (Premix) 150 mls @ 100 mls/hr IV Q24H [facility] Last Admin: 05/19/18 17:08 Dose: 100 mls/hr Insulin Aspart (Novolog) 0 unit SUBCUT ACBED [facility]; Protocol Last Admin: 05/19/18 16:58 Dose: 2 unit Insulin Glargine (Lantus Solostar) 40 units SUBCUT BID [facility] Last Admin: 05/19/18 10:26 Dose: 40 units Lisinopril (Prinivil) 2.5 mg PO DAILY [facility] Last Admin: 05/19/18 09:30 Dose: Not Given Lorazepam (Ativan) 1 mg PO BID PRN PRN Reason: tremors Last Admin: 05/19/18 09:30 Dose: 1 mg Meloxicam (Mobic) 15 mg PO DAILY [facility] Last Admin: 05/19/18 09:01 Dose: 15 mg Metolazone (Zaroxolyn) 2.5 mg PO MoWeFr@0800 [facility] Last Admin: 05/18/18 08:01 Dose: 2.5 mg Nitroglycerin (Nitrostat) 0.4 mg SL ASDIRECTED PRN PRN Reason: Chest Pain Symbicort 160/4.5 (Mcg) 1 each INH DAILY PRN PRN Reason: Shortness of Breath Brilinta 90 Mg*Pt (Own Med*) 1 each PO BID [facility] Last Admin: 05/19/18 09:23 Dose: 1 each Potassium Chloride (Klor-Con M20) 40 meq PO ONETIME ONE Stop: 05/19/18 21:01 Senna/Docusate Sodium (Senna Plus) 1 tab PO BID [facility] Last Admin: 05/19/18 09:03 Dose: 1 tab Sodium Chloride (Saline Flush) 10 ml FLUSH ASDIRECTED PRN PRN Reason: Keep Vein Open Last Admin: 05/17/18 08:15 Dose: 10 ml Sodium Chloride (Saline Flush) 2.5 ml FLUSH ASDIRECTED PRN PRN Reason: Keep Vein Open Last Admin: 05/17/18 08:15 Dose: 2.5 ml Spironolactone (Aldactone) 25 mg PO DAILY [facility] Last Admin: 05/19/18 09:28 Dose: Not Given Tamsulosin HCl (Flomax) 0.4 mg PO BEDTIME [facility] Last Admin: 05/18/18 20:57 Dose: 0.4 mg Discontinued Medications Albuterol/Ipratropium (Duoneb 3.0-0.5 Mg/3 Ml) 3 ml NEB ONETIME ONE Stop: 05/17/18 08:02 Last Admin: 05/17/18 08:10 Dose: 3 ml Aspirin (Aspirin) 324 mg PO ONETIME ONE Stop: 05/17/18 08:02 Last Admin: 05/17/18 08:10 Dose: 324 mg Furosemide (Lasix) 40 mg IVPUSH DAILY [facility] Furosemide (Lasix) 60 mg IVPUSH BID [facility] Last Admin: 05/18/18 08:03 Dose: 60 mg Furosemide (Lasix) 80 mg IVPUSH BID [facility] Last Admin: 05/19/18 09:30 Dose: Not Given Magnesium Sulfate 2 gm/ Premix 50 mls @ 50 mls/hr IV ONETIME ONE Stop: 05/17/18 20:58 Last Admin: 05/17/18 20:18 Dose: 50 mls/hr Insulin Aspart (Novolog) 0 unit SUBCUT TIDAC [facility]; Protocol Iopamidol (Isovue Multipack-370 (76%)) 50 ml IVPUSH ONETIME STA Stop: 05/18/18 15:01 Last Admin: 05/18/18 15:13 Dose: 50 ml Metolazone (Zaroxolyn) 2.5 mg PO MoWeFr@0800 [facility] Nitroglycerin (Nitro-Bid 2%) 0.5 gm TOP ONETIME ONE Stop: 05/17/18 08:02 Last Admin: 05/17/18 08:11 Dose: 0.5 gm Potassium Chloride (Klor-Con M20) 40 meq PO TID [facility] Stop: 05/18/18 14:01 Last Admin: 05/18/18 15:24 Dose: 40 meq Potassium Chloride (Klor-Con M20) 40 meq PO ONETIME ONE Stop: 05/19/18 09:06 Last Admin: 05/19/18 09:21 Dose: 40 meq Sodium Phosphate (Neutra-Phos) 250 mg PO QID [facility] Stop: 05/18/18 12:01 Last Admin: 05/18/18 11:26 Dose: 250 mg - Exam General: Alert, Oriented HEENT: Pupils Equal, Pupils Reactive Neck: Supple, Trachea Midline Lungs: Clear to Auscultation, Normal Respiratory Effort Cardiovascular: Regular Rate, Regular Rhythm GI/Abdominal Exam: Normal Bowel Sounds, Soft, Non-Tender, No Organomegaly Back Exam: Normal Inspection Extremities: Normal Inspection Skin: Warm Neurological: No New Focal Deficit Psy/Mental Status: Alert, Normal Affect - Problem List & Annotations (1) Pulmonary nodules SNOMED Code(s): 982704880 Code(s): R91.8 - OTHER NONSPECIFIC ABNORMAL FINDING OF LUNG FIELD Status: Acute Current Visit: Yes (2) CHF exacerbation SNOMED Code(s): 96069121 Code(s): I50.9 - HEART FAILURE, UNSPECIFIED Status: Acute Current Visit: Yes Qualifiers: Heart failure type: unspecified Qualified Code(s): I50.9 - Heart failure, unspecified (3) COPD exacerbation SNOMED Code(s): 070144162160971 Code(s): J44.1 - CHRONIC OBSTRUCTIVE PULMONARY DISEASE W (ACUTE) EXACERBATION Status: Acute Current Visit: No (4) CAD (coronary artery disease) SNOMED Code(s): 49491127 Code(s): I25.10 - ATHSCL HEART DISEASE OF [place] CORONARY ARTERY W/O ANG PCTRS Status: Acute Current Visit: Yes (5) Dyspnea SNOMED Code(s): 019949047 Code(s): R06.00 - DYSPNEA, UNSPECIFIED Status: Acute Current Visit: Yes Qualifiers: Dyspnea type: unspecified Qualified Code(s): R06.00 - Dyspnea, unspecified (6) Systolic CHF SNOMED Code(s): 179310013 Code(s): I50.20 - UNSPECIFIED SYSTOLIC (CONGESTIVE) HEART FAILURE Status: Acute Current Visit: Yes (7) Orthostatic dizziness SNOMED Code(s): 178764513 Code(s): R42 - DIZZINESS AND GIDDINESS Status: Acute Current Visit: Yes - Problem List Review Problem List Initiated/Reviewed/Updated: Yes - My Orders Last 24 Hours: My Active Orders 05/19/18 09:00 Spironolactone [Aldactone] 25 mg PO DAILY 05/19/18 13:09 Orthostatic Vital Signs [RC] Q12H 05/19/18 21:00 Furosemide [Lasix] 60 mg IVPUSH BID Potassium Chloride [Klor-Con M20] 40 meq PO ONETIME ONE 05/19/18 Dinner Fluid Restriction [DIET] - Assessment Assessment:: Fluid restriction to 1800 / day Increase Lasix decreased to 60 mg iv q 12 h Continue all the other medicatons : lisinopril , metoprolol , brilinta. f/up cardiac echo For Pulmonary nodules patient will need referral to pulmonologyst. DVT prof _ lovenox 40 mg sq daily For fever- will continue patient with Levaquin 750 mg po daily , f/up BC PT /OT eval.
[2018-05-19] MEDS ORDERED: Furosemide 40 MG/4 ML VIAL IVPUSH SCH (21:00)
[2018-05-19] MEDS: Tamsulosin 0.4 MG Cap.ER PO SCH (21:11)
[2018-05-19] MEDS: atorvaSTATin 40 MG Tab PO SCH (21:11)
[2018-05-20] MEDS: Gabapentin 300 MG Cap PO SCH ×3 (06:27→21:02)
[2018-05-20] MEDS: Insulin Aspart 100 Units/ML 3 ML Pen SUBCUT SCH ×4 (06:30→21:01)
[2018-05-20] MEDS: Lisinopril 5 MG Tab PO SCH (08:52)
[2018-05-20] MEDS: Spironolactone 25 MG Tab PO SCH (08:52)
[2018-05-20] MEDS ORDERED: Furosemide 20 MG Tab PO ONE (08:57)
[2018-05-20] MEDS ORDERED: Lactated Ringers 250 ML IV SCH (09:15)
[2018-05-20] MEDS: Carvedilol 12.5 MG Tab PO SCH ×2 (09:35→20:47)
[2018-05-20] MEDS: Amitriptyline 25 MG Tab PO SCH (09:36)
[2018-05-20] MEDS: Meloxicam 7.5 MG Tab PO SCH (09:37)
[2018-05-20] MEDS: BRILINTA 90 MG PO SCH ×2 (09:37→20:46)
[2018-05-20] MEDS: Aspirin 81 MG Tab.EC PO SCH (09:38)
[2018-05-20] MEDS: Cholecalciferol (Vitamin D3) 1,000 Unit Tab PO SCH (09:38)
[2018-05-20] MEDS: Ferrous Sulfate 325 MG Tab PO SCH ×3 (09:38→17:41)
[2018-05-20] MEDS: Insulin Glargine,Human Rec. Analog 100 Units/ML 3 ML Pen SUBCUT SCH ×2 (09:43→21:02)
[2018-05-20] MEDS: Metolazone 5 MG Tab PO SCH (09:47)
[2018-05-20 10:09] LABS: CHLORIDE,CL 94 mmol/L (98-107); SODIUM,NA 127 mmol/L (136-148)
[2018-05-20] MEDS: Enoxaparin 40 MG/0.4 ML Syringe SUBCUT SCH (10:52)
--- NOTE | 2018-05-20 10:55 | PCM.PN ---
- General Info Date of Service: 05/20/18 Admission Dx/Problem (Free Text): 62M hx ICM EF 20-25% s/p dual chamber ICD with CAD multiple stents last PCI was 01/2017 with acute decompensated systolic CHF Subjective Update: he started walking to the bath room, he stated that his breathing is better, maybe back to his baseline. His Cr was 2.2 today from 1.4 yesterday. Functional Status: Reports: Pain Controlled - Review of Systems General: Reports: No Symptoms HEENT: Reports: No Symptoms Pulmonary: Reports: No Symptoms, Shortness of Breath Cardiovascular: Reports: No Symptoms, Dyspnea on Exertion Gastrointestinal: Reports: No Symptoms Genitourinary: Reports: No Symptoms Musculoskeletal: Reports: No Symptoms Skin: Reports: No Symptoms - Patient Data Vitals - Most Recent: Last Vital Signs Temp 36.5 C 05/20/18 08:00 Pulse 68 05/20/18 09:35 Resp 20 05/20/18 08:00 BP 116/74 05/20/18 09:35 Pulse Ox 94 L 05/20/18 08:00 Orthostatic Blood Pressure [ 91/67 Standing] Orthostatic Blood Pressure [ 90/64 Sitting] Orthostatic Blood Pressure [ 98/62 Supine] Weight - Most Recent: 115.938 kg I&O - Last 24 Hours: Intake & Output 05/19/18 05/20/18 05/20/18 22:59 06:59 14:59 Intake Total 720 480 Output Total 625 300 Balance 95 180 Lab Results Last 24 Hours: Laboratory Results - last 24 hr 05/19/18 05/19/18 05/19/18 Range/Units 11:09 17:55 17:55 WBC 7.88 (4.0-11.0) K/uL RBC 5.42 (4.50-5.90) M/uL Hgb 14.6 (13.0-17.0) g/dL Hct 41.9 (38.0-50.0) % MCV 77.3 L (80.0-98.0) fL MCH 26.9 L (27.0-32.0) pg MCHC 34.8 (31.0-37.0) g/dL RDW Std Deviation 45.2 (28.0-62.0) fl RDW Coeff of [place] 16 H (11.0-15.0) % Plt Count 142 L (150-400) K/uL MPV 9.30 (7.40-12.00) fL Neut % (Auto) (48.0-80.0) % Lymph % (Auto) (16.0-40.0) % [place] % (Auto) (0.0-15.0) % Eos % (Auto) (0.0-7.0) % Baso % (Auto) (0.0-1.5) % Neut # (Auto) (1.4-5.7) K/uL Lymph # (Auto) (0.6-2.4) K/uL [place] # (Auto) (0.0-0.8) K/uL Eos # (Auto) (0.0-0.7) K/uL Baso # (Auto) (0.0-0.1) K/uL Nucleated RBC % 0.0 /100WBC Nucleated RBCs # 0 K/uL Sodium 130 L (136-148) mmol/L Potassium 3.7 (3.5-5.1) mmol/L Chloride 94 L (98-107) mmol/L Carbon Dioxide 25.3 (21.0-32.0) mmol/L BUN 31 H (7.0-18.0) mg/dL Creatinine 2.2 H (0.8-1.3) mg/dL Est Cr Clr Drug Dosing 38.84 mL/min Estimated GFR (MDRD) 30.4 ml/min Glucose 178 H (74-106) mg/dL POC Glucose 193 H (60-110) mg/dL Calcium 9.3 (8.5-10.1) mg/dL Magnesium (1.8-2.4) mg/dL Total Bilirubin (0.2-1.0) mg/dL AST (15-37) IU/L ALT (14-63) IU/L Alkaline Phosphatase (46-116) U/L Troponin I (0.000-0.056) ng/mL Total Protein (6.4-8.2) g/dL Albumin (3.4-5.0) g/dL Globulin (2.0-3.5) g/dL Albumin/Globulin Ratio (1.3-2.8) 05/20/18 05/20/18 Range/Units 09:34 09:34 WBC 8.49 (4.0-11.0) K/uL RBC 5.60 (4.50-5.90) M/uL Hgb 15.4 (13.0-17.0) g/dL Hct 43.5 (38.0-50.0) % MCV 77.7 L (80.0-98.0) fL MCH 27.5 (27.0-32.0) pg MCHC 35.4 (31.0-37.0) g/dL RDW Std Deviation 45.5 (28.0-62.0) fl RDW Coeff of [place] 16 H (11.0-15.0) % Plt Count 153 (150-400) K/uL MPV 9.70 (7.40-12.00) fL Neut % (Auto) 77.2 (48.0-80.0) % Lymph % (Auto) 11.0 L (16.0-40.0) % [place] % (Auto) 10.8 (0.0-15.0) % Eos % (Auto) 0.8 (0.0-7.0) % Baso % (Auto) 0.2 (0.0-1.5) % Neut # (Auto) 6.6 H (1.4-5.7) K/uL Lymph # (Auto) 0.9 (0.6-2.4) K/uL [place] # (Auto) 0.9 H (0.0-0.8) K/uL Eos # (Auto) 0.1 (0.0-0.7) K/uL Baso # (Auto) 0.0 (0.0-0.1) K/uL Nucleated RBC % 0.0 /100WBC Nucleated RBCs # 0 K/uL Sodium 127 L (136-148) mmol/L Potassium 4.0 (3.5-5.1) mmol/L Chloride 94 L (98-107) mmol/L Carbon Dioxide 25.9 (21.0-32.0) mmol/L BUN 37 H (7.0-18.0) mg/dL Creatinine 2.2 H (0.8-1.3) mg/dL Est Cr Clr Drug Dosing 38.84 mL/min Estimated GFR (MDRD) 30.4 ml/min Glucose 150 H (74-106) mg/dL POC Glucose (60-110) mg/dL Calcium 9.4 (8.5-10.1) mg/dL Magnesium 2.1 (1.8-2.4) mg/dL Total Bilirubin 1.9 H (0.2-1.0) mg/dL AST 22 (15-37) IU/L ALT 26 (14-63) IU/L Alkaline Phosphatase 151 H (46-116) U/L Troponin I < 0.050 (0.000-0.056) ng/mL Total Protein 8.2 (6.4-8.2) g/dL Albumin 3.4 (3.4-5.0) g/dL Globulin 4.8 H (2.0-3.5) g/dL Albumin/Globulin Ratio 0.7 L (1.3-2.8) Ivan Results Last 24 Hours: Microbiology 05/17/18 17:31 Aerobic Blood Culture - Preliminary Blood NO GROWTH AFTER 2 DAYS Anaerobic Blood Culture - Final 05/17/18 17:18 Aerobic Blood Culture - Preliminary Blood - Venous NO GROWTH AFTER 2 DAYS Anaerobic Blood Culture - Final 05/17/18 08:24 Urine Culture - Final Urine, Clean Catch MIXED CORRINE 1,000-10,000 CFU/ML Med Orders - Current: Current Medications Acetaminophen (Tylenol) 650 mg PO Q6H PRN PRN Reason: Fever Last Admin: 05/17/18 17:11 Dose: 650 mg Amitriptyline HCl (Elavil) 50 mg PO DAILY [facility] Last Admin: 05/20/18 09:36 Dose: 50 mg Aspirin (Halfprin) 81 mg PO DAILY [facility] Last Admin: 05/20/18 09:38 Dose: 81 mg Atorvastatin Calcium (Lipitor) 40 mg PO BEDTIME [facility] Last Admin: 05/19/18 21:11 Dose: 40 mg Carvedilol (Coreg) 6.25 mg PO BID [facility] Last Admin: 05/20/18 09:35 Dose: 6.25 mg Cholecalciferol (Vitamin D3) 1,000 units PO DAILY [facility] Last Admin: 05/20/18 09:38 Dose: 1,000 units Enoxaparin Sodium (Lovenox) 40 mg SUBCUT Q24H [facility] Last Admin: 05/19/18 10:11 Dose: 40 mg Ferrous Sulfate (Ferrous Sulfate) 325 mg PO TIDMEALS [facility] Last Admin: 05/20/18 09:38 Dose: 325 mg Gabapentin (Neurontin) 600 mg PO TID [facility] Last Admin: 05/20/18 06:27 Dose: 600 mg Lactated Ringer's (Ringers, Lactated) 250 mls @ 999 mls/hr IV ASDIRECTED [facility] Last Admin: 05/20/18 10:43 Dose: 999 mls/hr Levofloxacin/Dextrose 750 mg/ (Premix) 150 mls @ 100 mls/hr IV Q48H [facility] Insulin Aspart (Novolog) 0 unit SUBCUT ACBED [facility]; Protocol Last Admin: 05/20/18 06:30 Dose: Not Given Insulin Glargine (Lantus Solostar) 40 units SUBCUT BID [facility] Last Admin: 05/20/18 09:43 Dose: 40 units Lorazepam (Ativan) 1 mg PO BID PRN PRN Reason: tremors Last Admin: 05/19/18 09:30 Dose: 1 mg Metolazone (Zaroxolyn) 2.5 mg PO MoWeFr@0800 [facility] Last Admin: 05/20/18 09:47 Dose: 2.5 mg Nitroglycerin (Nitrostat) 0.4 mg SL ASDIRECTED PRN PRN Reason: Chest Pain Symbicort 160/4.5 (Mcg) 1 each INH DAILY PRN PRN Reason: Shortness of Breath Brilinta 90 Mg*Pt (Own Med*) 1 each PO BID [facility] Last Admin: 05/20/18 09:37 Dose: 1 each Senna/Docusate Sodium (Senna Plus) 1 tab PO BID [facility] Last Admin: 05/20/18 09:39 Dose: 1 tab Sodium Chloride (Saline Flush) 10 ml FLUSH ASDIRECTED PRN PRN Reason: Keep Vein Open Last Admin: 05/17/18 08:15 Dose: 10 ml Sodium Chloride (Saline Flush) 2.5 ml FLUSH ASDIRECTED PRN PRN Reason: Keep Vein Open Last Admin: 05/17/18 08:15 Dose: 2.5 ml Tamsulosin HCl (Flomax) 0.4 mg PO BEDTIME [facility] Last Admin: 05/19/18 21:11 Dose: 0.4 mg Discontinued Medications Albuterol/Ipratropium (Duoneb 3.0-0.5 Mg/3 Ml) 3 ml NEB ONETIME ONE Stop: 05/17/18 08:02 Last Admin: 05/17/18 08:10 Dose: 3 ml Aspirin (Aspirin) 324 mg PO ONETIME ONE Stop: 05/17/18 08:02 Last Admin: 05/17/18 08:10 Dose: 324 mg Furosemide (Lasix) 40 mg IVPUSH DAILY [facility] Furosemide (Lasix) 60 mg IVPUSH BID [facility] Last Admin: 05/18/18 08:03 Dose: 60 mg Furosemide (Lasix) 80 mg IVPUSH BID [facility] Last Admin: 05/19/18 09:30 Dose: Not Given Furosemide (Lasix) 60 mg IVPUSH BID [facility] Furosemide (Lasix) 60 mg PO BIDDIURETIC [facility] Furosemide (Lasix) 60 mg PO ONETIME ONE Stop: 05/20/18 08:58 Last Admin: 05/20/18 09:34 Dose: 60 mg Levofloxacin/Dextrose 750 mg/ (Premix) 150 mls @ 100 mls/hr IV Q24H [facility] Last Admin: 05/19/18 17:08 Dose: 100 mls/hr Magnesium Sulfate 2 gm/ Premix 50 mls @ 50 mls/hr IV ONETIME ONE Stop: 05/17/18 20:58 Last Admin: 05/17/18 20:18 Dose: 50 mls/hr Insulin Aspart (Novolog) 0 unit SUBCUT TIDAC [facility]; Protocol Iopamidol (Isovue Multipack-370 (76%)) 50 ml IVPUSH ONETIME STA Stop: 05/18/18 15:01 Last Admin: 05/18/18 15:13 Dose: 50 ml Lisinopril (Prinivil) 2.5 mg PO DAILY [facility] Last Admin: 05/20/18 08:52 Dose: Not Given Meloxicam (Mobic) 15 mg PO DAILY [facility] Last Admin: 05/20/18 09:37 Dose: Not Given Metolazone (Zaroxolyn) 2.5 mg PO MoWeFr@0800 [facility] Nitroglycerin (Nitro-Bid 2%) 0.5 gm TOP ONETIME ONE Stop: 05/17/18 08:02 Last Admin: 05/17/18 08:11 Dose: 0.5 gm Potassium Chloride (Klor-Con M20) 40 meq PO TID [facility] Stop: 05/18/18 14:01 Last Admin: 05/18/18 15:24 Dose: 40 meq Potassium Chloride (Klor-Con M20) 40 meq PO ONETIME ONE Stop: 05/19/18 09:06 Last Admin: 05/19/18 09:21 Dose: 40 meq Potassium Chloride (Klor-Con M20) 40 meq PO ONETIME ONE Stop: 05/19/18 21:01 Last Admin: 05/19/18 21:12 Dose: 40 meq Sodium Phosphate (Neutra-Phos) 250 mg PO QID [facility] Stop: 05/18/18 12:01 Last Admin: 05/18/18 11:26 Dose: 250 mg Spironolactone (Aldactone) 25 mg PO DAILY [facility] Last Admin: 05/20/18 08:52 Dose: Not Given - Exam Quality Assessment: Supplemental Oxygen General: Alert, Oriented HEENT: Pupils Equal Neck: JVD Lungs: [place] Cardiovascular: Regular Rate, Regular Rhythm GI/Abdominal Exam: Normal Bowel Sounds, Soft, Non-Tender Extremities: Non-Tender, No Pedal Edema EKG INTERPRETATION Rhythm: NSR - Problem List Review Problem List Initiated/Reviewed/Updated: Yes - My Orders Last 24 Hours: My Active Orders 05/20/18 14:59 TROPONIN I [CHEM] Q6H 05/20/18 20:59 TROPONIN I [CHEM] Q6H - Assessment Assessment:: 62M ICM EF 20-25% with CAD s/p multiple stenting, last PCI was 01/2017 with acute decompensated systolic HF. 1. CVS: his urine output is good. However his Cr was rising to 2.2. Spoke with his , there was a trial of spironolactone in the past and it dropped his BP. The med list from [place] still pending. I will decrease his lasix to 60 PO BID instead of IV. I will stop lisinopril/aldactone. I will continue coreg 6.25 BID , metotolazone. Spoke with Dr. Flores, he was not in the office he recommended to schedule appoitment with him as out patient. His stated that there was discussion about upgrading toBiV but not certain if he is candidate for it. His BP is on lthe low 90s. - continue ASA/brilinta - continue coreg/metolazone - stop lisinopril/aldactone. - change lasix to 60 PO BID. - med list from [place] pending.
[2018-05-20] MEDS ORDERED: Sodium Chloride 0.9% 250 ML IV SCH (11:15)
[2018-05-20] MEDS ORDERED: Furosemide 80 MG Tab PO SCH (14:00)
--- NOTE | 2018-05-20 17:05 | PCM.PN ---
- General Info Date of Service: 05/20/18 Subjective Update: Patient comfortable in bed no shortness of breath noted, he was up to about the hallway. creatinine mildly elevated today 2 and 2.2. from 1.4 2 days ago. His I and O were not properly recorded because he did not always used the urinal. He is afebrile, sleepy during the day . He is on amitriptiline 50 mg po daily - Review of Systems General: Reports: No Symptoms HEENT: Reports: No Symptoms Pulmonary: Reports: No Symptoms Cardiovascular: Reports: No Symptoms Gastrointestinal: Reports: No Symptoms Genitourinary: Reports: No Symptoms Musculoskeletal: Reports: No Symptoms Skin: Reports: No Symptoms Neurological: Reports: No Symptoms Psychiatric: Reports: No Symptoms - Patient Data Vitals - Most Recent: Last Vital Signs Temp 98.3 F 05/20/18 16:00 Pulse 71 05/20/18 16:00 Resp 20 05/20/18 16:00 BP 100/70 05/20/18 16:00 Pulse Ox 96 05/20/18 16:00 Orthostatic Blood Pressure [ 93/61 Standing] Orthostatic Blood Pressure [ 107/70 Sitting] Orthostatic Blood Pressure [ 100/68 Supine] Weight - Most Recent: 255 lb 9.6 oz I&O - Last 24 Hours: Intake & Output 05/20/18 05/20/18 05/20/18 06:59 14:59 22:59 Intake Total 480 800 Output Total 300 600 Balance 180 200 Lab Results Last 24 Hours: Laboratory Results - last 24 hr 05/19/18 05/19/18 05/20/18 Range/Units 17:55 17:55 06:30 WBC 7.88 (4.0-11.0) K/uL RBC 5.42 (4.50-5.90) M/uL Hgb 14.6 (13.0-17.0) g/dL Hct 41.9 (38.0-50.0) % MCV 77.3 L (80.0-98.0) fL MCH 26.9 L (27.0-32.0) pg MCHC 34.8 (31.0-37.0) g/dL RDW Std Deviation 45.2 (28.0-62.0) fl RDW Coeff of [place] 16 H (11.0-15.0) % Plt Count 142 L (150-400) K/uL MPV 9.30 (7.40-12.00) fL Neut % (Auto) (48.0-80.0) % Lymph % (Auto) (16.0-40.0) % [place] % (Auto) (0.0-15.0) % Eos % (Auto) (0.0-7.0) % Baso % (Auto) (0.0-1.5) % Neut # (Auto) (1.4-5.7) K/uL Lymph # (Auto) (0.6-2.4) K/uL [place] # (Auto) (0.0-0.8) K/uL Eos # (Auto) (0.0-0.7) K/uL Baso # (Auto) (0.0-0.1) K/uL Nucleated RBC % 0.0 /100WBC Nucleated RBCs # 0 K/uL Sodium 130 L (136-148) mmol/L Potassium 3.7 (3.5-5.1) mmol/L Chloride 94 L (98-107) mmol/L Carbon Dioxide 25.3 (21.0-32.0) mmol/L BUN 31 H (7.0-18.0) mg/dL Creatinine 2.2 H (0.8-1.3) mg/dL Est Cr Clr Drug Dosing 38.84 mL/min Estimated GFR (MDRD) 30.4 ml/min Glucose 178 H (74-106) mg/dL POC Glucose 132 H (60-110) mg/dL Calcium 9.3 (8.5-10.1) mg/dL Magnesium (1.8-2.4) mg/dL Total Bilirubin (0.2-1.0) mg/dL AST (15-37) IU/L ALT (14-63) IU/L Alkaline Phosphatase (46-116) U/L Troponin I (0.000-0.056) ng/mL Total Protein (6.4-8.2) g/dL Albumin (3.4-5.0) g/dL Globulin (2.0-3.5) g/dL Albumin/Globulin Ratio (1.3-2.8) 05/20/18 05/20/18 05/20/18 Range/Units 09:34 09:34 09:42 WBC 8.49 (4.0-11.0) K/uL RBC 5.60 (4.50-5.90) M/uL Hgb 15.4 (13.0-17.0) g/dL Hct 43.5 (38.0-50.0) % MCV 77.7 L (80.0-98.0) fL MCH 27.5 (27.0-32.0) pg MCHC 35.4 (31.0-37.0) g/dL RDW Std Deviation 45.5 (28.0-62.0) fl RDW Coeff of [place] 16 H (11.0-15.0) % Plt Count 153 (150-400) K/uL MPV 9.70 (7.40-12.00) fL Neut % (Auto) 77.2 (48.0-80.0) % Lymph % (Auto) 11.0 L (16.0-40.0) % [place] % (Auto) 10.8 (0.0-15.0) % Eos % (Auto) 0.8 (0.0-7.0) % Baso % (Auto) 0.2 (0.0-1.5) % Neut # (Auto) 6.6 H (1.4-5.7) K/uL Lymph # (Auto) 0.9 (0.6-2.4) K/uL [place] # (Auto) 0.9 H (0.0-0.8) K/uL Eos # (Auto) 0.1 (0.0-0.7) K/uL Baso # (Auto) 0.0 (0.0-0.1) K/uL Nucleated RBC % 0.0 /100WBC Nucleated RBCs # 0 K/uL Sodium 127 L (136-148) mmol/L Potassium 4.0 (3.5-5.1) mmol/L Chloride 94 L (98-107) mmol/L Carbon Dioxide 25.9 (21.0-32.0) mmol/L BUN 37 H (7.0-18.0) mg/dL Creatinine 2.2 H (0.8-1.3) mg/dL Est Cr Clr Drug Dosing 38.84 mL/min Estimated GFR (MDRD) 30.4 ml/min Glucose 150 H (74-106) mg/dL POC Glucose 154 H (60-110) mg/dL Calcium 9.4 (8.5-10.1) mg/dL Magnesium 2.1 (1.8-2.4) mg/dL Total Bilirubin 1.9 H (0.2-1.0) mg/dL AST 22 (15-37) IU/L ALT 26 (14-63) IU/L Alkaline Phosphatase 151 H (46-116) U/L Troponin I < 0.050 (0.000-0.056) ng/mL Total Protein 8.2 (6.4-8.2) g/dL Albumin 3.4 (3.4-5.0) g/dL Globulin 4.8 H (2.0-3.5) g/dL Albumin/Globulin Ratio 0.7 L (1.3-2.8) 05/20/18 05/20/18 Range/Units 15:20 16:01 WBC (4.0-11.0) K/uL RBC (4.50-5.90) M/uL Hgb (13.0-17.0) g/dL Hct (38.0-50.0) % MCV (80.0-98.0) fL MCH (27.0-32.0) pg MCHC (31.0-37.0) g/dL RDW Std Deviation (28.0-62.0) fl RDW Coeff of [place] (11.0-15.0) % Plt Count (150-400) K/uL MPV (7.40-12.00) fL Neut % (Auto) (48.0-80.0) % Lymph % (Auto) (16.0-40.0) % [place] % (Auto) (0.0-15.0) % Eos % (Auto) (0.0-7.0) % Baso % (Auto) (0.0-1.5) % Neut # (Auto) (1.4-5.7) K/uL Lymph # (Auto) (0.6-2.4) K/uL [place] # (Auto) (0.0-0.8) K/uL Eos # (Auto) (0.0-0.7) K/uL Baso # (Auto) (0.0-0.1) K/uL Nucleated RBC % /100WBC Nucleated RBCs # K/uL Sodium (136-148) mmol/L Potassium (3.5-5.1) mmol/L Chloride (98-107) mmol/L Carbon Dioxide (21.0-32.0) mmol/L BUN (7.0-18.0) mg/dL Creatinine (0.8-1.3) mg/dL Est Cr Clr Drug Dosing mL/min Estimated GFR (MDRD) ml/min Glucose (74-106) mg/dL POC Glucose 202 H (60-110) mg/dL Calcium (8.5-10.1) mg/dL Magnesium (1.8-2.4) mg/dL Total Bilirubin (0.2-1.0) mg/dL AST (15-37) IU/L ALT (14-63) IU/L Alkaline Phosphatase (46-116) U/L Troponin I < 0.050 (0.000-0.056) ng/mL Total Protein (6.4-8.2) g/dL Albumin (3.4-5.0) g/dL Globulin (2.0-3.5) g/dL Albumin/Globulin Ratio (1.3-2.8) Ivan Results Last 24 Hours: Microbiology 05/17/18 17:31 Aerobic Blood Culture - Preliminary Blood NO GROWTH AFTER 2 DAYS Anaerobic Blood Culture - Final 05/17/18 17:18 Aerobic Blood Culture - Preliminary Blood - Venous NO GROWTH AFTER 2 DAYS Anaerobic Blood Culture - Final Med Orders - Current: Current Medications Acetaminophen (Tylenol) 650 mg PO Q6H PRN PRN Reason: Fever Last Admin: 05/17/18 17:11 Dose: 650 mg Amitriptyline HCl (Elavil) 50 mg PO DAILY [facility] Last Admin: 05/20/18 09:36 Dose: 50 mg Aspirin (Halfprin) 81 mg PO DAILY [facility] Last Admin: 05/20/18 09:38 Dose: 81 mg Atorvastatin Calcium (Lipitor) 40 mg PO BEDTIME [facility] Last Admin: 05/19/18 21:11 Dose: 40 mg Carvedilol (Coreg) 6.25 mg PO BID [facility] Last Admin: 05/20/18 09:35 Dose: 6.25 mg Cholecalciferol (Vitamin D3) 1,000 units PO DAILY [facility] Last Admin: 05/20/18 09:38 Dose: 1,000 units Enoxaparin Sodium (Lovenox) 40 mg SUBCUT Q24H [facility] Last Admin: 05/20/18 10:52 Dose: 40 mg Ferrous Sulfate (Ferrous Sulfate) 325 mg PO TIDMEALS [facility] Last Admin: 05/20/18 13:03 Dose: 325 mg Furosemide (Lasix) 60 mg PO BIDDIURETIC [facility] Gabapentin (Neurontin) 600 mg PO TID [facility] Last Admin: 05/20/18 13:03 Dose: 600 mg Levofloxacin/Dextrose 750 mg/ (Premix) 150 mls @ 100 mls/hr IV Q48H [facility] Insulin Aspart (Novolog) 0 unit SUBCUT ACBED [facility]; Protocol Last Admin: 05/20/18 13:04 Dose: 6 unit Insulin Glargine (Lantus Solostar) 40 units SUBCUT BID [facility] Last Admin: 05/20/18 09:43 Dose: 40 units Lorazepam (Ativan) 1 mg PO BID PRN PRN Reason: tremors Last Admin: 05/19/18 09:30 Dose: 1 mg Metolazone (Zaroxolyn) 2.5 mg PO MoWeFr@0800 [facility] Last Admin: 05/20/18 09:47 Dose: 2.5 mg Nitroglycerin (Nitrostat) 0.4 mg SL ASDIRECTED PRN PRN Reason: Chest Pain Symbicort 160/4.5 (Mcg) 1 each INH DAILY PRN PRN Reason: Shortness of Breath Brilinta 90 Mg*Pt (Own Med*) 1 each PO BID [facility] Last Admin: 05/20/18 09:37 Dose: 1 each Senna/Docusate Sodium (Senna Plus) 1 tab PO BID [facility] Last Admin: 05/20/18 09:39 Dose: 1 tab Sodium Chloride (Saline Flush) 10 ml FLUSH ASDIRECTED PRN PRN Reason: Keep Vein Open Last Admin: 05/17/18 08:15 Dose: 10 ml Sodium Chloride (Saline Flush) 2.5 ml FLUSH ASDIRECTED PRN PRN Reason: Keep Vein Open Last Admin: 05/17/18 08:15 Dose: 2.5 ml Tamsulosin HCl (Flomax) 0.4 mg PO BEDTIME [facility] Last Admin: 05/19/18 21:11 Dose: 0.4 mg Discontinued Medications Albuterol/Ipratropium (Duoneb 3.0-0.5 Mg/3 Ml) 3 ml NEB ONETIME ONE Stop: 05/17/18 08:02 Last Admin: 05/17/18 08:10 Dose: 3 ml Aspirin (Aspirin) 324 mg PO ONETIME ONE Stop: 05/17/18 08:02 Last Admin: 05/17/18 08:10 Dose: 324 mg Furosemide (Lasix) 40 mg IVPUSH DAILY [facility] Furosemide (Lasix) 60 mg IVPUSH BID [facility] Last Admin: 05/18/18 08:03 Dose: 60 mg Furosemide (Lasix) 80 mg IVPUSH BID [facility] Last Admin: 05/19/18 09:30 Dose: Not Given Furosemide (Lasix) 60 mg IVPUSH BID [facility] Furosemide (Lasix) 60 mg PO BIDDIURETIC [place] Furosemide (Lasix) 60 mg PO ONETIME ONE Stop: 05/20/18 08:58 Last Admin: 05/20/18 09:34 Dose: 60 mg Levofloxacin/Dextrose 750 mg/ (Premix) 150 mls @ 100 mls/hr IV Q24H [facility] Last Admin: 05/19/18 17:08 Dose: 100 mls/hr Magnesium Sulfate 2 gm/ Premix 50 mls @ 50 mls/hr IV ONETIME ONE Stop: 05/17/18 20:58 Last Admin: 05/17/18 20:18 Dose: 50 mls/hr Lactated Ringer's (Ringers, Lactated) 250 mls @ 999 mls/hr IV ASDIRECTED [facility] Last Admin: 05/20/18 10:43 Dose: 999 mls/hr Sodium Chloride (Normal Saline) 250 mls @ 999 mls/hr IV ASDIRECTED [facility] Insulin Aspart (Novolog) 0 unit SUBCUT TIDAC [facility]; Protocol Iopamidol (Isovue Multipack-370 (76%)) 50 ml IVPUSH ONETIME STA Stop: 05/18/18 15:01 Last Admin: 05/18/18 15:13 Dose: 50 ml Lisinopril (Prinivil) 2.5 mg PO DAILY [facility] Last Admin: 05/20/18 08:52 Dose: Not Given Meloxicam (Mobic) 15 mg PO DAILY [facility] Last Admin: 05/20/18 09:37 Dose: Not Given Metolazone (Zaroxolyn) 2.5 mg PO MoWeFr@0800 [facility] Nitroglycerin (Nitro-Bid 2%) 0.5 gm TOP ONETIME ONE Stop: 05/17/18 08:02 Last Admin: 05/17/18 08:11 Dose: 0.5 gm Potassium Chloride (Klor-Con M20) 40 meq PO TID [facility] Stop: 05/18/18 14:01 Last Admin: 05/18/18 15:24 Dose: 40 meq Potassium Chloride (Klor-Con M20) 40 meq PO ONETIME ONE Stop: 05/19/18 09:06 Last Admin: 05/19/18 09:21 Dose: 40 meq Potassium Chloride (Klor-Con M20) 40 meq PO ONETIME ONE Stop: 05/19/18 21:01 Last Admin: 05/19/18 21:12 Dose: 40 meq Sodium Phosphate (Neutra-Phos) 250 mg PO QID [facility] Stop: 05/18/18 12:01 Last Admin: 05/18/18 11:26 Dose: 250 mg Spironolactone (Aldactone) 25 mg PO DAILY [facility] Last Admin: 05/20/18 08:52 Dose: Not Given - Exam General: Alert, Oriented HEENT: Pupils Equal Neck: Supple, Trachea Midline Lungs: Clear to Auscultation Cardiovascular: Regular Rate Back Exam: Normal Inspection Extremities: Normal Inspection - Problem List & Annotations (1) Pulmonary nodules SNOMED Code(s): 158628526 Code(s): R91.8 - OTHER NONSPECIFIC ABNORMAL FINDING OF LUNG FIELD Status: Acute Current Visit: Yes (2) CHF exacerbation SNOMED Code(s): 04026096 Code(s): I50.9 - HEART FAILURE, UNSPECIFIED Status: Acute Current Visit: Yes Qualifiers: Heart failure type: unspecified Qualified Code(s): I50.9 - Heart failure, unspecified (3) COPD exacerbation SNOMED Code(s): 897352329818593 Code(s): J44.1 - CHRONIC OBSTRUCTIVE PULMONARY DISEASE W (ACUTE) EXACERBATION Status: Acute Current Visit: No (4) CAD (coronary artery disease) SNOMED Code(s): 93355976 Code(s): I25.10 - ATHSCL HEART DISEASE OF [place] CORONARY ARTERY W/O ANG PCTRS Status: Acute Current Visit: Yes (5) Dyspnea SNOMED Code(s): 545220476 Code(s): R06.00 - DYSPNEA, UNSPECIFIED Status: Acute Current Visit: Yes Qualifiers: Dyspnea type: unspecified Qualified Code(s): R06.00 - Dyspnea, unspecified (6) Systolic CHF SNOMED Code(s): 903393994 Code(s): I50.20 - UNSPECIFIED SYSTOLIC (CONGESTIVE) HEART FAILURE Status: Acute Current Visit: Yes (7) Orthostatic dizziness SNOMED Code(s): 949481433 Code(s): R42 - DIZZINESS AND GIDDINESS Status: Acute Current Visit: Yes (8) GAYLE (acute kidney injury) SNOMED Code(s): 27492953 Code(s): N17.9 - ACUTE KIDNEY FAILURE, UNSPECIFIED Status: Acute Current Visit: Yes (9) Somnolence, daytime SNOMED Code(s): 911119586459 Code(s): R40.0 - SOMNOLENCE Status: Acute Current Visit: Yes - Problem List Review Problem List Initiated/Reviewed/Updated: Yes - My Orders Last 24 Hours: My Active Orders 05/19/18 17:44 Consult to Physical Therapy [PT Evaluation and Treatment] [CONS] Routine OT Evaluation and Treatment [CONS] Routine 05/20/18 08:21 May Shower [RC] ASDIRECTED 05/20/18 12:18 Patient Status [ADT] Routine 05/20/18 14:42 Code Status [Resuscitation Status] Routine 05/20/18 21:00 Furosemide [Lasix] 60 mg PO BIDDIURETIC 05/21/18 05:11 BASIC METABOLIC PANEL,BMP [CHEM] Routine CBC WITH AUTO DIFF [HEME] Routine MAGNESIUM [CHEM] Routine PHOSPHORUS [CHEM] Routine 05/21/18 18:00 Levofloxacin/Dextrose 5%-Water [Levaquin in D5W 750 MG/150 ML] 750 mg Premix Bag 1 bag IV Q48H - Assessment Assessment:: 62M ICM EF 20-25% with CAD s/p multiple stenting, ischemia last PCI was 01/2017 with acute decompensated systolic HF. Fluid restriction to 1800 / day Lasix decreased to 60 mg po q 12 h Continue all the other medicatons :, coreg, brilinta, aspirin d/c lisinopril and spironolactone For Pulmonary nodules patient will need referral to pulmonologyst. 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
--- NOTE | 2018-05-20 17:46 | ECHO ---
The echocardiogram report can be seen in this patient's EMR (Electronic Medical Record) in the Reports section. The echocardiogram report has also been scanned into PACS and can be seen there as well. [email or web address]
[2018-05-20] MEDS: atorvaSTATin 40 MG Tab PO SCH (20:46)
[2018-05-20] MEDS: Tamsulosin 0.4 MG Cap.ER PO SCH (20:46)
[2018-05-20] MEDS: Furosemide 40 MG Tab PO SCH (20:47)
[2018-05-21] MEDS: Gabapentin 300 MG Cap PO SCH (06:20)
[2018-05-21] MEDS: Insulin Aspart 100 Units/ML 3 ML Pen SUBCUT SCH ×2 (06:37→12:36)
[2018-05-21 08:04] VITALS: BP 99/68
[2018-05-21] MEDS: Carvedilol 12.5 MG Tab PO SCH (08:04)
[2018-05-21] MEDS: Aspirin 81 MG Tab.EC PO SCH (08:05)
[2018-05-21] MEDS: Cholecalciferol (Vitamin D3) 1,000 Unit Tab PO SCH (08:05)
[2018-05-21] MEDS: Ferrous Sulfate 325 MG Tab PO SCH ×2 (08:05→12:39)
[2018-05-21] MEDS: Furosemide 40 MG Tab PO SCH (08:05)
[2018-05-21] MEDS: Insulin Glargine,Human Rec. Analog 100 Units/ML 3 ML Pen SUBCUT SCH (08:06)
[2018-05-21] MEDS: BRILINTA 90 MG PO SCH (08:11)
[2018-05-21] MEDS ORDERED: Amitriptyline 25 MG Tab PO SCH ×2 (09:00→21:00)
[2018-05-21] MEDS ORDERED: Magnesium Sulfate/Water 2 GM in Premix Bag 1 BAG IV ONE (09:53)
[2018-05-21] MEDS: Enoxaparin 40 MG/0.4 ML Syringe SUBCUT SCH (10:53)
[2018-05-21] MEDS ORDERED: Lactated Ringers 1,000 ML IV SCH (11:30)
--- NOTE | 2018-05-21 12:56 | PCM.DCSUM1 ---
Discharge Summary - Hospital Course HPI Initial Comments: Patient with ischemic cardiomyopathy was admitted in the hospital the to shortness of breath patient says he could not sleep all night because of shortness of breath , orthopnea, paroxysmal nocturnal dyspnea. As soon as patient was admitted" he developed fever to 103 and he was also treated for community-acquired pneumonia. Patient ejection fraction is 20% and he did not see his vertical contour band saw operator for the past 1 year and he saw his primary care physician 3 months ago. Patient states that she is compliant with his medication. Diagnosis: Stroke: No - Discharge Data Discharge Date: 05/21/18 Discharge Disposition: Home, Self-Care 01 Condition: Fair - Discharge Diagnosis/Problem(s) (1) Pulmonary nodules SNOMED Code(s): 341821954 ICD Code: R91.8 - OTHER NONSPECIFIC ABNORMAL FINDING OF LUNG FIELD Status: Acute (2) CHF exacerbation SNOMED Code(s): 79878363 ICD Code: I50.9 - HEART FAILURE, UNSPECIFIED Status: Acute Qualifiers: Heart failure type: unspecified Qualified Code(s): I50.9 - Heart failure, unspecified (3) COPD exacerbation SNOMED Code(s): 727712150586955 ICD Code: J44.1 - CHRONIC OBSTRUCTIVE PULMONARY DISEASE W (ACUTE) EXACERBATION Status: Acute (4) CAD (coronary artery disease) SNOMED Code(s): 44944459 ICD Code: I25.10 - ATHSCL HEART DISEASE OF [place] CORONARY ARTERY W/O ANG PCTRS Status: Acute (5) Dyspnea SNOMED Code(s): 956921432 ICD Code: R06.00 - DYSPNEA, UNSPECIFIED Status: Acute Qualifiers: Dyspnea type: unspecified Qualified Code(s): R06.00 - Dyspnea, unspecified (6) Systolic CHF SNOMED Code(s): 304727772 ICD Code: I50.20 - UNSPECIFIED SYSTOLIC (CONGESTIVE) HEART FAILURE Status: Acute (7) Orthostatic dizziness SNOMED Code(s): 377675829 ICD Code: R42 - DIZZINESS AND GIDDINESS Status: Acute (8) GAYLE (acute kidney injury) SNOMED Code(s): 71484836 ICD Code: N17.9 - ACUTE KIDNEY FAILURE, UNSPECIFIED Status: Acute (9) Somnolence, daytime SNOMED Code(s): 714938717193 ICD Code: R40.0 - SOMNOLENCE Status: Acute (10) CAP (community acquired pneumonia) SNOMED Code(s): 603132970 ICD Code: J18.9 - PNEUMONIA, UNSPECIFIED ORGANISM Status: Acute - Patient Summary/Data Consults: Consultations 05/17/18 15:19 Consult to Physician [CONS] Routine 05/19/18 17:44 Consult to Physical Therapy [PT Evaluation and Treatment] [CONS] Routine OT Evaluation and Treatment [CONS] Routine Hospital Course: Patient admitted in the hospital with a CHF exacerbation and presumably community-acquired pneumonia he was treated with IV levofloxacin and Lasix 80 mg IV every 12 hours. Patient underwent admission was given gabapentin 600 mg every 8 hours which he actually did not take at home and patient was somehow somnolent. Patient and amitriptyline 50 mg which was given during the daytime and he usually takes his medication at bedtime. Patient was seen by the vertical contour band saw operator andnd he recommended patient be discharged home with Lasix 60 mg by mouth twice a day, and additional pain was held because patient cr . increased to 2.2 from 1.4. Also vertical contour band saw operator recommended his spironolactone to be held. Patient had a cardiac echo which showed ejection fraction of 25%. Also patient had CT of the chest to rule out pulmonary embolism which show no pulmonary emboli but patient has 3 pulmonary nodules up to 0.9 mm and was recommended patient to have repeat CT in 3 months. Patient was discharged home in a stable condition, he did not have any shortness of breath at rest, and he was able to walk around the hallway. Gabapentin was discontinued, and he was discharged home on his home medication regimen except lisinopril and spironolactone. Patient to follow-up with his primary care physician to have repeat blood work and follow-up his creatinine, follow-up with with the nephrology for chronic kidney diseases, patient should also to see tone artist apprentice for his pulmonary nodules. - Patient Instructions Diet: Usual Diet as Tolerated Fluid Restriction: 1800cc/day Activity: As Tolerated Showering/Bathing: May Shower Other/Special Instructions: f/up creatinine ,. F/up nephrology. F/up pulmonology for pulmonary nodules - Discharge Plan Prescriptions/Med Rec: Furosemide [Lasix] 60 mg PO BIDDIURETIC 60 Days #90 tablet Levofloxacin [Levaquin] 500 mg PO DAILY #5 tablet Home Medications: Home Meds Aspirin [Halfprin] 81 mg PO DAILY 09/29/15 [History] Insulin Glarg,Human.Rec.Analog [Lantus] 40 unit SUBCUT BID 09/29/15 [History] Tamsulosin [Flomax] 0.4 mg PO BEDTIME 09/29/15 [History] Ticagrelor [Brilinta] 90 mg PO BID 09/29/15 [History] atorvaSTATin Calcium [Atorvastatin Calcium] 40 mg PO BEDTIME 01/02/16 [History] Carvedilol 6.25 mg PO BID 07/12/17 [History] Docusate Sodium/Sennosides [Senna Plus] 1 tab PO BID 07/12/17 [History] Ferrous Sulfate [Feosol] 325 mg PO TIDMEALS 07/12/17 [History] Nitroglycerin [Nitrostat] 0.4 mg SL ASDIRECTED PRN MDD 3 tablets 07/12/17 [ History] metOLazone [Metolazone] 2.5 mg PO MOWEFR 07/12/17 [History] Insulin Aspart [NovoLOG] See Protocol SQ TIDAC #1 pen 11/03/17 [Rx] Amitriptyline [Elavil] 50 mg PO BEDTIME 05/17/18 [History] Budesonide/Formoterol Fumarate [Symbicort 160-4.5 Mcg Inhaler] 2 puff INH BID PRN 05/17/18 [History] Cholecalciferol (Vitamin D3) [Vitamin D3] 1 tab PO DAILY 05/17/18 [History] Albuterol [Proventil Neb Soln] 0.63 mg NEB Q6HRRT 05/18/18 [History] LORazepam 1 mg PO BID PRN 05/18/18 [History] Amitriptyline [Elavil] 50 mg PO BEDTIME tablet 05/21/18 [Rx] Furosemide [Lasix] 60 mg PO BIDDIURETIC 60 Days #90 tablet 05/21/18 [Rx] Levofloxacin [Levaquin] 500 mg PO DAILY #5 tablet 05/21/18 [Rx] Patient Handouts: Coronary Artery Disease, Male, Furosemide tablets, Shortness of Breath, Adult, [id number], Levofloxacin tablets, Heart Failure, Easy-to- Read Referrals: [facility] [Outside] [facility] [Outside] Amparo Hinkle MD [Physician] - (follow-up in 1 month) Hollis Thapa MD [Ordering Only Provider] - (follow-up in 1 week) - Discharge Summary/Plan Comment DC Time >30 min.: Yes - General Info Date of Service: 05/21/18 - Review of Systems General: Reports: No Symptoms HEENT: Reports: No Symptoms Cardiovascular: Reports: Dyspnea on Exertion Gastrointestinal: Reports: No Symptoms Genitourinary: Reports: No Symptoms Musculoskeletal: Reports: No Symptoms Skin: Reports: No Symptoms Neurological: Reports: No Symptoms Psychiatric: Reports: No Symptoms - Patient Data Vitals - Most Recent: Last Vital Signs Temp 98.0 F 05/21/18 12:00 Pulse 71 05/21/18 12:00 Resp 20 05/21/18 12:00 BP 99/68 05/21/18 08:02 Pulse Ox 96 05/21/18 12:00 Orthostatic Blood Pressure [ 85/58 Standing] Orthostatic Blood Pressure [ 100/56 Sitting] Orthostatic Blood Pressure [ 103/68 Supine] Weight - Most Recent: 255 lb 1.6 oz I&O - Last 24 hours: Intake & Output 05/20/18 05/21/18 05/21/18 22:59 06:59 14:59 Intake Total 800 420 380 Output Total 600 1405 900 Balance 200 -985 -520 Lab Results - Last 24 hrs: Laboratory Results - last 24 hr 05/20/18 05/20/18 05/20/18 Range/Units 15:20 16:01 20:56 WBC (4.0-11.0) K/uL RBC (4.50-5.90) M/uL Hgb (13.0-17.0) g/dL Hct (38.0-50.0) % MCV (80.0-98.0) fL MCH (27.0-32.0) pg MCHC (31.0-37.0) g/dL RDW Std Deviation (28.0-62.0) fl RDW Coeff of [place] (11.0-15.0) % Plt Count (150-400) K/uL MPV (7.40-12.00) fL Neut % (Auto) (48.0-80.0) % Lymph % (Auto) (16.0-40.0) % [place] % (Auto) (0.0-15.0) % Eos % (Auto) (0.0-7.0) % Baso % (Auto) (0.0-1.5) % Neut # (Auto) (1.4-5.7) K/uL Lymph # (Auto) (0.6-2.4) K/uL [place] # (Auto) (0.0-0.8) K/uL Eos # (Auto) (0.0-0.7) K/uL Baso # (Auto) (0.0-0.1) K/uL Nucleated RBC % /100WBC Nucleated RBCs # K/uL Sodium (136-148) mmol/L Potassium (3.5-5.1) mmol/L Chloride (98-107) mmol/L Carbon Dioxide (21.0-32.0) mmol/L BUN (7.0-18.0) mg/dL Creatinine (0.8-1.3) mg/dL Est Cr Clr Drug Dosing mL/min Estimated GFR (MDRD) ml/min Glucose (74-106) mg/dL POC Glucose 202 H 155 H (60-110) mg/dL Calcium (8.5-10.1) mg/dL Phosphorus (2.6-4.7) mg/dL Magnesium (1.8-2.4) mg/dL Total Bilirubin (0.2-1.0) mg/dL AST (15-37) IU/L ALT (14-63) IU/L Alkaline Phosphatase (46-116) U/L Troponin I < 0.050 (0.000-0.056) ng/mL Total Protein (6.4-8.2) g/dL Albumin (3.4-5.0) g/dL Globulin (2.0-3.5) g/dL Albumin/Globulin Ratio (1.3-2.8) 05/20/18 05/21/18 05/21/18 Range/Units 21:15 05:56 05:56 WBC 7.51 (4.0-11.0) K/uL RBC 5.35 (4.50-5.90) M/uL Hgb 14.6 (13.0-17.0) g/dL Hct 41.7 (38.0-50.0) % MCV 77.9 L (80.0-98.0) fL MCH 27.3 (27.0-32.0) pg MCHC 35.0 (31.0-37.0) g/dL RDW Std Deviation 45.4 (28.0-62.0) fl RDW Coeff of [place] 16 H (11.0-15.0) % Plt Count 163 (150-400) K/uL MPV 10.00 (7.40-12.00) fL Neut % (Auto) 73.2 (48.0-80.0) % Lymph % (Auto) 13.2 L (16.0-40.0) % [place] % (Auto) 11.7 (0.0-15.0) % Eos % (Auto) 1.6 (0.0-7.0) % Baso % (Auto) 0.3 (0.0-1.5) % Neut # (Auto) 5.5 (1.4-5.7) K/uL Lymph # (Auto) 1.0 (0.6-2.4) K/uL [place] # (Auto) 0.9 H (0.0-0.8) K/uL Eos # (Auto) 0.1 (0.0-0.7) K/uL Baso # (Auto) 0.0 (0.0-0.1) K/uL Nucleated RBC % 0.0 /100WBC Nucleated RBCs # 0 K/uL Sodium 131 L (136-148) mmol/L Potassium 3.8 (3.5-5.1) mmol/L Chloride 97 L (98-107) mmol/L Carbon Dioxide 26.0 (21.0-32.0) mmol/L BUN 41 H (7.0-18.0) mg/dL Creatinine 2.0 H (0.8-1.3) mg/dL Est Cr Clr Drug Dosing 42.72 mL/min Estimated GFR (MDRD) 33.9 ml/min Glucose 124 H (74-106) mg/dL POC Glucose (60-110) mg/dL Calcium 9.0 (8.5-10.1) mg/dL Phosphorus 5.3 H (2.6-4.7) mg/dL Magnesium 2.0 (1.8-2.4) mg/dL Total Bilirubin 1.6 H (0.2-1.0) mg/dL AST 19 (15-37) IU/L ALT 22 (14-63) IU/L Alkaline Phosphatase 145 H (46-116) U/L Troponin I < 0.050 (0.000-0.056) ng/mL Total Protein 7.7 (6.4-8.2) g/dL Albumin 3.2 L (3.4-5.0) g/dL Globulin 4.5 H (2.0-3.5) g/dL Albumin/Globulin Ratio 0.7 L (1.3-2.8) 05/21/18 05/21/18 Range/Units 06:14 11:47 WBC (4.0-11.0) K/uL RBC (4.50-5.90) M/uL Hgb (13.0-17.0) g/dL Hct (38.0-50.0) % MCV (80.0-98.0) fL MCH (27.0-32.0) pg MCHC (31.0-37.0) g/dL RDW Std Deviation (28.0-62.0) fl RDW Coeff of [place] (11.0-15.0) % Plt Count (150-400) K/uL MPV (7.40-12.00) fL Neut % (Auto) (48.0-80.0) % Lymph % (Auto) (16.0-40.0) % [place] % (Auto) (0.0-15.0) % Eos % (Auto) (0.0-7.0) % Baso % (Auto) (0.0-1.5) % Neut # (Auto) (1.4-5.7) K/uL Lymph # (Auto) (0.6-2.4) K/uL [place] # (Auto) (0.0-0.8) K/uL Eos # (Auto) (0.0-0.7) K/uL Baso # (Auto) (0.0-0.1) K/uL Nucleated RBC % /100WBC Nucleated RBCs # K/uL Sodium (136-148) mmol/L Potassium (3.5-5.1) mmol/L Chloride (98-107) mmol/L Carbon Dioxide (21.0-32.0) mmol/L BUN (7.0-18.0) mg/dL Creatinine (0.8-1.3) mg/dL Est Cr Clr Drug Dosing mL/min Estimated GFR (MDRD) ml/min Glucose (74-106) mg/dL POC Glucose 124 H 150 H (60-110) mg/dL Calcium (8.5-10.1) mg/dL Phosphorus (2.6-4.7) mg/dL Magnesium (1.8-2.4) mg/dL Total Bilirubin (0.2-1.0) mg/dL AST (15-37) IU/L ALT (14-63) IU/L Alkaline Phosphatase (46-116) U/L Troponin I (0.000-0.056) ng/mL Total Protein (6.4-8.2) g/dL Albumin (3.4-5.0) g/dL Globulin (2.0-3.5) g/dL Albumin/Globulin Ratio (1.3-2.8) LIONEL Results - Last 24 hrs: Microbiology 05/17/18 17:31 Aerobic Blood Culture - Preliminary Blood NO GROWTH AFTER 3 DAYS Anaerobic Blood Culture - Final 05/17/18 17:18 Aerobic Blood Culture - Preliminary Blood - Venous NO GROWTH AFTER 3 DAYS Anaerobic Blood Culture - Final Med Orders - Current: Current Medications Acetaminophen (Tylenol) 650 mg PO Q6H PRN PRN Reason: Fever Last Admin: 05/17/18 17:11 Dose: 650 mg Amitriptyline HCl (Elavil) 50 mg PO BEDTIME [facility] Aspirin (Halfprin) 81 mg PO DAILY [facility] Last Admin: 05/21/18 08:05 Dose: 81 mg Atorvastatin Calcium (Lipitor) 40 mg PO BEDTIME [facility] Last Admin: 05/20/18 20:46 Dose: 40 mg Carvedilol (Coreg) 6.25 mg PO BID [facility] Last Admin: 05/21/18 08:04 Dose: 6.25 mg Cholecalciferol (Vitamin D3) 1,000 units PO DAILY [facility] Last Admin: 05/21/18 08:05 Dose: 1,000 units Enoxaparin Sodium (Lovenox) 40 mg SUBCUT Q24H [facility] Last Admin: 05/21/18 10:53 Dose: 40 mg Ferrous Sulfate (Ferrous Sulfate) 325 mg PO TIDMEALS [facility] Last Admin: 05/21/18 12:39 Dose: 325 mg Furosemide (Lasix) 60 mg PO BIDDIURETIC [facility] Last Admin: 05/21/18 08:05 Dose: 60 mg Gabapentin (Neurontin) 300 mg PO TID [facility] Last Admin: 05/21/18 06:20 Dose: 300 mg Levofloxacin/Dextrose 750 mg/ (Premix) 150 mls @ 100 mls/hr IV Q48H [facility] Insulin Aspart (Novolog) 0 unit SUBCUT ACBED [facility]; Protocol Last Admin: 05/21/18 12:36 Dose: 2 unit Insulin Glargine (Lantus Solostar) 40 units SUBCUT BID [facility] Last Admin: 05/21/18 08:06 Dose: 40 units Lorazepam (Ativan) 1 mg PO BID PRN PRN Reason: tremors Last Admin: 05/19/18 09:30 Dose: 1 mg Metolazone (Zaroxolyn) 2.5 mg PO MoWeFr@0800 [facility] Last Admin: 05/20/18 09:47 Dose: 2.5 mg Nitroglycerin (Nitrostat) 0.4 mg SL ASDIRECTED PRN PRN Reason: Chest Pain Symbicort 160/4.5 (Mcg) 1 each INH DAILY PRN PRN Reason: Shortness of Breath Brilinta 90 Mg*Pt (Own Med*) 1 each PO BID [facility] Last Admin: 05/21/18 08:11 Dose: 1 each Senna/Docusate Sodium (Senna Plus) 1 tab PO BID [facility] Last Admin: 05/21/18 08:05 Dose: 1 tab Sodium Chloride (Saline Flush) 10 ml FLUSH ASDIRECTED PRN PRN Reason: Keep Vein Open Last Admin: 05/17/18 08:15 Dose: 10 ml Sodium Chloride (Saline Flush) 2.5 ml FLUSH ASDIRECTED PRN PRN Reason: Keep Vein Open Last Admin: 05/17/18 08:15 Dose: 2.5 ml Tamsulosin HCl (Flomax) 0.4 mg PO BEDTIME [facility] Last Admin: 05/20/18 20:46 Dose: 0.4 mg Discontinued Medications Albuterol/Ipratropium (Duoneb 3.0-0.5 Mg/3 Ml) 3 ml NEB ONETIME ONE Stop: 05/17/18 08:02 Last Admin: 05/17/18 08:10 Dose: 3 ml Amitriptyline HCl (Elavil) 50 mg PO DAILY [facility] Last Admin: 05/20/18 09:36 Dose: 50 mg Amitriptyline HCl (Elavil) 25 mg PO DAILY [facility] Aspirin (Aspirin) 324 mg PO ONETIME ONE Stop: 05/17/18 08:02 Last Admin: 05/17/18 08:10 Dose: 324 mg Furosemide (Lasix) 40 mg IVPUSH DAILY [facility] Furosemide (Lasix) 60 mg IVPUSH BID [facility] Last Admin: 05/18/18 08:03 Dose: 60 mg Furosemide (Lasix) 80 mg IVPUSH BID [facility] Last Admin: 05/19/18 09:30 Dose: Not Given Furosemide (Lasix) 60 mg IVPUSH BID [facility] Furosemide (Lasix) 60 mg PO BIDDIURETIC [place]UI[facility] Furosemide (Lasix) 60 mg PO ONETIME ONE Stop: 05/20/18 08:58 Last Admin: 05/20/18 09:34 Dose: 60 mg Gabapentin (Neurontin) 600 mg PO TID [facility] Last Admin: 05/20/18 13:03 Dose: 600 mg Levofloxacin/Dextrose 750 mg/ (Premix) 150 mls @ 100 mls/hr IV Q24H [facility] Last Admin: 05/19/18 17:08 Dose: 100 mls/hr Magnesium Sulfate 2 gm/ Premix 50 mls @ 50 mls/hr IV ONETIME ONE Stop: 05/17/18 20:58 Last Admin: 05/17/18 20:18 Dose: 50 mls/hr Lactated Ringer's (Ringers, Lactated) 250 mls @ 999 mls/hr IV ASDIRECTED [facility] Last Admin: 05/20/18 10:43 Dose: 999 mls/hr Sodium Chloride (Normal Saline) 250 mls @ 999 mls/hr IV ASDIRECTED [facility] Magnesium Sulfate 2 gm/ Premix 50 mls @ 50 mls/hr IV ONETIME ONE Stop: 05/21/18 10:52 Last Admin: 05/21/18 10:56 Dose: Not Given Insulin Aspart (Novolog) 0 unit SUBCUT TIDAC [facility]; Protocol Iopamidol (Isovue Multipack-370 (76%)) 50 ml IVPUSH ONETIME STA Stop: 05/18/18 15:01 Last Admin: 05/18/18 15:13 Dose: 50 ml Lisinopril (Prinivil) 2.5 mg PO DAILY [facility] Last Admin: 05/20/18 08:52 Dose: Not Given Meloxicam (Mobic) 15 mg PO DAILY [facility] Last Admin: 05/20/18 09:37 Dose: Not Given Metolazone (Zaroxolyn) 2.5 mg PO MoWeFr@0800 [facility] Nitroglycerin (Nitro-Bid 2%) 0.5 gm TOP ONETIME ONE Stop: 05/17/18 08:02 Last Admin: 05/17/18 08:11 Dose: 0.5 gm Potassium Chloride (Klor-Con M20) 40 meq PO TID [facility] Stop: 05/18/18 14:01 Last Admin: 05/18/18 15:24 Dose: 40 meq Potassium Chloride (Klor-Con M20) 40 meq PO ONETIME ONE Stop: 05/19/18 09:06 Last Admin: 05/19/18 09:21 Dose: 40 meq Potassium Chloride (Klor-Con M20) 40 meq PO ONETIME ONE Stop: 05/19/18 21:01 Last Admin: 05/19/18 21:12 Dose: 40 meq Sodium Phosphate (Neutra-Phos) 250 mg PO QID [facility] Stop: 05/18/18 12:01 Last Admin: 05/18/18 11:26 Dose: 250 mg Spironolactone (Aldactone) 25 mg PO DAILY [facility] Last Admin: 05/20/18 08:52 Dose: Not Given - Exam General: Reports: Alert, Oriented HEENT: Reports: Pupils Equal, Pupils Reactive Neck: Reports: Supple, Trachea Midline Lungs: Reports: Clear to Auscultation, Normal Respiratory Effort Cardiovascular: Reports: Regular Rate, Regular Rhythm, No Murmurs GI/Abdominal Exam: Normal Bowel Sounds, Soft, Non-Tender, No Organomegaly, No Distention Back Exam: Reports: Normal Inspection Extremities: Normal Inspection Skin: Reports: Warm, Dry Neurological: Reports: No New Focal Deficit Psy/Mental Status: Reports: Alert, Normal Affect
[2018-05-21] MEDS ORDERED: Levofloxacin/Dextrose 5%-Water 750 MG in Premix Bag 1 BAG IV SCH (18:00)
== END 2018-05-21 13:10 | disposition home or self-care (01) | DRG 291 ==
LOC: MW.ED 07:45 → MW.ICU 09:07 → MW.ED 09:24 → MW.MS 05-18 10:16 → OBSVTOIN 05-20 12:18
PROVIDERS: ADMIT Internal Medicine; ATTEND Internal Medicine
PROC: 4B02XSZ Measurement of Cardiac Pacemaker, External Approach (ICD-10-PCS; principal; 2018-05-18)
DX: I50.9 Heart failure, unspecified (principal); I50.20 Unspecified systolic (congestive) heart failure; J18.9 Pneumonia, unspecified organism; J44.0 Chronic obstructive pulmonary disease with (acute) lower respiratory infection; J44.9 Chronic obstructive pulmonary disease, unspecified; J44.1 Chronic obstructive pulmonary disease with (acute) exacerbation; E78.00 Pure hypercholesterolemia, unspecified; N17.9 Acute kidney failure, unspecified; I11.0 Hypertensive heart disease with heart failure; I25.10 Atherosclerotic heart disease of native coronary artery without angina pectoris; R91.8 Other nonspecific abnormal finding of lung field; Z99.89 Dependence on other enabling machines and devices; R06.00 Dyspnea, unspecified; E11.9 Type 2 diabetes mellitus without complications; R42 Dizziness and giddiness; R40.0 Somnolence; Z95.5 Presence of coronary angioplasty implant and graft; I25.2 Old myocardial infarction; R80.9 Proteinuria, unspecified; E78.5 Hyperlipidemia, unspecified; N40.0 Benign prostatic hyperplasia without lower urinary tract symptoms; E87.6 Hypokalemia; F32.9 Major depressive disorder, single episode, unspecified; D64.9 Anemia, unspecified; I25.5 Ischemic cardiomyopathy; Z87.891 Personal history of nicotine dependence; Z95.0 Presence of cardiac pacemaker; Z79.4 Long term (current) use of insulin; Z79.82 Long term (current) use of aspirin; Z79.899 Other long term (current) drug therapy
CPT/HCPCS: 36415 ×4; 71045; 71046; 71275; 80048; 80053 ×3; 80061; 81001; 82962 ×14; 83735 ×3; 83880; 84100; 84484 ×4; 85025 ×3; 85027; 85379; 85610; 87040 ×2; 87086; 93005 ×2; 93306; 94640; 97161; 99285; A9270 ×59; J1650 ×3; J1815 ×2; J1940 ×4; J1956 ×3; J3475; J7120; Q9967; 96365; 96366; 96367; 96372; 96375; 96376; 97165-GO; 97530-GP; G0378; J7620-GY

== ENCOUNTER 2018-06-07 19:02 | Emergency (ER) | payer MEDICARE, MEDICAID, OTHER ==
[2018-06-07] MEDS ORDERED: LORazepam 1 MG Tab PO ONE (19:15)
--- NOTE | 2018-06-07 19:21 | EDM.PDOC ---
ED HPI GENERAL MEDICAL PROBLEM - General Chief Complaint: General Stated Complaint: SHAKY AND TWITCHING, CAN SPEAK. Time Seen by Provider: 06/07/18 19:07 - History of Present Illness INITIAL COMMENTS - FREE TEXT/NARRATIVE: HISTORY AND PHYSICAL: History of present illness: The patient is a 62-year-old male who is well known to me due to multiple ED visits and admissions for his cardiac issues and has a history of ischemic cardiomyopathy congestive heart failure hypertension ICD coronary artery disease with last angioplasty and intervention january of 2017 and was recently admitted here for decompensated CHF at the end of April. 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 Patient denies any chest pain headache focal weakness or back pain no nausea vomiting and no shortness of breath or he says that he is due to get a refill of his lorazepam but is not scheduled to see [facility] until next week. He normally takes 1 mg twice a day when necessary and he took his last dose a day or so ago. He says that if he had his medication he probably would not be here in the ED. He has no other systemic complaints and no fevers no chills no cough and no other systemic issues. He is not complaining that he is having difficulty speaking and has no headache. The patient tells me that the symptoms that he is experiencing are very similar to when he is feeling anxious or agitated and he would normally take a lorazepam but he does not have. He did not pass out or black out and he had no recent falls. He has been eating normally and passing urine. He states compliance with his medications Review of systems: As per history of present illness and below otherwise all systems reviewed and negative. Past medical history: As per history of present illness and as reviewed below otherwise noncontributory. Surgical history: As per history of present illness and as reviewed below otherwise noncontributory. Social history: No reported history of drug or alcohol abuse. Family history: As per history of present illness and as reviewed below otherwise noncontributory. Physical exam: General: Well-developed well-nourished man who is nontoxic and speaking clearly and easily in the ED. He is cooperative and moves all extremities spontaneously. Vital signs are noted by me HEENT: Atraumatic, normocephalic, pupils reactive, negative for conjunctival pallor or scleral icterus, mucous membranes moist, throat clear, neck supple, nontender, trachea midline. Lungs: Clear to auscultation, breath sounds equal bilaterally, chest nontender. No worker breathing wheezing or stridor Heart: S1S2, regular rate and rhythm no overt murmurs Abdomen: Soft, nondistended, nontender. NABS Negative for costovertebral tenderness. Pelvis: Stable nontender. Genitourinary: Deferred. Rectal: Deferred. Extremities: Atraumatic, negative for cords or calf pain. Neurovascular unremarkable. No pedal edema Neuro: Awake, alert, oriented. Cranial nerves II through XII unremarkable. Cerebellum unremarkable. Motor and sensory unremarkable throughout. Exam nonfocal. Patient does seem somewhat shaky in the ED with visible tremor in his upper and lower extremities but is speaking clearly and easily and has no focal deficits no motor gross deficits and indurated into the ED without assistance. Diagnostics: CBC CMP magnesium level UA Therapeutics: Patient's requesting Ativan by mouth KCL po Patient is aware of all testing results including the slightly low potassium of 2.8 in the improved renal function from his last admission. I will give him a dose of potassium orally here and another dose for tomorrow but have advised him to follow-up with his provider at the [facility]. I will also give him 10 tablets of his lorazepam to get him through to his next visit to get a refill. I've advised him on reasons to return to the ED Impression: Shaky and anxious, prescription refill for lorazepam, mild hypokalemia stable Definitive disposition and diagnosis as appropriate pending reevaluation and review of above. - Related Data Allergies Allergy/AdvReac Type Severity Reaction Status Date / Time No Known Allergies Allergy Verified 05/17/18 07:50 Home Meds: Home Meds Aspirin [Halfprin] 81 mg PO DAILY 09/29/15 [History] Insulin Glarg,Human.Rec.Analog [Lantus] 40 unit SUBCUT BID 09/29/15 [History] Tamsulosin [Flomax] 0.4 mg PO BEDTIME 09/29/15 [History] Ticagrelor [Brilinta] 90 mg PO BID 09/29/15 [History] atorvaSTATin Calcium [Atorvastatin Calcium] 40 mg PO BEDTIME 01/02/16 [History] Carvedilol 6.25 mg PO BID 07/12/17 [History] Docusate Sodium/Sennosides [Senna Plus] 1 tab PO BID 07/12/17 [History] Ferrous Sulfate [Feosol] 325 mg PO TIDMEALS 07/12/17 [History] Nitroglycerin [Nitrostat] 0.4 mg SL ASDIRECTED PRN MDD 3 tablets 07/12/17 [ History] metOLazone [Metolazone] 2.5 mg PO MOWEFR 07/12/17 [History] Insulin Aspart [NovoLOG] See Protocol SQ TIDAC #1 pen 11/03/17 [Rx] Amitriptyline [Elavil] 50 mg PO BEDTIME 05/17/18 [History] Budesonide/Formoterol Fumarate [Symbicort 160-4.5 Mcg Inhaler] 2 puff INH BID PRN 05/17/18 [History] Cholecalciferol (Vitamin D3) [Vitamin D3] 1 tab PO DAILY 05/17/18 [History] Albuterol [Proventil Neb Soln] 0.63 mg NEB Q6HRRT 05/18/18 [History] LORazepam 1 mg PO BID PRN 05/18/18 [History] Amitriptyline [Elavil] 50 mg PO BEDTIME tablet 05/21/18 [Rx] Furosemide [Lasix] 60 mg PO BIDDIURETIC 60 Days #90 tablet 05/21/18 [Rx] Levofloxacin [Levaquin] 500 mg PO DAILY #5 tablet 05/21/18 [Rx] Past Medical History - Past Health History Medical/Surgical History: Denies Medical/Surgical History HEENT History: Reports: None Cardiovascular History: Reports: Heart Failure, Hypertension, Pacemaker Respiratory History: Reports: COPD Other Respiratory History: CPAP Gastrointestinal History: Reports: None Genitourinary History: Reports: BPH Musculoskeletal History: Reports: None Neurological History: Reports: Other (See Below) Other Neuro History: stroke Psychiatric History: Reports: None Endocrine/Metabolic History: Reports: Diabetes, Type II Hematologic History: Reports: None Immunologic History: Reports: None Oncologic (Cancer) History: Reports: None Dermatologic History: Reports: None - Infectious Disease History Infectious Disease History: Reports: None - Past Surgical History Head Surgeries/Procedures: Reports: None HEENT Surgical History: Reports: None Cardiovascular Surgical History: Reports: Other (See Below) Other Cardiovascular Surgeries/Procedures: multiple stent Respiratory Surgical History: Reports: None GI Surgical History: Reports: Other (See Below) Male Surgical History: Reports: None Endocrine Surgical History: Reports: None Neurological Surgical History: Reports: None Musculoskeletal Surgical History: Reports: None Oncologic Surgical History: Reports: None Dermatological Surgical History: Reports: None Social & Family History - Family History Family Medical History: Noncontributory HEENT: Reports: None Cardiac: Reports: None Respiratory: Reports: None GI: Reports: None : Reports: None OBGYN: Reports: None Musculoskeletal: Reports: None Neurological: Reports: None Endocrine/Metabolic: Reports: Diabetes, type II Hematologic: Reports: None Immunologic: Reports: None Oncologic: Reports: Colon - Tobacco Use Smoking Status *Q: Never Smoker - Caffeine Use Caffeine Use: Reports: Tea Other Caffeine Use: 1 can daily ED ROS GENERAL - Review of Systems Review Of Systems: ROS reveals no pertinent complaints other than HPI. ED EXAM, GENERAL - Physical Exam Exam: See Below (See dictation) Course - Vital Signs Last Recorded V/S: Last Vital Signs Temp 36.6 C 06/07/18 19:08 Pulse 88 06/07/18 19:08 Resp 18 06/07/18 19:08 BP 125/80 06/07/18 19:08 Pulse Ox 98 06/07/18 19:08 - Orders/Labs/Meds Orders: Active Orders 24 hr Category Date Time Status Potassium Chloride [Klor-Con M20] Med 06/07/18 20:13 Once 40 meq PO ONETIME ONE Medication Orders Potassium Chloride (Klor-Con M20) 40 meq PO ONETIME ONE Stop: 06/07/18 20:14 Labs: Laboratory Tests 06/07/18 06/07/18 06/07/18 Range/Units 19:25 19:38 19:38 WBC 7.16 (4.0-11.0) K/uL RBC 5.68 (4.50-5.90) M/uL Hgb 15.5 (13.0-17.0) g/dL Hct 44.7 (38.0-50.0) % MCV 78.7 L (80.0-98.0) fL MCH 27.3 (27.0-32.0) pg MCHC 34.7 (31.0-37.0) g/dL RDW Std Deviation 44.1 (28.0-62.0) fl RDW Coeff of [place] 15 (11.0-15.0) % Plt Count 107 L (150-400) K/uL MPV 9.20 (7.40-12.00) fL Neut % (Auto) 72.4 (48.0-80.0) % Lymph % (Auto) 17.3 (16.0-40.0) % [place] % (Auto) 7.8 (0.0-15.0) % Eos % (Auto) 2.2 (0.0-7.0) % Baso % (Auto) 0.3 (0.0-1.5) % Neut # (Auto) 5.2 (1.4-5.7) K/uL Lymph # (Auto) 1.2 (0.6-2.4) K/uL [place] # (Auto) 0.6 (0.0-0.8) K/uL Eos # (Auto) 0.2 (0.0-0.7) K/uL Baso # (Auto) 0.0 (0.0-0.1) K/uL Nucleated RBC % 0.0 /100WBC Nucleated RBCs # 0 K/uL Sodium 136 (136-148) mmol/L Potassium 2.9 L (3.5-5.1) mmol/L Chloride 99 (98-107) mmol/L Carbon Dioxide 31.0 (21.0-32.0) mmol/L BUN 21 H (7.0-18.0) mg/dL Creatinine 1.5 H (0.8-1.3) mg/dL Est Cr Clr Drug Dosing 56.97 mL/min Estimated GFR (MDRD) 47.3 ml/min Glucose 167 H (74-106) mg/dL Calcium 9.1 (8.5-10.1) mg/dL Magnesium 1.7 L (1.8-2.4) mg/dL Total Bilirubin 1.0 (0.2-1.0) mg/dL AST 48 H (15-37) IU/L ALT 74 H (14-63) IU/L Alkaline Phosphatase 178 H (46-116) U/L Total Protein 8.0 (6.4-8.2) g/dL Albumin 3.4 (3.4-5.0) g/dL Globulin 4.6 H (2.0-3.5) g/dL Albumin/Globulin Ratio 0.7 L (1.3-2.8) Urine Color YELLOW Urine Appearance CLEAR Urine pH 6.5 (5.0-8.0) Ur Specific [place] 1.015 (1.001-1.035) Urine Protein NEGATIVE (NEGATIVE) mg/dL Urine Glucose (UA) NEGATIVE (NEGATIVE) mg/dL Urine Ketones NEGATIVE (NEGATIVE) mg/dL Urine Occult Blood NEGATIVE (NEGATIVE) Urine Nitrite NEGATIVE (NEGATIVE) Urine Bilirubin NEGATIVE (NEGATIVE) Urine Urobilinogen 0.2 (<2.0) EU/dL Ur Leukocyte Esterase NEGATIVE (NEGATIVE) Urine RBC 0-2 (0-2/HPF) Urine WBC 0-1 (0-5/HPF) Ur Epithelial Cells RARE (NONE-FEW) Urine Bacteria RARE (NEGATIVE) Meds: Medications Generic Name Dose Route Start Last Admin Trade Name Freq PRN Reason Stop Dose Admin Potassium Chloride 40 meq 06/07/18 20:13 Klor-Con M20 PO 06/07/18 20:14 ONETIME ONE Discontinued Medications Generic Name Dose Route Start Last Admin Trade Name Freq PRN Reason Stop Dose Admin Lorazepam 1 mg 06/07/18 19:15 06/07/18 19:22 Ativan PO 06/07/18 19:16 1 mg ONETIME ONE Administration Departure - Departure Time of Disposition: 20:14 Disposition: Home, Self-Care 01 Condition: Good Clinical Impression: Hypokalemia, Shakiness, Medication refill - Discharge Information Referrals: PCP,None [Primary Care Provider] - Forms: ED Department Discharge Additional Instructions: The following information is given to patients seen in the emergency department who are being discharged to home. This information is to outline your options for follow-up care. We provide all patients seen in our emergency department with a follow-up referral. The need for follow-up, as well as the timing and circumstances, are variable depending upon the specifics of your emergency department visit. If you don't have a primary care physician on staff, we will provide you with a referral. We always advise you to contact your personal physician following an emergency department visit to inform them of the circumstance of the visit and for follow-up with them and/or the need for any referrals to a consulting specialist. The emergency department will also refer you to a specialist when appropriate. This referral assures that you have the opportunity for followup care with a specialist. All of these measure are taken in an effort to provide you with optimal care, which includes your followup. Under all circumstances we always encourage you to contact your private physician who remains a resource for coordinating your care. When calling for followup care, please make the office aware that this follow-up is from your recent emergency room visit. If for any reason you are refused follow-up, please contact the [facility] emergency department at and ask to speak to the emergency department charge nurse. [facility] Primary care- Internal Medicine and Family [address] [address] Please fill your prescriptions as take as directed. Please continue all your home medications and connect with your clinic doctor at the [facility] or one of our clinic providers for further care and evaluation of tonights events. Return to ER as needed and as discussed - My Orders Last 24 Hours: My Active Orders 06/07/18 20:13 Potassium Chloride [Klor-Con M20] 40 meq PO ONETIME ONE - Assessment/Plan Last 24 Hours: My Active Orders 06/07/18 20:13 Potassium Chloride [Klor-Con M20] 40 meq PO ONETIME ONE
[2018-06-07] MEDS ORDERED: Potassium Chloride 20 MEQ Tab.ER PO ONE (20:13)
[2018-06-07 20:27] VITALS: BP 103/83
== END 2018-06-07 20:35 | disposition home or self-care (01) ==
LOC: MW.ED 19:02
DX: E87.6 Hypokalemia (principal); Z76.0 Encounter for issue of repeat prescription; R25.9 Unspecified abnormal involuntary movements; I11.0 Hypertensive heart disease with heart failure; I50.9 Heart failure, unspecified; J44.9 Chronic obstructive pulmonary disease, unspecified; E11.9 Type 2 diabetes mellitus without complications; I25.10 Atherosclerotic heart disease of native coronary artery without angina pectoris; Z79.4 Long term (current) use of insulin; Z79.82 Long term (current) use of aspirin; Z95.0 Presence of cardiac pacemaker
CPT/HCPCS: 36415; 80053; 81001; 83735; 85025; 99282; A9270

== ENCOUNTER 2018-11-16 10:04 | Emergency (ER) | payer MEDICARE, MEDICAID, OTHER ==
[2018-11-16] MEDS: Albuterol/Ipratropium 3.0-0.5 MG/3 ML Neb Soln NEB ONE ×2 (10:29→11:05)
--- NOTE | 2018-11-16 10:34 | EDM.PDOC ---
ED HPI GENERAL MEDICAL PROBLEM - General Chief Complaint: Respiratory Problem Stated Complaint: SOB Time Seen by Provider: 11/16/18 10:10 Source of Information: Reports: Patient History Limitations: Reports: No Limitations - History of Present Illness INITIAL COMMENTS - FREE TEXT/NARRATIVE: HISTORY AND PHYSICAL: History of present illness: Patient is a 62-year-old male who presents to the ED today with concerns of feeling short of breath. He states that this started this morning. He states that he does have congestive heart failure and is on Lasix but feels as if he is getting more swollen. He states the swelling in his legs is worse than it has been and he is noticed today he feels short of breath. He states the shortness of breath is worse if he were to lay back. Patient states that other than the shortness of breath, he feels okay and per his normal. He states he has not had any recent sicknesses or illnesses. Patient denies cough, fever, chills, chest pain, diaphoresis, nausea, vomiting, diarrhea, or all other GI, , cardiovascular, or respiratory complaints. He does have a history of type 2 diabetes insulin-dependent, coronary artery disease, hypertension, hyperlipidemia, COPD, and congestive heart failure. Review of systems: As per history of present illness and below otherwise all systems reviewed and negative. Past medical history: As per history of present illness and as reviewed below otherwise noncontributory. Surgical history: As per history of present illness and as reviewed below otherwise noncontributory. Social history: See social history for further information Family history: As per history of present illness and as reviewed below otherwise noncontributory. Physical exam: General: Patient is alert, oriented, and in no acute distress. He is incompletely uncountable. HEENT: Atraumatic, normocephalic, pupils equal and reactive bilaterally, negative for conjunctival pallor or scleral icterus, mucous membranes moist, TMs normal bilaterally, throat clear, neck supple, nontender, trachea midline. No drooling or trismus noted. No meningeal signs. No hot potato voice noted. Lungs: Greatly diminished otherwise clear to auscultation, breath sounds equal bilaterally, chest nontender. Heart: S1S2, regular rate and rhythm. Patient does have a grade 4 systolic ejection murmur best heard at the right upper sternal border. Abdomen: Obese, soft, nondistended, nontender. Negative for masses or hepatosplenomegaly. Negative for costovertebral tenderness. Pelvis: Stable nontender. Genitourinary: Deferred. Rectal: Deferred. Skin: Intact, warm, dry. No lesions or rashes noted. Extremities: Patient does have 3+ pitting edema to the mid thigh. Otherwise, atraumatic, negative for cords or calf pain. Neurovascular unremarkable. Neuro: Awake, alert, oriented. Cranial nerves II through XII unremarkable. Cerebellum unremarkable. Motor and sensory unremarkable throughout. Exam nonfocal. Notes: Chest xray shows no acute findings. On labs he does have an elevated creatinine and BUN which compared to last visits tender resembles similar trends. He also has a elevated alkaline phosphatase. His potassium is slightly low and BNP elevated at 505 but her record this is the least recorded BNP. Patient states he took his last dose of Lasix this morning and is waiting for his Lasix to arrive in the mail but does not have his evening dose. Evening dose of Lasix was provided to patient today to bring home in the ED. Discussed these findings with patient. Offered admission for congestive heart failure management. Patient states that he feels comfortable going home as his shortness of breath has improved drastically following the DuoNeb. Patient states he will return if he feels this is necessary and does not desire admission at this time. Encouraged patient to follow up closely with his primary care provider for repeat labs.Supportive care measures were reviewed and discussed. Voices understanding and is agreeable to plan of care. Denies any further questions or concerns at this time. Diagnostics: CBC, CMP, chest x-ray, troponin, EKG, BNP Therapeutics: DuoNeb, Lasix Prescription: Azithromycin, Medrol Dosepak Impression: COPD exacerbation History of CHF Plan: 1. Take your at home medications as you have prescribed. Continue your inhalers and her Lasix as prescribed. 2. Please follow up closely with your primary care provider in the next 1-2 days. 3. Return to the ED as needed and as discussed. Definitive disposition and diagnosis as appropriate pending reevaluation and review of above. - Related Data Allergies Allergy/AdvReac Type Severity Reaction Status Date / Time No Known Allergies Allergy Verified 11/16/18 10:14 Home Meds: Home Meds Aspirin [Halfprin] 81 mg PO DAILY 09/29/15 [History] Insulin Glarg,Human.Rec.Analog [Lantus] 40 unit SUBCUT BID 09/29/15 [History] Tamsulosin [Flomax] 0.4 mg PO BEDTIME 09/29/15 [History] Ticagrelor [Brilinta] 90 mg PO BID 09/29/15 [History] atorvaSTATin Calcium [Atorvastatin Calcium] 40 mg PO BEDTIME 01/02/16 [History] Carvedilol 6.25 mg PO BID 07/12/17 [History] Docusate Sodium/Sennosides [Senna Plus] 1 tab PO BID 07/12/17 [History] Ferrous Sulfate [Feosol] 325 mg PO TIDMEALS 07/12/17 [History] Nitroglycerin [Nitrostat] 0.4 mg SL ASDIRECTED PRN MDD 3 tablets 07/12/17 [ History] metOLazone [Metolazone] 2.5 mg PO MOWEFR 07/12/17 [History] Insulin Aspart [NovoLOG] See Protocol SQ TIDAC #1 pen 11/03/17 [Rx] Amitriptyline [Elavil] 50 mg PO BEDTIME 05/17/18 [History] Budesonide/Formoterol Fumarate [Symbicort 160-4.5 Mcg Inhaler] 2 puff INH BID PRN 05/17/18 [History] Cholecalciferol (Vitamin D3) [Vitamin D3] 1 tab PO DAILY 05/17/18 [History] Albuterol [Proventil Neb Soln] 0.63 mg NEB Q6HRRT 05/18/18 [History] LORazepam 1 mg PO BID PRN 05/18/18 [History] Furosemide [Lasix] 60 mg PO BIDDIURETIC 60 Days #90 tablet 05/21/18 [Rx] Acetaminophen/HYDROcodone [[place] 325-5 MG] 1 tab PO ASDIRECTED PRN 11/16/18 [ History] Meloxicam 15 mg PO DAILY 11/16/18 [History] Past Medical History - Past Health History Medical/Surgical History: Denies Medical/Surgical History HEENT History: Reports: None Cardiovascular History: Reports: Heart Failure, Hypertension, Pacemaker Respiratory History: Reports: COPD Other Respiratory History: CPAP Gastrointestinal History: Reports: None Genitourinary History: Reports: BPH Musculoskeletal History: Reports: None Neurological History: Reports: Other (See Below) Other Neuro History: stroke Psychiatric History: Reports: None Endocrine/Metabolic History: Reports: Diabetes, Type II Hematologic History: Reports: None Immunologic History: Reports: None Oncologic (Cancer) History: Reports: None Dermatologic History: Reports: None - Infectious Disease History Infectious Disease History: Reports: None - Past Surgical History Head Surgeries/Procedures: Reports: None HEENT Surgical History: Reports: None Cardiovascular Surgical History: Reports: Other (See Below) Other Cardiovascular Surgeries/Procedures: multiple stent Respiratory Surgical History: Reports: None GI Surgical History: Reports: Other (See Below) Male Surgical History: Reports: None Endocrine Surgical History: Reports: None Neurological Surgical History: Reports: None Musculoskeletal Surgical History: Reports: None Oncologic Surgical History: Reports: None Dermatological Surgical History: Reports: None Social & Family History - Family History Family Medical History: Noncontributory HEENT: Reports: None Cardiac: Reports: None Respiratory: Reports: None GI: Reports: None : Reports: None OBGYN: Reports: None Musculoskeletal: Reports: None Neurological: Reports: None Endocrine/Metabolic: Reports: Diabetes, type II Hematologic: Reports: None Immunologic: Reports: None Oncologic: Reports: Colon - Tobacco Use Smoking Status *Q: Never Smoker Second Hand Smoke Exposure: No - Caffeine Use Caffeine Use: Reports: Coffee Other Caffeine Use: 1 can daily - Recreational Drug Use Recreational Drug Use: No ED ROS GENERAL - Review of Systems Review Of Systems: ROS reveals no pertinent complaints other than HPI. ED EXAM, GENERAL - Physical Exam Exam: See Below (see dictation) Course - Vital Signs Last Recorded V/S: Last Vital Signs Temp 98.0 F 11/16/18 10:14 Pulse 80 11/16/18 10:14 Resp 18 11/16/18 10:14 BP 147/97 H 11/16/18 10:14 Pulse Ox 99 11/16/18 10:14 - Orders/Labs/Meds Orders: Active Orders 24 hr Category Date Time Status EKG Documentation Completion [RC] STAT Care 11/16/18 10:15 Active RT Aerosol Therapy [RC] ASDIRECTED Care 11/16/18 10:16 Active RT Aerosol Therapy [RC] ASDIRECTED Care 11/16/18 10:34 Inactive Labs: Laboratory Tests 11/16/18 11/16/18 11/16/18 Range/Units 10:10 10:10 10:10 WBC 8.42 (4.0-11.0) K/uL RBC 5.27 (4.50-5.90) M/uL Hgb 14.1 (13.0-17.0) g/dL Hct 42.8 (38.0-50.0) % MCV 81.2 (80.0-98.0) fL MCH 26.8 L (27.0-32.0) pg MCHC 32.9 (31.0-37.0) g/dL RDW Std Deviation 58.7 (28.0-62.0) fl RDW Coeff of [place] 20 H (11.0-15.0) % Plt Count 132 L (150-400) K/uL MPV 9.70 (7.40-12.00) fL Neut % (Auto) 80.8 H (48.0-80.0) % Lymph % (Auto) 10.3 L (16.0-40.0) % [place] % (Auto) 7.6 (0.0-15.0) % Eos % (Auto) 1.2 (0.0-7.0) % Baso % (Auto) 0.1 (0.0-1.5) % Neut # (Auto) 6.8 H (1.4-5.7) K/uL Lymph # (Auto) 0.9 (0.6-2.4) K/uL [place] # (Auto) 0.6 (0.0-0.8) K/uL Eos # (Auto) 0.1 (0.0-0.7) K/uL Baso # (Auto) 0.0 (0.0-0.1) K/uL Nucleated RBC % 0.0 /100WBC Nucleated RBCs # 0 K/uL Sodium 135 L (136-148) mmol/L Potassium 3.2 L (3.5-5.1) mmol/L Chloride 99 (98-107) mmol/L Carbon Dioxide 28.8 (21.0-32.0) mmol/L BUN 35 H (7.0-18.0) mg/dL Creatinine 1.5 H (0.8-1.3) mg/dL Est Cr Clr Drug Dosing 56.97 mL/min Estimated GFR (MDRD) 47.3 ml/min Glucose 219 H (74-106) mg/dL Calcium 9.0 (8.5-10.1) mg/dL Total Bilirubin 2.2 H (0.2-1.0) mg/dL AST 26 (15-37) IU/L ALT 25 (14-63) IU/L Alkaline Phosphatase 417 H (46-116) U/L Troponin I < 0.050 (0.000-0.056) ng/mL B-Natriuretic Peptide 505 H (<100) PG/ML Total Protein 7.9 (6.4-8.2) g/dL Albumin 3.0 L (3.4-5.0) g/dL Globulin 4.9 H (2.6-4.0) g/dL Albumin/Globulin Ratio 0.6 L (0.9-1.6) Meds: Medications Discontinued Medications Generic Name Dose Route Start Last Admin Trade Name Freq PRN Reason Stop Dose Admin Albuterol/Ipratropium 3 ml 11/16/18 10:15 11/16/18 10:29 Duoneb 3.0-0.5 Mg/3 Ml NEB 11/16/18 10:16 3 ml ONETIME ONE Administration Albuterol/Ipratropium 3 ml 11/16/18 10:34 11/16/18 11:05 Duoneb 3.0-0.5 Mg/3 Ml NEB 11/16/18 10:35 Not Given ONETIME ONE Furosemide 60 mg 11/16/18 11:39 Lasix PO 11/16/18 11:40 ONETIME ONE Departure - Departure Time of Disposition: 11:49 Disposition: Home, Self-Care 01 Clinical Impression: COPD exacerbation, History of congestive heart failure - Discharge Information Instructions: Chronic Obstructive Pulmonary Disease Exacerbation, [id number] Referrals: PCP,Unknown [Primary Care Provider] - Forms: ED Department Discharge Additional Instructions: The following information is given to patients seen in the emergency department who are being discharged to home. This information is to outline your options for follow-up care. We provide all patients seen in our emergency department with a follow-up referral. The need for follow-up, as well as the timing and circumstances, are variable depending upon the specifics of your emergency department visit. If you don't have a primary care physician on staff, we will provide you with a referral. We always advise you to contact your personal physician following an emergency department visit to inform them of the circumstance of the visit and for follow-up with them and/or the need for any referrals to a consulting specialist. The emergency department will also refer you to a specialist when appropriate. This referral assures that you have the opportunity for follow-up care with a specialist. All of these measure are taken in an effort to provide you with optimal care, which includes your follow-up. Under all circumstances we always encourage you to contact your private physician who remains a resource for coordinating your care. When calling for follow-up care, please make the office aware that this follow-up is from your recent emergency room visit. If for any reason you are refused follow-up, please contact the [facility] Emergency Department at and asked to speak to the emergency department charge nurse. [facility] [address] [place] [id number] [address] 1. Take your at home medications as you have prescribed. Continue your inhalers and her Lasix as prescribed. 2. Please follow up closely with your primary care provider in the next 1-2 days. 3. Return to the ED as needed and as discussed. - My Orders Last 24 Hours: My Active Orders 11/16/18 10:15 EKG Documentation Completion [RC] STAT 11/16/18 10:16 RT Aerosol Therapy [RC] ASDIRECTED 11/16/18 10:34 RT Aerosol Therapy [RC] ASDIRECTED - Assessment/Plan Last 24 Hours: My Active Orders 11/16/18 10:15 EKG Documentation Completion [RC] STAT 11/16/18 10:16 RT Aerosol Therapy [RC] ASDIRECTED 11/16/18 10:34 RT Aerosol Therapy [RC] ASDIRECTED
--- NOTE | 2018-11-16 10:46 | CR ---
EXAMINATION: Portable chest radiograph. HISTORY: Shortness of breath. Comparison: 05/18/2018. FINDINGS: The trachea is midline. The cardiomediastinal silhouette is within normal limits. No pulmonary infiltrates, effusions or pneumothorax. Chronic interstitial prominence. There is a left-sided AICD. Osseous structures appear unremarkable. IMPRESSION: No acute cardiopulmonary process.
[2018-11-16 10:54] VITALS: BP 147/97
[2018-11-16 11:08] LABS: CHLORIDE,CL 99 mmol/L (98-107); SODIUM,NA 135 mmol/L (136-148)
[2018-11-16] MEDS: Furosemide 40 MG Tab PO ONE (12:08)
[2018-11-16] MEDS: Furosemide 20 MG Tab PO ONE (12:09)
[2018-11-16] MEDS: Furosemide 40 MG Tab ONE (16:18)
== END 2018-11-16 12:13 | disposition home or self-care (01) ==
LOC: MW.ED 10:04
DX: J44.1 Chronic obstructive pulmonary disease with (acute) exacerbation (principal); I11.0 Hypertensive heart disease with heart failure; I50.9 Heart failure, unspecified; E11.9 Type 2 diabetes mellitus without complications; Z79.82 Long term (current) use of aspirin; Z79.4 Long term (current) use of insulin; Z95.0 Presence of cardiac pacemaker; Z79.899 Other long term (current) drug therapy
CPT/HCPCS: 36415; 71045; 80053; 83880; 84484; 85025; 93005; 94640; 99283; A9270; J7620-GY

== ENCOUNTER 2018-11-20 22:04 | Observation (INO) | payer MEDICARE, MEDICAID, OTHER ==
[2018-11-20] MEDS ORDERED: Furosemide 40 MG/4 ML VIAL IVPUSH ONE (22:14)
[2018-11-20] MEDS ORDERED: Sodium Chloride 0.9% 2.5 ML Syringe FLUSH PRN (22:14)
[2018-11-20] MEDS ORDERED: Aspirin 81 MG Tab.Chew PO ONE (22:14)
[2018-11-20] MEDS ORDERED: Nitroglycerin 2% Oint 1 GM UD Packet TOP ONE (22:14)
[2018-11-20] MEDS ORDERED: Sodium Chloride 0.9% 10 ML Syringe FLUSH PRN (22:14)
--- NOTE | 2018-11-20 22:16 | EDM.PDOC ---
ED HPI GENERAL MEDICAL PROBLEM - General Chief Complaint: Respiratory Problem Stated Complaint: PT HAS DIFFICULTY BREATHING Time Seen by Provider: 11/20/18 22:11 - History of Present Illness INITIAL COMMENTS - FREE TEXT/NARRATIVE: HISTORY AND PHYSICAL: History of present illness: Patient is a 62-year-old white male with history of diabetes hypertension congestive heart failure presents with concern of shortness of breath orthopnea exertional dyspnea and increased peripheral edema worse over last 1-2 days. He denies chest pain nausea vomiting palpitations other concern Review of systems: As per history of present illness and below otherwise all systems reviewed and negative. Past medical history: As per history of present illness and as reviewed below otherwise noncontributory. Surgical history: As per history of present illness and as reviewed below otherwise noncontributory. Social history: No reported history of drug or alcohol abuse. Family history: As per history of present illness and as reviewed below otherwise noncontributory. Physical exam: HEENT: Atraumatic, normocephalic, pupils reactive, negative for conjunctival pallor or scleral icterus, mucous membranes moist, throat clear, neck supple, nontender, trachea midline. Lungs: Basilar crackles, breath sounds equal bilaterally, chest nontender. Heart: S1S2, regular, negative for clicks, rubs, or JVD. Abdomen: Soft, nondistended, nontender. Negative for masses or hepatosplenomegaly. Negative for costovertebral tenderness. Pelvis: Stable nontender. Genitourinary: Deferred. Rectal: Deferred. Extremities: Atraumatic, negative for cords or calf pain. Neurovascular unremarkable. 3+ edema noted inferiorly Neuro: Awake, alert, oriented. Cranial nerves II through XII unremarkable. Cerebellum unremarkable. Motor and sensory unremarkable throughout. Exam nonfocal. Diagnostics: CBC CMP troponin PT/INR chest x-ray EKG BNP Therapeutics: IV O2 monitor nitroglycerin paste 1 inch 324 mg aspirin by mouth Lasix 40 mg IV Impression: 1 dyspnea #2 decompensated congestive heart failure #3 history of hypertension or 4 history diabetes Definitive disposition and diagnosis as appropriate pending reevaluation and review of above. - Related Data Allergies Allergy/AdvReac Type Severity Reaction Status Date / Time No Known Allergies Allergy Verified 11/20/18 22:09 Home Meds: Home Meds Aspirin [Halfprin] 81 mg PO DAILY 09/29/15 [History] Insulin Glarg,Human.Rec.Analog [Lantus] 40 unit SUBCUT BID 09/29/15 [History] Tamsulosin [Flomax] 0.4 mg PO BEDTIME 09/29/15 [History] Ticagrelor [Brilinta] 90 mg PO BID 09/29/15 [History] atorvaSTATin Calcium [Atorvastatin Calcium] 40 mg PO BEDTIME 01/02/16 [History] Carvedilol 6.25 mg PO BID 07/12/17 [History] Docusate Sodium/Sennosides [Senna Plus] 1 tab PO BID 07/12/17 [History] Ferrous Sulfate [Feosol] 325 mg PO TIDMEALS 07/12/17 [History] Nitroglycerin [Nitrostat] 0.4 mg SL ASDIRECTED PRN MDD 3 tablets 07/12/17 [ History] metOLazone [Metolazone] 2.5 mg PO MOWEFR 07/12/17 [History] Insulin Aspart [NovoLOG] See Protocol SQ TIDAC #1 pen 11/03/17 [Rx] Amitriptyline [Elavil] 50 mg PO BEDTIME 05/17/18 [History] Budesonide/Formoterol Fumarate [Symbicort 160-4.5 Mcg Inhaler] 2 puff INH BID PRN 05/17/18 [History] Cholecalciferol (Vitamin D3) [Vitamin D3] 1 tab PO DAILY 05/17/18 [History] Albuterol [Proventil Neb Soln] 0.63 mg NEB Q6HRRT 05/18/18 [History] LORazepam 1 mg PO BID PRN 05/18/18 [History] Furosemide [Lasix] 60 mg PO BIDDIURETIC 60 Days #90 tablet 05/21/18 [Rx] Acetaminophen/HYDROcodone [[place] 325-5 MG] 1 tab PO ASDIRECTED PRN 11/16/18 [ History] Meloxicam 15 mg PO DAILY 11/16/18 [History] Past Medical History - Past Health History Medical/Surgical History: Denies Medical/Surgical History HEENT History: Reports: None Cardiovascular History: Reports: Heart Failure, Hypertension, Pacemaker Respiratory History: Reports: COPD Other Respiratory History: CPAP Gastrointestinal History: Reports: None Genitourinary History: Reports: BPH Musculoskeletal History: Reports: None Neurological History: Reports: Other (See Below) Other Neuro History: stroke Psychiatric History: Reports: None Endocrine/Metabolic History: Reports: Diabetes, Type II Hematologic History: Reports: None Immunologic History: Reports: None Oncologic (Cancer) History: Reports: None Dermatologic History: Reports: None - Infectious Disease History Infectious Disease History: Reports: None - Past Surgical History Head Surgeries/Procedures: Reports: None HEENT Surgical History: Reports: None Cardiovascular Surgical History: Reports: Other (See Below) Other Cardiovascular Surgeries/Procedures: multiple stent Respiratory Surgical History: Reports: None GI Surgical History: Reports: Other (See Below) Male Surgical History: Reports: None Endocrine Surgical History: Reports: None Neurological Surgical History: Reports: None Musculoskeletal Surgical History: Reports: None Oncologic Surgical History: Reports: None Dermatological Surgical History: Reports: None Social & Family History - Family History Family Medical History: Noncontributory HEENT: Reports: None Cardiac: Reports: None Respiratory: Reports: None GI: Reports: None : Reports: None OBGYN: Reports: None Musculoskeletal: Reports: None Neurological: Reports: None Endocrine/Metabolic: Reports: Diabetes, type II Hematologic: Reports: None Immunologic: Reports: None Oncologic: Reports: Colon - Caffeine Use Caffeine Use: Reports: Tea Other Caffeine Use: 1 can daily ED ROS GENERAL - Review of Systems Review Of Systems: ROS reveals no pertinent complaints other than HPI. ED EXAM, GENERAL - Physical Exam Exam: See Below (See dictation) Course - Vital Signs Last Recorded V/S: Last Vital Signs Temp 35.9 C 11/20/18 22:10 Pulse 92 11/20/18 22:10 Resp 22 H 11/20/18 22:10 BP 155/107 H 11/20/18 22:10 Pulse Ox 97 11/20/18 23:03 - Orders/Labs/Meds Orders: Active Orders 24 hr Category Date Time Status Cardiac Monitoring [RC] . DIRECTED Care 11/20/18 22:13 Active EKG Documentation Completion [RC] STAT Care 11/20/18 22:13 Active Oxygen Therapy, ED [RC] ASDIRECTED Care 11/20/18 22:13 Active Sodium Chloride 0.9% [Saline Flush] Med 11/20/18 22:14 Active 10 ml FLUSH ASDIRECTED PRN Sodium Chloride 0.9% [Saline Flush] Med 11/20/18 22:14 Active 2.5 ml FLUSH ASDIRECTED PRN Saline Lock Insert [OM.PC] Stat Oth 11/20/18 22:13 Ordered Medication Orders Sodium Chloride (Saline Flush) 10 ml FLUSH ASDIRECTED PRN PRN Reason: Keep Vein Open Last Admin: 11/20/18 22:40 Dose: 10 ml Sodium Chloride (Saline Flush) 2.5 ml FLUSH ASDIRECTED PRN PRN Reason: Keep Vein Open Last Admin: 11/20/18 22:40 Dose: 2.5 ml Labs: Laboratory Tests 11/20/18 11/20/18 11/20/18 Range/Units 22:20 22:20 22:20 WBC 8.53 (4.0-11.0) K/uL RBC 5.42 (4.50-5.90) M/uL Hgb 14.4 (13.0-17.0) g/dL Hct 44.2 (38.0-50.0) % MCV 81.5 (80.0-98.0) fL MCH 26.6 L (27.0-32.0) pg MCHC 32.6 (31.0-37.0) g/dL RDW Std Deviation 59.9 (28.0-62.0) fl RDW Coeff of [place] 20 H (11.0-15.0) % Plt Count 150 (150-400) K/uL MPV 9.20 (7.40-12.00) fL Neut % (Auto) 79.6 (48.0-80.0) % Lymph % (Auto) 11.1 L (16.0-40.0) % [place] % (Auto) 7.9 (0.0-15.0) % Eos % (Auto) 1.2 (0.0-7.0) % Baso % (Auto) 0.2 (0.0-1.5) % Neut # (Auto) 6.8 H (1.4-5.7) K/uL Lymph # (Auto) 1.0 (0.6-2.4) K/uL [place] # (Auto) 0.7 (0.0-0.8) K/uL Eos # (Auto) 0.1 (0.0-0.7) K/uL Baso # (Auto) 0.0 (0.0-0.1) K/uL Nucleated RBC % 0.0 /100WBC Nucleated RBCs # 0 K/uL INR 1.16 Sodium 135 L (136-148) mmol/L Potassium 2.9 L (3.5-5.1) mmol/L Chloride 98 (98-107) mmol/L Carbon Dioxide 27.1 (21.0-32.0) mmol/L BUN 27 H (7.0-18.0) mg/dL Creatinine 1.6 H (0.8-1.3) mg/dL Est Cr Clr Drug Dosing 51.87 mL/min Estimated GFR (MDRD) 43.9 ml/min Glucose 314 H (74-106) mg/dL Calcium 8.7 (8.5-10.1) mg/dL Total Bilirubin 2.1 H (0.2-1.0) mg/dL AST 25 (15-37) IU/L ALT 30 (14-63) IU/L Alkaline Phosphatase 339 H (46-116) U/L Troponin I 0.054 (0.000-0.056) ng/mL B-Natriuretic Peptide (<100) PG/ML Total Protein 7.8 (6.4-8.2) g/dL Albumin 3.1 L (3.4-5.0) g/dL Globulin 4.7 H (2.6-4.0) g/dL Albumin/Globulin Ratio 0.7 L (0.9-1.6) 11/20/18 Range/Units 22:20 WBC (4.0-11.0) K/uL RBC (4.50-5.90) M/uL Hgb (13.0-17.0) g/dL Hct (38.0-50.0) % MCV (80.0-98.0) fL MCH (27.0-32.0) pg MCHC (31.0-37.0) g/dL RDW Std Deviation (28.0-62.0) fl RDW Coeff of [place] (11.0-15.0) % Plt Count (150-400) K/uL MPV (7.40-12.00) fL Neut % (Auto) (48.0-80.0) % Lymph % (Auto) (16.0-40.0) % [place] % (Auto) (0.0-15.0) % Eos % (Auto) (0.0-7.0) % Baso % (Auto) (0.0-1.5) % Neut # (Auto) (1.4-5.7) K/uL Lymph # (Auto) (0.6-2.4) K/uL [place] # (Auto) (0.0-0.8) K/uL Eos # (Auto) (0.0-0.7) K/uL Baso # (Auto) (0.0-0.1) K/uL Nucleated RBC % /100WBC Nucleated RBCs # K/uL INR Sodium (136-148) mmol/L Potassium (3.5-5.1) mmol/L Chloride (98-107) mmol/L Carbon Dioxide (21.0-32.0) mmol/L BUN (7.0-18.0) mg/dL Creatinine (0.8-1.3) mg/dL Est Cr Clr Drug Dosing mL/min Estimated GFR (MDRD) ml/min Glucose (74-106) mg/dL Calcium (8.5-10.1) mg/dL Total Bilirubin (0.2-1.0) mg/dL AST (15-37) IU/L ALT (14-63) IU/L Alkaline Phosphatase (46-116) U/L Troponin I (0.000-0.056) ng/mL B-Natriuretic Peptide 784 H (<100) PG/ML Total Protein (6.4-8.2) g/dL Albumin (3.4-5.0) g/dL Globulin (2.6-4.0) g/dL Albumin/Globulin Ratio (0.9-1.6) Meds: Medications Generic Name Dose Route Start Last Admin Trade Name Freq PRN Reason Stop Dose Admin Sodium Chloride 10 ml 11/20/18 22:14 11/20/18 22:40 Saline Flush FLUSH 10 ml ASDIRECTED PRN Administration Keep Vein Open Sodium Chloride 2.5 ml 11/20/18 22:14 11/20/18 22:40 Saline Flush FLUSH 2.5 ml ASDIRECTED PRN Administration Keep Vein Open Discontinued Medications Generic Name Dose Route Start Last Admin Trade Name Freq PRN Reason Stop Dose Admin Aspirin 324 mg 11/20/18 22:14 11/20/18 22:31 Aspirin PO 11/20/18 22:15 324 mg ONETIME ONE Administration Furosemide 40 mg 11/20/18 22:14 11/20/18 22:33 Lasix IVPUSH 11/20/18 22:15 40 mg NOW ONE Administration Nitroglycerin 1 gm 11/20/18 22:14 11/20/18 22:39 Nitro-Bid 2% TOP 11/20/18 22:15 1 gm ONETIME ONE Administration Potassium Chloride 40 meq 11/20/18 23:15 Klor-Con M20 PO 11/20/18 23:16 ONETIME ONE Departure - Departure Time of Disposition: 23:25 Disposition: Refer to Observation Condition: Good Clinical Impression: Congestive heart failure, History of diabetes mellitus, History of hypertension - Discharge Information Referrals: PCP,None [Primary Care Provider] - Forms: ED Department Discharge - My Orders Last 24 Hours: My Active Orders 11/20/18 22:13 Cardiac Monitoring [RC] . DIRECTED EKG Documentation Completion [RC] STAT Oxygen Therapy, ED [RC] ASDIRECTED Saline Lock Insert [OM.PC] Stat 11/20/18 22:14 Sodium Chloride 0.9% [Saline Flush] 10 ml FLUSH ASDIRECTED PRN Sodium Chloride 0.9% [Saline Flush] 2.5 ml FLUSH ASDIRECTED PRN - Assessment/Plan Last 24 Hours: My Active Orders 11/20/18 22:13 Cardiac Monitoring [RC] . DIRECTED EKG Documentation Completion [RC] STAT Oxygen Therapy, ED [RC] ASDIRECTED Saline Lock Insert [OM.PC] Stat 11/20/18 22:14 Sodium Chloride 0.9% [Saline Flush] 10 ml FLUSH ASDIRECTED PRN Sodium Chloride 0.9% [Saline Flush] 2.5 ml FLUSH ASDIRECTED PRN
[2018-11-20] MEDS ORDERED: Potassium Chloride 20 MEQ Tab.ER PO ONE (23:15)
--- NOTE | 2018-11-20 23:20 | CR ---
Indication: Shortness of breath Technique: Chest 1 view Comparison: November 16, 2018 Findings/Impression: Stable cardiomegaly. Left-sided AICD again noted. Mild pulmonary venous congestion, unchanged. No new focal infiltrate, effusion, or pneumothorax. Dictated by Isaura Coleman MD @ Nov 20 2018 11:17PM Signed by Dr. Isaura Coleman @ Nov 20 2018 11:19PM
[2018-11-21] MEDS ORDERED: Potassium Chloride 20 MEQ Tab.ER ONE (01:21)
[2018-11-21] MEDS ORDERED: Potassium Chloride 20 MEQ Tab.ER PO ONE ×2 (01:22→13:15)
[2018-11-21] MEDS ORDERED: Albuterol/Ipratropium 3.0-0.5 MG/3 ML Neb Soln NEB PRN (02:18)
[2018-11-21] MEDS: Insulin Aspart 100 Units/ML 3 ML Pen SUBCUT SCH ×3 (06:29→16:32)
[2018-11-21] MEDS: Furosemide 40 MG/4 ML VIAL IVPUSH SCH ×2 (08:16→13:42)
[2018-11-21] MEDS ORDERED: Sodium Chloride 0.9% 2.5 ML Syringe FLUSH PRN (09:00)
[2018-11-21] MEDS ORDERED: Sodium Chloride 0.9% 10 ML Syringe FLUSH PRN (09:00)
[2018-11-21] MEDS ORDERED: Insulin Glargine,Human Rec. Analog 100 Units/ML 3 ML Pen SUBCUT SCH ×2 (09:00→21:00)
[2018-11-21] MEDS ORDERED: Ondansetron 4 MG/2 ML SDV IVPUSH PRN (09:00)
[2018-11-21] MEDS ORDERED: Acetaminophen 325 MG Tab PO PRN (09:00)
[2018-11-21] MEDS ORDERED: Morphine 2 MG/ML Syringe IVPUSH PRN (09:00)
[2018-11-21] MEDS: Potassium Chloride 20 MEQ Tab.ER PO SCH ×2 (09:55→20:35)
[2018-11-21] MEDS: Carvedilol 6.25 MG Tab PO SCH ×2 (09:56→20:34)
[2018-11-21] MEDS: Enoxaparin 40 MG/0.4 ML Syringe SUBCUT SCH (09:56)
--- NOTE | 2018-11-21 12:07 | PCM.HP ---
H&P History of Present Illness - General Date of Service: 11/21/18 Admit Problem/Dx: Admission Diagnosis/Problem Admission Diagnosis/Problem Congestive heart failure - History of Present Illness Initial Comments - Free Text/Narative: This is a 62 year old male with a significant pmhx of DM, HTN, CHF with history of exacerbations who is being admitted secondary to acute CHF exacerbations. Pt states he has been hacingw worsening shortness of breath at resent and on exertion, orthopnea, and increased swelling of bilateral lower extremities. Pt states symptoms have been on going for the past 5-7 days. - Related Data Allergies/Adverse Reactions: Allergies Allergy/AdvReac Type Severity Reaction Status Date / Time No Known Allergies Allergy Verified 11/21/18 00:11 Home Medications: Home Meds Aspirin [Halfprin] 81 mg PO DAILY 09/29/15 [History] Insulin Glarg,Human.Rec.Analog [Lantus] 40 unit SUBCUT BID 09/29/15 [History] Tamsulosin [Flomax] 0.4 mg PO BEDTIME 09/29/15 [History] Ticagrelor [Brilinta] 90 mg PO BID 09/29/15 [History] atorvaSTATin Calcium [Atorvastatin Calcium] 40 mg PO BEDTIME 01/02/16 [History] Carvedilol 6.25 mg PO BID 07/12/17 [History] Docusate Sodium/Sennosides [Senna Plus] 1 tab PO BID 07/12/17 [History] Ferrous Sulfate [Feosol] 325 mg PO TIDMEALS 07/12/17 [History] Nitroglycerin [Nitrostat] 0.4 mg SL ASDIRECTED PRN MDD 3 tablets 07/12/17 [ History] metOLazone [Metolazone] 2.5 mg PO MOWEFR 07/12/17 [History] Insulin Aspart [NovoLOG] See Protocol SQ TIDAC #1 pen 11/03/17 [Rx] Amitriptyline [Elavil] 50 mg PO BEDTIME 05/17/18 [History] Budesonide/Formoterol Fumarate [Symbicort 160-4.5 Mcg Inhaler] 2 puff INH BID PRN 05/17/18 [History] Cholecalciferol (Vitamin D3) [Vitamin D3] 1 tab PO DAILY 05/17/18 [History] Albuterol [Proventil Neb Soln] 0.63 mg NEB Q6HRRT 05/18/18 [History] LORazepam 1 mg PO BID PRN 05/18/18 [History] Furosemide [Lasix] 60 mg PO BIDDIURETIC 60 Days #90 tablet 05/21/18 [Rx] Acetaminophen/HYDROcodone [[place] 325-5 MG] 1 tab PO ASDIRECTED PRN 11/16/18 [ History] Meloxicam 15 mg PO DAILY 11/16/18 [History] Past Medical History - Past Health History Medical/Surgical History: Denies Medical/Surgical History HEENT History: Reports: None Cardiovascular History: Reports: Heart Failure, Hypertension, Pacemaker Respiratory History: Reports: COPD Other Respiratory History: CPAP Gastrointestinal History: Reports: None Genitourinary History: Reports: BPH Musculoskeletal History: Reports: None Neurological History: Reports: Other (See Below) Other Neuro History: stroke Psychiatric History: Reports: None Endocrine/Metabolic History: Reports: Diabetes, Type II Hematologic History: Reports: None Immunologic History: Reports: None Oncologic (Cancer) History: Reports: None Dermatologic History: Reports: None - Infectious Disease History Infectious Disease History: Reports: None - Past Surgical History Head Surgeries/Procedures: Reports: None HEENT Surgical History: Reports: None Cardiovascular Surgical History: Reports: Other (See Below) Other Cardiovascular Surgeries/Procedures: multiple stent Respiratory Surgical History: Reports: None GI Surgical History: Reports: Other (See Below) Male Surgical History: Reports: None Endocrine Surgical History: Reports: None Neurological Surgical History: Reports: None Musculoskeletal Surgical History: Reports: None Oncologic Surgical History: Reports: None Dermatological Surgical History: Reports: None Social & Family History - Family History Family Medical History: Noncontributory HEENT: Reports: None Cardiac: Reports: None Respiratory: Reports: None GI: Reports: None : Reports: None OBGYN: Reports: None Musculoskeletal: Reports: None Neurological: Reports: None Endocrine/Metabolic: Reports: Diabetes, type II Hematologic: Reports: None Immunologic: Reports: None Oncologic: Reports: Colon - Tobacco Use Smoking Status *Q: Never Smoker Second Hand Smoke Exposure: No - Caffeine Use Caffeine Use: Reports: None Other Caffeine Use: 1 can daily - Recreational Drug Use Recreational Drug Use: No H&P Review of Systems - Review of Systems: Review Of Systems: ROS reveals no pertinent complaints other than HPI. Exam - Exam Exam: See Below - Vital Signs Vital Signs: Last Vital Signs Temp 36.6 C 11/21/18 11:59 Pulse 76 11/21/18 11:59 Resp 16 11/21/18 11:59 BP 139/89 11/21/18 11:59 Pulse Ox 98 11/21/18 11:59 Weight: 135.624 kg - Exam Quality Assessment: Supplemental Oxygen General: Alert, Oriented, Cooperative, Mild Distress Lungs: Normal Respiratory Effort, Decreased Breath Sounds, Crackles, Rhonchi Cardiovascular: Regular Rate, Regular Rhythm Extremities: Pedal Edema - Patient Data Lab Results Last 24 hrs: Laboratory Results - last 24 hr 11/20/18 11/20/18 11/20/18 Range/Units 22:20 22:20 22:20 WBC 8.53 (4.0-11.0) K/uL RBC 5.42 (4.50-5.90) M/uL Hgb 14.4 (13.0-17.0) g/dL Hct 44.2 (38.0-50.0) % MCV 81.5 (80.0-98.0) fL MCH 26.6 L (27.0-32.0) pg MCHC 32.6 (31.0-37.0) g/dL RDW Std Deviation 59.9 (28.0-62.0) fl RDW Coeff of [place] 20 H (11.0-15.0) % Plt Count 150 (150-400) K/uL MPV 9.20 (7.40-12.00) fL Neut % (Auto) 79.6 (48.0-80.0) % Lymph % (Auto) 11.1 L (16.0-40.0) % [place] % (Auto) 7.9 (0.0-15.0) % Eos % (Auto) 1.2 (0.0-7.0) % Baso % (Auto) 0.2 (0.0-1.5) % Neut # (Auto) 6.8 H (1.4-5.7) K/uL Lymph # (Auto) 1.0 (0.6-2.4) K/uL [place] # (Auto) 0.7 (0.0-0.8) K/uL Eos # (Auto) 0.1 (0.0-0.7) K/uL Baso # (Auto) 0.0 (0.0-0.1) K/uL Nucleated RBC % 0.0 /100WBC Nucleated RBCs # 0 K/uL INR 1.16 Sodium 135 L (136-148) mmol/L Potassium 2.9 L (3.5-5.1) mmol/L Chloride 98 (98-107) mmol/L Carbon Dioxide 27.1 (21.0-32.0) mmol/L BUN 27 H (7.0-18.0) mg/dL Creatinine 1.6 H (0.8-1.3) mg/dL Est Cr Clr Drug Dosing 51.87 mL/min Estimated GFR (MDRD) 43.9 ml/min Glucose 314 H (74-106) mg/dL POC Glucose (60-110) mg/dL Calcium 8.7 (8.5-10.1) mg/dL Magnesium (1.8-2.4) mg/dL Total Bilirubin 2.1 H (0.2-1.0) mg/dL AST 25 (15-37) IU/L ALT 30 (14-63) IU/L Alkaline Phosphatase 339 H (46-116) U/L Troponin I 0.054 (0.000-0.056) ng/mL B-Natriuretic Peptide (<100) PG/ML Total Protein 7.8 (6.4-8.2) g/dL Albumin 3.1 L (3.4-5.0) g/dL Globulin 4.7 H (2.6-4.0) g/dL Albumin/Globulin Ratio 0.7 L (0.9-1.6) 11/20/18 11/20/18 11/21/18 Range/Units 22:20 22:20 05:58 WBC 8.57 (4.0-11.0) K/uL RBC 5.26 (4.50-5.90) M/uL Hgb 13.9 (13.0-17.0) g/dL Hct 42.8 (38.0-50.0) % MCV 81.4 (80.0-98.0) fL MCH 26.4 L (27.0-32.0) pg MCHC 32.5 (31.0-37.0) g/dL RDW Std Deviation 59.0 (28.0-62.0) fl RDW Coeff of [place] 20 H (11.0-15.0) % Plt Count 155 (150-400) K/uL MPV 9.20 (7.40-12.00) fL Neut % (Auto) 80.1 H (48.0-80.0) % Lymph % (Auto) 10.4 L (16.0-40.0) % [place] % (Auto) 8.6 (0.0-15.0) % Eos % (Auto) 0.8 (0.0-7.0) % Baso % (Auto) 0.1 (0.0-1.5) % Neut # (Auto) 6.9 H (1.4-5.7) K/uL Lymph # (Auto) 0.9 (0.6-2.4) K/uL [place] # (Auto) 0.7 (0.0-0.8) K/uL Eos # (Auto) 0.1 (0.0-0.7) K/uL Baso # (Auto) 0.0 (0.0-0.1) K/uL Nucleated RBC % 0.0 /100WBC Nucleated RBCs # 0 K/uL INR Sodium (136-148) mmol/L Potassium (3.5-5.1) mmol/L Chloride (98-107) mmol/L Carbon Dioxide (21.0-32.0) mmol/L BUN (7.0-18.0) mg/dL Creatinine (0.8-1.3) mg/dL Est Cr Clr Drug Dosing mL/min Estimated GFR (MDRD) ml/min Glucose (74-106) mg/dL POC Glucose (60-110) mg/dL Calcium (8.5-10.1) mg/dL Magnesium 2.0 (1.8-2.4) mg/dL Total Bilirubin (0.2-1.0) mg/dL AST (15-37) IU/L ALT (14-63) IU/L Alkaline Phosphatase (46-116) U/L Troponin I (0.000-0.056) ng/mL B-Natriuretic Peptide 784 H (<100) PG/ML Total Protein (6.4-8.2) g/dL Albumin (3.4-5.0) g/dL Globulin (2.6-4.0) g/dL Albumin/Globulin Ratio (0.9-1.6) 11/21/18 11/21/18 Range/Units 05:58 06:14 WBC (4.0-11.0) K/uL RBC (4.50-5.90) M/uL Hgb (13.0-17.0) g/dL Hct (38.0-50.0) % MCV (80.0-98.0) fL MCH (27.0-32.0) pg MCHC (31.0-37.0) g/dL RDW Std Deviation (28.0-62.0) fl RDW Coeff of [place] (11.0-15.0) % Plt Count (150-400) K/uL MPV (7.40-12.00) fL Neut % (Auto) (48.0-80.0) % Lymph % (Auto) (16.0-40.0) % [place] % (Auto) (0.0-15.0) % Eos % (Auto) (0.0-7.0) % Baso % (Auto) (0.0-1.5) % Neut # (Auto) (1.4-5.7) K/uL Lymph # (Auto) (0.6-2.4) K/uL [place] # (Auto) (0.0-0.8) K/uL Eos # (Auto) (0.0-0.7) K/uL Baso # (Auto) (0.0-0.1) K/uL Nucleated RBC % /100WBC Nucleated RBCs # K/uL INR Sodium 137 (136-148) mmol/L Potassium 3.0 L (3.5-5.1) mmol/L Chloride 100 (98-107) mmol/L Carbon Dioxide 29.7 (21.0-32.0) mmol/L BUN 27 H (7.0-18.0) mg/dL Creatinine 1.4 H (0.8-1.3) mg/dL Est Cr Clr Drug Dosing 61.03 mL/min Estimated GFR (MDRD) 51.2 ml/min Glucose 130 H (74-106) mg/dL POC Glucose 120 H (60-110) mg/dL Calcium 9.1 (8.5-10.1) mg/dL Magnesium (1.8-2.4) mg/dL Total Bilirubin (0.2-1.0) mg/dL AST (15-37) IU/L ALT (14-63) IU/L Alkaline Phosphatase (46-116) U/L Troponin I (0.000-0.056) ng/mL B-Natriuretic Peptide (<100) PG/ML Total Protein (6.4-8.2) g/dL Albumin (3.4-5.0) g/dL Globulin (2.6-4.0) g/dL Albumin/Globulin Ratio (0.9-1.6) Result Diagrams: 11/21/18 05:58 11/21/18 05:58 Problem List Initiated/Reviewed/Updated: Yes Orders Last 24hrs: Active Orders 24 hr Category Date Time Status Patient Status [ADT] Stat ADT 11/20/18 23:26 Active Blood Glucose Check, Bedside [RC] QIDACANDBED Care 11/21/18 09:04 Active Height and Weight [RC] DAILY Care 11/21/18 09:00 Active Intake and Output Strict [RC] Q12H Care 11/21/18 09:04 Active Intake and Output [RC] Q12H Care 11/21/18 09:01 Active Oxygen Therapy [RC] PRN Care 11/21/18 09:01 Active Pulse Oximetry [RC] PRN Care 11/21/18 09:01 Active RT Aerosol Therapy [RC] ASDIRECTED Care 11/21/18 02:19 Active Telemetry Monitoring [Cardiac Monitoring] [RC] Q8H Care 11/20/18 23:40 Active Up With Assistance [RC] ASDIRECTED Care 11/21/18 09:00 Active VTE/DVT Education [RC] PER UNIT ROUTINE Care 11/21/18 09:01 Active Vital Signs [RC] Q4H Care 11/21/18 09:01 Active 2 Gram Sodium Diet [DIET] Diet 11/21/18 Breakfast Active ADA Diabetic [[place] [employer] Diet] [DIET Diet 11/21/18 Breakfast Active ] Fluid Restriction [DIET] Diet 11/21/18 Lunch Active Acetaminophen [Tylenol] Med 11/21/18 09:00 Active 650 mg PO Q4H PRN Albuterol/Ipratropium [DuoNeb 3.0-0.5 MG/3 ML] Med 11/21/18 02:18 Active 3 ml NEB Q4HRRT PRN Carvedilol [Coreg] Med 11/21/18 09:15 Active 6.25 mg PO BID Enoxaparin [Lovenox] Med 11/21/18 09:00 Active 40 mg SUBCUT Q24H Furosemide [Lasix] Med 11/21/18 08:00 Active 40 mg IVPUSH BIDDIURETIC Insulin Aspart [NovoLOG] Med 11/21/18 07:30 Active See Protocol SUBCUT TIDAC Insulin Glarg,Human.Rec.Analog [LantUS Solostar] Med 11/21/18 21:00 Active 40 units SUBCUT BEDTIME Insulin Glarg,Human.Rec.Analog [LantUS Solostar] Med 11/21/18 09:00 Active 42 units SUBCUT DAILY Morphine Med 11/21/18 09:00 Active 2 mg IVPUSH Q2H PRN Ondansetron [Zofran] Med 11/21/18 09:00 Active 4 mg IVPUSH Q4H PRN Potassium Chloride [Klor-Con M20] Med 11/21/18 09:00 Active 40 meq PO BID Sodium Chloride 0.9% [Saline Flush] Med 11/20/18 22:14 Active 10 ml FLUSH ASDIRECTED PRN Sodium Chloride 0.9% [Saline Flush] Med 11/21/18 09:00 Active 10 ml FLUSH ASDIRECTED PRN Sodium Chloride 0.9% [Saline Flush] Med 11/20/18 22:14 Active 2.5 ml FLUSH ASDIRECTED PRN Sodium Chloride 0.9% [Saline Flush] Med 11/21/18 09:00 Active 2.5 ml FLUSH ASDIRECTED PRN Peripheral IV Insertion Adult [OM.PC] Routine Oth 11/21/18 09:00 Ordered Saline Lock Insert [OM.PC] Routine Oth 11/21/18 09:00 Ordered Saline Lock Insert [OM.PC] Stat Oth 11/20/18 22:13 Ordered Medication Orders Acetaminophen (Tylenol) 650 mg PO Q4H PRN PRN Reason: Pain (Mild 1-3)/fever Albuterol/Ipratropium (Duoneb 3.0-0.5 Mg/3 Ml) 3 ml NEB Q4HRRT PRN PRN Reason: Shortness of Breath Last Admin: 11/21/18 02:28 Dose: 3 ml Carvedilol (Coreg) 6.25 mg PO BID [facility] Last Admin: 11/21/18 09:56 Dose: 6.25 mg Enoxaparin Sodium (Lovenox) 40 mg SUBCUT Q24H [facility] Last Admin: 11/21/18 09:56 Dose: 40 mg Furosemide (Lasix) 40 mg IVPUSH BIDDIURETIC [facility] Last Admin: 11/21/18 08:16 Dose: 40 mg Insulin Aspart (Novolog) 0 unit SUBCUT TIDAC [facility]; Protocol Last Admin: 11/21/18 06:29 Dose: Not Given Insulin Glargine (Lantus Solostar) 42 units SUBCUT DAILY [facility] Last Admin: 11/21/18 08:24 Dose: 42 units Insulin Glargine (Lantus Solostar) 40 units SUBCUT BEDTIME [facility] Morphine Sulfate (Morphine) 2 mg IVPUSH Q2H PRN PRN Reason: Pain (severe 7-10) Stop: 11/22/18 09:01 Ondansetron HCl (Zofran) 4 mg IVPUSH Q4H PRN PRN Reason: Nausea/Vomiting Potassium Chloride (Klor-Con M20) 40 meq PO BID [facility] Last Admin: 11/21/18 09:55 Dose: 40 meq Sodium Chloride (Saline Flush) 10 ml FLUSH ASDIRECTED PRN PRN Reason: Keep Vein Open Last Admin: 11/20/18 22:40 Dose: 10 ml Sodium Chloride (Saline Flush) 2.5 ml FLUSH ASDIRECTED PRN PRN Reason: Keep Vein Open Last Admin: 11/20/18 22:40 Dose: 2.5 ml Sodium Chloride (Saline Flush) 10 ml FLUSH ASDIRECTED PRN PRN Reason: Keep Vein Open Sodium Chloride (Saline Flush) 2.5 ml FLUSH ASDIRECTED PRN PRN Reason: Keep Vein Open Assessment/Plan Comment:: 62 year old male presenting with symptoms of shortness of breath/dyspnea at rest and exertion, orthopnea for the past week secondary to acute excerbation of CHF. Pt to get lasix's bid, fluid restrictions, dietary NA restriction. Strict I & O, daily weights. Restart pts home dose of Carvedilol. Replace Potassium for pts hypokalemia
[2018-11-21] MEDS: BRILINTA 90 MG PO SCH (20:42)
[2018-11-21] MEDS ORDERED: Amitriptyline 25 MG Tab PO SCH (21:00)
[2018-11-21] MEDS ORDERED: atorvaSTATin 40 MG Tab PO SCH (21:00)
[2018-11-21] MEDS ORDERED: Tamsulosin 0.4 MG Cap.ER PO SCH (21:00)
[2018-11-22] MEDS: Insulin Aspart 100 Units/ML 3 ML Pen SUBCUT SCH ×2 (07:56→12:21)
[2018-11-22] MEDS: Potassium Chloride 20 MEQ Tab.ER PO SCH (08:25)
[2018-11-22] MEDS: Carvedilol 6.25 MG Tab PO SCH (08:25)
[2018-11-22] MEDS: Furosemide 40 MG/4 ML VIAL IVPUSH SCH (08:26)
[2018-11-22] MEDS: Enoxaparin 40 MG/0.4 ML Syringe SUBCUT SCH (08:26)
[2018-11-22] MEDS: BRILINTA 90 MG PO SCH (08:32)
[2018-11-22] MEDS ORDERED: Insulin Glargine,Human Rec. Analog 100 Units/ML 3 ML Pen SUBCUT SCH (09:00)
--- NOTE | 2018-11-22 11:29 | PCM.DCSUM1 ---
Discharge Summary - Discharge Data Discharge Disposition: Home, Self-Care 01 Condition: Fair - Patient Instructions Diet: Heart Healthy Diet, Low Sodium Activity: As Tolerated Driving: Do Not Drive Showering/Bathing: May Shower Notify Provider of: Fever, Increased Pain, Swelling and Redness, Drainage, Nausea and/or Vomiting - Discharge Plan Home Medications: Home Meds Aspirin [Halfprin] 81 mg PO DAILY 09/29/15 [History] Insulin Glarg,Human.Rec.Analog [Lantus] 40 unit SUBCUT BID 09/29/15 [History] Tamsulosin [Flomax] 0.4 mg PO BEDTIME 09/29/15 [History] Ticagrelor [Brilinta] 90 mg PO BID 09/29/15 [History] atorvaSTATin Calcium [Atorvastatin Calcium] 40 mg PO BEDTIME 01/02/16 [History] Carvedilol 6.25 mg PO BID 07/12/17 [History] Docusate Sodium/Sennosides [Senna Plus] 1 tab PO BID 07/12/17 [History] Ferrous Sulfate [Feosol] 325 mg PO TIDMEALS 07/12/17 [History] Nitroglycerin [Nitrostat] 0.4 mg SL ASDIRECTED PRN MDD 3 tablets 07/12/17 [ History] metOLazone [Metolazone] 2.5 mg PO MOWEFR 07/12/17 [History] Insulin Aspart [NovoLOG] See Protocol SQ TIDAC #1 pen 11/03/17 [Rx] Amitriptyline [Elavil] 50 mg PO BEDTIME 05/17/18 [History] Budesonide/Formoterol Fumarate [Symbicort 160-4.5 Mcg Inhaler] 2 puff INH BID PRN 05/17/18 [History] Cholecalciferol (Vitamin D3) [Vitamin D3] 1 tab PO DAILY 05/17/18 [History] Albuterol [Proventil Neb Soln] 0.63 mg NEB Q6HRRT 05/18/18 [History] LORazepam 1 mg PO BID PRN 05/18/18 [History] Furosemide [Lasix] 60 mg PO BIDDIURETIC 60 Days #90 tablet 05/21/18 [Rx] Acetaminophen/HYDROcodone [[place] 325-5 MG] 1 tab PO ASDIRECTED PRN 11/16/18 [ History] Meloxicam 15 mg PO DAILY 11/16/18 [History] Patient Handouts: Heart Failure, Logo-[id number], Form - Daily Weight Record Referrals: Amparo Hinkle MD [Physician] - - Patient Data Vitals - Most Recent: Last Vital Signs Temp 36.1 C 11/22/18 07:00 Pulse 67 11/22/18 08:25 Resp 18 11/22/18 07:00 BP 142/92 H 11/22/18 08:25 Pulse Ox 100 11/22/18 09:01 Weight - Most Recent: 131.134 kg I&O - Last 24 hours: Intake & Output 11/21/18 11/22/18 11/22/18 22:59 06:59 14:59 Intake Total 300 750 Output Total 2460 975 Balance -2160 -225 Lab Results - Last 24 hrs: Laboratory Results - last 24 hr 11/21/18 11/21/18 11/21/18 Range/Units 11:48 16:00 20:15 WBC (4.0-11.0) K/uL RBC (4.50-5.90) M/uL Hgb (13.0-17.0) g/dL Hct (38.0-50.0) % MCV (80.0-98.0) fL MCH (27.0-32.0) pg MCHC (31.0-37.0) g/dL RDW Std Deviation (28.0-62.0) fl RDW Coeff of [place] (11.0-15.0) % Plt Count (150-400) K/uL MPV (7.40-12.00) fL Neut % (Auto) (48.0-80.0) % Lymph % (Auto) (16.0-40.0) % [place] % (Auto) (0.0-15.0) % Eos % (Auto) (0.0-7.0) % Baso % (Auto) (0.0-1.5) % Neut # (Auto) (1.4-5.7) K/uL Lymph # (Auto) (0.6-2.4) K/uL [place] # (Auto) (0.0-0.8) K/uL Eos # (Auto) (0.0-0.7) K/uL Baso # (Auto) (0.0-0.1) K/uL Nucleated RBC % /100WBC Nucleated RBCs # K/uL Sodium 139 (136-148) mmol/L Potassium 3.2 L (3.5-5.1) mmol/L Chloride 100 (98-107) mmol/L Carbon Dioxide 28.0 (21.0-32.0) mmol/L BUN 33 H (7.0-18.0) mg/dL Creatinine 1.5 H (0.8-1.3) mg/dL Est Cr Clr Drug Dosing 56.97 mL/min Estimated GFR (MDRD) 47.3 ml/min Glucose 131 H (74-106) mg/dL POC Glucose 102 116 H (60-110) mg/dL Calcium 9.0 (8.5-10.1) mg/dL Phosphorus (2.6-4.7) mg/dL Magnesium (1.8-2.4) mg/dL Total Bilirubin (0.2-1.0) mg/dL AST (15-37) IU/L ALT (14-63) IU/L Alkaline Phosphatase (46-116) U/L Total Protein (6.4-8.2) g/dL Albumin (3.4-5.0) g/dL Globulin (2.6-4.0) g/dL Albumin/Globulin Ratio (0.9-1.6) 11/21/18 11/22/18 11/22/18 Range/Units 20:38 04:30 04:50 WBC (4.0-11.0) K/uL RBC (4.50-5.90) M/uL Hgb (13.0-17.0) g/dL Hct (38.0-50.0) % MCV (80.0-98.0) fL MCH (27.0-32.0) pg MCHC (31.0-37.0) g/dL RDW Std Deviation (28.0-62.0) fl RDW Coeff of [place] (11.0-15.0) % Plt Count (150-400) K/uL MPV (7.40-12.00) fL Neut % (Auto) (48.0-80.0) % Lymph % (Auto) (16.0-40.0) % [place] % (Auto) (0.0-15.0) % Eos % (Auto) (0.0-7.0) % Baso % (Auto) (0.0-1.5) % Neut # (Auto) (1.4-5.7) K/uL Lymph # (Auto) (0.6-2.4) K/uL [place] # (Auto) (0.0-0.8) K/uL Eos # (Auto) (0.0-0.7) K/uL Baso # (Auto) (0.0-0.1) K/uL Nucleated RBC % /100WBC Nucleated RBCs # K/uL Sodium (136-148) mmol/L Potassium (3.5-5.1) mmol/L Chloride (98-107) mmol/L Carbon Dioxide (21.0-32.0) mmol/L BUN (7.0-18.0) mg/dL Creatinine (0.8-1.3) mg/dL Est Cr Clr Drug Dosing mL/min Estimated GFR (MDRD) ml/min Glucose (74-106) mg/dL POC Glucose 115 H 52 L 78 (60-110) mg/dL Calcium (8.5-10.1) mg/dL Phosphorus (2.6-4.7) mg/dL Magnesium (1.8-2.4) mg/dL Total Bilirubin (0.2-1.0) mg/dL AST (15-37) IU/L ALT (14-63) IU/L Alkaline Phosphatase (46-116) U/L Total Protein (6.4-8.2) g/dL Albumin (3.4-5.0) g/dL Globulin (2.6-4.0) g/dL Albumin/Globulin Ratio (0.9-1.6) 11/22/18 11/22/18 11/22/18 Range/Units 05:30 05:30 05:31 WBC 8.57 (4.0-11.0) K/uL RBC 5.41 (4.50-5.90) M/uL Hgb 14.3 (13.0-17.0) g/dL Hct 44.0 (38.0-50.0) % MCV 81.3 (80.0-98.0) fL MCH 26.4 L (27.0-32.0) pg MCHC 32.5 (31.0-37.0) g/dL RDW Std Deviation 60.3 (28.0-62.0) fl RDW Coeff of [place] 21 H (11.0-15.0) % Plt Count 142 L (150-400) K/uL MPV 9.60 (7.40-12.00) fL Neut % (Auto) 82.3 H (48.0-80.0) % Lymph % (Auto) 9.1 L (16.0-40.0) % [place] % (Auto) 7.2 (0.0-15.0) % Eos % (Auto) 1.3 (0.0-7.0) % Baso % (Auto) 0.1 (0.0-1.5) % Neut # (Auto) 7.1 H (1.4-5.7) K/uL Lymph # (Auto) 0.8 (0.6-2.4) K/uL [place] # (Auto) 0.6 (0.0-0.8) K/uL Eos # (Auto) 0.1 (0.0-0.7) K/uL Baso # (Auto) 0.0 (0.0-0.1) K/uL Nucleated RBC % 0.0 /100WBC Nucleated RBCs # 0 K/uL Sodium 141 (136-148) mmol/L Potassium 3.2 L (3.5-5.1) mmol/L Chloride 102 (98-107) mmol/L Carbon Dioxide 28.2 (21.0-32.0) mmol/L BUN 35 H (7.0-18.0) mg/dL Creatinine 1.5 H (0.8-1.3) mg/dL Est Cr Clr Drug Dosing 56.97 mL/min Estimated GFR (MDRD) 47.3 ml/min Glucose 92 (74-106) mg/dL POC Glucose 84 (60-110) mg/dL Calcium 9.0 (8.5-10.1) mg/dL Phosphorus (2.6-4.7) mg/dL Magnesium (1.8-2.4) mg/dL Total Bilirubin 2.6 H (0.2-1.0) mg/dL AST 26 (15-37) IU/L ALT 25 (14-63) IU/L Alkaline Phosphatase 317 H (46-116) U/L Total Protein 7.3 (6.4-8.2) g/dL Albumin 2.8 L (3.4-5.0) g/dL Globulin 4.5 H (2.6-4.0) g/dL Albumin/Globulin Ratio 0.6 L (0.9-1.6) 11/22/18 11/22/18 11/22/18 Range/Units 06:18 08:05 08:33 WBC (4.0-11.0) K/uL RBC (4.50-5.90) M/uL Hgb (13.0-17.0) g/dL Hct (38.0-50.0) % MCV (80.0-98.0) fL MCH (27.0-32.0) pg MCHC (31.0-37.0) g/dL RDW Std Deviation (28.0-62.0) fl RDW Coeff of [place] (11.0-15.0) % Plt Count (150-400) K/uL MPV (7.40-12.00) fL Neut % (Auto) (48.0-80.0) % Lymph % (Auto) (16.0-40.0) % [place] % (Auto) (0.0-15.0) % Eos % (Auto) (0.0-7.0) % Baso % (Auto) (0.0-1.5) % Neut # (Auto) (1.4-5.7) K/uL Lymph # (Auto) (0.6-2.4) K/uL [place]ender # (Auto) (0.0-0.8) K/uL Eos # (Auto) (0.0-0.7) K/uL Baso # (Auto) (0.0-0.1) K/uL Nucleated RBC % /100WBC Nucleated RBCs # K/uL Sodium (136-148) mmol/L Potassium (3.5-5.1) mmol/L Chloride (98-107) mmol/L Carbon Dioxide (21.0-32.0) mmol/L BUN (7.0-18.0) mg/dL Creatinine (0.8-1.3) mg/dL Est Cr Clr Drug Dosing mL/min Estimated GFR (MDRD) ml/min Glucose (74-106) mg/dL POC Glucose 120 H 159 H (60-110) mg/dL Calcium (8.5-10.1) mg/dL Phosphorus 5.0 H (2.6-4.7) mg/dL Magnesium 2.4 (1.8-2.4) mg/dL Total Bilirubin (0.2-1.0) mg/dL AST (15-37) IU/L ALT (14-63) IU/L Alkaline Phosphatase (46-116) U/L Total Protein (6.4-8.2) g/dL Albumin (3.4-5.0) g/dL Globulin (2.6-4.0) g/dL Albumin/Globulin Ratio (0.9-1.6) Med Orders - Current: Current Medications Acetaminophen (Tylenol) 650 mg PO Q4H PRN PRN Reason: Pain (Mild 1-3)/fever Albuterol/Ipratropium (Duoneb 3.0-0.5 Mg/3 Ml) 3 ml NEB Q4HRRT PRN PRN Reason: Shortness of Breath Last Admin: 11/21/18 02:28 Dose: 3 ml Amitriptyline HCl (Elavil) 50 mg PO BEDTIME [facility] Last Admin: 11/21/18 20:35 Dose: 50 mg Atorvastatin Calcium (Lipitor) 40 mg PO BEDTIME [facility] Last Admin: 11/21/18 20:34 Dose: 40 mg Carvedilol (Coreg) 6.25 mg PO BID [facility] Last Admin: 11/22/18 08:25 Dose: 6.25 mg Enoxaparin Sodium (Lovenox) 40 mg SUBCUT Q24H [facility] Last Admin: 11/22/18 08:26 Dose: 40 mg Furosemide (Lasix) 40 mg IVPUSH BIDDIURETIC [facility] Last Admin: 11/22/18 08:26 Dose: 40 mg Insulin Aspart (Novolog) 0 unit SUBCUT TIDAC [facility]; Protocol Last Admin: 11/22/18 07:56 Dose: Not Given Insulin Glargine (Lantus Solostar) 20 units SUBCUT BID [facility] Brilinta 90 MgOwn (Med) 90 mg PO BID [facility] Last Admin: 11/22/18 08:32 Dose: 90 mg Ondansetron HCl (Zofran) 4 mg IVPUSH Q4H PRN PRN Reason: Nausea/Vomiting Potassium Chloride (Klor-Con M20) 40 meq PO BID [facility] Last Admin: 11/22/18 08:25 Dose: 40 meq Sodium Chloride (Saline Flush) 10 ml FLUSH ASDIRECTED PRN PRN Reason: Keep Vein Open Last Admin: 11/20/18 22:40 Dose: 10 ml Sodium Chloride (Saline Flush) 2.5 ml FLUSH ASDIRECTED PRN PRN Reason: Keep Vein Open Last Admin: 11/20/18 22:40 Dose: 2.5 ml Sodium Chloride (Saline Flush) 10 ml FLUSH ASDIRECTED PRN PRN Reason: Keep Vein Open Sodium Chloride (Saline Flush) 2.5 ml FLUSH ASDIRECTED PRN PRN Reason: Keep Vein Open Tamsulosin HCl (Flomax) 0.4 mg PO BEDTIME [facility] Last Admin: 11/21/18 20:34 Dose: 0.4 mg Discontinued Medications Aspirin (Aspirin) 324 mg PO ONETIME ONE Stop: 11/20/18 22:15 Last Admin: 11/20/18 22:31 Dose: 324 mg Furosemide (Lasix) 40 mg IVPUSH NOW ONE Stop: 11/20/18 22:15 Last Admin: 11/20/18 22:33 Dose: 40 mg Insulin Glargine (Lantus Solostar) 42 units SUBCUT DAILY [facility] Last Admin: 11/21/18 08:24 Dose: 42 units Insulin Glargine (Lantus Solostar) 40 units SUBCUT BEDTIME [facility] Last Admin: 11/21/18 20:39 Dose: 40 unit Morphine Sulfate (Morphine) 2 mg IVPUSH Q2H PRN PRN Reason: Pain (severe 7-10) Stop: 11/22/18 09:01 Nitroglycerin (Nitro-Bid 2%) 1 gm TOP ONETIME ONE Stop: 11/20/18 22:15 Last Admin: 11/20/18 22:39 Dose: 1 gm Potassium Chloride (Klor-Con M20) 40 meq PO ONETIME ONE Stop: 11/20/18 23:16 Last Admin: 11/20/18 23:34 Dose: 40 meq Potassium Chloride (Klor-Con M20) 20 meq PO ONETIME ONE Stop: 11/21/18 13:16 Potassium Chloride (Klor-Con M20) 20 meq PO ONETIME ONE Stop: 11/21/18 01:23 Last Admin: 11/21/18 01:26 Dose: 20 meq Potassium Chloride (Klor-Con M20) Confirm Administered Dose 20 meq .ROUTE .STK- MED ONE Stop: 11/21/18 01:22 Last Admin: 11/21/18 01:26 Dose: Not Given
[2018-11-22 11:53] VITALS: BP 142/95
== END 2018-11-22 13:40 | disposition home or self-care (01) ==
LOC: MW.ED 22:04 → MW.MS 23:26
PROVIDERS: ADMIT Internal Medicine; ATTEND Internal Medicine
DX: I11.0 Hypertensive heart disease with heart failure (principal); I50.9 Heart failure, unspecified; E11.9 Type 2 diabetes mellitus without complications; J44.9 Chronic obstructive pulmonary disease, unspecified; Z79.82 Long term (current) use of aspirin; Z79.4 Long term (current) use of insulin; Z79.899 Other long term (current) drug therapy; Z95.0 Presence of cardiac pacemaker
CPT/HCPCS: 36415; 71045; 80048; 80053; 82962; 83735; 83880; 84100; 84484; 85025; 85610; 93005; 96372; 96374; 96376; 99285; A9270; G0378; J1650; J1815; J1940; J7620-GY

== ENCOUNTER 2018-12-03 14:33 | Inpatient (IN) | payer MEDICARE, MEDICAID, OTHER ==
[2018-12-03] MEDS ORDERED: Sodium Chloride 0.9% 1,000 ML IV ONE (14:34)
[2018-12-03] MEDS ORDERED: 50% Dextrose in Water 50 ML Syringe IVPUSH ONE ×2 (14:34→16:40)
[2018-12-03] MEDS ORDERED: Sodium Chloride 0.9% 10 ML Syringe FLUSH PRN ×2 (14:35→15:27)
[2018-12-03] MEDS ORDERED: Sodium Chloride 0.9% 2.5 ML Syringe FLUSH PRN ×2 (14:35→15:27)
[2018-12-03] MEDS ORDERED: Nitroglycerin 2% Oint 1 GM UD Packet TOP ONE (14:43)
--- NOTE | 2018-12-03 14:43 | EDM.PDOC ---
ED HPI GENERAL MEDICAL PROBLEM - General Stated Complaint: CHEST PAIN Time Seen by Provider: 12/03/18 14:37 Source of Information: Reports: Patient History Limitations: Reports: No Limitations - History of Present Illness INITIAL COMMENTS - FREE TEXT/NARRATIVE: HISTORY AND PHYSICAL: History of present illness: Patient is a 63-year-old male who presents to the emergency room by EMS with complaints of chest pain. Patient had called his who is currently in [place] stating he has having midsternal chest pain and shortness of breath. She was concerned as he sounded drowsy on the phone. She had called EMS to do a welfare check on him. Upon EMS arrival patient had already given himself 2 doses of sublingual nitroglycerin without any relief. EMS had given 2 additional doses of nitroglycerin and 324 mg of chewable aspirin. Patient continues to have midsternal chest pain, shortness of breath and feels fatigued. Patient has a past medical history of type 2 diabetes with longstanding insulin use, hypertension, IN with stents, congestive heart failure and has a pacemaker. He was recently admitted to our hospital on 11/21/18 for congestive heart failure exacerbation. Patient's director underwriter sales is Dr. Esteban at [facility] in [place], but is unable to tell me the last time he was evaluated. Patient reports that he does have a cardiology appointment with our director underwriter sales, Dr. Asher in approximately 10 days. Review of systems: As per history of present illness and below otherwise all systems reviewed and negative. Past medical history: As per history of present illness and as reviewed below otherwise noncontributory. Surgical history: As per history of present illness and as reviewed below otherwise noncontributory. Social history: See social history for further information Family history: As per history of present illness and as reviewed below otherwise noncontributory. Physical exam: General: Well developed and well-nourished 63-year-old male. He is alert, drowsy-appearing and in mild discomfort. HEENT: Atraumatic, normocephalic, pupils equal and reactive bilaterally, negative for conjunctival pallor or scleral icterus, mucous membranes moist, TMs normal bilaterally, throat clear, neck supple, nontender, trachea midline. No drooling or trismus noted. No meningeal signs. No hot potato voice noted. Lungs: Clear to auscultation, breath sounds equal bilaterally, chest nontender. Heart: S1S2, regular rate and rhythm without overt murmur Abdomen: Soft, obese, multiple bruises of various healing stages to abdomen from medications injections, nontender. Negative for masses. Old abdominal scares noted. Negative for costovertebral tenderness. Pelvis: Stable nontender. Genitourinary: Deferred. Rectal: Deferred. Skin: Intact, warm, dry. No lesions or rashes noted. Extremities: Atraumatic, moves all extremities per self without difficulty or deficits. Patient has +2 pitting edema to bilateral lower extremities negative for cords or calf pain. Neurovascular unremarkable. Neuro: Awake, alert, oriented. Cranial nerves II through XII unremarkable. Cerebellum unremarkable. Motor and sensory unremarkable throughout. Exam nonfocal. Notes: Blood sugar upon arrival was 50. One amp of D50 was given IV and patient's alertness has improved significantly. He now rates his pain 2/10. 1500: Patient is currently pain free. Vital signs remain stable. Dr. Archer was consult did on this patient. He is agreeable to keeping this patient for observation with telemetry. Patient is aware and agreeable to plan of care. He continues to be pain-free. Vital signs remain stable. Diagnostics: CBC, CMP, BNP, troponin, one view chest, EKG Therapeutics: 1 amp of D50, nitroglycerin topical, IV fluid Impression: Hypoglycemic event Chest pain rule out IN Plan: Observation admission to [facility] with telemetry Definitive disposition and diagnosis as appropriate pending reevaluation and review of above. Chest Pain Score (Numeric/FACES): 8 - Related Data Allergies Allergy/AdvReac Type Severity Reaction Status Date / Time No Known Allergies Allergy Verified 12/03/18 14:40 Home Meds: Home Meds Aspirin [Halfprin] 81 mg PO DAILY 09/29/15 [History] Insulin Glarg,Human.Rec.Analog [Lantus] 40 unit SUBCUT BID 09/29/15 [History] Tamsulosin [Flomax] 0.4 mg PO BEDTIME 09/29/15 [History] Ticagrelor [Brilinta] 90 mg PO BID 09/29/15 [History] atorvaSTATin Calcium [Atorvastatin Calcium] 40 mg PO BEDTIME 01/02/16 [History] Carvedilol 6.25 mg PO BID 07/12/17 [History] Docusate Sodium/Sennosides [Senna Plus] 1 tab PO BID 07/12/17 [History] Ferrous Sulfate [Feosol] 325 mg PO TIDMEALS 07/12/17 [History] Nitroglycerin [Nitrostat] 0.4 mg SL ASDIRECTED PRN MDD 3 tablets 07/12/17 [ History] metOLazone [Metolazone] 2.5 mg PO MOWEFR 07/12/17 [History] Insulin Aspart [NovoLOG] See Protocol SQ TIDAC #1 pen 11/03/17 [Rx] Amitriptyline [Elavil] 50 mg PO BEDTIME 05/17/18 [History] Budesonide/Formoterol Fumarate [Symbicort 160-4.5 Mcg Inhaler] 2 puff INH BID PRN 05/17/18 [History] Cholecalciferol (Vitamin D3) [Vitamin D3] 1 tab PO DAILY 05/17/18 [History] Albuterol [Proventil Neb Soln] 0.63 mg NEB Q6HRRT 05/18/18 [History] LORazepam 1 mg PO BID PRN 05/18/18 [History] Furosemide [Lasix] 60 mg PO BIDDIURETIC 60 Days #90 tablet 05/21/18 [Rx] Acetaminophen/HYDROcodone [[place] 325-5 MG] 1 tab PO ASDIRECTED PRN 11/16/18 [ History] Meloxicam 15 mg PO DAILY 11/16/18 [History] Past Medical History - Past Health History Medical/Surgical History: Denies Medical/Surgical History HEENT History: Reports: None Cardiovascular History: Reports: Heart Failure, Hypertension, Pacemaker Respiratory History: Reports: COPD Other Respiratory History: CPAP Gastrointestinal History: Reports: None Genitourinary History: Reports: BPH Musculoskeletal History: Reports: None Neurological History: Reports: Other (See Below) Other Neuro History: stroke Psychiatric History: Reports: None Endocrine/Metabolic History: Reports: Diabetes, Type II Hematologic History: Reports: None Immunologic History: Reports: None Oncologic (Cancer) History: Reports: None Dermatologic History: Reports: None - Infectious Disease History Infectious Disease History: Reports: None - Past Surgical History Head Surgeries/Procedures: Reports: None HEENT Surgical History: Reports: None Cardiovascular Surgical History: Reports: Other (See Below) Other Cardiovascular Surgeries/Procedures: multiple stent Respiratory Surgical History: Reports: None GI Surgical History: Reports: Other (See Below) Male Surgical History: Reports: None Endocrine Surgical History: Reports: None Neurological Surgical History: Reports: None Musculoskeletal Surgical History: Reports: None Oncologic Surgical History: Reports: None Dermatological Surgical History: Reports: None Social & Family History - Family History Family Medical History: Noncontributory HEENT: Reports: None Cardiac: Reports: None Respiratory: Reports: None GI: Reports: None : Reports: None OBGYN: Reports: None Musculoskeletal: Reports: None Neurological: Reports: None Endocrine/Metabolic: Reports: Diabetes, type II Hematologic: Reports: None Immunologic: Reports: None Oncologic: Reports: Colon - Caffeine Use Caffeine Use: Reports: None Other Caffeine Use: 1 can daily ED ROS GENERAL - Review of Systems Review Of Systems: ROS reveals no pertinent complaints other than HPI. ED EXAM, GENERAL - Physical Exam Exam: See Below (See dictation) Course - Vital Signs Last Recorded V/S: Last Vital Signs Temp 97 F 12/03/18 20:00 Pulse 60 12/03/18 20:00 Resp 20 12/03/18 20:00 BP 144/86 H 12/03/18 20:00 Pulse Ox 98 12/03/18 20:00 - Orders/Labs/Meds Orders: Active Orders 24 hr Category Date Time Status Admission Status [Patient Status] [ADT] Stat ADT 12/03/18 15:16 Active Blood Glucose Check, Bedside [RC] ONETIME Care 12/03/18 15:02 Active Blood Glucose Check, Bedside [RC] QIDACANDBED Care 12/03/18 15:27 Active EKG Documentation Completion [RC] STAT Care 12/03/18 14:35 Active Height and Weight [RC] DAILY Care 12/03/18 15:27 Active Intake and Output [RC] QSHIFT Care 12/03/18 15:27 Active Oxygen Therapy [RC] PRN Care 12/03/18 15:27 Active Pulse Oximetry [RC] PRN Care 12/03/18 15:27 Active Up With Assistance [RC] ASDIRECTED Care 12/03/18 15:27 Active VTE/DVT Education [RC] PER UNIT ROUTINE Care 12/03/18 15:27 Active Vital Signs [RC] Q4H Care 12/03/18 15:27 Active PT Evaluation and Treatment [CONS] Routine Cons 12/03/18 15:27 Active [employer] Diet [DIET] Diet 12/03/18 Breakfast Active CBC WITH AUTO DIFF [HEME] AM Lab 12/04/18 05:11 Ordered COMPREHENSIVE METABOLIC PN,CMP [CHEM] AM Lab 12/04/18 05:11 Ordered TROPONIN I [CHEM] Q6H Lab 12/03/18 20:16 Received TROPONIN I [CHEM] Q6H Lab 12/04/18 03:30 Ordered Acetaminophen [Tylenol] Med 12/03/18 15:27 Active 650 mg PO Q4H PRN Morphine Med 12/03/18 15:27 Active 2 mg IVPUSH Q2H PRN Ondansetron [Zofran] Med 12/03/18 15:27 Active 4 mg IVPUSH Q4H PRN Sodium Chloride 0.9% [Normal Saline] Med 12/03/18 15:27 Active 10 ml IV ASDIRECTED PRN Sodium Chloride 0.9% [Normal Saline] 1,000 ml Med 12/03/18 14:34 Active IV STAT Sodium Chloride 0.9% [Saline Flush] Med 12/03/18 14:35 Active 10 ml FLUSH ASDIRECTED PRN Sodium Chloride 0.9% [Saline Flush] Med 12/03/18 15:27 Active 10 ml FLUSH ASDIRECTED PRN Sodium Chloride 0.9% [Saline Flush] Med 12/03/18 14:35 Active 2.5 ml FLUSH ASDIRECTED PRN Sodium Chloride 0.9% [Saline Flush] Med 12/03/18 15:27 Active 2.5 ml FLUSH ASDIRECTED PRN Peripheral IV Insertion Adult [OM.PC] Routine Oth 12/03/18 15:27 Ordered Saline Lock Insert [OM.PC] Stat Oth 12/03/18 14:35 Ordered Medication Orders Acetaminophen (Tylenol) 650 mg PO Q4H PRN PRN Reason: Pain (Mild 1-3)/fever Amitriptyline HCl (Elavil) 50 mg PO BEDTIME LUIZA Aspirin (Halfprin) 81 mg PO DAILY LUIZA Atorvastatin Calcium (Lipitor) 40 mg PO BEDTIME LUIZA Budesonide/Formoterol Fumarate (Symbicort 160-4.5 Mcg) gm INH BID PRN PRN Reason: Shortness of Breath Carvedilol (Coreg) 6.25 mg PO BIDMEALS [facility] Last Admin: 12/03/18 17:43 Dose: 6.25 mg Sodium Chloride (Normal Saline) 1,000 mls @ 125 mls/hr IV STAT ONE Stop: 12/03/18 22:33 Last Admin: 12/03/18 14:51 Dose: 125 mls/hr Insulin Aspart (Novolog) 0 unit SUBCUT TIDAC [facility]; Protocol Lorazepam (Ativan) 1 mg PO BID PRN PRN Reason: tremors Morphine Sulfate (Morphine) 2 mg IVPUSH Q2H PRN PRN Reason: Pain (severe 7-10) Stop: 12/04/18 15:27 Non-Formulary Medication (Metolazone) 2.5 mg PO MOWEFR [facility] Non-Formulary Medication (Ticagrelor [Brilinta]) 90 mg PO BID LUIZA Ondansetron HCl (Zofran) 4 mg IVPUSH Q4H PRN PRN Reason: Nausea/Vomiting Sodium Chloride (Saline Flush) 10 ml FLUSH ASDIRECTED PRN PRN Reason: Keep Vein Open Last Admin: 12/03/18 16:51 Dose: 10 ml Sodium Chloride (Saline Flush) 2.5 ml FLUSH ASDIRECTED PRN PRN Reason: Keep Vein Open Sodium Chloride (Saline Flush) 10 ml FLUSH ASDIRECTED PRN PRN Reason: Keep Vein Open Sodium Chloride (Saline Flush) 2.5 ml FLUSH ASDIRECTED PRN PRN Reason: Keep Vein Open Sodium Chloride (Normal Saline) 10 ml IV ASDIRECTED PRN PRN Reason: IV Use Tamsulosin HCl (Flomax) 0.4 mg PO BEDTIME [facility] Labs: Laboratory Tests 12/03/18 12/03/18 12/03/18 Range/Units 14:34 14:34 14:34 WBC 6.40 (4.0-11.0) K/uL RBC 5.09 (4.50-5.90) M/uL Hgb 13.6 (13.0-17.0) g/dL Hct 41.5 (38.0-50.0) % MCV 81.5 (80.0-98.0) fL MCH 26.7 L (27.0-32.0) pg MCHC 32.8 (31.0-37.0) g/dL RDW Std Deviation 60.6 (28.0-62.0) fl RDW Coeff of [place] 20 H (11.0-15.0) % Plt Count 107 L (150-400) K/uL MPV 9.20 (7.40-12.00) fL Neut % (Auto) 74.4 (48.0-80.0) % Lymph % (Auto) 14.1 L (16.0-40.0) % Oliver % (Auto) 9.5 (0.0-15.0) % Eos % (Auto) 1.7 (0.0-7.0) % Baso % (Auto) 0.3 (0.0-1.5) % Neut # (Auto) 4.8 (1.4-5.7) K/uL Lymph # (Auto) 0.9 (0.6-2.4) K/uL Oliver # (Auto) 0.6 (0.0-0.8) K/uL Eos # (Auto) 0.1 (0.0-0.7) K/uL Baso # (Auto) 0.0 (0.0-0.1) K/uL Nucleated RBC % 0.0 /100WBC Nucleated RBCs # 0 K/uL INR 1.22 Sodium 136 (136-148) mmol/L Potassium 3.4 L (3.5-5.1) mmol/L Chloride 102 (98-107) mmol/L Carbon Dioxide 26.0 (21.0-32.0) mmol/L BUN 34 H (7.0-18.0) mg/dL Creatinine 1.5 H (0.8-1.3) mg/dL Est Cr Clr Drug Dosing TNP Estimated GFR (MDRD) 47.1 ml/min Glucose 56 L (74-106) mg/dL Calcium 8.8 (8.5-10.1) mg/dL Magnesium (1.8-2.4) mg/dL Total Bilirubin 2.6 H (0.2-1.0) mg/dL AST 32 (15-37) IU/L ALT 25 (14-63) IU/L Alkaline Phosphatase 376 H (46-116) U/L Troponin I < 0.050 (0.000-0.056) ng/mL B-Natriuretic Peptide (<100) PG/ML Total Protein 7.3 (6.4-8.2) g/dL Albumin 2.9 L (3.4-5.0) g/dL Globulin 4.4 H (2.6-4.0) g/dL Albumin/Globulin Ratio 0.7 L (0.9-1.6) 12/03/18 12/03/18 Range/Units 14:34 14:34 WBC (4.0-11.0) K/uL RBC (4.50-5.90) M/uL Hgb (13.0-17.0) g/dL Hct (38.0-50.0) % MCV (80.0-98.0) fL MCH (27.0-32.0) pg MCHC (31.0-37.0) g/dL RDW Std Deviation (28.0-62.0) fl RDW Coeff of [place] (11.0-15.0) % Plt Count (150-400) K/uL MPV (7.40-12.00) fL Neut % (Auto) (48.0-80.0) % Lymph % (Auto) (16.0-40.0) % Oliver % (Auto) (0.0-15.0) % Eos % (Auto) (0.0-7.0) % Baso % (Auto) (0.0-1.5) % Neut # (Auto) (1.4-5.7) K/uL Lymph # (Auto) (0.6-2.4) K/uL Oliver # (Auto) (0.0-0.8) K/uL Eos # (Auto) (0.0-0.7) K/uL Baso # (Auto) (0.0-0.1) K/uL Nucleated RBC % /100WBC Nucleated RBCs # K/uL INR Sodium (136-148) mmol/L Potassium (3.5-5.1) mmol/L Chloride (98-107) mmol/L Carbon Dioxide (21.0-32.0) mmol/L BUN (7.0-18.0) mg/dL Creatinine (0.8-1.3) mg/dL Est Cr Clr Drug Dosing Estimated GFR (MDRD) ml/min Glucose (74-106) mg/dL Calcium (8.5-10.1) mg/dL Magnesium 2.4 (1.8-2.4) mg/dL Total Bilirubin (0.2-1.0) mg/dL AST (15-37) IU/L ALT (14-63) IU/L Alkaline Phosphatase (46-116) U/L Troponin I (0.000-0.056) ng/mL B-Natriuretic Peptide 299 H (<100) PG/ML Total Protein (6.4-8.2) g/dL Albumin (3.4-5.0) g/dL Globulin (2.6-4.0) g/dL Albumin/Globulin Ratio (0.9-1.6) Meds: Medications Generic Name Dose Route Start Last Admin Trade Name Freq PRN Reason Stop Dose Admin Acetaminophen 650 mg 12/03/18 15:27 Tylenol PO Q4H PRN Pain (Mild 1-3)/fever Amitriptyline HCl 50 mg 12/03/18 21:00 Elavil PO BEDTIME [facility] Aspirin 81 mg 12/04/18 09:00 Halfprin PO DAILY [facility] Atorvastatin Calcium 40 mg 12/03/18 21:00 Lipitor PO BEDTIME [facility] Budesonide/Formoterol Fumarate gm 12/03/18 19:09 Symbicort 160-4.5 Mcg INH BID PRN Shortness of Breath Carvedilol 6.25 mg 12/03/18 17:30 12/03/18 17:43 Coreg PO 6.25 mg BIDMEALS [facility] Administration Sodium Chloride 1,000 mls @ 125 mls/hr 12/03/18 14:34 12/03/18 14:51 Normal Saline IV 12/03/18 22:33 125 mls/hr STAT ONE Administration Insulin Aspart 0 unit 12/04/18 07:30 [facility] Protocol Lorazepam 1 mg 12/03/18 19:09 Ativan PO BID PRN tremors Morphine Sulfate 2 mg 12/03/18 15:27 Morphine IVPUSH 12/04/18 15:27 Q2H PRN Pain (severe 7-10) Non-Formulary Medication 2.5 mg 12/05/18 19:09 Metolazone PO MOWEFR [facility] Non-Formulary Medication 90 mg 12/03/18 21:00 Ticagrelor [Brilinta] PO BID LUIZA Ondansetron HCl 4 mg 12/03/18 15:27 Zofran IVPUSH Q4H PRN Nausea/Vomiting Sodium Chloride 10 ml 12/03/18 14:35 12/03/18 16:51 Saline Flush FLUSH 10 ml ASDIRECTED PRN Administration Keep Vein Open Sodium Chloride 2.5 ml 12/03/18 14:35 Saline Flush FLUSH ASDIRECTED PRN Keep Vein Open Sodium Chloride 10 ml 12/03/18 15:27 Saline Flush FLUSH ASDIRECTED PRN Keep Vein Open Sodium Chloride 2.5 ml 12/03/18 15:27 Saline Flush FLUSH ASDIRECTED PRN Keep Vein Open Sodium Chloride 10 ml 12/03/18 15:27 Normal Saline IV ASDIRECTED PRN IV Use Tamsulosin HCl 0.4 mg 12/03/18 21:00 Flomax PO BEDTIME LUIZA Discontinued Medications Generic Name Dose Route Start Last Admin Trade Name Freq PRN Reason Stop Dose Admin Dextrose/Water 50 ml 12/03/18 14:34 12/03/18 14:50 Dextrose 50% In Water IVPUSH 12/03/18 14:35 50 ml ONETIME ONE Administration Dextrose/Water 50 ml 12/03/18 16:40 12/03/18 16:50 Dextrose 50% In Water IVPUSH 12/03/18 16:41 50 ml ONETIME ONE Administration Furosemide 40 mg 12/03/18 17:13 12/03/18 17:43 Lasix IVPUSH 12/03/18 17:14 40 mg NOW ONE Administration Nitroglycerin 1 gm 12/03/18 14:43 12/03/18 15:01 Nitro-Bid 2% TOP 12/03/18 14:44 1 gm ONETIME ONE Administration Potassium Chloride 40 meq 12/03/18 17:59 12/03/18 18:09 Klor-Con M20 PO 12/03/18 18:00 40 meq ONETIME ONE Administration Departure - Departure Time of Disposition: 15:20 Disposition: Refer to Observation Clinical Impression: Hypoglycemia, Chest pain, rule out acute myocardial infarction - My Orders Last 24 Hours: My Active Orders 12/03/18 14:34 Sodium Chloride 0.9% [Normal Saline] 1,000 ml IV STAT 12/03/18 14:35 EKG Documentation Completion [RC] STAT Sodium Chloride 0.9% [Saline Flush] 10 ml FLUSH ASDIRECTED PRN Sodium Chloride 0.9% [Saline Flush] 2.5 ml FLUSH ASDIRECTED PRN Saline Lock Insert [OM.PC] Stat 12/03/18 15:02 Blood Glucose Check, Bedside [RC] ONETIME 12/03/18 15:16 Admission Status [Patient Status] [ADT] Stat - Assessment/Plan Last 24 Hours: My Active Orders 12/03/18 14:34 Sodium Chloride 0.9% [Normal Saline] 1,000 ml IV STAT 12/03/18 14:35 EKG Documentation Completion [RC] STAT Sodium Chloride 0.9% [Saline Flush] 10 ml FLUSH ASDIRECTED PRN Sodium Chloride 0.9% [Saline Flush] 2.5 ml FLUSH ASDIRECTED PRN Saline Lock Insert [OM.PC] Stat 12/03/18 15:02 Blood Glucose Check, Bedside [RC] ONETIME 12/03/18 15:16 Admission Status [Patient Status] [ADT] Stat
[2018-12-03 15:09] LABS: CHLORIDE,CL 102 mmol/L (98-107); SODIUM,NA 136 mmol/L (136-148)
[2018-12-03] MEDS ORDERED: Sodium Chloride 0.9% 10 ML SDV IV PRN (15:27)
[2018-12-03] MEDS ORDERED: Morphine 10 MG/ML Syringe IVPUSH PRN (15:27)
[2018-12-03] MEDS ORDERED: Acetaminophen 325 MG Tab PO PRN (15:27)
[2018-12-03] MEDS ORDERED: Ondansetron 4 MG/2 ML SDV IVPUSH PRN (15:27)
--- NOTE | 2018-12-03 15:28 | CR ---
INDICATION: Chest pain. COMPARISON: 20 November 2018. TECHNIQUE: One view. FINDINGS: Low lung volumes. Motion. Crowding of bronchovascular markings. Upper normal size cardiomediastinal silhouette for AP projection. Pulmonary vessels somewhat indistinct and may be plump. Query mild volume overload or congestive failure. Cardiac pacing body and transvenous wires unchanged. No definite acute focal pneumonia. Dictated by Saul Galvan MD @ Dec 03 2018 3:26PM Signed by Dr. Saul Galvan @ Dec 03 2018 3:27PM
[2018-12-03] MEDS ORDERED: Furosemide 40 MG/4 ML VIAL IVPUSH ONE (17:13)
[2018-12-03] MEDS: Carvedilol 6.25 MG Tab PO SCH (17:43)
--- NOTE | 2018-12-03 17:57 | PCM.HP ---
H&P History of Present Illness - General Date of Service: 12/03/18 Admit Problem/Dx: Admission Diagnosis/Problem Admission Diagnosis/Problem Chest pain, rule out acute myocardial infarction Source of Information: Patient - History of Present Illness Initial Comments - Free Text/Narative: This is a 63-year-old male who was recently discharged at the end of October for congestive heart failure when he was admitted to our service who is presenting today with hypoglycemia and chest pain for acute coronary syndrome rule out. Patient states that he had taken his insulin in the morning however he had not eaten that much and became hypoglycemic along with this he started to have chest pain substernal in nature that was sharp/pressure like patient became worried that he was having a heart attack given his significant cardiovascular history and called his who had the EMS bring him to the hospital. Patient was also noted to be short of breath and have edema of his bilateral lower extremities, patient thinks that he is retaining fluid T does have a significant history of congestive heart failure. His BNP has been done and is still pending per the ER. In the ED the patient was noted to be hypoglycemic was given a amp of D50 and initial appointment was done and was negative. Patient was then subsequently admitted for acute coronary syndrome rule out and management of his hypoglycemia. Chest Pain Score (Numeric/FACES): 8 - Related Data Allergies/Adverse Reactions: Allergies Allergy/AdvReac Type Severity Reaction Status Date / Time No Known Allergies Allergy Verified 12/03/18 14:40 Home Medications: Home Meds Aspirin [Halfprin] 81 mg PO DAILY 09/29/15 [History] Insulin Glarg,Human.Rec.Analog [Lantus] 40 unit SUBCUT BID 09/29/15 [History] Tamsulosin [Flomax] 0.4 mg PO BEDTIME 09/29/15 [History] Ticagrelor [Brilinta] 90 mg PO BID 09/29/15 [History] atorvaSTATin Calcium [Atorvastatin Calcium] 40 mg PO BEDTIME 01/02/16 [History] Carvedilol 6.25 mg PO BID 07/12/17 [History] Docusate Sodium/Sennosides [Senna Plus] 1 tab PO BID 07/12/17 [History] Ferrous Sulfate [Feosol] 325 mg PO TIDMEALS 07/12/17 [History] Nitroglycerin [Nitrostat] 0.4 mg SL ASDIRECTED PRN MDD 3 tablets 07/12/17 [ History] metOLazone [Metolazone] 2.5 mg PO MOWEFR 07/12/17 [History] Insulin Aspart [NovoLOG] See Protocol SQ TIDAC #1 pen 11/03/17 [Rx] Amitriptyline [Elavil] 50 mg PO BEDTIME 05/17/18 [History] Budesonide/Formoterol Fumarate [Symbicort 160-4.5 Mcg Inhaler] 2 puff INH BID PRN 05/17/18 [History] Cholecalciferol (Vitamin D3) [Vitamin D3] 1 tab PO DAILY 05/17/18 [History] Albuterol [Proventil Neb Soln] 0.63 mg NEB Q6HRRT 05/18/18 [History] LORazepam 1 mg PO BID PRN 05/18/18 [History] Furosemide [Lasix] 60 mg PO BIDDIURETIC 60 Days #90 tablet 05/21/18 [Rx] Acetaminophen/HYDROcodone [[place] 325-5 MG] 1 tab PO ASDIRECTED PRN 11/16/18 [ History] Meloxicam 15 mg PO DAILY 11/16/18 [History] Past Medical History - Past Health History Medical/Surgical History: Denies Medical/Surgical History HEENT History: Reports: None Cardiovascular History: Reports: Heart Failure, Hypertension, Pacemaker Respiratory History: Reports: COPD Other Respiratory History: CPAP Gastrointestinal History: Reports: None Genitourinary History: Reports: BPH Musculoskeletal History: Reports: None Neurological History: Reports: Other (See Below) Other Neuro History: stroke Psychiatric History: Reports: None Endocrine/Metabolic History: Reports: Diabetes, Type II Hematologic History: Reports: None Immunologic History: Reports: None Oncologic (Cancer) History: Reports: None Dermatologic History: Reports: None - Infectious Disease History Infectious Disease History: Reports: None - Past Surgical History Head Surgeries/Procedures: Reports: None HEENT Surgical History: Reports: None Cardiovascular Surgical History: Reports: Other (See Below) Other Cardiovascular Surgeries/Procedures: multiple stent Respiratory Surgical History: Reports: None GI Surgical History: Reports: Other (See Below) Male Surgical History: Reports: None Endocrine Surgical History: Reports: None Neurological Surgical History: Reports: None Musculoskeletal Surgical History: Reports: None Oncologic Surgical History: Reports: None Dermatological Surgical History: Reports: None Social & Family History - Family History Family Medical History: Noncontributory HEENT: Reports: None Cardiac: Reports: None Respiratory: Reports: None GI: Reports: None : Reports: None OBGYN: Reports: None Musculoskeletal: Reports: None Neurological: Reports: None Endocrine/Metabolic: Reports: Diabetes, type II Hematologic: Reports: None Immunologic: Reports: None Oncologic: Reports: Colon - Tobacco Use Smoking Status *Q: Never Smoker Second Hand Smoke Exposure: No - Caffeine Use Caffeine Use: Reports: Tea Other Caffeine Use: 1 can daily - Recreational Drug Use Recreational Drug Use: No H&P Review of Systems - Review of Systems: Review Of Systems: ROS reveals no pertinent complaints other than HPI. Exam - Exam Exam: See Below - Vital Signs Vital Signs: Last Vital Signs Temp 35.7 C 12/03/18 16:00 Pulse 60 12/03/18 17:43 Resp 20 12/03/18 16:00 BP 135/92 H 12/03/18 17:43 Pulse Ox 97 12/03/18 16:00 Weight: 136.531 kg - Exam General: Alert, Oriented, Cooperative, Moderate Distress Lungs: Decreased Breath Sounds, Crackles Cardiovascular: Regular Rate GI/Abdominal Exam: Normal Bowel Sounds Extremities: Other (Bilateral lower extremity edema pitting up to the mid tibia) - Patient Data Lab Results Last 24 hrs: Laboratory Results - last 24 hr 12/03/18 12/03/18 12/03/18 Range/Units 14:34 14:34 14:34 WBC 6.40 (4.0-11.0) K/uL RBC 5.09 (4.50-5.90) M/uL Hgb 13.6 (13.0-17.0) g/dL Hct 41.5 (38.0-50.0) % MCV 81.5 (80.0-98.0) fL MCH 26.7 L (27.0-32.0) pg MCHC 32.8 (31.0-37.0) g/dL RDW Std Deviation 60.6 (28.0-62.0) fl RDW Coeff of [place] 20 H (11.0-15.0) % Plt Count 107 L (150-400) K/uL MPV 9.20 (7.40-12.00) fL Neut % (Auto) 74.4 (48.0-80.0) % Lymph % (Auto) 14.1 L (16.0-40.0) % Price % (Auto) 9.5 (0.0-15.0) % Eos % (Auto) 1.7 (0.0-7.0) % Baso % (Auto) 0.3 (0.0-1.5) % Neut # (Auto) 4.8 (1.4-5.7) K/uL Lymph # (Auto) 0.9 (0.6-2.4) K/uL Price # (Auto) 0.6 (0.0-0.8) K/uL Eos # (Auto) 0.1 (0.0-0.7) K/uL Baso # (Auto) 0.0 (0.0-0.1) K/uL Nucleated RBC % 0.0 /100WBC Nucleated RBCs # 0 K/uL INR 1.22 Sodium 136 (136-148) mmol/L Potassium 3.4 L (3.5-5.1) mmol/L Chloride 102 (98-107) mmol/L Carbon Dioxide 26.0 (21.0-32.0) mmol/L BUN 34 H (7.0-18.0) mg/dL Creatinine 1.5 H (0.8-1.3) mg/dL Est Cr Clr Drug Dosing TNP Estimated GFR (MDRD) 47.1 ml/min Glucose 56 L (74-106) mg/dL POC Glucose (60-110) mg/dL Calcium 8.8 (8.5-10.1) mg/dL Magnesium (1.8-2.4) mg/dL Total Bilirubin 2.6 H (0.2-1.0) mg/dL AST 32 (15-37) IU/L ALT 25 (14-63) IU/L Alkaline Phosphatase 376 H (46-116) U/L Troponin I < 0.050 (0.000-0.056) ng/mL B-Natriuretic Peptide (<100) PG/ML Total Protein 7.3 (6.4-8.2) g/dL Albumin 2.9 L (3.4-5.0) g/dL Globulin 4.4 H (2.6-4.0) g/dL Albumin/Globulin Ratio 0.7 L (0.9-1.6) 12/03/18 12/03/18 12/03/18 Range/Units 14:34 14:34 16:05 WBC (4.0-11.0) K/uL RBC (4.50-5.90) M/uL Hgb (13.0-17.0) g/dL Hct (38.0-50.0) % MCV (80.0-98.0) fL MCH (27.0-32.0) pg MCHC (31.0-37.0) g/dL RDW Std Deviation (28.0-62.0) fl RDW Coeff of [place] (11.0-15.0) % Plt Count (150-400) K/uL MPV (7.40-12.00) fL Neut % (Auto) (48.0-80.0) % Lymph % (Auto) (16.0-40.0) % Price % (Auto) (0.0-15.0) % Eos % (Auto) (0.0-7.0) % Baso % (Auto) (0.0-1.5) % Neut # (Auto) (1.4-5.7) K/uL Lymph # (Auto) (0.6-2.4) K/uL Price # (Auto) (0.0-0.8) K/uL Eos # (Auto) (0.0-0.7) K/uL Baso # (Auto) (0.0-0.1) K/uL Nucleated RBC % /100WBC Nucleated RBCs # K/uL INR Sodium (136-148) mmol/L Potassium (3.5-5.1) mmol/L Chloride (98-107) mmol/L Carbon Dioxide (21.0-32.0) mmol/L BUN (7.0-18.0) mg/dL Creatinine (0.8-1.3) mg/dL Est Cr Clr Drug Dosing Estimated GFR (MDRD) ml/min Glucose (74-106) mg/dL POC Glucose 58 L (60-110) mg/dL Calcium (8.5-10.1) mg/dL Magnesium 2.4 (1.8-2.4) mg/dL Total Bilirubin (0.2-1.0) mg/dL AST (15-37) IU/L ALT (14-63) IU/L Alkaline Phosphatase (46-116) U/L Troponin I (0.000-0.056) ng/mL B-Natriuretic Peptide 299 H (<100) PG/ML Total Protein (6.4-8.2) g/dL Albumin (3.4-5.0) g/dL Globulin (2.6-4.0) g/dL Albumin/Globulin Ratio (0.9-1.6) 12/03/18 12/03/18 Range/Units 16:28 17:19 WBC (4.0-11.0) K/uL RBC (4.50-5.90) M/uL Hgb (13.0-17.0) g/dL Hct (38.0-50.0) % MCV (80.0-98.0) fL MCH (27.0-32.0) pg MCHC (31.0-37.0) g/dL RDW Std Deviation (28.0-62.0) fl RDW Coeff of [place] (11.0-15.0) % Plt Count (150-400) K/uL MPV (7.40-12.00) fL Neut % (Auto) (48.0-80.0) % Lymph % (Auto) (16.0-40.0) % Price % (Auto) (0.0-15.0) % Eos % (Auto) (0.0-7.0) % Baso % (Auto) (0.0-1.5) % Neut # (Auto) (1.4-5.7) K/uL Lymph # (Auto) (0.6-2.4) K/uL Price # (Auto) (0.0-0.8) K/uL Eos # (Auto) (0.0-0.7) K/uL Baso # (Auto) (0.0-0.1) K/uL Nucleated RBC % /100WBC Nucleated RBCs # K/uL INR Sodium (136-148) mmol/L Potassium (3.5-5.1) mmol/L Chloride (98-107) mmol/L Carbon Dioxide (21.0-32.0) mmol/L BUN (7.0-18.0) mg/dL Creatinine (0.8-1.3) mg/dL Est Cr Clr Drug Dosing Estimated GFR (MDRD) ml/min Glucose (74-106) mg/dL POC Glucose 52 L 219 H (60-110) mg/dL Calcium (8.5-10.1) mg/dL Magnesium (1.8-2.4) mg/dL Total Bilirubin (0.2-1.0) mg/dL AST (15-37) IU/L ALT (14-63) IU/L Alkaline Phosphatase (46-116) U/L Troponin I (0.000-0.056) ng/mL B-Natriuretic Peptide (<100) PG/ML Total Protein (6.4-8.2) g/dL Albumin (3.4-5.0) g/dL Globulin (2.6-4.0) g/dL Albumin/Globulin Ratio (0.9-1.6) Result Diagrams: 12/03/18 14:34 12/03/18 14:34 Ivan Results Last 24 hrs: Microbiology 12/03/18 14:55 Influenza Type A Antigen Screen - Final Nasopharyngeal Swab NEGATIVE INFLUENZA A VIRUS AG Influenza Type B Antigen Screen - Final NEGATIVE INFLUENZA B VIRUS AG Problem List Initiated/Reviewed/Updated: Yes Orders Last 24hrs: Active Orders 24 hr Category Date Time Status Admission Status [Patient Status] [ADT] Stat ADT 12/03/18 15:16 Active Blood Glucose Check, Bedside [RC] ONETIME Care 12/03/18 15:02 Active Blood Glucose Check, Bedside [RC] QIDACANDBED Care 12/03/18 15:27 Active EKG Documentation Completion [RC] STAT Care 12/03/18 14:35 Active Height and Weight [RC] DAILY Care 12/03/18 15:27 Active Intake and Output [RC] QSHIFT Care 12/03/18 15:27 Active Oxygen Therapy [RC] PRN Care 12/03/18 15:27 Active Pulse Oximetry [RC] PRN Care 12/03/18 15:27 Active Telemetry Monitoring [Cardiac Monitoring] [RC] . Care 12/03/18 15:38 Active DIRECTED Up With Assistance [RC] ASDIRECTED Care 12/03/18 15:27 Active VTE/DVT Education [RC] PER UNIT ROUTINE Care 12/03/18 15:27 Active Vital Signs [RC] Q4H Care 12/03/18 15:27 Active PT Evaluation and Treatment [CONS] Routine Cons 12/03/18 15:27 Active [place] [employer] Diet [DIET] Diet 12/03/18 Breakfast Active CBC WITH AUTO DIFF [HEME] AM Lab 12/04/18 05:11 Ordered COMPREHENSIVE METABOLIC PN,CMP [CHEM] AM Lab 12/04/18 05:11 Ordered TROPONIN I [CHEM] Q6H Lab 12/03/18 20:30 Ordered TROPONIN I [CHEM] Q6H Lab 12/04/18 03:30 Ordered Acetaminophen [Tylenol] Med 12/03/18 15:27 Active 650 mg PO Q4H PRN Carvedilol [Coreg] Med 12/03/18 17:30 Active 6.25 mg PO BIDMEALS Morphine Med 12/03/18 15:27 Active 2 mg IVPUSH Q2H PRN Ondansetron [Zofran] Med 12/03/18 15:27 Active 4 mg IVPUSH Q4H PRN Sodium Chloride 0.9% [Normal Saline] Med 12/03/18 15:27 Active 10 ml IV ASDIRECTED PRN Sodium Chloride 0.9% [Normal Saline] 1,000 ml Med 12/03/18 14:34 Active IV STAT Sodium Chloride 0.9% [Saline Flush] Med 12/03/18 14:35 Active 10 ml FLUSH ASDIRECTED PRN Sodium Chloride 0.9% [Saline Flush] Med 12/03/18 15:27 Active 10 ml FLUSH ASDIRECTED PRN Sodium Chloride 0.9% [Saline Flush] Med 12/03/18 14:35 Active 2.5 ml FLUSH ASDIRECTED PRN Sodium Chloride 0.9% [Saline Flush] Med 12/03/18 15:27 Active 2.5 ml FLUSH ASDIRECTED PRN Peripheral IV Insertion Adult [OM.PC] Routine Oth 12/03/18 15:27 Ordered Saline Lock Insert [OM.PC] Stat Oth 12/03/18 14:35 Ordered Medication Orders Acetaminophen (Tylenol) 650 mg PO Q4H PRN PRN Reason: Pain (Mild 1-3)/fever Carvedilol (Coreg) 6.25 mg PO BIDMEALS LUIZA Last Admin: 12/03/18 17:43 Dose: 6.25 mg Sodium Chloride (Normal Saline) 1,000 mls @ 125 mls/hr IV STAT ONE Stop: 12/03/18 22:33 Last Admin: 12/03/18 14:51 Dose: 125 mls/hr Morphine Sulfate (Morphine) 2 mg IVPUSH Q2H PRN PRN Reason: Pain (severe 7-10) Stop: 12/04/18 15:27 Ondansetron HCl (Zofran) 4 mg IVPUSH Q4H PRN PRN Reason: Nausea/Vomiting Sodium Chloride (Saline Flush) 10 ml FLUSH ASDIRECTED PRN PRN Reason: Keep Vein Open Last Admin: 12/03/18 16:51 Dose: 10 ml Sodium Chloride (Saline Flush) 2.5 ml FLUSH ASDIRECTED PRN PRN Reason: Keep Vein Open Sodium Chloride (Saline Flush) 10 ml FLUSH ASDIRECTED PRN PRN Reason: Keep Vein Open Sodium Chloride (Saline Flush) 2.5 ml FLUSH ASDIRECTED PRN PRN Reason: Keep Vein Open Sodium Chloride (Normal Saline) 10 ml IV ASDIRECTED PRN PRN Reason: IV Use Assessment/Plan Comment:: 63-year-old male with significant cardiovascular history presenting with hypoglycemia, acute chest pain, shortness of breath/dyspnea with bilateral pitting edema. Patient admitted for ACS rule out, mild exacerbation of his congestive heart failure, hypoglycemia secondary to not eating after taking insulin. -Awaiting BNP results, shall give Lasix if needed. -Troponins 3 for acute coronary syndrome rule out, telemetry placed on patient -Patient was noted to continue to be hypoglycemic after being placed on the floor and was given another amp of D50 and his blood sugar now is 190. Shall - place the patient on a low-dose insulin sliding scale and continue to monitor his blood sugars every 4 hours until the normalize.
[2018-12-03] MEDS ORDERED: Potassium Chloride 20 MEQ Tab.ER PO ONE (17:59)
[2018-12-03] MEDS ORDERED: Budesonide/Formoterol 160-4.5 MCG/Puff 6 GM Inhaler INH PRN (19:09)
[2018-12-03] MEDS ORDERED: LORazepam 1 MG Tab PO PRN (19:09)
[2018-12-03] MEDS ORDERED: Morphine 2 MG/ML Syringe IVPUSH PRN (21:12)
[2018-12-03] MEDS: Amitriptyline 25 MG Tab PO SCH (22:28)
[2018-12-03] MEDS: Tamsulosin 0.4 MG Cap.ER PO SCH (22:29)
[2018-12-03] MEDS: atorvaSTATin 40 MG Tab PO SCH (22:29)
[2018-12-04] MEDS: Insulin Aspart 100 Units/ML 3 ML Pen SUBCUT SCH ×4 (06:47→17:45)
[2018-12-04] MEDS: Aspirin 81 MG Tab.EC PO SCH (08:09)
[2018-12-04] MEDS: Carvedilol 6.25 MG Tab PO SCH ×2 (08:10→17:45)
[2018-12-04] MEDS ORDERED: Potassium Chloride 20 MEQ Tab.ER PO ONE (10:24)
--- NOTE | 2018-12-04 10:30 | PCM.PN ---
- General Info Date of Service: 12/04/18 - Review of Systems Systems Review Comment:: feeling better, breathing has improved, but short of breath with walking - Patient Data Vitals - Most Recent: Last Vital Signs Temp 36.9 C 12/04/18 08:00 Pulse 60 12/04/18 08:10 Resp 18 12/04/18 08:00 BP 124/83 12/04/18 08:10 Pulse Ox 100 12/04/18 08:00 Weight - Most Recent: 136.305 kg I&O - Last 24 Hours: Intake & Output 12/03/18 12/04/18 12/04/18 21:59 06:59 14:59 Intake Total Output Total Balance Lab Results Last 24 Hours: Laboratory Results - last 24 hr 12/03/18 12/03/18 12/03/18 Range/Units 14:34 14:34 14:34 WBC 6.40 (4.0-11.0) K/uL RBC 5.09 (4.50-5.90) M/uL Hgb 13.6 (13.0-17.0) g/dL Hct 41.5 (38.0-50.0) % MCV 81.5 (80.0-98.0) fL MCH 26.7 L (27.0-32.0) pg MCHC 32.8 (31.0-37.0) g/dL RDW Std Deviation 60.6 (28.0-62.0) fl RDW Coeff of [place] 20 H (11.0-15.0) % Plt Count 107 L (150-400) K/uL MPV 9.20 (7.40-12.00) fL Neut % (Auto) 74.4 (48.0-80.0) % Lymph % (Auto) 14.1 L (16.0-40.0) % [place] % (Auto) 9.5 (0.0-15.0) % Eos % (Auto) 1.7 (0.0-7.0) % Baso % (Auto) 0.3 (0.0-1.5) % Neut # (Auto) 4.8 (1.4-5.7) K/uL Lymph # (Auto) 0.9 (0.6-2.4) K/uL [place] # (Auto) 0.6 (0.0-0.8) K/uL Eos # (Auto) 0.1 (0.0-0.7) K/uL Baso # (Auto) 0.0 (0.0-0.1) K/uL Nucleated RBC % 0.0 /100WBC Nucleated RBCs # 0 K/uL INR 1.22 Sodium 136 (136-148) mmol/L Potassium 3.4 L (3.5-5.1) mmol/L Chloride 102 (98-107) mmol/L Carbon Dioxide 26.0 (21.0-32.0) mmol/L BUN 34 H (7.0-18.0) mg/dL Creatinine 1.5 H (0.8-1.3) mg/dL Est Cr Clr Drug Dosing TNP Estimated GFR (MDRD) 47.1 ml/min Glucose 56 L (74-106) mg/dL POC Glucose (60-110) mg/dL Calcium 8.8 (8.5-10.1) mg/dL Magnesium (1.8-2.4) mg/dL Total Bilirubin 2.6 H (0.2-1.0) mg/dL AST 32 (15-37) IU/L ALT 25 (14-63) IU/L Alkaline Phosphatase 376 H (46-116) U/L Troponin I < 0.050 (0.000-0.056) ng/mL B-Natriuretic Peptide (<100) PG/ML Total Protein 7.3 (6.4-8.2) g/dL Albumin 2.9 L (3.4-5.0) g/dL Globulin 4.4 H (2.6-4.0) g/dL Albumin/Globulin Ratio 0.7 L (0.9-1.6) 12/03/18 12/03/18 12/03/18 Range/Units 14:34 14:34 16:05 WBC (4.0-11.0) K/uL RBC (4.50-5.90) M/uL Hgb (13.0-17.0) g/dL Hct (38.0-50.0) % MCV (80.0-98.0) fL MCH (27.0-32.0) pg MCHC (31.0-37.0) g/dL RDW Std Deviation (28.0-62.0) fl RDW Coeff of [place] (11.0-15.0) % Plt Count (150-400) K/uL MPV (7.40-12.00) fL Neut % (Auto) (48.0-80.0) % Lymph % (Auto) (16.0-40.0) % [place] % (Auto) (0.0-15.0) % Eos % (Auto) (0.0-7.0) % Baso % (Auto) (0.0-1.5) % Neut # (Auto) (1.4-5.7) K/uL Lymph # (Auto) (0.6-2.4) K/uL [place] # (Auto) (0.0-0.8) K/uL Eos # (Auto) (0.0-0.7) K/uL Baso # (Auto) (0.0-0.1) K/uL Nucleated RBC % /100WBC Nucleated RBCs # K/uL INR Sodium (136-148) mmol/L Potassium (3.5-5.1) mmol/L Chloride (98-107) mmol/L Carbon Dioxide (21.0-32.0) mmol/L BUN (7.0-18.0) mg/dL Creatinine (0.8-1.3) mg/dL Est Cr Clr Drug Dosing Estimated GFR (MDRD) ml/min Glucose (74-106) mg/dL POC Glucose 58 L (60-110) mg/dL Calcium (8.5-10.1) mg/dL Magnesium 2.4 (1.8-2.4) mg/dL Total Bilirubin (0.2-1.0) mg/dL AST (15-37) IU/L ALT (14-63) IU/L Alkaline Phosphatase (46-116) U/L Troponin I (0.000-0.056) ng/mL B-Natriuretic Peptide 299 H (<100) PG/ML Total Protein (6.4-8.2) g/dL Albumin (3.4-5.0) g/dL Globulin (2.6-4.0) g/dL Albumin/Globulin Ratio (0.9-1.6) 12/03/18 12/03/18 12/03/18 Range/Units 16:28 17:19 20:16 WBC (4.0-11.0) K/uL RBC (4.50-5.90) M/uL Hgb (13.0-17.0) g/dL Hct (38.0-50.0) % MCV (80.0-98.0) fL MCH (27.0-32.0) pg MCHC (31.0-37.0) g/dL RDW Std Deviation (28.0-62.0) fl RDW Coeff of [place] (11.0-15.0) % Plt Count (150-400) K/uL MPV (7.40-12.00) fL Neut % (Auto) (48.0-80.0) % Lymph % (Auto) (16.0-40.0) % [place] % (Auto) (0.0-15.0) % Eos % (Auto) (0.0-7.0) % Baso % (Auto) (0.0-1.5) % Neut # (Auto) (1.4-5.7) K/uL Lymph # (Auto) (0.6-2.4) K/uL [place] # (Auto) (0.0-0.8) K/uL Eos # (Auto) (0.0-0.7) K/uL Baso # (Auto) (0.0-0.1) K/uL Nucleated RBC % /100WBC Nucleated RBCs # K/uL INR Sodium (136-148) mmol/L Potassium (3.5-5.1) mmol/L Chloride (98-107) mmol/L Carbon Dioxide (21.0-32.0) mmol/L BUN (7.0-18.0) mg/dL Creatinine (0.8-1.3) mg/dL Est Cr Clr Drug Dosing Estimated GFR (MDRD) ml/min Glucose (74-106) mg/dL POC Glucose 52 L 219 H (60-110) mg/dL Calcium (8.5-10.1) mg/dL Magnesium (1.8-2.4) mg/dL Total Bilirubin (0.2-1.0) mg/dL AST (15-37) IU/L ALT (14-63) IU/L Alkaline Phosphatase (46-116) U/L Troponin I < 0.050 (0.000-0.056) ng/mL B-Natriuretic Peptide (<100) PG/ML Total Protein (6.4-8.2) g/dL Albumin (3.4-5.0) g/dL Globulin (2.6-4.0) g/dL Albumin/Globulin Ratio (0.9-1.6) 12/03/18 12/04/18 12/04/18 Range/Units 21:31 03:28 03:28 WBC 5.67 (4.0-11.0) K/uL RBC 4.96 (4.50-5.90) M/uL Hgb 13.3 (13.0-17.0) g/dL Hct 40.2 (38.0-50.0) % MCV 81.0 (80.0-98.0) fL MCH 26.8 L (27.0-32.0) pg MCHC 33.1 (31.0-37.0) g/dL RDW Std Deviation 60.5 (28.0-62.0) fl RDW Coeff of [place] 20 H (11.0-15.0) % Plt Count 102 L (150-400) K/uL MPV 9.70 (7.40-12.00) fL Neut % (Auto) 79.1 (48.0-80.0) % Lymph % (Auto) 9.9 L (16.0-40.0) % [place] % (Auto) 9.2 (0.0-15.0) % Eos % (Auto) 1.6 (0.0-7.0) % Baso % (Auto) 0.2 (0.0-1.5) % Neut # (Auto) 4.5 (1.4-5.7) K/uL Lymph # (Auto) 0.6 (0.6-2.4) K/uL [place] # (Auto) 0.5 (0.0-0.8) K/uL Eos # (Auto) 0.1 (0.0-0.7) K/uL Baso # (Auto) 0.0 (0.0-0.1) K/uL Nucleated RBC % 0.0 /100WBC Nucleated RBCs # 0 K/uL INR Sodium (136-148) mmol/L Potassium (3.5-5.1) mmol/L Chloride (98-107) mmol/L Carbon Dioxide (21.0-32.0) mmol/L BUN (7.0-18.0) mg/dL Creatinine (0.8-1.3) mg/dL Est Cr Clr Drug Dosing Estimated GFR (MDRD) ml/min Glucose (74-106) mg/dL POC Glucose 225 H (60-110) mg/dL Calcium (8.5-10.1) mg/dL Magnesium (1.8-2.4) mg/dL Total Bilirubin (0.2-1.0) mg/dL AST (15-37) IU/L ALT (14-63) IU/L Alkaline Phosphatase (46-116) U/L Troponin I < 0.050 (0.000-0.056) ng/mL B-Natriuretic Peptide (<100) PG/ML Total Protein (6.4-8.2) g/dL Albumin (3.4-5.0) g/dL Globulin (2.6-4.0) g/dL Albumin/Globulin Ratio (0.9-1.6) 12/04/18 12/04/18 Range/Units 03:28 04:58 WBC (4.0-11.0) K/uL RBC (4.50-5.90) M/uL Hgb (13.0-17.0) g/dL Hct (38.0-50.0) % MCV (80.0-98.0) fL MCH (27.0-32.0) pg MCHC (31.0-37.0) g/dL RDW Std Deviation (28.0-62.0) fl RDW Coeff of [place] (11.0-15.0) % Plt Count (150-400) K/uL MPV (7.40-12.00) fL Neut % (Auto) (48.0-80.0) % Lymph % (Auto) (16.0-40.0) % [place] % (Auto) (0.0-15.0) % Eos % (Auto) (0.0-7.0) % Baso % (Auto) (0.0-1.5) % Neut # (Auto) (1.4-5.7) K/uL Lymph # (Auto) (0.6-2.4) K/uL [place] # (Auto) (0.0-0.8) K/uL Eos # (Auto) (0.0-0.7) K/uL Baso # (Auto) (0.0-0.1) K/uL Nucleated RBC % /100WBC Nucleated RBCs # K/uL INR Sodium 138 (136-148) mmol/L Potassium 3.7 (3.5-5.1) mmol/L Chloride 103 (98-107) mmol/L Carbon Dioxide 25.3 (21.0-32.0) mmol/L BUN 36 H (7.0-18.0) mg/dL Creatinine 1.5 H (0.8-1.3) mg/dL Est Cr Clr Drug Dosing 56.23 Estimated GFR (MDRD) 47.1 ml/min Glucose 163 H (74-106) mg/dL POC Glucose 100 (60-110) mg/dL Calcium 8.6 (8.5-10.1) mg/dL Magnesium (1.8-2.4) mg/dL Total Bilirubin 2.3 H (0.2-1.0) mg/dL AST 26 (15-37) IU/L ALT 25 (14-63) IU/L Alkaline Phosphatase 372 H (46-116) U/L Troponin I (0.000-0.056) ng/mL B-Natriuretic Peptide (<100) PG/ML Total Protein 6.6 (6.4-8.2) g/dL Albumin 2.8 L (3.4-5.0) g/dL Globulin 3.8 (2.6-4.0) g/dL Albumin/Globulin Ratio 0.7 L (0.9-1.6) Ivan Results Last 24 Hours: Microbiology 12/03/18 14:55 Influenza Type A Antigen Screen - Final Nasopharyngeal Swab NEGATIVE INFLUENZA A VIRUS AG Influenza Type B Antigen Screen - Final NEGATIVE INFLUENZA B VIRUS AG Med Orders - Current: Current Medications Acetaminophen (Tylenol) 650 mg PO Q4H PRN PRN Reason: Pain (Mild 1-3)/fever Amitriptyline HCl (Elavil) 50 mg PO BEDTIME [facility] Last Admin: 12/03/18 22:28 Dose: 50 mg Aspirin (Halfprin) 81 mg PO DAILY [facility] Last Admin: 12/04/18 08:09 Dose: 81 mg Atorvastatin Calcium (Lipitor) 40 mg PO BEDTIME [facility] Last Admin: 12/03/18 22:29 Dose: 40 mg Carvedilol (Coreg) 6.25 mg PO BIDMEALS [facility] Last Admin: 12/04/18 08:10 Dose: 6.25 mg Furosemide (Lasix) 40 mg IVPUSH BID [facility] Insulin Aspart (Novolog) 0 unit SUBCUT TIDAC [facility]; Protocol Last Admin: 12/04/18 06:47 Dose: Not Given Lorazepam (Ativan) 1 mg PO BID PRN PRN Reason: tremors Metolazone (Zaroxolyn) 2.5 mg PO MoWeFr@0900 [facility] Morphine Sulfate (Morphine) 2 mg IVPUSH Q2H PRN PRN Reason: Pain (severe 7-10) Stop: 12/04/18 15:27 Ondansetron HCl (Zofran) 4 mg IVPUSH Q4H PRN PRN Reason: Nausea/Vomiting Budesonide/Formoterol 160-4.5 Mcg/Puff 6 Gm Inhaler 1 each INH BID PRN PRN Reason: Shortness of Breath Ticagrelor [Brilinta (] 90 Mg) 1 each PO BID [facility] Potassium Chloride (Klor-Con M20) 40 meq PO ONETIME ONE Stop: 12/04/18 10:25 Sodium Chloride (Saline Flush) 10 ml FLUSH ASDIRECTED PRN PRN Reason: Keep Vein Open Sodium Chloride (Saline Flush) 2.5 ml FLUSH ASDIRECTED PRN PRN Reason: Keep Vein Open Tamsulosin HCl (Flomax) 0.4 mg PO BEDTIME [facility] Last Admin: 12/03/18 22:29 Dose: 0.4 mg Discontinued Medications Dextrose/Water (Dextrose 50% In Water) 50 ml IVPUSH ONETIME ONE Stop: 12/03/18 14:35 Last Admin: 12/03/18 14:50 Dose: 50 ml Dextrose/Water (Dextrose 50% In Water) 50 ml IVPUSH ONETIME ONE Stop: 12/03/18 16:41 Last Admin: 12/03/18 16:50 Dose: 50 ml Furosemide (Lasix) 40 mg IVPUSH NOW ONE Stop: 12/03/18 17:14 Last Admin: 12/03/18 17:43 Dose: 40 mg Sodium Chloride (Normal Saline) 1,000 mls @ 125 mls/hr IV STAT ONE Stop: 12/03/18 22:33 Last Admin: 12/03/18 14:51 Dose: 125 mls/hr Morphine Sulfate (Morphine) 2 mg IVPUSH Q2H PRN PRN Reason: Pain (severe 7-10) Stop: 12/04/18 15:27 Nitroglycerin (Nitro-Bid 2%) 1 gm TOP ONETIME ONE Stop: 12/03/18 14:44 Last Admin: 12/03/18 15:01 Dose: 1 gm Potassium Chloride (Klor-Con M20) 40 meq PO ONETIME ONE Stop: 12/03/18 18:00 Last Admin: 12/03/18 18:09 Dose: 40 meq Sodium Chloride (Saline Flush) 10 ml FLUSH ASDIRECTED PRN PRN Reason: Keep Vein Open Last Admin: 12/03/18 16:51 Dose: 10 ml Sodium Chloride (Saline Flush) 2.5 ml FLUSH ASDIRECTED PRN PRN Reason: Keep Vein Open Sodium Chloride (Normal Saline) 10 ml IV ASDIRECTED PRN PRN Reason: IV Use - Problem List Review Problem List Initiated/Reviewed/Updated: Yes - My Orders Last 24 Hours: My Active Orders 12/03/18 19:09 LORazepam [Ativan] 1 mg PO BID PRN Patient's Own Medication [Ptom] 1 each INH BID PRN 12/03/18 21:00 Amitriptyline [Elavil] 50 mg PO BEDTIME Patient's Own Medication [Ptom] 1 each PO BID Tamsulosin [Flomax] 0.4 mg PO BEDTIME atorvaSTATin [Lipitor] 40 mg PO BEDTIME 12/03/18 23:51 EKG 12 Lead [EKG Documentation Completion] [RC] STAT 12/04/18 09:00 Aspirin [Halfprin] 81 mg PO DAILY 12/04/18 10:24 Potassium Chloride [Klor-Con M20] 40 meq PO ONETIME ONE 12/04/18 10:30 Furosemide [Lasix] 40 mg IVPUSH BID 12/05/18 09:00 metOLazone [Zaroxolyn] 2.5 mg PO MoWeFr@0900 - Plan Plan:: 63-year-old male admitted for CHF exacerbation and hypoglycemia CHF exacerbation: lasix BID Chest pain: ACS ruled out for serial negative cardiac enzymes DM: reduced lantus to 20 daily and ssi
[2018-12-04] MEDS: Furosemide 40 MG/4 ML VIAL IVPUSH SCH ×2 (11:50→21:48)
[2018-12-04] MEDS: Ticagrelor [Brilinta] 90 MG PO SCH ×3 (12:01→21:48)
[2018-12-04] MEDS: Amitriptyline 25 MG Tab PO SCH (21:47)
[2018-12-04] MEDS: atorvaSTATin 40 MG Tab PO SCH (21:47)
[2018-12-04] MEDS: Insulin Glargine,Human Rec. Analog 100 Units/ML 3 ML Pen SUBCUT SCH (21:48)
[2018-12-04] MEDS: Tamsulosin 0.4 MG Cap.ER PO SCH (22:55)
[2018-12-05] MEDS: Insulin Aspart 100 Units/ML 3 ML Pen SUBCUT SCH ×3 (06:34→16:49)
[2018-12-05] MEDS: Carvedilol 6.25 MG Tab PO SCH ×2 (07:59→16:48)
[2018-12-05] MEDS: Aspirin 81 MG Tab.EC PO SCH (08:01)
[2018-12-05] MEDS: Metolazone 5 MG Tab PO SCH (08:01)
[2018-12-05] MEDS: Ticagrelor [Brilinta] 90 MG PO SCH ×2 (08:02→21:51)
[2018-12-05] MEDS: Furosemide 40 MG/4 ML VIAL IVPUSH SCH ×3 (08:03→21:54)
--- NOTE | 2018-12-05 08:53 | PCM.PN ---
- General Info Date of Service: 12/05/18 Admission Dx/Problem (Free Text): Admission Diagnosis/Problem Admission Diagnosis/Problem Chest pain, rule out acute myocardial infarction Subjective Update: Continues to feel short of breath with peripheral edema. No chest pain overnight. On second rounds this morning, requested I speak with Dr Garcia, supervisor harvesting for recommendations Functional Status: Reports: Pain Controlled, Tolerating Diet, Ambulating, Urinating - Review of Systems General: Reports: No Symptoms. Denies: Fever, Weakness Cardiovascular: Reports: Dyspnea on Exertion, Orthopnea, Edema. Denies: Chest Pain Gastrointestinal: Reports: No Symptoms. Denies: Abdominal Pain, Nausea, Vomiting Genitourinary: Reports: No Symptoms. Denies: Dysuria, Frequency, Burning Musculoskeletal: Reports: No Symptoms Skin: Reports: No Symptoms Neurological: Reports: No Symptoms Psychiatric: Reports: No Symptoms - Patient Data Vitals - Most Recent: Last Vital Signs Temp 97.2 F 12/05/18 08:06 Pulse 61 12/05/18 08:06 Resp 18 12/05/18 08:06 BP 125/87 12/05/18 08:06 Pulse Ox 97 12/05/18 08:06 Weight - Most Recent: 137.438 kg I&O - Last 24 Hours: Intake & Output 12/04/18 12/05/18 12/05/18 22:59 06:59 14:59 Intake Total 1480 1120 Output Total 1050 850 Balance 430 270 Lab Results Last 24 Hours: Laboratory Results - last 24 hr 12/04/18 12/04/18 12/04/18 Range/Units 10:50 15:30 21:46 POC Glucose 159 H 163 H 126 H (60-110) mg/dL 12/05/18 Range/Units 06:07 POC Glucose 109 (60-110) mg/dL Med Orders - Current: Current Medications Acetaminophen (Tylenol) 650 mg PO Q4H PRN PRN Reason: Pain (Mild 1-3)/fever Amitriptyline HCl (Elavil) 50 mg PO BEDTIME [facility] Last Admin: 12/04/18 21:47 Dose: 50 mg Aspirin (Halfprin) 81 mg PO DAILY [facility] Last Admin: 12/05/18 08:01 Dose: 81 mg Atorvastatin Calcium (Lipitor) 40 mg PO BEDTIME [facility] Last Admin: 12/04/18 21:47 Dose: 40 mg Carvedilol (Coreg) 6.25 mg PO BIDMEALS [facility] Last Admin: 12/05/18 07:59 Dose: 6.25 mg Furosemide (Lasix) 40 mg IVPUSH BID [facility] Last Admin: 12/05/18 08:03 Dose: 40 mg Insulin Aspart (Novolog) 0 unit SUBCUT TIDAC [facility]; Protocol Last Admin: 12/05/18 06:34 Dose: Not Given Insulin Glargine (Lantus Solostar) 20 units SUBCUT BEDTIME [facility] Last Admin: 12/04/18 21:48 Dose: 20 units Lorazepam (Ativan) 1 mg PO BID PRN PRN Reason: tremors Metolazone (Zaroxolyn) 2.5 mg PO MoWeFr@0900 [facility] Last Admin: 12/05/18 08:01 Dose: 2.5 mg Ondansetron HCl (Zofran) 4 mg IVPUSH Q4H PRN PRN Reason: Nausea/Vomiting Budesonide/Formoterol 160-4.5 Mcg/Puff 6 Gm Inhaler 1 each INH BID PRN PRN Reason: Shortness of Breath Ticagrelor [Brilinta (] 90 Mg) 1 each PO BID [facility] Last Admin: 12/05/18 08:02 Dose: 1 each Sodium Chloride (Saline Flush) 10 ml FLUSH ASDIRECTED PRN PRN Reason: Keep Vein Open Sodium Chloride (Saline Flush) 2.5 ml FLUSH ASDIRECTED PRN PRN Reason: Keep Vein Open Tamsulosin HCl (Flomax) 0.4 mg PO BEDTIME [facility] Last Admin: 12/04/18 22:55 Dose: 0.4 mg Discontinued Medications Dextrose/Water (Dextrose 50% In Water) 50 ml IVPUSH ONETIME ONE Stop: 12/03/18 14:35 Last Admin: 12/03/18 14:50 Dose: 50 ml Dextrose/Water (Dextrose 50% In Water) 50 ml IVPUSH ONETIME ONE Stop: 12/03/18 16:41 Last Admin: 12/03/18 16:50 Dose: 50 ml Furosemide (Lasix) 40 mg IVPUSH NOW ONE Stop: 12/03/18 17:14 Last Admin: 12/03/18 17:43 Dose: 40 mg Sodium Chloride (Normal Saline) 1,000 mls @ 125 mls/hr IV STAT ONE Stop: 12/03/18 22:33 Last Admin: 12/03/18 14:51 Dose: 125 mls/hr Insulin Aspart (Novolog) 0 [facility]; Protocol Last Admin: 12/04/18 11:52 Dose: Not Given Morphine Sulfate (Morphine) 2 mg IVPUSH Q2H PRN PRN Reason: Pain (severe 7-10) Stop: 12/04/18 15:27 Morphine Sulfate (Morphine) 2 mg IVPUSH Q2H PRN PRN Reason: Pain (severe 7-10) Stop: 12/04/18 15:27 Nitroglycerin (Nitro-Bid 2%) 1 gm TOP ONETIME ONE Stop: 12/03/18 14:44 Last Admin: 12/03/18 15:01 Dose: 1 gm Potassium Chloride (Klor-Con M20) 40 meq PO ONETIME ONE Stop: 12/03/18 18:00 Last Admin: 12/03/18 18:09 Dose: 40 meq Potassium Chloride (Klor-Con M20) 40 meq PO ONETIME ONE Stop: 12/04/18 10:25 Last Admin: 12/04/18 11:47 Dose: 40 meq Sodium Chloride (Saline Flush) 10 ml FLUSH ASDIRECTED PRN PRN Reason: Keep Vein Open Last Admin: 12/03/18 16:51 Dose: 10 ml Sodium Chloride (Saline Flush) 2.5 ml FLUSH ASDIRECTED PRN PRN Reason: Keep Vein Open Sodium Chloride (Normal Saline) 10 ml IV ASDIRECTED PRN PRN Reason: IV Use - Exam General: Alert, Oriented, Cooperative, No Acute Distress Neck: Supple, JVD Lungs: Decreased Breath Sounds Cardiovascular: Regular Rate, Regular Rhythm GI/Abdominal Exam: Normal Bowel Sounds, Soft, Non-Tender Extremities: Normal Range of Motion, Non-Tender, Pedal Edema (+3 pitting edema extending proximally to mid thigh) Neurological: No New Focal Deficit Psy/Mental Status: Alert, Normal Affect, Normal Mood - Problem List & Annotations (1) CHF exacerbation SNOMED Code(s): 99974661 Code(s): I50.9 - HEART FAILURE, UNSPECIFIED Status: Acute Current Visit: No Qualifiers: Heart failure type: systolic Qualified Code(s): I50.23 - Acute on chronic systolic (congestive) heart failure (2) Chest pain, rule out acute myocardial infarction SNOMED Code(s): 74164365 Code(s): R07.9 - CHEST PAIN, UNSPECIFIED Status: Resolved Current Visit: No (3) CAD (coronary artery disease) SNOMED Code(s): 08407919 Code(s): I25.10 - ATHSCL HEART DISEASE OF [place] CORONARY ARTERY W/O ANG PCTRS Status: Chronic Current Visit: No Qualifiers: Coronary Disease-Associated Artery/Lesion type: [place] artery [place] vs. transplanted heart: [place] heart (4) HTN (hypertension) SNOMED Code(s): 54810407 Code(s): I10 - ESSENTIAL (PRIMARY) HYPERTENSION Status: Chronic Current Visit: No Qualifiers: Hypertension type: essential hypertension Qualified Code(s): I10 - Essential (primary) hypertension (5) Hx of myocardial infarction SNOMED Code(s): 804252117 Code(s): I25.2 - OLD MYOCARDIAL INFARCTION Status: Chronic Current Visit : No (6) Hypercholesteremia SNOMED Code(s): 76274811 Code(s): E78.0 - PURE HYPERCHOLESTEROLEMIA * DO NOT USE * Status: Chronic Current Visit: No (7) Cardiac defibrillator in place Status: Chronic Current Visit: Yes (8) Iron deficiency anemia SNOMED Code(s): 30471098 Code(s): D50.9 - IRON DEFICIENCY ANEMIA, UNSPECIFIED Status: Chronic Current Visit: Yes (9) Obesity SNOMED Code(s): 334433176, 294540142 Code(s): E66.9 - OBESITY, UNSPECIFIED Status: Chronic Current Visit: Yes - Problem List Review Problem List Initiated/Reviewed/Updated: Yes - My Orders Last 24 Hours: My Active Orders 12/05/18 08:16 BMP [BASIC METABOLIC PANEL,BMP] [CHEM] Routine - Plan Plan:: 63-year-old male admitted for CHF exacerbation and hypoglycemia 1. Acute CHF exacerbation: Systolic CHF. requested I speak with Dr Garcia regarding admission. He was notified of admission and he felt like he would be able to be managed here, obtain new ECHO and continue Lasix. Follow up as outpatient. Lasix 40 mg TID today. Strict I/O, daily weights. Low na diet and 1.5 L FR. Continue Metolazone. Supplement and replace K+ as needed. 2. Hypoglycemia: Improved Decrease Lantus dosing to 20 units, BS this morning 109. Continue SSI Novolog. 3. HTN: Stable. Continue Coreg. 4. CAD: Continue Brillinta, ASA and Lipitor. ACS ruled out. 5. COPD: Stable, no wheezing. Conitnue PRN Duonebs and inhalers. VTE prophylaxis: Heparin Q12h Dispo: 2-3 days pending improvement.
[2018-12-05] MEDS ORDERED: Potassium Chloride 20 MEQ Tab.ER PO ONE (10:15)
[2018-12-05] MEDS: Heparin Sodium 5,000 Units/ML Vial SUBCUT SCH ×2 (12:37→23:28)
[2018-12-05] MEDS ORDERED: Albuterol/Ipratropium 3.0-0.5 MG/3 ML Neb Soln NEB PRN (16:20)
[2018-12-05] MEDS: Tamsulosin 0.4 MG Cap.ER PO SCH (21:48)
[2018-12-05] MEDS: Amitriptyline 25 MG Tab PO SCH (21:48)
[2018-12-05] MEDS: atorvaSTATin 40 MG Tab PO SCH (21:49)
[2018-12-05] MEDS: Insulin Glargine,Human Rec. Analog 100 Units/ML 3 ML Pen SUBCUT SCH (21:52)
[2018-12-05] MEDS: diphenhydrAMINE 25 MG Cap PO PRN (22:53)
[2018-12-06] MEDS: Insulin Aspart 100 Units/ML 3 ML Pen SUBCUT SCH ×3 (06:41→18:27)
[2018-12-06] MEDS: Furosemide 40 MG/4 ML VIAL IVPUSH SCH ×3 (06:41→21:20)
[2018-12-06] MEDS: Carvedilol 6.25 MG Tab PO SCH ×2 (08:47→18:34)
[2018-12-06] MEDS: Aspirin 81 MG Tab.EC PO SCH (08:47)
[2018-12-06] MEDS: Ticagrelor [Brilinta] 90 MG PO SCH ×2 (08:47→21:21)
--- NOTE | 2018-12-06 10:27 | PCM.PN ---
- General Info Date of Service: 12/06/18 Admission Dx/Problem (Free Text): Admission Diagnosis/Problem Admission Diagnosis/Problem Chest pain, rule out acute myocardial infarction Subjective Update: Feeling improved today. No chest pain. Dyspnea is improving. Continues to have peripheral edema Functional Status: Reports: Tolerating Diet, Ambulating, Urinating - Review of Systems General: Reports: No Symptoms. Denies: Fever, Weakness, Fatigue HEENT: Reports: No Symptoms. Denies: Headaches, Sore Throat Pulmonary: Reports: Shortness of Breath. Denies: Cough Cardiovascular: Reports: Dyspnea on Exertion, Edema. Denies: Chest Pain Gastrointestinal: Reports: No Symptoms. Denies: Abdominal Pain, Nausea, Vomiting Genitourinary: Reports: No Symptoms Musculoskeletal: Reports: No Symptoms Skin: Reports: No Symptoms Neurological: Reports: No Symptoms Psychiatric: Reports: No Symptoms - Patient Data Vitals - Most Recent: Last Vital Signs Temp 96.5 F 12/06/18 07:46 Pulse 75 12/06/18 08:47 Resp 18 12/06/18 07:46 BP 144/95 H 12/06/18 08:47 Pulse Ox 95 12/06/18 07:46 Weight - Most Recent: 133.428 kg I&O - Last 24 Hours: Intake & Output 12/05/18 12/06/18 12/06/18 22:59 06:59 14:59 Intake Total 672 750 Output Total 2140 2225 Balance -1468 -1475 Lab Results Last 24 Hours: Laboratory Results - last 24 hr 12/05/18 12/05/18 12/06/18 Range/Units 11:51 16:37 05:10 WBC 5.36 (4.0-11.0) K/uL RBC 5.11 (4.50-5.90) M/uL Hgb 13.8 (13.0-17.0) g/dL Hct 41.9 (38.0-50.0) % MCV 82.0 (80.0-98.0) fL MCH 27.0 (27.0-32.0) pg MCHC 32.9 (31.0-37.0) g/dL RDW Std Deviation 62.0 (28.0-62.0) fl RDW Coeff of [place] 21 H (11.0-15.0) % Plt Count 112 L (150-400) K/uL MPV 9.40 (7.40-12.00) fL Neut % (Auto) 75.5 (48.0-80.0) % Lymph % (Auto) 13.1 L (16.0-40.0) % [place] % (Auto) 9.1 (0.0-15.0) % Eos % (Auto) 1.9 (0.0-7.0) % Baso % (Auto) 0.4 (0.0-1.5) % Neut # (Auto) 4.1 (1.4-5.7) K/uL Lymph # (Auto) 0.7 (0.6-2.4) K/uL [place] # (Auto) 0.5 (0.0-0.8) K/uL Eos # (Auto) 0.1 (0.0-0.7) K/uL Baso # (Auto) 0.0 (0.0-0.1) K/uL Nucleated RBC % 0.0 /100WBC Nucleated RBCs # 0 K/uL Sodium (136-148) mmol/L Potassium (3.5-5.1) mmol/L Chloride (98-107) mmol/L Carbon Dioxide (21.0-32.0) mmol/L BUN (7.0-18.0) mg/dL Creatinine (0.8-1.3) mg/dL Est Cr Clr Drug Dosing mL/min Estimated GFR (MDRD) ml/min Glucose (74-106) mg/dL POC Glucose 182 H 146 H (60-110) mg/dL Calcium (8.5-10.1) mg/dL 12/06/18 12/06/18 12/06/18 Range/Units 05:10 06:37 07:00 WBC (4.0-11.0) K/uL RBC (4.50-5.90) M/uL Hgb (13.0-17.0) g/dL Hct (38.0-50.0) % MCV (80.0-98.0) fL MCH (27.0-32.0) pg MCHC (31.0-37.0) g/dL RDW Std Deviation (28.0-62.0) fl RDW Coeff of [place] (11.0-15.0) % Plt Count (150-400) K/uL MPV (7.40-12.00) fL Neut % (Auto) (48.0-80.0) % Lymph % (Auto) (16.0-40.0) % [place] % (Auto) (0.0-15.0) % Eos % (Auto) (0.0-7.0) % Baso % (Auto) (0.0-1.5) % Neut # (Auto) (1.4-5.7) K/uL Lymph # (Auto) (0.6-2.4) K/uL [place] # (Auto) (0.0-0.8) K/uL Eos # (Auto) (0.0-0.7) K/uL Baso # (Auto) (0.0-0.1) K/uL Nucleated RBC % /100WBC Nucleated RBCs # K/uL Sodium 140 (136-148) mmol/L Potassium 3.5 (3.5-5.1) mmol/L Chloride 102 (98-107) mmol/L Carbon Dioxide 27.6 (21.0-32.0) mmol/L BUN 39 H (7.0-18.0) mg/dL Creatinine 1.6 H (0.8-1.3) mg/dL Est Cr Clr Drug Dosing 52.71 mL/min Estimated GFR (MDRD) 43.7 ml/min Glucose 65 L (74-106) mg/dL POC Glucose 51 L 70 (60-110) mg/dL Calcium 8.8 (8.5-10.1) mg/dL 12/06/18 12/06/18 Range/Units 07:09 08:47 WBC (4.0-11.0) K/uL RBC (4.50-5.90) M/uL Hgb (13.0-17.0) g/dL Hct (38.0-50.0) % MCV (80.0-98.0) fL MCH (27.0-32.0) pg MCHC (31.0-37.0) g/dL RDW Std Deviation (28.0-62.0) fl RDW Coeff of [place] (11.0-15.0) % Plt Count (150-400) K/uL MPV (7.40-12.00) fL Neut % (Auto) (48.0-80.0) % Lymph % (Auto) (16.0-40.0) % [place] % (Auto) (0.0-15.0) % Eos % (Auto) (0.0-7.0) % Baso % (Auto) (0.0-1.5) % Neut # (Auto) (1.4-5.7) K/uL Lymph # (Auto) (0.6-2.4) K/uL [place] # (Auto) (0.0-0.8) K/uL Eos # (Auto) (0.0-0.7) K/uL Baso # (Auto) (0.0-0.1) K/uL Nucleated RBC % /100WBC Nucleated RBCs # K/uL Sodium (136-148) mmol/L Potassium (3.5-5.1) mmol/L Chloride (98-107) mmol/L Carbon Dioxide (21.0-32.0) mmol/L BUN (7.0-18.0) mg/dL Creatinine (0.8-1.3) mg/dL Est Cr Clr Drug Dosing mL/min Estimated GFR (MDRD) ml/min Glucose (74-106) mg/dL POC Glucose 91 179 H (60-110) mg/dL Calcium (8.5-10.1) mg/dL Med Orders - Current: Current Medications Acetaminophen (Tylenol) 650 mg PO Q4H PRN PRN Reason: Pain (Mild 1-3)/fever Albuterol/Ipratropium (Duoneb 3.0-0.5 Mg/3 Ml) 3 ml NEB Q4HRRT PRN PRN Reason: Shortness of Breath Last Admin: 12/05/18 16:49 Dose: 3 ml Amitriptyline HCl (Elavil) 50 mg PO BEDTIME [facility] Last Admin: 12/05/18 21:48 Dose: 50 mg Aspirin (Halfprin) 81 mg PO DAILY [facility] Last Admin: 12/06/18 08:47 Dose: 81 mg Atorvastatin Calcium (Lipitor) 40 mg PO BEDTIME [facility] Last Admin: 12/05/18 21:49 Dose: 40 mg Carvedilol (Coreg) 6.25 mg PO BIDMEALS [facility] Last Admin: 12/06/18 08:47 Dose: 6.25 mg Diphenhydramine HCl (Benadryl) 25 mg PO BEDTIME PRN PRN Reason: Insomnia Last Admin: 12/05/18 22:53 Dose: 25 mg Furosemide (Lasix) 40 mg IVPUSH TID [facility] Last Admin: 12/06/18 06:41 Dose: 40 mg Heparin Sodium (Porcine) (Heparin Sodium) 5,000 units SUBCUT Q12H [facility] Last Admin: 12/05/18 23:28 Dose: 5,000 units Insulin Aspart (Novolog) 0 unit SUBCUT TIDAC [facility]; Protocol Last Admin: 12/06/18 06:41 Dose: Not Given Insulin Glargine (Lantus Solostar) 12 units SUBCUT BEDTIME [facility] Lorazepam (Ativan) 1 mg PO BID PRN PRN Reason: tremors Metolazone (Zaroxolyn) 2.5 mg PO MoWeFr@0900 [facility] Last Admin: 12/05/18 08:01 Dose: 2.5 mg Ondansetron HCl (Zofran) 4 mg IVPUSH Q4H PRN PRN Reason: Nausea/Vomiting Budesonide/Formoterol 160-4.5 Mcg/Puff 6 Gm Inhaler 1 each INH BID PRN PRN Reason: Shortness of Breath Ticagrelor [Brilinta (] 90 Mg) 1 each PO BID [facility] Last Admin: 12/06/18 08:47 Dose: 1 each Sodium Chloride (Saline Flush) 10 ml FLUSH ASDIRECTED PRN PRN Reason: Keep Vein Open Sodium Chloride (Saline Flush) 2.5 ml FLUSH ASDIRECTED PRN PRN Reason: Keep Vein Open Tamsulosin HCl (Flomax) 0.4 mg PO BEDTIME [facility] Last Admin: 12/05/18 21:48 Dose: 0.4 mg Discontinued Medications Dextrose/Water (Dextrose 50% In Water) 50 ml IVPUSH ONETIME ONE Stop: 12/03/18 14:35 Last Admin: 12/03/18 14:50 Dose: 50 ml Dextrose/Water (Dextrose 50% In Water) 50 ml IVPUSH ONETIME ONE Stop: 12/03/18 16:41 Last Admin: 12/03/18 16:50 Dose: 50 ml Furosemide (Lasix) 40 mg IVPUSH NOW ONE Stop: 12/03/18 17:14 Last Admin: 12/03/18 17:43 Dose: 40 mg Furosemide (Lasix) 40 mg IVPUSH BID [facility] Last Admin: 12/05/18 08:03 Dose: 40 mg Sodium Chloride (Normal Saline) 1,000 mls @ 125 mls/hr IV STAT ONE Stop: 12/03/18 22:33 Last Admin: 12/03/18 14:51 Dose: 125 mls/hr Insulin Aspart (Novolog) 0 unit SUBCUT TIDAC [facility]; Protocol Last Admin: 12/04/18 11:52 Dose: Not Given Insulin Glargine (Lantus Solostar) 20 units SUBCUT BEDTIME [facility] Last Admin: 12/05/18 21:52 Dose: 20 units Morphine Sulfate (Morphine) 2 mg IVPUSH Q2H PRN PRN Reason: Pain (severe 7-10) Stop: 12/04/18 15:27 Morphine Sulfate (Morphine) 2 mg IVPUSH Q2H PRN PRN Reason: Pain (severe 7-10) Stop: 12/04/18 15:27 Nitroglycerin (Nitro-Bid 2%) 1 gm TOP ONETIME ONE Stop: 12/03/18 14:44 Last Admin: 12/03/18 15:01 Dose: 1 gm Potassium Chloride (Klor-Con M20) 40 meq PO ONETIME ONE Stop: 12/03/18 18:00 Last Admin: 12/03/18 18:09 Dose: 40 meq Potassium Chloride (Klor-Con M20) 40 meq PO ONETIME ONE Stop: 12/04/18 10:25 Last Admin: 12/04/18 11:47 Dose: 40 meq Potassium Chloride (Klor-Con M20) 40 meq PO ONETIME ONE Stop: 12/05/18 10:16 Last Admin: 12/05/18 10:57 Dose: 40 meq Sodium Chloride (Saline Flush) 10 ml FLUSH ASDIRECTED PRN PRN Reason: Keep Vein Open Last Admin: 12/03/18 16:51 Dose: 10 ml Sodium Chloride (Saline Flush) 2.5 ml FLUSH ASDIRECTED PRN PRN Reason: Keep Vein Open Sodium Chloride (Normal Saline) 10 ml IV ASDIRECTED PRN PRN Reason: IV Use - Exam General: Alert, Oriented, Cooperative, No Acute Distress Neck: Supple, JVD Lungs: Crackles (bibasilar, fine). No: Normal Respiratory Effort (dyspnea noted with speech, but improved from yesterday) Cardiovascular: Regular Rate, Regular Rhythm, Murmurs GI/Abdominal Exam: Normal Bowel Sounds, Soft, Non-Tender Extremities: Normal Inspection, Normal Range of Motion, Non-Tender, Pedal Edema (+3 pitting edema bilaterally, extending to hips and abdomen) Neurological: No New Focal Deficit Psy/Mental Status: Alert, Normal Affect, Normal Mood - Problem List & Annotations (1) CHF exacerbation SNOMED Code(s): 25593947 Code(s): I50.9 - HEART FAILURE, UNSPECIFIED Status: Acute Current Visit: No Qualifiers: Heart failure type: systolic Qualified Code(s): I50.23 - Acute on chronic systolic (congestive) heart failure (2) Chest pain, rule out acute myocardial infarction SNOMED Code(s): 90049044 Code(s): R07.9 - CHEST PAIN, UNSPECIFIED Status: Resolved Current Visit: No (3) CAD (coronary artery disease) SNOMED Code(s): 61292164 Code(s): I25.10 - ATHSCL HEART DISEASE OF [place] CORONARY ARTERY W/O ANG PCTRS Status: Chronic Current Visit: No Qualifiers: Coronary Disease-Associated Artery/Lesion type: [place] artery [place] vs. transplanted heart: [place] heart (4) HTN (hypertension) SNOMED Code(s): 34943870 Code(s): I10 - ESSENTIAL (PRIMARY) HYPERTENSION Status: Chronic Current Visit: No Qualifiers: Hypertension type: essential hypertension Qualified Code(s): I10 - Essential (primary) hypertension (5) Hx of myocardial infarction SNOMED Code(s): 740055662 Code(s): I25.2 - OLD MYOCARDIAL INFARCTION Status: Chronic Current Visit : No (6) Hypercholesteremia SNOMED Code(s): 56146532 Code(s): E78.0 - PURE HYPERCHOLESTEROLEMIA * DO NOT USE * Status: Chronic Current Visit: No (7) Cardiac defibrillator in place Status: Chronic Current Visit: Yes (8) Iron deficiency anemia SNOMED Code(s): 20442391 Code(s): D50.9 - IRON DEFICIENCY ANEMIA, UNSPECIFIED Status: Chronic Current Visit: Yes (9) Obesity SNOMED Code(s): 019744855, 349732325 Code(s): E66.9 - OBESITY, UNSPECIFIED Status: Chronic Current Visit: Yes - Problem List Review Problem List Initiated/Reviewed/Updated: Yes - My Orders Last 24 Hours: My Active Orders 12/05/18 11:36 Echo Comp wo Cont [US] Routine 12/05/18 11:39 Vital Signs [RC] Q4H 12/05/18 12:00 Heparin Sodium 5,000 units SUBCUT Q12H 12/05/18 12:09 Resuscitation Status Routine 12/05/18 14:00 Furosemide [Lasix] 40 mg IVPUSH TID 12/06/18 21:00 Insulin Glarg,Human.Rec.Analog [LantUS Solostar] 12 units SUBCUT BEDTIME 12/07/18 05:11 BMP [BASIC METABOLIC PANEL,BMP] [CHEM] AM CBC WITH AUTO DIFF [HEME] AM 12/08/18 05:11 BMP [BASIC METABOLIC PANEL,BMP] [CHEM] AM CBC WITH AUTO DIFF [HEME] AM - Plan Plan:: 63-year-old male admitted for CHF exacerbation and hypoglycemia 1. Acute CHF exacerbation: Systolic CHF. ECHO pending. Diuresed 3 L oversight, down 4 kg in weight. Continue with Lasix 40 mg TID. Strict I/O, daily weights. Low na diet and 1.5 L FR. Continue Metolazone. Supplement and replace K+ as needed. 2. Hypoglycemia: Hypoglycemic this morning, 51. Decrease Lantus dosing to 12 units, Consult [employer]. Continue SSI Novolog. 3. HTN: Stable. Continue Coreg. 4. CAD: Continue Brillinta, ASA and Lipitor. ACS ruled out. 5. COPD: Stable, no wheezing. Continue PRN Duonebs and inhalers. VTE prophylaxis: Heparin Q12h Dispo: 2-3 days pending improvement.
[2018-12-06] MEDS: Heparin Sodium 5,000 Units/ML Vial SUBCUT SCH (11:45)
[2018-12-06] MEDS: Potassium Chloride 20 MEQ Tab.ER PO SCH ×2 (11:46→14:06)
[2018-12-06] MEDS: Tamsulosin 0.4 MG Cap.ER PO SCH (21:20)
[2018-12-06] MEDS: Amitriptyline 25 MG Tab PO SCH (21:20)
[2018-12-06] MEDS: atorvaSTATin 40 MG Tab PO SCH (21:20)
[2018-12-06] MEDS: Insulin Glargine,Human Rec. Analog 100 Units/ML 3 ML Pen SUBCUT SCH (21:24)
[2018-12-07] MEDS: Heparin Sodium 5,000 Units/ML Vial SUBCUT SCH ×3 (00:24→23:46)
[2018-12-07] MEDS: Furosemide 40 MG/4 ML VIAL IVPUSH SCH ×3 (06:22→21:58)
[2018-12-07] MEDS: Insulin Aspart 100 Units/ML 3 ML Pen SUBCUT SCH ×3 (06:35→17:35)
[2018-12-07] MEDS: Metolazone 5 MG Tab PO SCH (08:01)
[2018-12-07] MEDS: Aspirin 81 MG Tab.EC PO SCH (08:02)
[2018-12-07] MEDS: Carvedilol 6.25 MG Tab PO SCH ×2 (08:06→17:34)
[2018-12-07] MEDS: Ticagrelor [Brilinta] 90 MG PO SCH ×2 (08:09→21:58)
--- NOTE | 2018-12-07 08:19 | PCM.PN ---
- General Info Date of Service: 12/07/18 Admission Dx/Problem (Free Text): Admission Diagnosis/Problem Admission Diagnosis/Problem CHF exacerbation Subjective Update: Feeling improved today. No chest pain. No low blood sugars. Breathing improving. Peripheral edema slowly improving. Functional Status: Reports: Pain Controlled, Tolerating Diet, Ambulating, Urinating - Review of Systems General: Reports: No Symptoms. Denies: Fever, Weakness, Fatigue HEENT: Reports: No Symptoms. Denies: Sinus Congestion, Sore Throat Pulmonary: Reports: Shortness of Breath (improving). Denies: Cough Cardiovascular: Reports: Dyspnea on Exertion (improved), Orthopnea, Edema. Denies: Chest Pain, Palpitations Gastrointestinal: Reports: No Symptoms. Denies: Abdominal Pain, Nausea, Vomiting Genitourinary: Reports: No Symptoms. Denies: Dysuria, Frequency, Burning Musculoskeletal: Reports: No Symptoms Skin: Reports: No Symptoms Neurological: Reports: No Symptoms Psychiatric: Reports: No Symptoms - Patient Data Vitals - Most Recent: Last Vital Signs Temp 97.4 F 12/07/18 07:53 Pulse 63 12/07/18 08:06 Resp 14 12/07/18 07:53 BP 131/88 12/07/18 08:06 Pulse Ox 95 12/07/18 07:53 Weight - Most Recent: 131.678 kg I&O - Last 24 Hours: Intake & Output 12/06/18 12/07/18 12/07/18 22:59 06:59 14:59 Intake Total 750 575 Output Total 2200 825 Balance -1450 -250 Lab Results Last 24 Hours: Laboratory Results - last 24 hr 12/06/18 12/06/18 12/06/18 Range/Units 08:47 11:52 16:44 WBC (4.0-11.0) K/uL RBC (4.50-5.90) M/uL Hgb (13.0-17.0) g/dL Hct (38.0-50.0) % MCV (80.0-98.0) fL MCH (27.0-32.0) pg MCHC (31.0-37.0) g/dL RDW Std Deviation (28.0-62.0) fl RDW Coeff of [place] (11.0-15.0) % Plt Count (150-400) K/uL MPV (7.40-12.00) fL Neut % (Auto) (48.0-80.0) % Lymph % (Auto) (16.0-40.0) % [place] % (Auto) (0.0-15.0) % Eos % (Auto) (0.0-7.0) % Baso % (Auto) (0.0-1.5) % Neut # (Auto) (1.4-5.7) K/uL Lymph # (Auto) (0.6-2.4) K/uL [place] # (Auto) (0.0-0.8) K/uL Eos # (Auto) (0.0-0.7) K/uL Baso # (Auto) (0.0-0.1) K/uL Nucleated RBC % /100WBC Nucleated RBCs # K/uL Sodium (136-148) mmol/L Potassium (3.5-5.1) mmol/L Chloride (98-107) mmol/L Carbon Dioxide (21.0-32.0) mmol/L BUN (7.0-18.0) mg/dL Creatinine (0.8-1.3) mg/dL Est Cr Clr Drug Dosing mL/min Estimated GFR (MDRD) ml/min Glucose (74-106) mg/dL POC Glucose 179 H 185 H 245 H (60-110) mg/dL Calcium (8.5-10.1) mg/dL 12/06/18 12/07/18 12/07/18 Range/Units 21:24 04:55 04:55 WBC 4.33 (4.0-11.0) K/uL RBC 5.01 (4.50-5.90) M/uL Hgb 13.3 (13.0-17.0) g/dL Hct 40.9 (38.0-50.0) % MCV 81.6 (80.0-98.0) fL MCH 26.5 L (27.0-32.0) pg MCHC 32.5 (31.0-37.0) g/dL RDW Std Deviation 61.7 (28.0-62.0) fl RDW Coeff of [place] 21 H (11.0-15.0) % Plt Count 114 L (150-400) K/uL MPV 9.50 (7.40-12.00) fL Neut % (Auto) 74.3 (48.0-80.0) % Lymph % (Auto) 13.6 L (16.0-40.0) % [place] % (Auto) 10.2 (0.0-15.0) % Eos % (Auto) 1.4 (0.0-7.0) % Baso % (Auto) 0.5 (0.0-1.5) % Neut # (Auto) 3.2 (1.4-5.7) K/uL Lymph # (Auto) 0.6 (0.6-2.4) K/uL [place] # (Auto) 0.4 (0.0-0.8) K/uL Eos # (Auto) 0.1 (0.0-0.7) K/uL Baso # (Auto) 0.0 (0.0-0.1) K/uL Nucleated RBC % 0.0 /100WBC Nucleated RBCs # 0 K/uL Sodium 139 (136-148) mmol/L Potassium 3.4 L (3.5-5.1) mmol/L Chloride 103 (98-107) mmol/L Carbon Dioxide 25.7 (21.0-32.0) mmol/L BUN 35 H (7.0-18.0) mg/dL Creatinine 1.5 H (0.8-1.3) mg/dL Est Cr Clr Drug Dosing 56.23 mL/min Estimated GFR (MDRD) 47.1 ml/min Glucose 153 H (74-106) mg/dL POC Glucose 229 H (60-110) mg/dL Calcium 8.6 (8.5-10.1) mg/dL 12/07/18 Range/Units 05:59 WBC (4.0-11.0) K/uL RBC (4.50-5.90) M/uL Hgb (13.0-17.0) g/dL Hct (38.0-50.0) % MCV (80.0-98.0) fL MCH (27.0-32.0) pg MCHC (31.0-37.0) g/dL RDW Std Deviation (28.0-62.0) fl RDW Coeff of [place] (11.0-15.0) % Plt Count (150-400) K/uL MPV (7.40-12.00) fL Neut % (Auto) (48.0-80.0) % Lymph % (Auto) (16.0-40.0) % [place] % (Auto) (0.0-15.0) % Eos % (Auto) (0.0-7.0) % Baso % (Auto) (0.0-1.5) % Neut # (Auto) (1.4-5.7) K/uL Lymph # (Auto) (0.6-2.4) K/uL [place] # (Auto) (0.0-0.8) K/uL Eos # (Auto) (0.0-0.7) K/uL Baso # (Auto) (0.0-0.1) K/uL Nucleated RBC % /100WBC Nucleated RBCs # K/uL Sodium (136-148) mmol/L Potassium (3.5-5.1) mmol/L Chloride (98-107) mmol/L Carbon Dioxide (21.0-32.0) mmol/L BUN (7.0-18.0) mg/dL Creatinine (0.8-1.3) mg/dL Est Cr Clr Drug Dosing mL/min Estimated GFR (MDRD) ml/min Glucose (74-106) mg/dL POC Glucose 126 H (60-110) mg/dL Calcium (8.5-10.1) mg/dL Med Orders - Current: Current Medications Acetaminophen (Tylenol) 650 mg PO Q4H PRN PRN Reason: Pain (Mild 1-3)/fever Albuterol/Ipratropium (Duoneb 3.0-0.5 Mg/3 Ml) 3 ml NEB Q4HRRT PRN PRN Reason: Shortness of Breath Last Admin: 12/05/18 16:49 Dose: 3 ml Amitriptyline HCl (Elavil) 50 mg PO BEDTIME [facility] Last Admin: 12/06/18 21:20 Dose: 50 mg Aspirin (Halfprin) 81 mg PO DAILY [facility] Last Admin: 12/07/18 08:02 Dose: 81 mg Atorvastatin Calcium (Lipitor) 40 mg PO BEDTIME [facility] Last Admin: 12/06/18 21:20 Dose: 40 mg Carvedilol (Coreg) 6.25 mg PO BIDMEALS [facility] Last Admin: 12/07/18 08:06 Dose: 6.25 mg Diphenhydramine HCl (Benadryl) 25 mg PO BEDTIME PRN PRN Reason: Insomnia Last Admin: 12/05/18 22:53 Dose: 25 mg Furosemide (Lasix) 40 mg IVPUSH TID [facility] Last Admin: 12/07/18 06:22 Dose: 40 mg Heparin Sodium (Porcine) (Heparin Sodium) 5,000 units SUBCUT Q12H [facility] Last Admin: 12/07/18 00:24 Dose: 5,000 units Insulin Aspart (Novolog) 0 unit SUBCUT TIDAC [facility]; Protocol Last Admin: 12/07/18 06:35 Dose: Not Given Insulin Glargine (Lantus Solostar) 12 units SUBCUT BEDTIME [facility] Last Admin: 12/06/18 21:24 Dose: 12 units Lorazepam (Ativan) 1 mg PO BID PRN PRN Reason: tremors Metolazone (Zaroxolyn) 2.5 mg PO MoWeFr@0900 [facility] Last Admin: 12/07/18 08:01 Dose: 2.5 mg Ondansetron HCl (Zofran) 4 mg IVPUSH Q4H PRN PRN Reason: Nausea/Vomiting Budesonide/Formoterol 160-4.5 Mcg/Puff 6 Gm Inhaler 1 each INH BID PRN PRN Reason: Shortness of Breath Ticagrelor [Brilinta (] 90 Mg) 1 each PO BID [facility] Last Admin: 12/07/18 08:09 Dose: 1 each Sodium Chloride (Saline Flush) 10 ml FLUSH ASDIRECTED PRN PRN Reason: Keep Vein Open Sodium Chloride (Saline Flush) 2.5 ml FLUSH ASDIRECTED PRN PRN Reason: Keep Vein Open Tamsulosin HCl (Flomax) 0.4 mg PO BEDTIME [facility] Last Admin: 12/06/18 21:20 Dose: 0.4 mg Discontinued Medications Dextrose/Water (Dextrose 50% In Water) 50 ml IVPUSH ONETIME ONE Stop: 12/03/18 14:35 Last Admin: 12/03/18 14:50 Dose: 50 ml Dextrose/Water (Dextrose 50% In Water) 50 ml IVPUSH ONETIME ONE Stop: 12/03/18 16:41 Last Admin: 12/03/18 16:50 Dose: 50 ml Furosemide (Lasix) 40 mg IVPUSH NOW ONE Stop: 12/03/18 17:14 Last Admin: 12/03/18 17:43 Dose: 40 mg Furosemide (Lasix) 40 mg IVPUSH BID [facility] Last Admin: 12/05/18 08:03 Dose: 40 mg Sodium Chloride (Normal Saline) 1,000 mls @ 125 mls/hr IV STAT ONE Stop: 12/03/18 22:33 Last Admin: 12/03/18 14:51 Dose: 125 mls/hr Insulin Aspart (Novolog) 0 unit SUBCUT TIDAC [facility]; Protocol Last Admin: 12/04/18 11:52 Dose: Not Given Insulin Glargine (Lantus Solostar) 20 units SUBCUT BEDTIME [facility] Last Admin: 12/05/18 21:52 Dose: 20 units Morphine Sulfate (Morphine) 2 mg IVPUSH Q2H PRN PRN Reason: Pain (severe 7-10) Stop: 12/04/18 15:27 Morphine Sulfate (Morphine) 2 mg IVPUSH Q2H PRN PRN Reason: Pain (severe 7-10) Stop: 12/04/18 15:27 Nitroglycerin (Nitro-Bid 2%) 1 gm TOP ONETIME ONE Stop: 12/03/18 14:44 Last Admin: 12/03/18 15:01 Dose: 1 gm Potassium Chloride (Klor-Con M20) 40 meq PO ONETIME ONE Stop: 12/03/18 18:00 Last Admin: 12/03/18 18:09 Dose: 40 meq Potassium Chloride (Klor-Con M20) 40 meq PO ONETIME ONE Stop: 12/04/18 10:25 Last Admin: 12/04/18 11:47 Dose: 40 meq Potassium Chloride (Klor-Con M20) 40 meq PO ONETIME ONE Stop: 12/05/18 10:16 Last Admin: 12/05/18 10:57 Dose: 40 meq Potassium Chloride (Klor-Con M20) 40 meq PO BID@1100,1500 [facility] Stop: 12/06/18 15:01 Last Admin: 12/06/18 14:06 Dose: 40 meq Sodium Chloride (Saline Flush) 10 ml FLUSH ASDIRECTED PRN PRN Reason: Keep Vein Open Last Admin: 03/09/19 16:51 Dose: 10 ml Sodium Chloride (Saline Flush) 2.5 ml FLUSH ASDIRECTED PRN PRN Reason: Keep Vein Open Sodium Chloride (Normal Saline) 10 ml IV ASDIRECTED PRN PRN Reason: IV Use - Exam General: Alert, Oriented, Cooperative, No Acute Distress Neck: JVD Lungs: Clear to Auscultation, Normal Respiratory Effort Cardiovascular: Regular Rate, Regular Rhythm GI/Abdominal Exam: Normal Bowel Sounds, Soft, Non-Tender Extremities: Normal Inspection, Normal Range of Motion, Pedal Edema (+3 pitting edema R>L, improving slowly.) Neurological: No New Focal Deficit Psy/Mental Status: Alert, Normal Affect, Normal Mood - Problem List & Annotations (1) CHF exacerbation SNOMED Code(s): 05870816 Code(s): I50.9 - HEART FAILURE, UNSPECIFIED Status: Acute Current Visit: No Qualifiers: Heart failure type: systolic Qualified Code(s): I50.23 - Acute on chronic systolic (congestive) heart failure (2) CAD (coronary artery disease) SNOMED Code(s): 84600062 Code(s): I25.10 - ATHSCL HEART DISEASE OF [place] CORONARY ARTERY W/O ANG PCTRS Status: Chronic Current Visit: No Qualifiers: Coronary Disease-Associated Artery/Lesion type: [place] artery [place] vs. transplanted heart: [place] heart (3) HTN (hypertension) SNOMED Code(s): 94295102 Code(s): I10 - ESSENTIAL (PRIMARY) HYPERTENSION Status: Chronic Current Visit: No Qualifiers: Hypertension type: essential hypertension Qualified Code(s): I10 - Essential (primary) hypertension (4) Hx of myocardial infarction SNOMED Code(s): 883640237 Code(s): I25.2 - OLD MYOCARDIAL INFARCTION Status: Chronic Current Visit : No (5) Hypercholesteremia SNOMED Code(s): 02167996 Code(s): E78.0 - PURE HYPERCHOLESTEROLEMIA * DO NOT USE * Status: Chronic Current Visit: No (6) Cardiac defibrillator in place Status: Chronic Current Visit: Yes (7) Iron deficiency anemia SNOMED Code(s): 60410254 Code(s): D50.9 - IRON DEFICIENCY ANEMIA, UNSPECIFIED Status: Chronic Current Visit: Yes (8) Obesity SNOMED Code(s): 371697606, 047510832 Code(s): E66.9 - OBESITY, UNSPECIFIED Status: Chronic Current Visit: Yes - Problem List Review Problem List Initiated/Reviewed/Updated: Yes - My Orders Last 24 Hours: My Active Orders 12/06/18 10:41 Consult to Scorer Single [Consult to Diabetic Nurse Specialist] [CONS] Routine 12/06/18 21:00 Insulin Glarg,Human.Rec.Analog [LantUS Solostar] 12 units SUBCUT BEDTIME 12/08/18 05:11 BMP [BASIC METABOLIC PANEL,BMP] [CHEM] AM CBC WITH AUTO DIFF [HEME] AM - Plan Plan:: 63-year-old male admitted for CHF exacerbation and hypoglycemia 1. Acute CHF exacerbation: Systolic CHF. ECHO poor quality, unable to fully determine EF but probably severelu reduced LV systolic function, recommended Definity contrast with future echo studies. Diuresed 1.7 L overnight, down another 2 kg in weight. Continue with Lasix 40 mg TID. Strict I/O, daily weights. Low na diet and 1.5 L FR. Continue Metolazone. Supplement and replace K + as needed. 2. Hypoglycemia: Hypoglycemic this morning, 51. He is too heavily dose in Lantus , taking total of 80 units daily. Spoke with DM educator, will decrease lantus dosing and increase mealtime insulins. Lantus dosing 12 units, Continue SSI Novolog. FOllow up as outpatient with DM educator. 3. HTN: Stable. Continue Coreg. 4. CAD: Continue Brillinta, ASA and Lipitor. 5. COPD: Stable, no wheezing. Continue PRN Duonebs and inhalers. VTE prophylaxis: Heparin Q12h Dispo: 2-3 days pending improvement.
[2018-12-07] MEDS: Potassium Chloride 20 MEQ Tab.ER PO SCH ×2 (13:21→17:33)
[2018-12-07] MEDS: Tamsulosin 0.4 MG Cap.ER PO SCH (21:55)
[2018-12-07] MEDS: atorvaSTATin 40 MG Tab PO SCH (21:55)
[2018-12-07] MEDS: Amitriptyline 25 MG Tab PO SCH (21:55)
[2018-12-07] MEDS: Insulin Glargine,Human Rec. Analog 100 Units/ML 3 ML Pen SUBCUT SCH (21:57)
[2018-12-08] MEDS: Furosemide 40 MG/4 ML VIAL IVPUSH SCH ×3 (05:01→21:12)
[2018-12-08] MEDS: Insulin Aspart 100 Units/ML 3 ML Pen SUBCUT SCH ×3 (06:31→17:00)
[2018-12-08] MEDS: Aspirin 81 MG Tab.EC PO SCH (08:44)
[2018-12-08] MEDS: Carvedilol 6.25 MG Tab PO SCH ×2 (08:45→16:59)
[2018-12-08] MEDS: Ticagrelor [Brilinta] 90 MG PO SCH ×2 (08:45→21:04)
--- NOTE | 2018-12-08 09:52 | PCM.PN ---
- General Info Date of Service: 12/08/18 Admission Dx/Problem (Free Text): Admission Diagnosis/Problem Admission Diagnosis/Problem CHF exacerbation Subjective Update: Feeling better today. Continues to see improvement in leg edema. NO chest pain. Shortness of breath improving. Functional Status: Reports: Pain Controlled, Tolerating Diet, Ambulating, Urinating - Review of Systems General: Reports: No Symptoms. Denies: Fever, Weakness, Fatigue Pulmonary: Reports: No Symptoms. Denies: Shortness of Breath Cardiovascular: Reports: Edema. Denies: Chest Pain, Palpitations Gastrointestinal: Reports: No Symptoms. Denies: Abdominal Pain, Nausea, Vomiting Genitourinary: Reports: No Symptoms. Denies: Dysuria, Frequency, Burning Musculoskeletal: Reports: No Symptoms Skin: Reports: No Symptoms Neurological: Reports: No Symptoms Psychiatric: Reports: No Symptoms - Patient Data Vitals - Most Recent: Last Vital Signs Temp 97.9 F 12/08/18 08:00 Pulse 62 12/08/18 08:45 Resp 18 12/08/18 08:00 BP 128/80 12/08/18 08:45 Pulse Ox 97 12/08/18 08:00 Weight - Most Recent: 127.142 kg I&O - Last 24 Hours: Intake & Output 12/07/18 12/08/18 12/08/18 22:59 06:59 14:59 Intake Total 750 750 Output Total 2600 2200 Balance -1850 -1450 Lab Results Last 24 Hours: Laboratory Results - last 24 hr 12/07/18 12/07/18 12/07/18 Range/Units 12:10 17:24 21:53 WBC (4.0-11.0) K/uL RBC (4.50-5.90) M/uL Hgb (13.0-17.0) g/dL Hct (38.0-50.0) % MCV (80.0-98.0) fL MCH (27.0-32.0) pg MCHC (31.0-37.0) g/dL RDW Std Deviation (28.0-62.0) fl RDW Coeff of [place] (11.0-15.0) % Plt Count (150-400) K/uL MPV (7.40-12.00) fL Neut % (Auto) (48.0-80.0) % Lymph % (Auto) (16.0-40.0) % [place] % (Auto) (0.0-15.0) % Eos % (Auto) (0.0-7.0) % Baso % (Auto) (0.0-1.5) % Neut # (Auto) (1.4-5.7) K/uL Lymph # (Auto) (0.6-2.4) K/uL [place] # (Auto) (0.0-0.8) K/uL Eos # (Auto) (0.0-0.7) K/uL Baso # (Auto) (0.0-0.1) K/uL Nucleated RBC % /100WBC Nucleated RBCs # K/uL Sodium (136-148) mmol/L Potassium (3.5-5.1) mmol/L Chloride (98-107) mmol/L Carbon Dioxide (21.0-32.0) mmol/L BUN (7.0-18.0) mg/dL Creatinine (0.8-1.3) mg/dL Est Cr Clr Drug Dosing mL/min Estimated GFR (MDRD) ml/min Glucose (74-106) mg/dL POC Glucose 157 H 185 H 202 H (60-110) mg/dL Calcium (8.5-10.1) mg/dL 12/08/18 12/08/18 12/08/18 Range/Units 04:50 04:50 05:03 WBC 4.70 (4.0-11.0) K/uL RBC 5.02 (4.50-5.90) M/uL Hgb 13.4 (13.0-17.0) g/dL Hct 41.3 (38.0-50.0) % MCV 82.3 (80.0-98.0) fL MCH 26.7 L (27.0-32.0) pg MCHC 32.4 (31.0-37.0) g/dL RDW Std Deviation 62.3 H (28.0-62.0) fl RDW Coeff of [place] 21 H (11.0-15.0) % Plt Count 127 L (150-400) K/uL MPV 9.30 (7.40-12.00) fL Neut % (Auto) 72.1 (48.0-80.0) % Lymph % (Auto) 14.5 L (16.0-40.0) % [place] % (Auto) 10.9 (0.0-15.0) % Eos % (Auto) 2.3 (0.0-7.0) % Baso % (Auto) 0.2 (0.0-1.5) % Neut # (Auto) 3.4 (1.4-5.7) K/uL Lymph # (Auto) 0.7 (0.6-2.4) K/uL [place] # (Auto) 0.5 (0.0-0.8) K/uL Eos # (Auto) 0.1 (0.0-0.7) K/uL Baso # (Auto) 0.0 (0.0-0.1) K/uL Nucleated RBC % 0.0 /100WBC Nucleated RBCs # 0 K/uL Sodium 141 (136-148) mmol/L Potassium 4.0 (3.5-5.1) mmol/L Chloride 103 (98-107) mmol/L Carbon Dioxide 29.3 (21.0-32.0) mmol/L BUN 34 H (7.0-18.0) mg/dL Creatinine 1.6 H (0.8-1.3) mg/dL Est Cr Clr Drug Dosing 52.71 mL/min Estimated GFR (MDRD) 43.7 ml/min Glucose 154 H (74-106) mg/dL POC Glucose 144 H (60-110) mg/dL Calcium 9.0 (8.5-10.1) mg/dL Med Orders - Current: Current Medications Acetaminophen (Tylenol) 650 mg PO Q4H PRN PRN Reason: Pain (Mild 1-3)/fever Albuterol/Ipratropium (Duoneb 3.0-0.5 Mg/3 Ml) 3 ml NEB Q4HRRT PRN PRN Reason: Shortness of Breath Last Admin: 12/05/18 16:49 Dose: 3 ml Amitriptyline HCl (Elavil) 50 mg PO BEDTIME [facility] Last Admin: 12/07/18 21:55 Dose: 50 mg Aspirin (Halfprin) 81 mg PO DAILY [facility] Last Admin: 12/08/18 08:44 Dose: 81 mg Atorvastatin Calcium (Lipitor) 40 mg PO BEDTIME [facility] Last Admin: 12/07/18 21:55 Dose: 40 mg Carvedilol (Coreg) 6.25 mg PO BIDMEALS [facility] Last Admin: 12/08/18 08:45 Dose: 6.25 mg Diphenhydramine HCl (Benadryl) 25 mg PO BEDTIME PRN PRN Reason: Insomnia Last Admin: 12/05/18 22:53 Dose: 25 mg Furosemide (Lasix) 40 mg IVPUSH TID [facility] Last Admin: 12/08/18 05:01 Dose: 40 mg Heparin Sodium (Porcine) (Heparin Sodium) 5,000 units SUBCUT Q12H [facility] Last Admin: 12/07/18 23:46 Dose: 5,000 units Insulin Aspart (Novolog) 0 unit SUBCUT TIDAC [facility]; Protocol Last Admin: 12/08/18 06:31 Dose: Not Given Insulin Glargine (Lantus Solostar) 12 units SUBCUT BEDTIME [facility] Last Admin: 12/07/18 21:57 Dose: 12 units Lorazepam (Ativan) 1 mg PO BID PRN PRN Reason: tremors Metolazone (Zaroxolyn) 2.5 mg PO MoWeFr@0900 [facility] Last Admin: 12/07/18 08:01 Dose: 2.5 mg Ondansetron HCl (Zofran) 4 mg IVPUSH Q4H PRN PRN Reason: Nausea/Vomiting Budesonide/Formoterol 160-4.5 Mcg/Puff 6 Gm Inhaler 1 each INH BID PRN PRN Reason: Shortness of Breath Ticagrelor [Brilinta (] 90 Mg) 1 each PO BID [facility] Last Admin: 12/08/18 08:45 Dose: 1 each Potassium Chloride (Klor-Con M20) 40 meq PO BID@1230,1700 [facility] Last Admin: 12/07/18 17:33 Dose: 40 meq Sodium Chloride (Saline Flush) 10 ml FLUSH ASDIRECTED PRN PRN Reason: Keep Vein Open Sodium Chloride (Saline Flush) 2.5 ml FLUSH ASDIRECTED PRN PRN Reason: Keep Vein Open Tamsulosin HCl (Flomax) 0.4 mg PO BEDTIME [facility] Last Admin: 12/07/18 21:55 Dose: 0.4 mg Discontinued Medications Dextrose/Water (Dextrose 50% In Water) 50 ml IVPUSH ONETIME ONE Stop: 12/03/18 14:35 Last Admin: 12/03/18 14:50 Dose: 50 ml Dextrose/Water (Dextrose 50% In Water) 50 ml IVPUSH ONETIME ONE Stop: 12/03/18 16:41 Last Admin: 12/03/18 16:50 Dose: 50 ml Furosemide (Lasix) 40 mg IVPUSH NOW ONE Stop: 12/03/18 17:14 Last Admin: 12/03/18 17:43 Dose: 40 mg Furosemide (Lasix) 40 mg IVPUSH BID [facility] Last Admin: 12/05/18 08:03 Dose: 40 mg Sodium Chloride (Normal Saline) 1,000 mls @ 125 mls/hr IV STAT ONE Stop: 12/03/18 22:33 Last Admin: 12/03/18 14:51 Dose: 125 mls/hr Insulin Aspart (Novolog) 0 unit SUBCUT TIDAC [facility]; Protocol Last Admin: 12/04/18 11:52 Dose: Not Given Insulin Glargine (Lantus Solostar) 20 units SUBCUT BEDTIME [facility] Last Admin: 12/05/18 21:52 Dose: 20 units Morphine Sulfate (Morphine) 2 mg IVPUSH Q2H PRN PRN Reason: Pain (severe 7-10) Stop: 12/04/18 15:27 Morphine Sulfate (Morphine) 2 mg IVPUSH Q2H PRN PRN Reason: Pain (severe 7-10) Stop: 12/04/18 15:27 Nitroglycerin (Nitro-Bid 2%) 1 gm TOP ONETIME ONE Stop: 12/03/18 14:44 Last Admin: 12/03/18 15:01 Dose: 1 gm Potassium Chloride (Klor-Con M20) 40 meq PO ONETIME ONE Stop: 12/03/18 18:00 Last Admin: 12/03/18 18:09 Dose: 40 meq Potassium Chloride (Klor-Con M20) 40 meq PO ONETIME ONE Stop: 12/04/18 10:25 Last Admin: 12/04/18 11:47 Dose: 40 meq Potassium Chloride (Klor-Con M20) 40 meq PO ONETIME ONE Stop: 12/05/18 10:16 Last Admin: 12/05/18 10:57 Dose: 40 meq Potassium Chloride (Klor-Con M20) 40 meq PO BID@1100,1500 [facility] Stop: 12/06/18 15:01 Last Admin: 12/06/18 14:06 Dose: 40 meq Sodium Chloride (Saline Flush) 10 ml FLUSH ASDIRECTED PRN PRN Reason: Keep Vein Open Last Admin: 12/03/18 16:51 Dose: 10 ml Sodium Chloride (Saline Flush) 2.5 ml FLUSH ASDIRECTED PRN PRN Reason: Keep Vein Open Sodium Chloride (Normal Saline) 10 ml IV ASDIRECTED PRN PRN Reason: IV Use - Exam General: Alert, Oriented, Cooperative Neck: Supple, JVD Lungs: Clear to Auscultation, Normal Respiratory Effort Cardiovascular: Regular Rate, Regular Rhythm GI/Abdominal Exam: Normal Bowel Sounds, Soft, Non-Tender, No Organomegaly Extremities: Normal Inspection, Normal Range of Motion, Non-Tender Neurological: No New Focal Deficit Psy/Mental Status: Alert, Normal Affect, Normal Mood - Problem List & Annotations (1) CHF exacerbation SNOMED Code(s): 56905327 Code(s): I50.9 - HEART FAILURE, UNSPECIFIED Status: Acute Current Visit: No Qualifiers: Heart failure type: systolic Qualified Code(s): I50.23 - Acute on chronic systolic (congestive) heart failure (2) CAD (coronary artery disease) SNOMED Code(s): 09275390 Code(s): I25.10 - ATHSCL HEART DISEASE OF [place] CORONARY ARTERY W/O ANG PCTRS Status: Chronic Current Visit: No Qualifiers: Coronary Disease-Associated Artery/Lesion type: [place] artery [place] vs. transplanted heart: [place] heart (3) HTN (hypertension) SNOMED Code(s): 94882764 Code(s): I10 - ESSENTIAL (PRIMARY) HYPERTENSION Status: Chronic Current Visit: No Qualifiers: Hypertension type: essential hypertension Qualified Code(s): I10 - Essential (primary) hypertension (4) Hx of myocardial infarction SNOMED Code(s): 296707287 Code(s): I25.2 - OLD MYOCARDIAL INFARCTION Status: Chronic Current Visit : No (5) Hypercholesteremia SNOMED Code(s): 90792647 Code(s): E78.0 - PURE HYPERCHOLESTEROLEMIA * DO NOT USE * Status: Chronic Current Visit: No (6) Cardiac defibrillator in place Status: Chronic Current Visit: Yes (7) Iron deficiency anemia SNOMED Code(s): 96630680 Code(s): D50.9 - IRON DEFICIENCY ANEMIA, UNSPECIFIED Status: Chronic Current Visit: Yes (8) Obesity SNOMED Code(s): 544058535, 498697189 Code(s): E66.9 - OBESITY, UNSPECIFIED Status: Chronic Current Visit: Yes - Problem List Review Problem List Initiated/Reviewed/Updated: Yes - My Orders Last 24 Hours: My Active Orders 12/07/18 12:30 Potassium Chloride [Klor-Con M20] 40 meq PO BID@1230,1700 - Plan Plan:: 63-year-old male admitted for CHF exacerbation and hypoglycemia 1. Acute CHF exacerbation: Continues to diurese well. Diuresed 3 L overnight, down another 4 kg in weight. Continue with Lasix 40 mg TID. Strict I/O, daily weights. Low na diet and 1.5 L FR. Continue Metolazone. Supplement and replace K + as needed. 2. Hypoglycemia: Resolved. Continue with Lantus 12 units, Continue SSI Novolog. Follow up as outpatient with DM educator. 3. HTN: Stable. Continue Coreg. 4. CAD: Continue Brillinta, ASA and Lipitor. 5. COPD: Stable, no wheezing. Continue PRN Duonebs and inhalers. VTE prophylaxis: Heparin Q12h Dispo: 1-2 days pending improvement.
[2018-12-08] MEDS: Potassium Chloride 20 MEQ Tab.ER PO SCH ×2 (12:16→16:59)
[2018-12-08] MEDS: Heparin Sodium 5,000 Units/ML Vial SUBCUT SCH (12:20)
--- NOTE | 2018-12-08 14:33 | ECHO ---
EXAM DATE: 12/05/18 PATIENT'S AGE: 63 The echocardiogram report can be seen in this patient's EMR (Electronic Medical Record) in the Reports section. The report has also been scanned into PACS. [email or web address]
[2018-12-08] MEDS: atorvaSTATin 40 MG Tab PO SCH (21:05)
[2018-12-08] MEDS: Tamsulosin 0.4 MG Cap.ER PO SCH (21:05)
[2018-12-08] MEDS: Amitriptyline 25 MG Tab PO SCH (21:05)
[2018-12-08] MEDS: Insulin Glargine,Human Rec. Analog 100 Units/ML 3 ML Pen SUBCUT SCH (21:09)
[2018-12-08] MEDS: diphenhydrAMINE 25 MG Cap PO PRN (21:12)
[2018-12-09] MEDS: Heparin Sodium 5,000 Units/ML Vial SUBCUT SCH (01:04)
[2018-12-09] MEDS: Furosemide 40 MG/4 ML VIAL IVPUSH SCH (05:46)
[2018-12-09] MEDS: Insulin Aspart 100 Units/ML 3 ML Pen SUBCUT SCH ×2 (08:01→13:13)
[2018-12-09] MEDS: Carvedilol 6.25 MG Tab PO SCH (08:15)
[2018-12-09] MEDS: Aspirin 81 MG Tab.EC PO SCH (08:15)
[2018-12-09] MEDS: Metolazone 5 MG Tab PO SCH (08:16)
[2018-12-09] MEDS: Ticagrelor [Brilinta] 90 MG PO SCH (08:16)
--- NOTE | 2018-12-09 09:26 | PCM.PN ---
- General Info Date of Service: 12/09/18 Admission Dx/Problem (Free Text): Admission Diagnosis/Problem Admission Diagnosis/Problem CHF exacerbation Subjective Update: Feeling good today. No chest pain of palpitations. Denies shortness of breath. Functional Status: Reports: Pain Controlled, Tolerating Diet, Ambulating, Urinating - Review of Systems General: Reports: No Symptoms. Denies: Fever, Weakness, Fatigue HEENT: Reports: No Symptoms. Denies: Headaches, Sore Throat, Visual Changes Pulmonary: Reports: No Symptoms. Denies: Shortness of Breath, Cough, Sputum Cardiovascular: Reports: Edema. Denies: Chest Pain, Palpitations Gastrointestinal: Reports: No Symptoms. Denies: Abdominal Pain, Nausea, Vomiting Genitourinary: Reports: No Symptoms. Denies: Dysuria, Frequency, Burning Musculoskeletal: Reports: No Symptoms Skin: Reports: No Symptoms Neurological: Reports: No Symptoms Psychiatric: Reports: No Symptoms - Patient Data Vitals - Most Recent: Last Vital Signs Temp 97.8 F 12/09/18 07:51 Pulse 67 12/09/18 08:15 Resp 18 12/09/18 07:51 BP 119/75 12/09/18 08:15 Pulse Ox 95 12/09/18 08:00 Weight - Most Recent: 124.313 kg I&O - Last 24 Hours: Intake & Output 12/08/18 12/09/18 12/09/18 22:59 06:59 14:59 Intake Total 750 75 Output Total 2225 2195 Balance -1475 -2120 Lab Results Last 24 Hours: Laboratory Results - last 24 hr 12/08/18 12/08/18 12/08/18 Range/Units 12:10 15:45 21:08 WBC (4.0-11.0) K/uL RBC (4.50-5.90) M/uL Hgb (13.0-17.0) g/dL Hct (38.0-50.0) % MCV (80.0-98.0) fL MCH (27.0-32.0) pg MCHC (31.0-37.0) g/dL RDW Std Deviation (28.0-62.0) fl RDW Coeff of [place] (11.0-15.0) % Plt Count (150-400) K/uL MPV (7.40-12.00) fL Neut % (Auto) (48.0-80.0) % Lymph % (Auto) (16.0-40.0) % [place] % (Auto) (0.0-15.0) % Eos % (Auto) (0.0-7.0) % Baso % (Auto) (0.0-1.5) % Neut # (Auto) (1.4-5.7) K/uL Lymph # (Auto) (0.6-2.4) K/uL [place] # (Auto) (0.0-0.8) K/uL Eos # (Auto) (0.0-0.7) K/uL Baso # (Auto) (0.0-0.1) K/uL Nucleated RBC % /100WBC Nucleated RBCs # K/uL Sodium (136-148) mmol/L Potassium (3.5-5.1) mmol/L Chloride (98-107) mmol/L Carbon Dioxide (21.0-32.0) mmol/L BUN (7.0-18.0) mg/dL Creatinine (0.8-1.3) mg/dL Est Cr Clr Drug Dosing mL/min Estimated GFR (MDRD) ml/min Glucose (74-106) mg/dL POC Glucose 164 H 215 H 235 H (60-110) mg/dL Calcium (8.5-10.1) mg/dL 12/09/18 12/09/18 12/09/18 Range/Units 05:05 05:05 05:45 WBC 5.29 (4.0-11.0) K/uL RBC 5.07 (4.50-5.90) M/uL Hgb 13.6 (13.0-17.0) g/dL Hct 41.1 (38.0-50.0) % MCV 81.1 (80.0-98.0) fL MCH 26.8 L (27.0-32.0) pg MCHC 33.1 (31.0-37.0) g/dL RDW Std Deviation 61.2 (28.0-62.0) fl RDW Coeff of [place] 21 H (11.0-15.0) % Plt Count 128 L (150-400) K/uL MPV 9.50 (7.40-12.00) fL Neut % (Auto) 81.7 H (48.0-80.0) % Lymph % (Auto) 8.3 L (16.0-40.0) % [place] % (Auto) 8.9 (0.0-15.0) % Eos % (Auto) 1.1 (0.0-7.0) % Baso % (Auto) 0.0 (0.0-1.5) % Neut # (Auto) 4.3 (1.4-5.7) K/uL Lymph # (Auto) 0.4 L (0.6-2.4) K/uL [place] # (Auto) 0.5 (0.0-0.8) K/uL Eos # (Auto) 0.1 (0.0-0.7) K/uL Baso # (Auto) 0.0 (0.0-0.1) K/uL Nucleated RBC % 0.0 /100WBC Nucleated RBCs # 0 K/uL Sodium 136 (136-148) mmol/L Potassium 4.2 (3.5-5.1) mmol/L Chloride 100 (98-107) mmol/L Carbon Dioxide 26.0 (21.0-32.0) mmol/L BUN 28 H (7.0-18.0) mg/dL Creatinine 1.5 H (0.8-1.3) mg/dL Est Cr Clr Drug Dosing 56.23 mL/min Estimated GFR (MDRD) 47.1 ml/min Glucose 172 H (74-106) mg/dL POC Glucose 156 H (60-110) mg/dL Calcium 9.0 (8.5-10.1) mg/dL Med Orders - Current: Current Medications Acetaminophen (Tylenol) 650 mg PO Q4H PRN PRN Reason: Pain (Mild 1-3)/fever Albuterol/Ipratropium (Duoneb 3.0-0.5 Mg/3 Ml) 3 ml NEB Q4HRRT PRN PRN Reason: Shortness of Breath Last Admin: 12/05/18 16:49 Dose: 3 ml Amitriptyline HCl (Elavil) 50 mg PO BEDTIME [facility] Last Admin: 12/08/18 21:05 Dose: 50 mg Aspirin (Halfprin) 81 mg PO DAILY [facility] Last Admin: 12/09/18 08:15 Dose: 81 mg Atorvastatin Calcium (Lipitor) 40 mg PO BEDTIME [facility] Last Admin: 12/08/18 21:05 Dose: 40 mg Carvedilol (Coreg) 6.25 mg PO BIDMEALS [facility] Last Admin: 12/09/18 08:15 Dose: 6.25 mg Diphenhydramine HCl (Benadryl) 25 mg PO BEDTIME PRN PRN Reason: Insomnia Last Admin: 12/08/18 21:12 Dose: 25 mg Furosemide (Lasix) 40 mg IVPUSH TID [facility] Last Admin: 12/09/18 05:46 Dose: 40 mg Heparin Sodium (Porcine) (Heparin Sodium) 5,000 units SUBCUT Q8H [facility] Insulin Aspart (Novolog) 0 unit SUBCUT TIDAC [facility]; Protocol Last Admin: 12/09/18 08:01 Dose: 1 unit Insulin Glargine (Lantus Solostar) 12 units SUBCUT BEDTIME [facility] Last Admin: 12/08/18 21:09 Dose: 12 units Lorazepam (Ativan) 1 mg PO BID PRN PRN Reason: tremors Metolazone (Zaroxolyn) 2.5 mg PO MoWeFr@0900 [facility] Last Admin: 12/09/18 08:16 Dose: 2.5 mg Ondansetron HCl (Zofran) 4 mg IVPUSH Q4H PRN PRN Reason: Nausea/Vomiting Budesonide/Formoterol 160-4.5 Mcg/Puff 6 Gm Inhaler 1 each INH BID PRN PRN Reason: Shortness of Breath Ticagrelor [Brilinta (] 90 Mg) 1 each PO BID [facility] Last Admin: 12/09/18 08:16 Dose: 1 each Potassium Chloride (Klor-Con M20) 40 meq PO BID@1230,1700 [facility] Last Admin: 12/08/18 16:59 Dose: 40 meq Sodium Chloride (Saline Flush) 10 ml FLUSH ASDIRECTED PRN PRN Reason: Keep Vein Open Sodium Chloride (Saline Flush) 2.5 ml FLUSH ASDIRECTED PRN PRN Reason: Keep Vein Open Tamsulosin HCl (Flomax) 0.4 mg PO BEDTIME [facility] Last Admin: 12/08/18 21:05 Dose: 0.4 mg Discontinued Medications Dextrose/Water (Dextrose 50% In Water) 50 ml IVPUSH ONETIME ONE Stop: 12/03/18 14:35 Last Admin: 12/03/18 14:50 Dose: 50 ml Dextrose/Water (Dextrose 50% In Water) 50 ml IVPUSH ONETIME ONE Stop: 12/03/18 16:41 Last Admin: 12/03/18 16:50 Dose: 50 ml Furosemide (Lasix) 40 mg IVPUSH NOW ONE Stop: 12/03/18 17:14 Last Admin: 12/03/18 17:43 Dose: 40 mg Furosemide (Lasix) 40 mg IVPUSH BID [facility] Last Admin: 12/05/18 08:03 Dose: 40 mg Heparin Sodium (Porcine) (Heparin Sodium) 5,000 units SUBCUT Q12H [facility] Last Admin: 12/09/18 01:04 Dose: 5,000 units Sodium Chloride (Normal Saline) 1,000 mls @ 125 mls/hr IV STAT ONE Stop: 12/03/18 22:33 Last Admin: 12/03/18 14:51 Dose: 125 mls/hr Insulin Aspart (Novolog) 0 unit SUBCUT TIDAC [facility]; Protocol Last Admin: 12/04/18 11:52 Dose: Not Given Insulin Glargine (Lantus Solostar) 20 units SUBCUT BEDTIME [facility] Last Admin: 12/05/18 21:52 Dose: 20 units Morphine Sulfate (Morphine) 2 mg IVPUSH Q2H PRN PRN Reason: Pain (severe 7-10) Stop: 12/04/18 15:27 Morphine Sulfate (Morphine) 2 mg IVPUSH Q2H PRN PRN Reason: Pain (severe 7-10) Stop: 12/04/18 15:27 Nitroglycerin (Nitro-Bid 2%) 1 gm TOP ONETIME ONE Stop: 12/03/18 14:44 Last Admin: 12/03/18 15:01 Dose: 1 gm Potassium Chloride (Klor-Con M20) 40 meq PO ONETIME ONE Stop: 12/03/18 18:00 Last Admin: 12/03/18 18:09 Dose: 40 meq Potassium Chloride (Klor-Con M20) 40 meq PO ONETIME ONE Stop: 12/04/18 10:25 Last Admin: 12/04/18 11:47 Dose: 40 meq Potassium Chloride (Klor-Con M20) 40 meq PO ONETIME ONE Stop: 12/05/18 10:16 Last Admin: 12/05/18 10:57 Dose: 40 meq Potassium Chloride (Klor-Con M20) 40 meq PO BID@1100,1500 [facility] Stop: 12/06/18 15:01 Last Admin: 12/06/18 14:06 Dose: 40 meq Sodium Chloride (Saline Flush) 10 ml FLUSH ASDIRECTED PRN PRN Reason: Keep Vein Open Last Admin: 12/03/18 16:51 Dose: 10 ml Sodium Chloride (Saline Flush) 2.5 ml FLUSH ASDIRECTED PRN PRN Reason: Keep Vein Open Sodium Chloride (Normal Saline) 10 ml IV ASDIRECTED PRN PRN Reason: IV Use - Exam General: Alert, Oriented, Cooperative, No Acute Distress Neck: JVD Lungs: Clear to Auscultation Cardiovascular: Regular Rate, Regular Rhythm GI/Abdominal Exam: Normal Bowel Sounds, Soft, Non-Tender Extremities: Normal Range of Motion, Non-Tender, Pedal Edema (+2 pitting edema, improved.) - Problem List & Annotations (1) CHF exacerbation SNOMED Code(s): 64742228 Code(s): I50.9 - HEART FAILURE, UNSPECIFIED Status: Acute Current Visit: No Qualifiers: Heart failure type: systolic Qualified Code(s): I50.23 - Acute on chronic systolic (congestive) heart failure (2) CAD (coronary artery disease) SNOMED Code(s): 27413449 Code(s): I25.10 - ATHSCL HEART DISEASE OF [place] CORONARY ARTERY W/O ANG PCTRS Status: Chronic Current Visit: No Qualifiers: Coronary Disease-Associated Artery/Lesion type: [place] artery [place] vs. transplanted heart: [place] heart (3) HTN (hypertension) SNOMED Code(s): 72224430 Code(s): I10 - ESSENTIAL (PRIMARY) HYPERTENSION Status: Chronic Current Visit: No Qualifiers: Hypertension type: essential hypertension Qualified Code(s): I10 - Essential (primary) hypertension (4) Hx of myocardial infarction SNOMED Code(s): 949392519 Code(s): I25.2 - OLD MYOCARDIAL INFARCTION Status: Chronic Current Visit : No (5) Hypercholesteremia SNOMED Code(s): 79685423 Code(s): E78.0 - PURE HYPERCHOLESTEROLEMIA * DO NOT USE * Status: Chronic Current Visit: No (6) Cardiac defibrillator in place Status: Chronic Current Visit: Yes (7) Iron deficiency anemia SNOMED Code(s): 11840756 Code(s): D50.9 - IRON DEFICIENCY ANEMIA, UNSPECIFIED Status: Chronic Current Visit: Yes (8) Obesity SNOMED Code(s): 411310302, 176980443 Code(s): E66.9 - OBESITY, UNSPECIFIED Status: Chronic Current Visit: Yes - Problem List Review Problem List Initiated/Reviewed/Updated: Yes - My Orders Last 24 Hours: My Active Orders 12/09/18 14:00 Heparin Sodium 5,000 units SUBCUT Q8H 12/10/18 05:11 BASIC METABOLIC PANEL,BMP [CHEM] AM CBC WITH AUTO DIFF [HEME] AM - Plan Plan:: 63-year-old male admitted for CHF exacerbation and hypoglycemia 1. Acute CHF exacerbation: Continues to diurese well. Diuresed 3.5 L overnight , down another 2 kg in weight. Continue with Lasix 40 mg TID. Strict I/O, daily weights. Low na diet and 1.5 L FR. Continue Metolazone. Supplement and replace K + as needed. 2. Hypoglycemia: Resolved. Continue with Lantus 12 units, Continue SSI Novolog. Follow up as outpatient with DM educator. 3. HTN: Stable. Continue Coreg. 4. CAD: Continue Brillinta, ASA and Lipitor. 5. COPD: Stable, no wheezing. Continue PRN Duonebs and inhalers. VTE prophylaxis: Heparin Q12h Dispo: 1-2 days pending improvement.
--- NOTE | 2018-12-09 11:15 | PCM.DCSUM1 ---
Discharge Summary - Hospital Course Brief History: This is a 63-year-old male who was recently discharged at the end of October for congestive heart failure when he was admitted to our service who is presenting today with hypoglycemia and chest pain for acute coronary syndrome rule out. Patient states that he had taken his insulin in the morning however he had not eaten that much and became hypoglycemic along with this he started to have chest pain substernal in nature that was sharp/pressure like patient became worried that he was having a heart attack given his significant cardiovascular history and called his who had the EMS bring him to the hospital. Patient was also noted to be short of breath and have edema of his bilateral lower extremities, patient thinks that he is retaining fluid T does have a significant history of congestive heart failure. His BNP has been done and is still pending per the ER. In the ED the patient was noted to be hypoglycemic was given a amp of D50 and initial appointment was done and was negative. Patient was then subsequently admitted for acute coronary syndrome rule out and management of his hypoglycemia. Diagnosis: Stroke: No - Discharge Data Discharge Date: 12/09/18 Discharge Disposition: Home, Self-Care 01 Condition: Stable - Discharge Diagnosis/Problem(s) (1) CHF exacerbation SNOMED Code(s): 98272277 ICD Code: I50.9 - HEART FAILURE, UNSPECIFIED Status: Acute Current Visit : No Qualifiers: Heart failure type: systolic Qualified Code(s): I50.23 - Acute on chronic systolic (congestive) heart failure (2) CAD (coronary artery disease) SNOMED Code(s): 32412887 ICD Code: I25.10 - ATHSCL HEART DISEASE OF [place] CORONARY ARTERY W/O ANG PCTRS Status: Chronic Current Visit: No Qualifiers: Coronary Disease-Associated Artery/Lesion type: [place] artery [place] vs. transplanted heart: [place] heart (3) HTN (hypertension) SNOMED Code(s): 26402054 ICD Code: I10 - ESSENTIAL (PRIMARY) HYPERTENSION Status: Chronic Current Visit: No Qualifiers: Hypertension type: essential hypertension Qualified Code(s): I10 - Essential (primary) hypertension (4) Hx of myocardial infarction SNOMED Code(s): 997366141 ICD Code: I25.2 - OLD MYOCARDIAL INFARCTION Status: Chronic Current Visit : No (5) Hypercholesteremia SNOMED Code(s): 65219378 ICD Code: E78.0 - PURE HYPERCHOLESTEROLEMIA * DO NOT USE * Status: Chronic Current Visit: No (6) Cardiac defibrillator in place Status: Chronic Current Visit: Yes (7) Iron deficiency anemia SNOMED Code(s): 35526199 ICD Code: D50.9 - IRON DEFICIENCY ANEMIA, UNSPECIFIED Status: Chronic Current Visit: Yes (8) Obesity SNOMED Code(s): 759225044, 146279810 ICD Code: E66.9 - OBESITY, UNSPECIFIED Status: Chronic Current Visit: Yes - Patient Summary/Data Consults: Consultations 12/03/18 15:27 PT Evaluation and Treatment [CONS] Routine 12/06/18 10:41 Consult to Sidehand [Consult to Diabetic Nurse Specialist] [CONS] Routine - Patient Instructions Diet: Low Sodium, Diabetic Diet Fluid Restriction: 2000 mL Activity: As Tolerated Showering/Bathing: May Shower Notify Provider of: Fever, Increased Pain, Swelling and Redness, Drainage, Nausea and/or Vomiting Other/Special Instructions: Weight yourself daily and log weight. If you start gaining 3-5 punds in 2-3 days your should call PCP, you may need to add an extra dose of Lasix for a couple days. Your weight today, 272 pounds. If you have chest pain pleaes return to ED. DO not add any extra salt to food. Refrain from eating high salt foods or processed, canned foods. - Discharge Plan *PRESCRIPTION DRUG MONITORING PROGRAM REVIEWED*: Not Applicable *COPY OF PRESCRIPTION DRUG MONITORING REPORT IN PATIENT [place]: Not Applicable Prescriptions/Med Rec: Lisinopril 2.5 mg PO DAILY #30 tablet Lisinopril 2.5 mg PO DAILY #30 tablet Home Medications: Home Meds Aspirin [Halfprin] 81 mg PO DAILY 09/29/15 [History] Tamsulosin [Flomax] 0.4 mg PO BEDTIME 09/29/15 [History] Ticagrelor [Brilinta] 90 mg PO BID 09/29/15 [History] atorvaSTATin Calcium [Atorvastatin Calcium] 40 mg PO BEDTIME 01/02/16 [History] Carvedilol 6.25 mg PO BID 07/12/17 [History] Docusate Sodium/Sennosides [Senna Plus] 1 tab PO BID 07/12/17 [History] Ferrous Sulfate [Feosol] 325 mg PO TIDMEALS 07/12/17 [History] Nitroglycerin [Nitrostat] 0.4 mg SL ASDIRECTED PRN MDD 3 tablets 07/12/17 [ History] metOLazone [Metolazone] 2.5 mg PO MOWEFR 07/12/17 [History] Amitriptyline [Elavil] 50 mg PO BEDTIME 05/17/18 [History] Budesonide/Formoterol Fumarate [Symbicort 160-4.5 Mcg Inhaler] 2 puff INH BID PRN 05/17/18 [History] Cholecalciferol (Vitamin D3) [Vitamin D3] 1 tab PO DAILY 05/17/18 [History] Albuterol [Proventil Neb Soln] 0.63 mg NEB Q6HRRT 05/18/18 [History] LORazepam 1 mg PO BID PRN 05/18/18 [History] Furosemide [Lasix] 60 mg PO BIDDIURETIC 60 Days #90 tablet 05/21/18 [Rx] Acetaminophen/HYDROcodone [[place] 325-5 MG] 1 tab PO Q6H PRN 11/16/18 [History] Meloxicam 15 mg PO DAILY PRN 11/16/18 [History] Insulin Aspart [NovoLOG] 3 - 5 unit SQ TIDAC #1 pen 12/09/18 [Rx] Insulin Glarg,Human.Rec.Analog [Lantus Solostar] 14 units SUBCUT BEDTIME #0 pen 12/09/18 [Rx] Lisinopril 2.5 mg PO DAILY #30 tablet 12/09/18 [Rx] Lisinopril 2.5 mg PO DAILY #30 tablet 12/09/18 [Rx] Patient Handouts: Nonspecific Chest Pain, [id number], Lisinopril tablets, Heart Failure, [id number] Referrals: [facility] [Outside] [facility] [Outside] John Taylor MD [Ordering Only Provider] - 01/20/19 11:20 am Hollis Thapa MD [Ordering Only Provider] - 12/15/18 9:30 am - Discharge Summary/Plan Comment DC Time >30 min.: No Discharge Summary/Plan Comment: Discharge Diagnoses: Acute decompensated CHF DM type 2 with hypoglycemia HTN BPH CAD COPD Juwan was admitted with chest pain and noted to be in acute CHF. He was treated with Lasix 40 mg TID for 5 days and diurese 2-3 L daily over this time frame. He lost over 25 lbs in this time frame. Dyspnea and JVD improved daily. He was fluid restricted to 1.5 L daily with low sodium diet. We discussed extensively with and his regarding low sodium diet at home along with fluid restriction to 2 L daily. He was encouraged to weight himself daily, today 's weight which is near dry weight is 272 lbs. He was told to notify PCP of 3-5 lb weight gain in 2-3 days and that he may need to increase Lasix dosing for a few days. We attempted an ECHO on admission, but this returned with poor quality imaging, they recommended Definity contrast with ECHO. He will be scheduled to see report programmer in December. He will also be started on low dose SPARKLE Lisinopril 2.5mg due to EF. PCP to monitor. During his stay he was also noted to be hypoglycemia with home dosing of Lantus , 42 units BID. He appeared to be too heavily dosed with Lantus. We dropped dosing to Lantus 14 units at bedtime, BS in the am were noted to be 150s. Continue Novolog mealtime dosing between 3-5 units. He will follow with Diabetic education in the next week to insure good control with home diet. He was again encouraged to monitor diet at home. He will be discharged home today. Continue Lasix 60 mg BID. He is to return to ED or clinic if concerns should arise. - General Info Date of Service: 12/09/18 Admission Dx/Problem (Free Text: Admission Diagnosis/Problem Admission Diagnosis/Problem CHF exacerbation Subjective Update: Feeling better today, eager to go home. Discussed with Dr Archer. Likely near dry weight. Ok to discharge home. Functional Status: Reports: Pain Controlled, Tolerating Diet, Ambulating, Urinating - Review of Systems General: Reports: No Symptoms. Denies: Fever, Weakness, Fatigue, Malaise HEENT: Reports: No Symptoms. Denies: Headaches, Sore Throat, Visual Changes Pulmonary: Reports: No Symptoms. Denies: Shortness of Breath, Cough, Sputum Cardiovascular: Reports: No Symptoms. Denies: Chest Pain, Palpitations, Edema Gastrointestinal: Reports: No Symptoms. Denies: Abdominal Pain, Nausea, Vomiting Genitourinary: Reports: No Symptoms. Denies: Dysuria, Frequency, Burning Musculoskeletal: Reports: No Symptoms Skin: Reports: No Symptoms Neurological: Reports: No Symptoms Psychiatric: Reports: No Symptoms - Patient Data Vitals - Most Recent: Last Vital Signs Temp 97.8 F 12/09/18 07:51 Pulse 67 12/09/18 08:15 Resp 18 12/09/18 07:51 BP 119/75 12/09/18 08:15 Pulse Ox 95 12/09/18 08:00 Weight - Most Recent: 124.313 kg I&O - Last 24 hours: Intake & Output 12/08/18 12/09/18 12/09/18 22:59 06:59 14:59 Intake Total 750 75 Output Total 2225 2195 Balance -1475 -2120 Lab Results - Last 24 hrs: Laboratory Results - last 24 hr 12/08/18 12/08/18 12/08/18 Range/Units 12:10 15:45 21:08 WBC (4.0-11.0) K/uL RBC (4.50-5.90) M/uL Hgb (13.0-17.0) g/dL Hct (38.0-50.0) % MCV (80.0-98.0) fL MCH (27.0-32.0) pg MCHC (31.0-37.0) g/dL RDW Std Deviation (28.0-62.0) fl RDW Coeff of [place] (11.0-15.0) % Plt Count (150-400) K/uL MPV (7.40-12.00) fL Neut % (Auto) (48.0-80.0) % Lymph % (Auto) (16.0-40.0) % [place] % (Auto) (0.0-15.0) % Eos % (Auto) (0.0-7.0) % Baso % (Auto) (0.0-1.5) % Neut # (Auto) (1.4-5.7) K/uL Lymph # (Auto) (0.6-2.4) K/uL [place] # (Auto) (0.0-0.8) K/uL Eos # (Auto) (0.0-0.7) K/uL Baso # (Auto) (0.0-0.1) K/uL Nucleated RBC % /100WBC Nucleated RBCs # K/uL Sodium (136-148) mmol/L Potassium (3.5-5.1) mmol/L Chloride (98-107) mmol/L Carbon Dioxide (21.0-32.0) mmol/L BUN (7.0-18.0) mg/dL Creatinine (0.8-1.3) mg/dL Est Cr Clr Drug Dosing mL/min Estimated GFR (MDRD) ml/min Glucose (74-106) mg/dL POC Glucose 164 H 215 H 235 H (60-110) mg/dL Calcium (8.5-10.1) mg/dL 12/09/18 12/09/18 12/09/18 Range/Units 05:05 05:05 05:45 WBC 5.29 (4.0-11.0) K/uL RBC 5.07 (4.50-5.90) M/uL Hgb 13.6 (13.0-17.0) g/dL Hct 41.1 (38.0-50.0) % MCV 81.1 (80.0-98.0) fL MCH 26.8 L (27.0-32.0) pg MCHC 33.1 (31.0-37.0) g/dL RDW Std Deviation 61.2 (28.0-62.0) fl RDW Coeff of [place] 21 H (11.0-15.0) % Plt Count 128 L (150-400) K/uL MPV 9.50 (7.40-12.00) fL Neut % (Auto) 81.7 H (48.0-80.0) % Lymph % (Auto) 8.3 L (16.0-40.0) % [place] % (Auto) 8.9 (0.0-15.0) % Eos % (Auto) 1.1 (0.0-7.0) % Baso % (Auto) 0.0 (0.0-1.5) % Neut # (Auto) 4.3 (1.4-5.7) K/uL Lymph # (Auto) 0.4 L (0.6-2.4) K/uL [place] # (Auto) 0.5 (0.0-0.8) K/uL Eos # (Auto) 0.1 (0.0-0.7) K/uL Baso # (Auto) 0.0 (0.0-0.1) K/uL Nucleated RBC % 0.0 /100WBC Nucleated RBCs # 0 K/uL Sodium 136 (136-148) mmol/L Potassium 4.2 (3.5-5.1) mmol/L Chloride 100 (98-107) mmol/L Carbon Dioxide 26.0 (21.0-32.0) mmol/L BUN 28 H (7.0-18.0) mg/dL Creatinine 1.5 H (0.8-1.3) mg/dL Est Cr Clr Drug Dosing 56.23 mL/min Estimated GFR (MDRD) 47.1 ml/min Glucose 172 H (74-106) mg/dL POC Glucose 156 H (60-110) mg/dL Calcium 9.0 (8.5-10.1) mg/dL Med Orders - Current: Current Medications Acetaminophen (Tylenol) 650 mg PO Q4H PRN PRN Reason: Pain (Mild 1-3)/fever Albuterol/Ipratropium (Duoneb 3.0-0.5 Mg/3 Ml) 3 ml NEB Q4HRRT PRN PRN Reason: Shortness of Breath Last Admin: 12/05/18 16:49 Dose: 3 ml Amitriptyline HCl (Elavil) 50 mg PO BEDTIME [facility] Last Admin: 12/08/18 21:05 Dose: 50 mg Aspirin (Halfprin) 81 mg PO DAILY [facility] Last Admin: 12/09/18 08:15 Dose: 81 mg Atorvastatin Calcium (Lipitor) 40 mg PO BEDTIME [facility] Last Admin: 12/08/18 21:05 Dose: 40 mg Carvedilol (Coreg) 6.25 mg PO BIDMEALS [facility] Last Admin: 12/09/18 08:15 Dose: 6.25 mg Diphenhydramine HCl (Benadryl) 25 mg PO BEDTIME PRN PRN Reason: Insomnia Last Admin: 12/08/18 21:12 Dose: 25 mg Furosemide (Lasix) 40 mg IVPUSH TID [facility] Last Admin: 12/09/18 05:46 Dose: 40 mg Heparin Sodium (Porcine) (Heparin Sodium) 5,000 units SUBCUT Q8H [facility] Insulin Aspart (Novolog) 0 unit SUBCUT TIDAC [facility]; Protocol Last Admin: 12/09/18 08:01 Dose: 1 unit Insulin Glargine (Lantus Solostar) 12 units SUBCUT BEDTIME [facility] Last Admin: 12/08/18 21:09 Dose: 12 units Lorazepam (Ativan) 1 mg PO BID PRN PRN Reason: tremors Metolazone (Zaroxolyn) 2.5 mg PO MoWeFr@0900 [facility] Last Admin: 12/09/18 08:16 Dose: 2.5 mg Ondansetron HCl (Zofran) 4 mg IVPUSH Q4H PRN PRN Reason: Nausea/Vomiting Budesonide/Formoterol 160-4.5 Mcg/Puff 6 Gm Inhaler 1 each INH BID PRN PRN Reason: Shortness of Breath Ticagrelor [Brilinta (] 90 Mg) 1 each PO BID [facility] Last Admin: 12/09/18 08:16 Dose: 1 each Sodium Chloride (Saline Flush) 10 ml FLUSH ASDIRECTED PRN PRN Reason: Keep Vein Open Sodium Chloride (Saline Flush) 2.5 ml FLUSH ASDIRECTED PRN PRN Reason: Keep Vein Open Tamsulosin HCl (Flomax) 0.4 mg PO BEDTIME [facility] Last Admin: 12/08/18 21:05 Dose: 0.4 mg Discontinued Medications Dextrose/Water (Dextrose 50% In Water) 50 ml IVPUSH ONETIME ONE Stop: 12/03/18 14:35 Last Admin: 12/03/18 14:50 Dose: 50 ml Dextrose/Water (Dextrose 50% In Water) 50 ml IVPUSH ONETIME ONE Stop: 12/03/18 16:41 Last Admin: 12/03/18 16:50 Dose: 50 ml Furosemide (Lasix) 40 mg IVPUSH NOW ONE Stop: 12/03/18 17:14 Last Admin: 12/03/18 17:43 Dose: 40 mg Furosemide (Lasix) 40 mg IVPUSH BID [facility] Last Admin: 12/05/18 08:03 Dose: 40 mg Heparin Sodium (Porcine) (Heparin Sodium) 5,000 units SUBCUT Q12H [facility] Last Admin: 12/09/18 01:04 Dose: 5,000 units Sodium Chloride (Normal Saline) 1,000 mls @ 125 mls/hr IV STAT ONE Stop: 12/03/18 22:33 Last Admin: 12/03/18 14:51 Dose: 125 mls/hr Insulin Aspart (Novolog) 0 unit SUBCUT TIDAC [facility]; Protocol Last Admin: 12/04/18 11:52 Dose: Not Given Insulin Glargine (Lantus Solostar) 20 units SUBCUT BEDTIME [facility] Last Admin: 12/05/18 21:52 Dose: 20 units Morphine Sulfate (Morphine) 2 mg IVPUSH Q2H PRN PRN Reason: Pain (severe 7-10) Stop: 12/04/18 15:27 Morphine Sulfate (Morphine) 2 mg IVPUSH Q2H PRN PRN Reason: Pain (severe 7-10) Stop: 12/04/18 15:27 Nitroglycerin (Nitro-Bid 2%) 1 gm TOP ONETIME ONE Stop: 12/03/18 14:44 Last Admin: 12/03/18 15:01 Dose: 1 gm Potassium Chloride (Klor-Con M20) 40 meq PO ONETIME ONE Stop: 12/03/18 18:00 Last Admin: 12/03/18 18:09 Dose: 40 meq Potassium Chloride (Klor-Con M20) 40 meq PO ONETIME ONE Stop: 12/04/18 10:25 Last Admin: 12/04/18 11:47 Dose: 40 meq Potassium Chloride (Klor-Con M20) 40 meq PO ONETIME ONE Stop: 12/05/18 10:16 Last Admin: 12/05/18 10:57 Dose: 40 meq Potassium Chloride (Klor-Con M20) 40 meq PO BID@1100,1500 [facility] Stop: 12/06/18 15:01 Last Admin: 12/06/18 14:06 Dose: 40 meq Potassium Chloride (Klor-Con M20) 40 meq PO BID@1230,1700 [facility] Last Admin: 12/08/18 16:59 Dose: 40 meq Sodium Chloride (Saline Flush) 10 ml FLUSH ASDIRECTED PRN PRN Reason: Keep Vein Open Last Admin: 12/03/18 16:51 Dose: 10 ml Sodium Chloride (Saline Flush) 2.5 ml FLUSH ASDIRECTED PRN PRN Reason: Keep Vein Open Sodium Chloride (Normal Saline) 10 ml IV ASDIRECTED PRN PRN Reason: IV Use - Exam General: Reports: Alert, Oriented, Cooperative, No Acute Distress Neck: Reports: Supple, JVD Lungs: Reports: Clear to Auscultation, Normal Respiratory Effort Cardiovascular: Reports: Regular Rate, Regular Rhythm GI/Abdominal Exam: Normal Bowel Sounds, Soft, Non-Tender Extremities: Normal Range of Motion, Pedal Edema (+2 pitting, continues to improve.) Skin: Reports: Ecchymosis (bilateral arms from IV sticks) Neurological: Reports: No New Focal Deficit Psy/Mental Status: Reports: Alert, Normal Affect, Normal Mood
[2018-12-09 11:59] VITALS: BP 108/71
[2018-12-09] MEDS ORDERED: Heparin Sodium 5,000 Units/ML Vial SUBCUT SCH (14:00)
== END 2018-12-09 13:00 | disposition home or self-care (01) | DRG 293 ==
LOC: MW.ED 14:33 → MW.MS 15:38 → OBSVTOIN 12-05 09:24
PROVIDERS: ADMIT Internal Medicine; ATTEND Internal Medicine
DX: R07.9 Chest pain, unspecified (principal); R53.83 Other fatigue; R06.02 Shortness of breath; I11.0 Hypertensive heart disease with heart failure; E11.649 Type 2 diabetes mellitus with hypoglycemia without coma; I50.23 Acute on chronic systolic (congestive) heart failure; I50.9 Heart failure, unspecified; J44.9 Chronic obstructive pulmonary disease, unspecified; N40.0 Benign prostatic hyperplasia without lower urinary tract symptoms; I25.10 Atherosclerotic heart disease of native coronary artery without angina pectoris; Z95.0 Presence of cardiac pacemaker; E78.00 Pure hypercholesterolemia, unspecified; E66.9 Obesity, unspecified; D50.9 Iron deficiency anemia, unspecified; Z79.4 Long term (current) use of insulin; Z79.899 Other long term (current) drug therapy; Z95.810 Presence of automatic (implantable) cardiac defibrillator; Z79.82 Long term (current) use of aspirin; I25.2 Old myocardial infarction
CPT/HCPCS: 36415 ×3; 71045; 80048; 80053 ×2; 82962 ×9; 83735; 83880; 84484 ×3; 85025 ×2; 85610; 87804 ×2; 93005 ×2; 96361; 96374; 96375; 96376 ×2; 99285; A9270 ×16; G0378 ×2; J1815 ×2; J1940 ×4; J7040; J7060 ×2; 93306; 97161-GP; J1644; J7620-GY

== ENCOUNTER 2018-12-17 18:48 | Observation (INO) | payer MEDICARE, MEDICAID, OTHER ==
[2018-12-17] MEDS ORDERED: LORazepam 2 MG/ML SDV IVPUSH ONE ×2 (18:59→20:29)
[2018-12-17] MEDS ORDERED: Sodium Chloride 0.9% 10 ML Syringe FLUSH PRN ×2 (18:59→23:06)
[2018-12-17] MEDS ORDERED: Sodium Chloride 0.9% 2.5 ML Syringe FLUSH PRN ×2 (18:59→23:06)
[2018-12-17] MEDS ORDERED: Sodium Chloride 0.9% 1,000 ML IV SCH (19:00)
--- NOTE | 2018-12-17 19:04 | EDM.PDOC ---
ED HPI GENERAL MEDICAL PROBLEM - General Chief Complaint: General Stated Complaint: SOB Time Seen by Provider: 12/17/18 18:57 - History of Present Illness INITIAL COMMENTS - FREE TEXT/NARRATIVE: HISTORY AND PHYSICAL: History of present illness: Patient is 63-year-old male history of transient adjustment disorder with anxiety and multiple other medical problems who presents with tremors and anxiety after having run out of his Ativan yesterday he denies chest pain shortness of breath nausea vomiting or other complaints he states that similar episodes in the past Review of systems: As per history of present illness and below otherwise all systems reviewed and negative. Past medical history: As per history of present illness and as reviewed below otherwise noncontributory. Surgical history: As per history of present illness and as reviewed below otherwise noncontributory. Social history: No reported history of drug or alcohol abuse. Family history: As per history of present illness and as reviewed below otherwise noncontributory. Physical exam: HEENT: Atraumatic, normocephalic, pupils reactive, negative for conjunctival pallor or scleral icterus, mucous membranes moist, throat clear, neck supple, nontender, trachea midline. Lungs: Diminished scant basilar crackles, breath sounds equal bilaterally, chest nontender. Heart: S1S2, regular, negative for clicks, rubs, or JVD. Abdomen: Soft, nondistended, nontender. Negative for masses or hepatosplenomegaly. Negative for costovertebral tenderness. Pelvis: Stable nontender. Genitourinary: Deferred. Rectal: Deferred. Extremities: Atraumatic, negative for cords or calf pain. Neurovascular unremarkable. Neuro: Awake, alert, oriented. Tremulous follows commands and moves all extremities limited grossly nonfocal exam Diagnostics: CBC CMP troponin ammonia UA UDS chest x-ray EKG Therapeutics: IV O2 monitor Ativan 2 mg IV Impression: #1 acute anxiety #2 medical screening exam Definitive disposition and diagnosis as appropriate pending reevaluation and review of above. - Related Data Allergies Allergy/AdvReac Type Severity Reaction Status Date / Time No Known Allergies Allergy Verified 12/17/18 18:54 Home Meds: Home Meds Aspirin [Halfprin] 81 mg PO DAILY 09/29/15 [History] Tamsulosin [Flomax] 0.4 mg PO BEDTIME 09/29/15 [History] Ticagrelor [Brilinta] 90 mg PO BID 09/29/15 [History] atorvaSTATin Calcium [Atorvastatin Calcium] 40 mg PO BEDTIME 01/02/16 [History] Carvedilol 6.25 mg PO BID 07/12/17 [History] Docusate Sodium/Sennosides [Senna Plus] 1 tab PO BID 07/12/17 [History] Ferrous Sulfate [Feosol] 325 mg PO TIDMEALS 07/12/17 [History] Nitroglycerin [Nitrostat] 0.4 mg SL ASDIRECTED PRN MDD 3 tablets 07/12/17 [ History] metOLazone [Metolazone] 2.5 mg PO MOWEFR 07/12/17 [History] Amitriptyline [Elavil] 50 mg PO BEDTIME 05/17/18 [History] Budesonide/Formoterol Fumarate [Symbicort 160-4.5 Mcg Inhaler] 2 puff INH BID PRN 05/17/18 [History] Cholecalciferol (Vitamin D3) [Vitamin D3] 1 tab PO DAILY 05/17/18 [History] Albuterol [Proventil Neb Soln] 0.63 mg NEB Q6HRRT 05/18/18 [History] LORazepam 1 mg PO BID PRN 05/18/18 [History] Furosemide [Lasix] 60 mg PO BIDDIURETIC 60 Days #90 tablet 05/21/18 [Rx] Acetaminophen/HYDROcodone [[place] 325-5 MG] 1 tab PO Q6H PRN 11/16/18 [History] Meloxicam 15 mg PO DAILY PRN 11/16/18 [History] Insulin Aspart [NovoLOG] 3 - 5 unit SQ TIDAC #1 pen 12/09/18 [Rx] Insulin Glarg,Human.Rec.Analog [Lantus Solostar] 14 units SUBCUT BEDTIME #0 pen 12/09/18 [Rx] Lisinopril 2.5 mg PO DAILY #30 tablet 12/09/18 [Rx] Lisinopril 2.5 mg PO DAILY #30 tablet 12/09/18 [Rx] Past Medical History - Past Health History Medical/Surgical History: Denies Medical/Surgical History HEENT History: Reports: None Cardiovascular History: Reports: Heart Failure, Hypertension, Pacemaker Respiratory History: Reports: COPD Other Respiratory History: CPAP Gastrointestinal History: Reports: None Genitourinary History: Reports: BPH Musculoskeletal History: Reports: None Neurological History: Reports: Other (See Below) Other Neuro History: stroke Psychiatric History: Reports: None Endocrine/Metabolic History: Reports: Diabetes, Type II Hematologic History: Reports: None Immunologic History: Reports: None Oncologic (Cancer) History: Reports: None Dermatologic History: Reports: None - Infectious Disease History Infectious Disease History: Reports: None - Past Surgical History Head Surgeries/Procedures: Reports: None HEENT Surgical History: Reports: None Cardiovascular Surgical History: Reports: Other (See Below) Other Cardiovascular Surgeries/Procedures: multiple stent Respiratory Surgical History: Reports: None GI Surgical History: Reports: Other (See Below) Male Surgical History: Reports: None Endocrine Surgical History: Reports: None Neurological Surgical History: Reports: None Musculoskeletal Surgical History: Reports: None Oncologic Surgical History: Reports: None Dermatological Surgical History: Reports: None Social & Family History - Family History Family Medical History: Noncontributory HEENT: Reports: None Cardiac: Reports: None Respiratory: Reports: None GI: Reports: None : Reports: None OBGYN: Reports: None Musculoskeletal: Reports: None Neurological: Reports: None Endocrine/Metabolic: Reports: Diabetes, type II Hematologic: Reports: None Immunologic: Reports: None Oncologic: Reports: Colon - Tobacco Use Smoking Status *Q: Former Smoker Used Tobacco, but Quit: Yes Month/Year Tobacco Last Used: 1999 - Caffeine Use Caffeine Use: Reports: None Other Caffeine Use: 1 can daily ED ROS GENERAL - Review of Systems Review Of Systems: ROS reveals no pertinent complaints other than HPI. ED EXAM, GENERAL - Physical Exam Exam: See Below (See dictation) Course - Vital Signs Last Recorded V/S: Last Vital Signs Temp 37.1 C 12/17/18 18:52 Pulse 84 12/17/18 18:52 Resp 20 12/17/18 18:52 BP 154/104 H 12/17/18 18:52 Pulse Ox 95 12/17/18 19:10 - Orders/Labs/Meds Orders: Active Orders 24 hr Category Date Time Status Cardiac Monitoring [RC] . DIRECTED Care 12/17/18 18:58 Active EKG Documentation Completion [RC] STAT Care 12/17/18 18:58 Active Oxygen Therapy, ED [RC] ASDIRECTED Care 12/17/18 18:58 Active Pulse Oximetry [RC] ASDIRECTED Care 12/17/18 18:58 Active DRUG SCREEN, URINE [URCHEM] Stat Lab 12/17/18 18:58 Ordered UA RFX LIONEL AND CULT IF INDIC [URIN] Stat Lab 12/17/18 18:58 Ordered Sodium Chloride 0.9% [Normal Saline] 1,000 ml Med 12/17/18 19:00 Active IV STAT Sodium Chloride 0.9% [Saline Flush] Med 12/17/18 18:59 Active 10 ml FLUSH ASDIRECTED PRN Sodium Chloride 0.9% [Saline Flush] Med 12/17/18 18:59 Active 2.5 ml FLUSH ASDIRECTED PRN Saline Lock Insert [OM.PC] Stat Oth 12/17/18 18:58 Ordered Medication Orders Sodium Chloride (Normal Saline) 1,000 mls @ 125 mls/hr IV STAT LUIZA Last Admin: 12/17/18 19:19 Dose: 125 mls/hr Sodium Chloride (Saline Flush) 10 ml FLUSH ASDIRECTED PRN PRN Reason: Keep Vein Open Last Admin: 12/17/18 19:23 Dose: 10 ml Sodium Chloride (Saline Flush) 2.5 ml FLUSH ASDIRECTED PRN PRN Reason: Keep Vein Open Last Admin: 12/17/18 19:23 Dose: 2.5 ml Labs: Laboratory Tests 12/17/18 12/17/18 12/17/18 Range/Units 19:10 19:10 19:10 WBC 6.81 (4.0-11.0) K/uL RBC 5.02 (4.50-5.90) M/uL Hgb 13.5 (13.0-17.0) g/dL Hct 40.5 (38.0-50.0) % MCV 80.7 (80.0-98.0) fL MCH 26.9 L (27.0-32.0) pg MCHC 33.3 (31.0-37.0) g/dL RDW Std Deviation 56.4 (28.0-62.0) fl RDW Coeff of [place] 19 H (11.0-15.0) % Plt Count 184 (150-400) K/uL MPV 9.50 (7.40-12.00) fL Neut % (Auto) 78.9 (48.0-80.0) % Lymph % (Auto) 12.8 L (16.0-40.0) % [place] % (Auto) 6.8 (0.0-15.0) % Eos % (Auto) 1.2 (0.0-7.0) % Baso % (Auto) 0.3 (0.0-1.5) % Neut # (Auto) 5.4 (1.4-5.7) K/uL Lymph # (Auto) 0.9 (0.6-2.4) K/uL [place] # (Auto) 0.5 (0.0-0.8) K/uL Eos # (Auto) 0.1 (0.0-0.7) K/uL Baso # (Auto) 0.0 (0.0-0.1) K/uL Nucleated RBC % 0.0 /100WBC Nucleated RBCs # 0 K/uL INR 1.08 Sodium 135 L (136-148) mmol/L Potassium 3.9 (3.5-5.1) mmol/L Chloride 100 (98-107) mmol/L Carbon Dioxide 25.8 (21.0-32.0) mmol/L BUN 21 H (7.0-18.0) mg/dL Creatinine 1.4 H (0.8-1.3) mg/dL Est Cr Clr Drug Dosing 60.24 mL/min Estimated GFR (MDRD) 51.0 ml/min Glucose 345 H (74-106) mg/dL Calcium 8.7 (8.5-10.1) mg/dL Total Bilirubin 2.4 H (0.2-1.0) mg/dL AST 23 (15-37) IU/L ALT 26 (14-63) IU/L Alkaline Phosphatase 404 H (46-116) U/L B-Natriuretic Peptide (<100) PG/ML Total Protein 8.0 (6.4-8.2) g/dL Albumin 3.0 L (3.4-5.0) g/dL Globulin 5.0 H (2.6-4.0) g/dL Albumin/Globulin Ratio 0.6 L (0.9-1.6) Amylase 13 L (25-115) U/L Ethyl Alcohol <3 mg/dL 12/17/18 Range/Units 19:10 WBC (4.0-11.0) K/uL RBC (4.50-5.90) M/uL Hgb (13.0-17.0) g/dL Hct (38.0-50.0) % MCV (80.0-98.0) fL MCH (27.0-32.0) pg MCHC (31.0-37.0) g/dL RDW Std Deviation (28.0-62.0) fl RDW Coeff of [place] (11.0-15.0) % Plt Count (150-400) K/uL MPV (7.40-12.00) fL Neut % (Auto) (48.0-80.0) % Lymph % (Auto) (16.0-40.0) % [place] % (Auto) (0.0-15.0) % Eos % (Auto) (0.0-7.0) % Baso % (Auto) (0.0-1.5) % Neut # (Auto) (1.4-5.7) K/uL Lymph # (Auto) (0.6-2.4) K/uL [place] # (Auto) (0.0-0.8) K/uL Eos # (Auto) (0.0-0.7) K/uL Baso # (Auto) (0.0-0.1) K/uL Nucleated RBC % /100WBC Nucleated RBCs # K/uL INR Sodium (136-148) mmol/L Potassium (3.5-5.1) mmol/L Chloride (98-107) mmol/L Carbon Dioxide (21.0-32.0) mmol/L BUN (7.0-18.0) mg/dL Creatinine (0.8-1.3) mg/dL Est Cr Clr Drug Dosing mL/min Estimated GFR (MDRD) ml/min Glucose (74-106) mg/dL Calcium (8.5-10.1) mg/dL Total Bilirubin (0.2-1.0) mg/dL AST (15-37) IU/L ALT (14-63) IU/L Alkaline Phosphatase (46-116) U/L B-Natriuretic Peptide 981 H (<100) PG/ML Total Protein (6.4-8.2) g/dL Albumin (3.4-5.0) g/dL Globulin (2.6-4.0) g/dL Albumin/Globulin Ratio (0.9-1.6) Amylase (25-115) U/L Ethyl Alcohol mg/dL Meds: Medications Generic Name Dose Route Start Last Admin Trade Name Freq PRN Reason Stop Dose Admin Sodium Chloride 1,000 mls @ 125 mls/hr 12/17/18 19:00 12/17/18 19:19 Normal Saline IV 125 mls/hr STAT LUIZA Administration Sodium Chloride 10 ml 12/17/18 18:59 12/17/18 19:23 Saline Flush FLUSH 10 ml ASDIRECTED PRN Administration Keep Vein Open Sodium Chloride 2.5 ml 12/17/18 18:59 12/17/18 19:23 Saline Flush FLUSH 2.5 ml ASDIRECTED PRN Administration Keep Vein Open Discontinued Medications Generic Name Dose Route Start Last Admin Trade Name Freq PRN Reason Stop Dose Admin Furosemide 40 mg 12/17/18 20:28 12/17/18 20:41 Lasix IVPUSH 12/17/18 20:29 40 mg NOW ONE Administration Lorazepam 2 mg 12/17/18 18:59 12/17/18 19:21 Ativan IVPUSH 12/17/18 19:00 2 mg ONETIME ONE Administration Lorazepam 1 mg 12/17/18 20:29 12/17/18 20:40 Ativan IVPUSH 12/17/18 20:30 1 mg ONETIME ONE Administration Departure - Departure Time of Disposition: 20:50 Disposition: Refer to Observation Condition: Good Clinical Impression: Occasional tremors, CHF (congestive heart failure), CHF, Congestive heart failure - Discharge Information Referrals: PCP,Unknown [Primary Care Provider] - Forms: ED Department Discharge - My Orders Last 24 Hours: My Active Orders 12/17/18 18:58 Cardiac Monitoring [RC] . DIRECTED EKG Documentation Completion [RC] STAT Oxygen Therapy, ED [RC] ASDIRECTED Pulse Oximetry [RC] ASDIRECTED DRUG SCREEN, URINE [URCHEM] Stat UA RFX LIONEL AND CULT IF INDIC [URIN] Stat Saline Lock Insert [OM.PC] Stat 12/17/18 18:59 Sodium Chloride 0.9% [Saline Flush] 10 ml FLUSH ASDIRECTED PRN Sodium Chloride 0.9% [Saline Flush] 2.5 ml FLUSH ASDIRECTED PRN 12/17/18 19:00 Sodium Chloride 0.9% [Normal Saline] 1,000 ml IV STAT - Assessment/Plan Last 24 Hours: My Active Orders 12/17/18 18:58 Cardiac Monitoring [RC] . DIRECTED EKG Documentation Completion [RC] STAT Oxygen Therapy, ED [RC] ASDIRECTED Pulse Oximetry [RC] ASDIRECTED DRUG SCREEN, URINE [URCHEM] Stat UA RFX LIONEL AND CULT IF INDIC [URIN] Stat Saline Lock Insert [OM.PC] Stat 12/17/18 18:59 Sodium Chloride 0.9% [Saline Flush] 10 ml FLUSH ASDIRECTED PRN Sodium Chloride 0.9% [Saline Flush] 2.5 ml FLUSH ASDIRECTED PRN 12/17/18 19:00 Sodium Chloride 0.9% [Normal Saline] 1,000 ml IV STAT
[2018-12-17 19:43] LABS: CHLORIDE,CL 100 mmol/L (98-107); SODIUM,NA 135 mmol/L (136-148)
--- NOTE | 2018-12-17 20:08 | CR ---
TECHNIQUE: Portable AP chest. INDICATIONS: Pain and shortness of breath. COMPARISON: 12/03/2018. FINDINGS: Shallow inspiration and portable technique accentuates heart size and pulmonary vascularity, however cardiomegaly is suspected. No focal consolidation identified. Left-sided AICD. No significant change since prior exam. Dictated by Jg Downs MD @ 12/17/2018 8:05:57 PM Dictated by: Jg Downs MD @ 12/17/2018 20:06:01 (Electronically Signed)
[2018-12-17] MEDS ORDERED: Furosemide 40 MG/4 ML VIAL IVPUSH ONE (20:28)
[2018-12-17] MEDS ORDERED: Acetaminophen 325 MG Tab PO PRN (23:08)
[2018-12-17] MEDS ORDERED: oxyCODONE 5 MG Tab PO PRN (23:09)
[2018-12-17] MEDS ORDERED: LORazepam 2 MG/ML SDV IVPUSH PRN (23:11)
[2018-12-18 07:17] LABS: CHLORIDE,CL 103 mmol/L (98-107); SODIUM,NA 138 mmol/L (136-148)
--- NOTE | 2018-12-18 07:22 | PCM.HP ---
H&P History of Present Illness - General Date of Service: 12/18/18 Admit Problem/Dx: Admission Diagnosis/Problem Admission Diagnosis/Problem CHF, Congestive heart failure, compensated, systolic failure, HFrEF Source of Information: Patient, Old Records History Limitations: Reports: Other (Poor historian) - History of Present Illness Initial Comments - Free Text/Narative: The patient is a 63-year-old gentleman represented to the emergency department with a complaint of tremors and shaking. The patient also has a history of anxiety and the patient says that he ran out of Ativan that he had been taking from the [email or web address] 10 days ago. The patient was just recently discharged from the hospital for similar concerns. The patient is a very vague and poor historian. The patient says that he has been doing well otherwise. He has no complaints today. The patient was started on Ativan and he says this is improved. The patient has denied any dizziness or lightheadedness. No nausea or vomiting. The patient is not aware of any other medications he is taking or any health problems that he has. Onset of Symptoms: Reports: Unknown/Unsure Duration of Symptoms: Reports: Day(s): Location: Reports: Generalized Severity: Mild Improves with: Reports: Medication Worsens with: Reports: None Associated Symptoms: Reports: No Other Symptoms - Related Data Allergies/Adverse Reactions: Allergies Allergy/AdvReac Type Severity Reaction Status Date / Time No Known Allergies Allergy Verified 12/17/18 18:54 Home Medications: Home Meds Aspirin [Halfprin] 81 mg PO DAILY 09/29/15 [History] Tamsulosin [Flomax] 0.4 mg PO BEDTIME 09/29/15 [History] Ticagrelor [Brilinta] 90 mg PO BID 09/29/15 [History] atorvaSTATin Calcium [Atorvastatin Calcium] 40 mg PO BEDTIME 01/02/16 [History] Carvedilol 6.25 mg PO BID 07/12/17 [History] Docusate Sodium/Sennosides [Senna Plus] 1 tab PO BID 07/12/17 [History] Ferrous Sulfate [Feosol] 325 mg PO TIDMEALS 07/12/17 [History] Nitroglycerin [Nitrostat] 0.4 mg SL ASDIRECTED PRN MDD 3 tablets 07/12/17 [ History] metOLazone [Metolazone] 2.5 mg PO MOWEFR 07/12/17 [History] Amitriptyline [Elavil] 50 mg PO BEDTIME 05/17/18 [History] Budesonide/Formoterol Fumarate [Symbicort 160-4.5 Mcg Inhaler] 2 puff INH BID PRN 05/17/18 [History] Cholecalciferol (Vitamin D3) [Vitamin D3] 1 tab PO DAILY 05/17/18 [History] Albuterol [Proventil Neb Soln] 0.63 mg NEB Q6HRRT 05/18/18 [History] LORazepam 1 mg PO BID PRN 05/18/18 [History] Furosemide [Lasix] 60 mg PO BIDDIURETIC 60 Days #90 tablet 05/21/18 [Rx] Acetaminophen/HYDROcodone [[place] 325-5 MG] 1 tab PO Q6H PRN 11/16/18 [History] Meloxicam 15 mg PO DAILY PRN 11/16/18 [History] Insulin Aspart [NovoLOG] 3 - 5 unit SQ TIDAC #1 pen 12/09/18 [Rx] Insulin Glarg,Human.Rec.Analog [Lantus Solostar] 14 units SUBCUT BEDTIME #0 pen 12/09/18 [Rx] Lisinopril 2.5 mg PO DAILY #30 tablet 12/09/18 [Rx] Past Medical History - Past Health History Medical/Surgical History: Denies Medical/Surgical History HEENT History: Reports: None Cardiovascular History: Reports: Heart Failure, Hypertension, Pacemaker Respiratory History: Reports: COPD Other Respiratory History: CPAP Gastrointestinal History: Reports: None Genitourinary History: Reports: BPH Musculoskeletal History: Reports: None Neurological History: Reports: Other (See Below) Other Neuro History: stroke, tremors Psychiatric History: Reports: Anxiety Endocrine/Metabolic History: Reports: Diabetes, Type II Hematologic History: Reports: None Immunologic History: Reports: None Oncologic (Cancer) History: Reports: None Dermatologic History: Reports: None - Infectious Disease History Infectious Disease History: Reports: None - Past Surgical History Head Surgeries/Procedures: Reports: None HEENT Surgical History: Reports: None Cardiovascular Surgical History: Reports: Other (See Below) Other Cardiovascular Surgeries/Procedures: multiple stent Respiratory Surgical History: Reports: None GI Surgical History: Reports: Other (See Below) Male Surgical History: Reports: None Endocrine Surgical History: Reports: None Neurological Surgical History: Reports: None Musculoskeletal Surgical History: Reports: None Oncologic Surgical History: Reports: None Dermatological Surgical History: Reports: None Social & Family History - Family History Family Medical History: Noncontributory HEENT: Reports: None Cardiac: Reports: None Respiratory: Reports: None GI: Reports: None : Reports: None OBGYN: Reports: None Musculoskeletal: Reports: None Neurological: Reports: None Endocrine/Metabolic: Reports: Diabetes, type II Hematologic: Reports: None Immunologic: Reports: None Oncologic: Reports: Colon - Tobacco Use Smoking Status *Q: Never Smoker Used Tobacco, but Quit: Yes Month/Year Tobacco Last Used: 1999 Second Hand Smoke Exposure: No - Caffeine Use Caffeine Use: Reports: Soda Other Caffeine Use: 1 can daily - Recreational Drug Use Recreational Drug Use: No H&P Review of Systems - Review of Systems: Review Of Systems: See Below Free Text/Narrative: The patient is considered to be a poor historian General: Reports: No Symptoms HEENT: Reports: No Symptoms Pulmonary: Reports: No Symptoms Cardiovascular: Reports: No Symptoms Gastrointestinal: Reports: No Symptoms Genitourinary: Reports: No Symptoms Musculoskeletal: Reports: No Symptoms Skin: Reports: No Symptoms Psychiatric: Reports: No Symptoms Neurological: Reports: Tremors Hematologic/Lymphatic: Reports: No Symptoms Immunologic: Reports: No Symptoms Exam - Exam Exam: See Below - Vital Signs Vital Signs: Last Vital Signs Temp 36.6 C 12/18/18 04:00 Pulse 98 12/18/18 04:00 Resp 21 H 12/18/18 04:00 BP 128/79 12/18/18 04:00 Pulse Ox 97 12/18/18 04:00 Weight: 126.462 kg - Exam Quality Assessment: Supplemental Oxygen General: Alert, Oriented, Cooperative HEENT: Conjunctiva Clear, EACs Clear, Pupils Equal, PERRLA. No: Hearing Intact , Mucosa Moist & [place] (Dry) Neck: Supple, Trachea Midline. No: Lymphadenopathy Lungs: Clear to Auscultation, Normal Respiratory Effort Cardiovascular: Regular Rate, Regular Rhythm, Systolic Murmur (Grade 3/6 holosystolic). No: Normal S1, Normal S2 (Essentially no S2) GI/Abdominal Exam: Normal Bowel Sounds, Soft, Non-Tender, No Distention (Male) Exam: Deferred Rectal (Males) Exam: Deferred Back Exam: Normal Inspection, Full Range of Motion Extremities: Normal Inspection, No Pedal Edema Skin: Warm, Dry, Intact Neurological: Cranial Nerves Intact Neuro Extensive - Mental Status: Alert, Oriented x3 Psychiatric: Alert, Normal Affect - Patient Data Lab Results Last 24 hrs: Laboratory Results - last 24 hr 12/17/18 12/17/18 12/17/18 Range/Units 19:10 19:10 19:10 WBC 6.81 (4.0-11.0) K/uL RBC 5.02 (4.50-5.90) M/uL Hgb 13.5 (13.0-17.0) g/dL Hct 40.5 (38.0-50.0) % MCV 80.7 (80.0-98.0) fL MCH 26.9 L (27.0-32.0) pg MCHC 33.3 (31.0-37.0) g/dL RDW Std Deviation 56.4 (28.0-62.0) fl RDW Coeff of [place] 19 H (11.0-15.0) % Plt Count 184 (150-400) K/uL MPV 9.50 (7.40-12.00) fL Neut % (Auto) 78.9 (48.0-80.0) % Lymph % (Auto) 12.8 L (16.0-40.0) % [place] % (Auto) 6.8 (0.0-15.0) % Eos % (Auto) 1.2 (0.0-7.0) % Baso % (Auto) 0.3 (0.0-1.5) % Neut # (Auto) 5.4 (1.4-5.7) K/uL Lymph # (Auto) 0.9 (0.6-2.4) K/uL [place] # (Auto) 0.5 (0.0-0.8) K/uL Eos # (Auto) 0.1 (0.0-0.7) K/uL Baso # (Auto) 0.0 (0.0-0.1) K/uL Nucleated RBC % 0.0 /100WBC Nucleated RBCs # 0 K/uL INR 1.08 Sodium 135 L (136-148) mmol/L Potassium 3.9 (3.5-5.1) mmol/L Chloride 100 (98-107) mmol/L Carbon Dioxide 25.8 (21.0-32.0) mmol/L BUN 21 H (7.0-18.0) mg/dL Creatinine 1.4 H (0.8-1.3) mg/dL Est Cr Clr Drug Dosing 60.24 mL/min Estimated GFR (MDRD) 51.0 ml/min Glucose 345 H (74-106) mg/dL Calcium 8.7 (8.5-10.1) mg/dL Total Bilirubin 2.4 H (0.2-1.0) mg/dL AST 23 (15-37) IU/L ALT 26 (14-63) IU/L Alkaline Phosphatase 404 H (46-116) U/L B-Natriuretic Peptide (<100) PG/ML Total Protein 8.0 (6.4-8.2) g/dL Albumin 3.0 L (3.4-5.0) g/dL Globulin 5.0 H (2.6-4.0) g/dL Albumin/Globulin Ratio 0.6 L (0.9-1.6) Amylase 13 L (25-115) U/L Urine Color Urine Appearance Urine pH (5.0-8.0) Ur Specific [place] (1.001-1.035) Urine Protein (NEGATIVE) mg/dL Urine Glucose (UA) (NEGATIVE) mg/dL Urine Ketones (NEGATIVE) mg/dL Urine Occult Blood (NEGATIVE) Urine Nitrite (NEGATIVE) Urine Bilirubin (NEGATIVE) Urine Urobilinogen (<2.0) EU/dL Ur Leukocyte Esterase (NEGATIVE) Urine RBC (0-2/HPF) Urine WBC (0-5/HPF) Ur Epithelial Cells (NONE-FEW) Urine Bacteria (NEGATIVE) Urine Opiates Screen (NEGATIVE) Ur Oxycodone Screen (NEGATIVE) Urine Methadone Screen (NEGATIVE) Ur Barbiturates Screen (NEGATIVE) Ur Phencyclidine Scrn (NEGATIVE) Ur Amphetamine Screen (NEGATIVE) U Methamphetamines Scrn (NEGATIVE) U Benzodiazepines Scrn (NEGATIVE) U Cocaine Metab Screen (NEGATIVE) U Marijuana (THC) Screen (NEGATIVE) Ethyl Alcohol <3 mg/dL 12/17/18 12/18/18 12/18/18 Range/Units 19:10 04:39 04:39 WBC (4.0-11.0) K/uL RBC (4.50-5.90) M/uL Hgb (13.0-17.0) g/dL Hct (38.0-50.0) % MCV (80.0-98.0) fL MCH (27.0-32.0) pg MCHC (31.0-37.0) g/dL RDW Std Deviation (28.0-62.0) fl RDW Coeff of [place] (11.0-15.0) % Plt Count (150-400) K/uL MPV (7.40-12.00) fL Neut % (Auto) (48.0-80.0) % Lymph % (Auto) (16.0-40.0) % [place] % (Auto) (0.0-15.0) % Eos % (Auto) (0.0-7.0) % Baso % (Auto) (0.0-1.5) % Neut # (Auto) (1.4-5.7) K/uL Lymph # (Auto) (0.6-2.4) K/uL [place] # (Auto) (0.0-0.8) K/uL Eos # (Auto) (0.0-0.7) K/uL Baso # (Auto) (0.0-0.1) K/uL Nucleated RBC % /100WBC Nucleated RBCs # K/uL INR Sodium (136-148) mmol/L Potassium (3.5-5.1) mmol/L Chloride (98-107) mmol/L Carbon Dioxide (21.0-32.0) mmol/L BUN (7.0-18.0) mg/dL Creatinine (0.8-1.3) mg/dL Est Cr Clr Drug Dosing mL/min Estimated GFR (MDRD) ml/min Glucose (74-106) mg/dL Calcium (8.5-10.1) mg/dL Total Bilirubin (0.2-1.0) mg/dL AST (15-37) IU/L ALT (14-63) IU/L Alkaline Phosphatase (46-116) U/L B-Natriuretic Peptide 981 H (<100) PG/ML Total Protein (6.4-8.2) g/dL Albumin (3.4-5.0) g/dL Globulin (2.6-4.0) g/dL Albumin/Globulin Ratio (0.9-1.6) Amylase (25-115) U/L Urine Color YELLOW Urine Appearance CLEAR Urine pH 6.0 (5.0-8.0) Ur Specific [place] 1.015 (1.001-1.035) Urine Protein 30 H (NEGATIVE) mg/dL Urine Glucose (UA) 250 H (NEGATIVE) mg/dL Urine Ketones NEGATIVE (NEGATIVE) mg/dL Urine Occult Blood TRACE-INTACT H (NEGATIVE) Urine Nitrite NEGATIVE (NEGATIVE) Urine Bilirubin NEGATIVE (NEGATIVE) Urine Urobilinogen 4.0 H (<2.0) EU/dL Ur Leukocyte Esterase NEGATIVE (NEGATIVE) Urine RBC 0-2 (0-2/HPF) Urine WBC 0-1 (0-5/HPF) Ur Epithelial Cells RARE (NONE-FEW) Urine Bacteria FEW (NEGATIVE) Urine Opiates Screen NEGATIVE (NEGATIVE) Ur Oxycodone Screen NEGATIVE (NEGATIVE) Urine Methadone Screen NEGATIVE (NEGATIVE) Ur Barbiturates Screen NEGATIVE (NEGATIVE) Ur Phencyclidine Scrn NEGATIVE (NEGATIVE) Ur Amphetamine Screen NEGATIVE (NEGATIVE) U Methamphetamines Scrn NEGATIVE (NEGATIVE) U Benzodiazepines Scrn POSITIVE (NEGATIVE) U Cocaine Metab Screen NEGATIVE (NEGATIVE) U Marijuana (THC) Screen NEGATIVE (NEGATIVE) Ethyl Alcohol mg/dL 12/18/18 12/18/18 Range/Units 06:38 06:38 WBC 7.46 (4.0-11.0) K/uL RBC 4.87 (4.50-5.90) M/uL Hgb 12.8 L (13.0-17.0) g/dL Hct 39.7 (38.0-50.0) % MCV 81.5 (80.0-98.0) fL MCH 26.3 L (27.0-32.0) pg MCHC 32.2 (31.0-37.0) g/dL RDW Std Deviation 57.5 (28.0-62.0) fl RDW Coeff of [place] 19 H (11.0-15.0) % Plt Count 172 (150-400) K/uL MPV 9.30 (7.40-12.00) fL Neut % (Auto) 83.4 H (48.0-80.0) % Lymph % (Auto) 9.8 L (16.0-40.0) % [place] % (Auto) 6.4 (0.0-15.0) % Eos % (Auto) 0.3 (0.0-7.0) % Baso % (Auto) 0.1 (0.0-1.5) % Neut # (Auto) 6.2 H (1.4-5.7) K/uL Lymph # (Auto) 0.7 (0.6-2.4) K/uL [place] # (Auto) 0.5 (0.0-0.8) K/uL Eos # (Auto) 0.0 (0.0-0.7) K/uL Baso # (Auto) 0.0 (0.0-0.1) K/uL Nucleated RBC % 0.0 /100WBC Nucleated RBCs # 0 K/uL INR Sodium 138 (136-148) mmol/L Potassium 4.3 (3.5-5.1) mmol/L Chloride 103 (98-107) mmol/L Carbon Dioxide 26.2 (21.0-32.0) mmol/L BUN 20 H (7.0-18.0) mg/dL Creatinine 1.2 (0.8-1.3) mg/dL Est Cr Clr Drug Dosing 70.28 mL/min Estimated GFR (MDRD) > 60.0 ml/min Glucose 250 H (74-106) mg/dL Calcium 8.8 (8.5-10.1) mg/dL Total Bilirubin (0.2-1.0) mg/dL AST (15-37) IU/L ALT (14-63) IU/L Alkaline Phosphatase (46-116) U/L B-Natriuretic Peptide (<100) PG/ML Total Protein (6.4-8.2) g/dL Albumin (3.4-5.0) g/dL Globulin (2.6-4.0) g/dL Albumin/Globulin Ratio (0.9-1.6) Amylase (25-115) U/L Urine Color Urine Appearance Urine pH (5.0-8.0) Ur Specific [place] (1.001-1.035) Urine Protein (NEGATIVE) mg/dL Urine Glucose (UA) (NEGATIVE) mg/dL Urine Ketones (NEGATIVE) mg/dL Urine Occult Blood (NEGATIVE) Urine Nitrite (NEGATIVE) Urine Bilirubin (NEGATIVE) Urine Urobilinogen (<2.0) EU/dL Ur Leukocyte Esterase (NEGATIVE) Urine RBC (0-2/HPF) Urine WBC (0-5/HPF) Ur Epithelial Cells (NONE-FEW) Urine Bacteria (NEGATIVE) Urine Opiates Screen (NEGATIVE) Ur Oxycodone Screen (NEGATIVE) Urine Methadone Screen (NEGATIVE) Ur Barbiturates Screen (NEGATIVE) Ur Phencyclidine Scrn (NEGATIVE) Ur Amphetamine Screen (NEGATIVE) U Methamphetamines Scrn (NEGATIVE) U Benzodiazepines Scrn (NEGATIVE) U Cocaine Metab Screen (NEGATIVE) U Marijuana (THC) Screen (NEGATIVE) Ethyl Alcohol mg/dL Result Diagrams: 12/18/18 06:38 12/18/18 06:38 - Problem List (1) Congestive heart failure with reduced left ventricular function, NYHA class 3 SNOMED Code(s): 710160986, 131071982, [id number] ICD Code: I50.20 - UNSPECIFIED SYSTOLIC (CONGESTIVE) HEART FAILURE Status: Chronic Priority: High Current Visit: Yes (2) Occasional tremors SNOMED Code(s): 09606861 ICD Code: R25.1 - TREMOR, UNSPECIFIED Status: Chronic Priority: High Current Visit: Yes (3) Cardiac defibrillator in place Status: Chronic Priority: Medium Current Visit: Yes (4) DM type 2 (diabetes mellitus, type 2) SNOMED Code(s): 02342294 ICD Code: E11.9 - TYPE 2 DIABETES MELLITUS WITHOUT COMPLICATIONS Status: Chronic Priority: High Current Visit: Yes Qualifiers: Diabetes mellitus mcfp insulin use: with mcfp use Diabetes mellitus complication status: with unspecified complications Qualified Code(s) : E11.8 - Type 2 diabetes mellitus with unspecified complications; Z79.4 - long term care administrator (current) use of insulin; Z79.4 - skilled nursing (current) use of insulin; Z79.4 - long term care administrator (current) use of insulin; Z79.4 - skilled nursing (current) use of insulin Problem List Initiated/Reviewed/Updated: Yes Orders Last 24hrs: Active Orders 24 hr Category Date Time Status Patient Status [ADT] Stat ADT 12/17/18 20:52 Active Cardiac Monitoring [RC] Q8H Care 12/17/18 18:58 Active EKG Documentation Completion [RC] STAT Care 12/17/18 18:58 Active Oxygen Therapy, ED [RC] ASDIRECTED Care 12/17/18 18:58 Active Pulse Oximetry [RC] ASDIRECTED Care 12/17/18 18:58 Active Telemetry Monitoring [Cardiac Monitoring] [RC] . Care 12/17/18 23:06 Active DIRECTED Regular Diet [DIET] Diet 12/17/18 Dinner Active Acetaminophen [Tylenol] Med 12/17/18 23:08 Active 650 mg PO Q4H PRN Furosemide [Lasix] Med 12/18/18 09:00 Active 20 mg IVPUSH DAILY LORazepam [Ativan] Med 12/17/18 23:11 Active 1 mg IVPUSH Q8H PRN Sodium Chloride 0.9% [Saline Flush] Med 12/17/18 18:59 Active 10 ml FLUSH ASDIRECTED PRN Sodium Chloride 0.9% [Saline Flush] Med 12/17/18 23:06 Active 10 ml FLUSH ASDIRECTED PRN Sodium Chloride 0.9% [Saline Flush] Med 12/17/18 18:59 Active 2.5 ml FLUSH ASDIRECTED PRN Sodium Chloride 0.9% [Saline Flush] Med 12/17/18 23:06 Active 2.5 ml FLUSH ASDIRECTED PRN oxyCODONE Med 12/17/18 23:09 Active 5 mg PO Q4H PRN Convert IV to Saline Lock [OM.PC] Routine Oth 12/17/18 23:06 Ordered Saline Lock Insert [OM.PC] Stat Oth 12/17/18 18:58 Ordered Medication Orders Acetaminophen (Tylenol) 650 mg PO Q4H PRN PRN Reason: Pain Furosemide (Lasix) 20 mg IVPUSH DAILY LUIZA Lorazepam (Ativan) 1 mg IVPUSH Q8H PRN PRN Reason: Anxiety Oxycodone HCl (Oxycodone) 5 mg PO Q4H PRN PRN Reason: Pain Sodium Chloride (Saline Flush) 10 ml FLUSH ASDIRECTED PRN PRN Reason: Keep Vein Open Last Admin: 12/17/18 19:23 Dose: 10 ml Sodium Chloride (Saline Flush) 2.5 ml FLUSH ASDIRECTED PRN PRN Reason: Keep Vein Open Last Admin: 12/17/18 19:23 Dose: 2.5 ml Sodium Chloride (Saline Flush) 10 ml FLUSH ASDIRECTED PRN PRN Reason: Keep Vein Open Sodium Chloride (Saline Flush) 2.5 ml FLUSH ASDIRECTED PRN PRN Reason: Keep Vein Open Assessment/Plan Comment:: The patient is a 63-year-old gentleman who has a number of chronic medical problems and he had presented primarily to the emergency department out of concern for his tremors. [facility] and he says that he has been out of these. I suspect that his complaint is likely secondary to benzodiazepine withdrawal. He has been doing better now that he has been given Ativan. The patient also had a 2-D echocardiogram done during his last hospitalization which was a technically difficult study however, he did show that the patient had markedly reduced LV function. This will be compatible with the fact that the patient does have a AICD in place. The patient is also diabetic and his diet was changed to an appropriate ADA diet. He 'll also have Accu-Cheks before meals and at bedtime. I suspect that the patient should be appropriate for discharge later today with a prescription for Ativan. He is to follow-up with his primary care physician. The patient did have an uneventful course during his short stay and hospitalization.
[2018-12-18] MEDS ORDERED: Docusate Sodium 100 MG Cap PO PRN (08:13)
[2018-12-18] MEDS ORDERED: Furosemide 20 MG/2 ML VIAL IVPUSH SCH (09:00)
[2018-12-18] MEDS: Insulin Aspart 100 Units/ML 3 ML Pen SUBCUT SCH ×2 (09:25→12:42)
[2018-12-18] MEDS ORDERED: Insulin Aspart 100 Units/ML 3 ML Pen SUBCUT SCH (11:30)
[2018-12-18] MEDS ORDERED: Acetaminophen/HYDROcodone 325-5 MG Tab PO PRN (15:44)
[2018-12-18] MEDS ORDERED: LORazepam 1 MG Tab PO PRN (15:44)
[2018-12-18] MEDS ORDERED: Meloxicam 7.5 MG Tab PO PRN (15:44)
[2018-12-18] MEDS ORDERED: Budesonide/Formoterol 160-4.5 MCG/Puff 6 GM Inhaler INH PRN (15:44)
[2018-12-18 16:48] VITALS: BP 133/85
[2018-12-18] MEDS ORDERED: Albuterol 0.083% 2.5 MG/3 ML Neb Soln NEB SCH (18:00)
[2018-12-18] MEDS ORDERED: Carvedilol 6.25 MG Tab PO SCH (21:00)
[2018-12-18] MEDS ORDERED: Ticagrelor [Brilinta] 90 MG PO SCH (21:00)
[2018-12-18] MEDS ORDERED: Amitriptyline 25 MG Tab PO SCH (21:00)
[2018-12-18] MEDS ORDERED: atorvaSTATin 40 MG Tab PO SCH (21:00)
[2018-12-18] MEDS ORDERED: Tamsulosin 0.4 MG Cap.ER PO SCH (21:00)
[2018-12-19] MEDS ORDERED: Furosemide 40 MG Tab PO SCH (08:00)
[2018-12-19] MEDS ORDERED: Lisinopril 5 MG Tab PO SCH (09:00)
[2018-12-19] MEDS ORDERED: Aspirin 81 MG Tab.EC PO SCH (09:00)
[2018-12-19] MEDS ORDERED: Metolazone 5 MG Tab PO SCH (15:44)
== END 2018-12-18 18:42 | disposition home or self-care (01) ==
LOC: MW.ED 18:48 → MW.MS 21:11
PROVIDERS: ADMIT Internal Medicine; ATTEND Internal Medicine
DX: R25.1 Tremor, unspecified (principal); I11.0 Hypertensive heart disease with heart failure; I50.22 Chronic systolic (congestive) heart failure; E11.9 Type 2 diabetes mellitus without complications; J44.9 Chronic obstructive pulmonary disease, unspecified; N40.0 Benign prostatic hyperplasia without lower urinary tract symptoms; Z99.89 Dependence on other enabling machines and devices; Z95.810 Presence of automatic (implantable) cardiac defibrillator; Z95.5 Presence of coronary angioplasty implant and graft; Z87.891 Personal history of nicotine dependence; Z79.82 Long term (current) use of aspirin; Z79.4 Long term (current) use of insulin; Z79.899 Other long term (current) drug therapy
CPT/HCPCS: 36415; 71045; 80048; 80053; 80305; 81001; 82150; 82962; 83880; 85025; 85610; 93005; 96361; 96374; 96375; 96376; 99284; A9270; G0480; J1815; J1940; J2060; J7040; G0378